=== PATIENT | female | born 1980 | race Caucasian/White ===

== ENCOUNTER 2024-05-14 16:19 | Emergency (ER) | payer OTHER, SELFPAY ==
--- NOTE | ~2024-05-14 | XR_ITS ---
EXAMINATION: XR HAND, RIGHT CLINICAL INFORMATION: Hit hand on wall. COMPARISON: None available. TECHNIQUE: PA, lateral, and oblique views of the right hand. FINDINGS: No fracture. Alignment is anatomic. Joint spaces are maintained. No erosions or soft tissue calcifications. XR/XR hand RT min 3V IMPRESSION: No fracture or dislocation.
[2024-05-14 16:22] VITALS: BP 150/84; PULSE 86; RESP 18; TEMP 36.6; O2SAT 95; BMI 45.3
--- NOTE | 2024-05-14 16:27 | ED.EXTPRO ---
HPI - Extremity Problem General Chief complaint: Extremity Injury, Upper Stated complaint: Hand swelling Time Seen by Provider: 05/14/24 17:04 Source: patient Mode of arrival: ambulatory Limitations: no limitations History of Present Illness ED Provider: Sadia JENSEN Narrative: patient is a 42 old presents emergency department for evaluation traumatic right hand. She reports that she was moving and she accidentally bumped her hand into the wall while she was carrying a heavy box. She developed swelling and bruising over the dorsum of her right hand. She is right-hand dominant. She went to work today at [employer] and was advised to come to the emergency department for evaluation into sure there was nothing broken. She has full range of motion to the wrist and fingers. Denies numbness or tingling. Related Data Allergies Allergy/AdvReac Type Severity Reaction Status Date / Time risperidone [From RISPERDAL] Allergy Unknown VIOLENT Verified 05/14/24 16:24 topiramate [Topiramate] AdvReac Unknown VIOLENT Verified 05/14/24 16:24 Review of Systems Review of Systems: Yes all other systems are reviewed and are negative PENDING SALE TO [facility] Past Medical History Attestation statement: The following information was validated with the patient. Source: old records reviewed Physical Exam Vital Signs: Vital Signs: Last Vital Signs Temp 98 F 05/14/24 16:22 Pulse 86 05/14/24 16:22 Resp 18 05/14/24 16:22 BP 150/84 H 05/14/24 16:22 Pulse Ox 95 05/14/24 16:22 O2 Del Method Room Air 05/14/24 16:22 BMI result Body Mass Index 45.3 Appearance: Alert.?Oriented to person, place and time. No acute distress.?Normal affect. CVS: Heart sounds normal. Normal heart rate and rhythm.? Pulses normal.?? Respiratory: No respiratory distress.? Lung sounds clear to auscultation bilaterally?? Abdomen: Soft and non-tender. Normoactive bowel sounds. Skin: Skin warm and dry.? Normal skin color.? Extremities: Dorsum of right hand with ecchymosis swelling. Full range of motion to the wrist and digits. Neuro: Moves all extremities spontaneously. Sensation intact bilaterally. Ambulates with normal steady gait. Course Course Course Narrative: RME performed by Kay Lane PA-C. Patient is a 43 year old assigned female at presenting to the emergency department with right hand pain after bumping it into a wall. Detailed physical exam and review of systems are deferred to the solar applications development engineer. Imaging ordered. Patient placed back in the waiting room pending room availability and results. Medical Decision Making Medical Decision Making [facility] Narrative: Patient is a 43-year-old female who presents to the emergency department for evaluation of traumatic right hand pain as per HPI. She is right-hand dominant. Has full range of motion present. She does have localized swelling ecchymosis over the dorsum of the hand. No open lesions or active bleeding. XR was obtained and is without evidence of acute fracture dislocation. Symptoms at this time consistent with contusion of the hand. Discussed conservative treatment in addition to acetaminophen / ibuprofen and instructed for outpatient follow-up with primary care provider. Tom bandage was provided and instructed on appropriate usage. Stable for discharge Differential Diagnosis Differential Diagnoses: The differential diagnosis associated with the presentation includes ( see narrative above) Independent Interpretation I performed an independent interpretation of an: Plain X-Ray ( see narrative above) Radiology Impression Discussion of test interpretation with radiology: I have reviewed the radiologist's reading. Radiologist Impression: XR/XR hand RT min 3V IMPRESSION: No fracture or dislocation. External Record Review External record reviewed: Outpatient record Prescription Management I considered prescription management with: Pain Medication Discharge Plan Discharge Clinical Impression: Contusion of hand, right Qualifiers: Encounter type: initial encounter Qualified Code(s): S60.221A - Contusion of right hand, initial encounter Patient Disposition: Home, Self-Care Instructions: How to Use an Elastic Bandage (ED), Contusion in Adults (ED), R.I.C.E. Treatment (ED) Additional Instructions: You can take ibuprofen 200 mg, 3 tablets (600mg) every 6-8 hours as needed for pain, in addition to Tylenol 500 mg, 2 tablets (1,000mg) every 4-6 hours as needed for pain, but not to exceed 3 doses daily (3,000mg).? Referrals: Virgilio Mack MD [Primary Care Provider] - Print Language: Bahamian
[2024-05-14 17:18] VITALS: BP 151/90; PULSE 85; RESP 18; TEMP 36.9; O2SAT 95
--- OUTSIDE RECORDS SUMMARY | 2024-05-14 17:31 | XMS_ITS | Continuity of Care Document ---
Author Organization [facility] Address [address] [place] [address]- Care Team Providers Care Search Director Name Role Phone Frederick CONTRERAS, Virgilio Alexander Primary Care Physician Encounter [facility] Date(s): 12/02/22 - 01/01/23 [facility] [address] [place] [address]- Attending Physician: Nancy Sotelo Admitting Physician: AdmtrNancy Referring Physician: Admtr, Ar8 Allergies, Adverse Reactions, Alerts Substance Reaction Severity Status topiramate Aggressive behavior Active shellfish Anaphylactic reaction to food Active Risperdal 1, 2 Difficulty controlli ng aggression Weight gain Seizures, eye sight Active Other Food Allergy 3 Active Topamax Anger Aggressive behavior psyche Active Geodon Active 1Slept alot 2gained 20 pounds in a month per partner 3patient allergic to clams Immunizations Given and Recorded Vaccine Date Status Refusal Reason pneumococcal 20-valent conjugate vaccine 1 12/24/22 Given influenza virus vaccine, inactivated 2 09/12/22 Gi corrina influenza virus vaccine, inactivated 08/30/21 Give n influenza virus vaccine, inactivated 10/09/20 Give n influenza virus vaccine, inactivated 3 09/15/19 Gi corrina influenza virus vaccine, inactivated 12/02/18 Give n influenza virus vaccine, inactivated 4 08/04/17 Gi corrina SARS-CoV-2 (COVID-19) mRNA BNT-162b2 vac 12/08/21 Recorded SARS-CoV-2 (COVID-19) mRNA BNT-162b2 vac 03/11/21 Recorded SARS-CoV-2 (COVID-19) mRNA BNT-162b2 vac 02/17/21 Recorded tetanus/diphtheria/pertussis, acel(Tdap) 03/13/17 Recorded tetanus-diphtheria toxoids (Td) 08/07/13 Recorded Tetanus Toxoid Vaccine (oldterm) 11/17/01 Given Pneumococcal Vaccine (oldterm) 11/17/01 Given 1Result Comment: [id number] 2Result Comment: [id number] 3Result Comment: [facility]-[id number] 4Result Comment: [08/04/2017] QUAD [id number] [facility] [id number] Medications acarbose 25 mg oral tablet 1 tablet = 25 mg, By Mouth, 3 times a day, # 90 tablet, 11 Refills, Maintenance, 07/31/22 14:13:00 EDT, [facility] #[id number], Partial fill upon patient request if the prescription is for a schedule II opioid drug., 165, cm, 07/31/22 13:42:00 ED... Start Date: 07/31/22 Status: Ordered Ambien 10 mg oral tablet 1 tablet = 10 mg, By Mouth, Daily at bedtime, PRN as needed for insomnia, 0 Refills, Maintenance, 12/02/18 14:26:49 EST, Tablet Start Date: 12/02/18 Status: Ordered Flonase 50 mcg/inh nasal spray 2 sprays, Nares, Both, Daily, # 16 Gm, 2 Refills, Maintenance, 12/02/22 9:32:00 EST, Price, [facility] #[id number], Partial fill upon patient request if the prescription is for a schedule II opioid drug., 2 sprays Nares, Both Daily, 165, cm, 11/17... Start Date: 12/02/22 Status: Ordered fluticasone-salmeterol 500 mcg-50 mcg inhalation powder 1, puffs, Inhalation, Every 12 hours, rinse mouth and throat after use, # 180 each, Refills 11, Tot. Refills 11, Maintenance, 11/20/21 10:58:00 EST, Powder, Route to Pharmacy Electronically, [id number], [facility] #[id number], 165, cm, ... Start Date: 11/20/21 Status: Ordered Imodium A-D 2 mg oral tablet 2 mg, 1, tablet, By Mouth, Daily, # 30 tablet, Refills 5, Tot. Refills 5, Soft Stop, 09/13/22 7:01:00 EDT, Route to Pharmacy Electronically, [facility] #[id number], Partial fill upon patient request if the prescription is for a schedule II opioid... Start Date: 09/13/22 Stop Date: 03/12/23 Status: Ordered Latuda 120 mg oral tablet 1 tablet = 120 mg, By Mouth, Daily at bedtime, # 30 tablet, 0 Refills, Maintenance, 02/27/21 6:58:00 EDT, Tablet, Partial fill upon patient request if the prescription is for a schedule II opioid drug. Start Date: 02/27/21 Status: Ordered lisinopril 10 mg oral tablet 1, tablet, By Mouth, Daily, for 90 days, # 90 tablet, Refills 3, Tot. Refills 3, Physician Stop 09/08/23 7:03:00 EDT, 09/13/22 7:03:00 EDT, Route to Pharmacy Electronically, [facility] #[id number], 165, cm, 09/12/22 11:26:00 EDT, Height, 142.7, k... Start Date: 09/13/22 Stop Date: 09/08/23 Status: Ordered loperamide 2 mg oral tablet 1 tablet = 2 mg, By Mouth, Daily, # 30 tablet, 11 Refills, Maintenance, 09/13/22 7:01:00 EDT, Tablet, [facility] #[id number], Partial fill upon patient request if the prescription is for a schedule II opioid drug., 165, cm, 09/12/22 11:26:00 EDT,... Start Date: 09/13/22 Stop Date: 09/08/23 Status: Ordered omeprazole 20 mg oral enteric coated capsule 1 capsule, By Mouth, 2 times a day, # 60 capsule, 5 Refills, 02/18/22 10:27:00 EDT, [facility] #[id number], 165, cm, 02/11/22 9:38:00 EDT, Height, 142.7, kg, 09/06/21 16:04:00 EDT, Dry Weight Start Date: 02/18/22 Status: Ordered SUMAtriptan 100 mg oral tablet 1 tablet = 100 mg, By Mouth, Daily, PRN for migraine headache, may repeat dose after 2 hours up to a maximum of 2, # 9 tablet, 5 Refills, Acute 06/24/23 5:18:00 EDT, 12/25/22 5:18:00 EST, Tablet, [facility] #[id number], Partial fill upon patient... Start Date: 12/25/22 Stop Date: 06/24/23 Status: Ordered Ventolin HFA 108 mcg/inh inhalation aerosol with adapter 2 puffs, Inhalation, Every 6 hours, # 18 Gm, 5 Refills, Maintenance, 12/12/22 13:09:00 EST, [facility] #[id number], 165, cm, 12/02/22 9:06:00 EST, Height, 142.7, kg, 09/06/21 16:04:00 EDT, Dry Weight Start Date: 12/12/22 Status: Ordered Problem List Condition Confirmation Course Effective Dates Status H ealth Status Informant Allergic rhinitis Confirmed Active Asthma Confirmed Active ADHD (attention deficit hyperactivity disorder) Confirmed Active Costochondritis Confirmed Active Depression;BILPOLAR 1, 2 Confirmed Active Epilepsy 3 Confirmed Active Abdominal cramping Confirmed Active GERD (gastroesophageal reflux disease) Confirmed Active Hypertension Confirmed Active Hypoglycemia Confirmed Active Fecal incontinence Confirmed Active Migraine Confirmed Active Morbidly obese Confirmed Active Nephrolithiasis 4 Confirmed Active DAISY (obstructive sleep apnea) Confirmed Active Plantar fasciitis, bilateral Confirmed Active Rectal bleeding Confirmed Active Severe obesity Confirmed Active Hepatic steatosis Confirmed Active Substance abuse 5, 6 Confirmed Active Tobacco use disorder Confirmed Active Umbilical hernia Confirmed Active 1new psychiatrist 2DR FOOTIT PYSCHE 3neurology pending 4followed by urology 5under psychiatric care 6crack,heroin, cocaine, not intravenous Social History Social History Type Response Smoking Status 5-9 cigarettes (betw een 1/4 to 1/2 pack)/day in last 30 days entered on: 09/06/21 Sex Female Patient Care team information Care Team Personnel Name: Linda Awan RN Position: [facility] RN Member Role: Primary Care Nurse Name: Brionna Pathak RN Position: S RN Member Role: Primary Care Nurse Name: Virgilio Mack MD Position: [facility] Primary Care Physician Member Role: PCP Address: Address: [address] [facility] [place] [address]- [place] Care Team Related Persons Name: KELLY YANG Address: home [address] [place] [address] Name: ANNE-MARIE YANG Address: [place] [address] Name: GRAHAM YANG Address: home [address] [place] [address] Name: DULCE YANG Address: home [address] [facility] [address] [place] [address] Name: DULCE SHEPHERD Address: home [address] [place] [address]
--- OUTSIDE RECORDS SUMMARY | 2024-05-14 17:31 | XMS_ITS | Continuity of Care Document ---
Author Organization [facility] Address [address] [place] [address]- Care Team Providers Care Reheater Helper Name Role Phone Virgilio Mack MD Primary Care Physician [phone] Encounter [facility] Date(s): 06/06/20 - 06/13/20 [facility] [address] [place] [address]- [facility] Attending Physician: Virgilio Mack MD Allergies, Adverse Reactions, Alerts Substance Reaction Severity Status shellfish Active Risperdal 1, 2 Weight gain Seizures, eye sight Active Topamax Anger Aggressive behavior psyche Active Geodon Active Other Food Allergy 3 Active 1Slept alot 2gained 20 pounds in a month per partner 3patient allergic to clams Immunizations Given and Recorded Vaccine Date Status Refusal Reason influenza virus vaccine, inactivated 1 09/15/19 Gi corrina influenza virus vaccine, inactivated 12/02/18 Give n influenza virus vaccine, inactivated 2 08/04/17 Gi corrina tetanus/diphtheria/pertussis, acel(Tdap) 03/13/17 Recorded Tetanus Toxoid Vaccine (oldterm) 11/17/01 Given Pneumococcal Vaccine (oldterm) 11/17/01 Given 1Result Comment: [facility]-[id number] 2Result Comment: [08/04/2017] QUAD [id number] [facility] [id number] Medications acetaminophen 325 mg oral tablet 650 mg, 2, tablet, By Mouth, Every 6 hours, PRN, # 50 tablet, Refills 0, Tot. Refills 0, Maintenance, as needed for pain, 09/12/19 18:57:55 EDT, Print Requisition Start Date: 09/12/19 Status: Ordered albuterol CFC free 90 mcg/inh inhalation aerosol 2, puffs, Inhalation, Every 6 hours, # 8.5 Gm, Refills 2, Tot. Refills 2, Maintenance, 05/05/20 13:06:00 EDT, Route to Pharmacy Electronically, [facility] [id number], [facility] #[id number], 165, cm,01/19/20 14:17:00 EST, Height Start Date: 05/05/20 Status: Ordered Alcohol Pads See Instructions, # 200 each, Refills 3, Tot. Refills 5, Maintenance, Use as directed to test bloodsugar 2-3 times daily, 07/27/18 9:11:05 EDT, Compound Start Date: 07/27/18 Status: Ordered Ambien 10 mg oral tablet 1 tablet = 10 mg, By Mouth, Daily at bedtime, PRN as needed for insomnia, 0 Refills, Maintenance, 12/02/18 14:26:49 EST, Tablet Start Date: 12/02/18 Status: Ordered Ativan 1 mg oral tablet 1 tablet = 1 mg, By Mouth, 0 Refills, Maintenance, 12/02/18 14:28:09 EST Start Date: 12/02/18 Status: Ordered Claritin 10 mg oral tablet 10 mg, 1, tablet, By Mouth, Daily, # 30 tablet, Refills 0, Tot. Refills 0, Maintenance, 01/19/20 14:42:00 EST, Route to Pharmacy Electronically, [facility] #[id number], 165, cm, 01/19/20 14:17:00 EST, Height Start Date: 01/19/20 Status: Ordered Flovent HFA 110 mcg/inh inhalation aerosol 2 puffs, Inhalation, 2 times a day, rinse mouth and throat after use, # 12 Gm, 0 Refills, Maintenance, 11/30/19 8:41:00 EST, Aerosol, [facility], 165, cm, 11/30/19 8:25:00 EST, Height Start Date: 11/30/19 Status: Ordered Freestyle Lite Lancets See Instructions, # 300 each, Refills 0, Tot. Refills 0, Maintenance, Use as directed to test bloodglucose levels when symptomatic for hypoglycemia or hyperglycemia, 2-3x/day as needed, dx E16.2, 07/20/19 15:53:00 EDT, Compound Start Date: 07/20/19 Status: Ordered Freestyle Lite Test Strips See Instructions, # 300 each, Refills 0, Tot. Refills 0, Maintenance, Use as directed to test bloodglucose levels when symptomatic for hypoglycemia or hyperglycemia, 2-3x/day as needed, dx E16.2, 07/20/19 15:52:58 EDT, Compound Start Date: 07/20/19 Status: Ordered Freestyle Lite Test Strips See Instructions, # 100 each, Refills 11, Tot. Refills 11, Maintenance, Test BS twice daily for T2DM, 03/16/20 9:07:00 EDT, Compound, 165, cm, 01/19/20 14:17:00 EST, Height Start Date: 03/16/20 Status: Ordered Glucagon Emergency Kit for Low Blood Sugar 1 mg injection See Instructions, Administer as directed for severe hypoglycemia, # 1 kit, 0 Refills, Maintenance, 07/20/19 15:53:03 EDT Start Date: 07/20/19 Status: Ordered Latuda 80 mg oral tablet 1 tablet = 80 mg, By Mouth, Daily, with food, # 30 tablet, 0 Refills, Maintenance, 10/21/17 17:18:17, Tablet Start Date: 10/21/17 Status: Ordered naratriptan 2.5 mg oral tablet 1 tablet = 2.5 mg, By Mouth, Daily, PRN for migraine headache, may repeat once in 4 hours if needed, # 9 tablet, 4 Refills, Soft Stop, 06/29/19 15:51:05 EDT, Tablet, side effects with sumatriptan, and if this is declined ask insurance which they will... Start Date: 06/29/19 Stop Date: 11/26/19 Status: Ordered omeprazole 20 mg oral delayed release tablet 1 tablet = 20 mg, By Mouth, 2 times a day, # 30 tablet, 1 Refills, Maintenance, 09/15/19 10:49:06 EDT, EC Tablet Start Date: 09/15/19 Status: Ordered pregabalin 25 mg oral capsule 1 capsule = 25 mg, By Mouth, 2 times a day, # 60 capsule, 2 Refills, Maintenance, 06/06/20 9:20:00 EDT, Capsule, [facility] #[id number], 165, cm, 06/06/20 8:52:00 EDT, Height Start Date: 06/06/20 Status: Ordered Splint See Instructions, # 1 units, Maintenance, Splint to right foot overnight (AFO to keep foot in dorsiflexion), 04/27/18 15:03:13 EDT, Compound Start Date: 04/27/18 Status: Ordered Problem List Condition Effective Dates Status Health Status Inform ant ADHD (attention deficit hype ractivity disorder)(Confirmed) Active Costochondritis(Confirmed) Active Depression;BILPOLAR(Confirmed) 1, 2 Active Epigastric pain(Confirmed) Active Epilepsy(Confirmed) 3 Active GERD (gastroesophageal reflu x disease)(Confirmed) Active Hypoglycemia(Confirmed) Active Migraine(Confirmed) Active Nephrolithiasis(Confirmed) 4 Active DAISY (obstructive sleep apnea)(Confirmed) Active Plantar fasciitis, bilateral(Confirmed) Active Right shoulder pain(Confirmed) Active Substance abuse(Confirmed) 5, 6 Active Umbilical hernia(Confirmed) Active 1new psychiatrist 2DR FOOTIT PYSCHE 3neurology pending 4followed by urology 5under psychiatric care 6crack,heroin, cocaine, not intravenous Vital Signs Most recent to oldest [Reference Range]: 1 Height 165 cm (06/06/20 8:52 AM) Social History Social History Type Response Smoking Status Former smoker; Type: Cigarettes; Tobacco use times per day: 1 ppd; Number of years: 22; Total pack years: 22; entered on: 10/21/17 Sex
--- OUTSIDE RECORDS SUMMARY | 2024-05-14 17:31 | XMS_ITS | Continuity of Care Document ---
Author Organization [facility] ter Address [address] [place] [id number]- Care Team Providers Care History Instructor Name Role Phone Frederick CONTRERAS, Virgilio Alexander Primary Care Physician [place] [facility] [place] - 05/22/[address] [address] Discharge Disposition: A-D/C Home Attending Physician: Roberta Perry MD Admitting Physician: Roberta Perry MD Referring Physician: Roberta Perry MD Allergies, Adverse Reactions, Alerts Substance Reaction Severity Status topiramate Aggressive behavior Active shellfish Anaphylactic reaction to food Active Risperdal 1, 2 Difficulty controlli ng aggression Weight gain Seizures, eye sight Active Topamax Anger Aggressive behavior psyche Active Geodon Active Other Food Allergy 3 Active 1Slept alot 2gained 20 pounds in a month per partner 3patient allergic to clams Immunizations Given and Recorded Vaccine Date Status Refusal Reason influenza virus vaccine, inactivated 10/09/20 Give n influenza virus vaccine, inactivated 1 09/15/19 Gi corrina influenza virus vaccine, inactivated 12/02/18 Give n influenza virus vaccine, inactivated 2 08/04/17 Gi corrina tetanus/diphtheria/pertussis, acel(Tdap) 03/13/17 Recorded Tetanus Toxoid Vaccine (oldterm) 11/17/01 Given Pneumococcal Vaccine (oldterm) 11/17/01 Given 1Result Comment: [facility]-[id number] 2Result Comment: [08/04/2017] QUAD [id number] [facility] [id number] Medications acetaminophen-oxyCODONE 325 mg-5 mg oral tablet 1, tablet, By Mouth, Every 6 hours, PRN, not to exceed 4000 mg acetaminophen per day for 7 days, # 28 tablet, Refills 0, Tot. Refills 0, Acute, for pain, 05/29/21 7:16:00 EDT, 05/22/21 7:16:00 EDT, Route to Pharmacy Electronically, [facility]... Start Date: 05/22/21 Stop Date: 05/29/21 Status: Ordered albuterol CFC free 90 mcg/inh inhalation aerosol 2, puffs, Inhalation, Every 6 hours, # 3 each, Refills 3, Tot. Refills 3, Maintenance, 02/27/21 7:09:00 EDT, [facility] to [facility]ically, [id number] #[id number], 165, cm, 02/27/21 6:55:00 EDT, Height Start Date: 02/27/21 Status: Ordered Alcohol Pads See Instructions, # 200 each, Refills 3, Tot. Refills 3, Maintenance, Use as directed to test bloodsugar 2-3 times daily, 02/27/21 7:11:00 EDT, Compound, 165, cm, 02/27/21 6:55:00 EDT, Height Start Date: 02/27/21 Status: Ordered Alcohol Pads See Instructions, # 1 box, Refills 3, Tot. Refills 3, Maintenance, use as directed to test blood sugar 3 times a day, 02/25/19 11:41:22 EDT, Compound Start Date: 02/25/19 Status: Ordered Ambien 10 mg oral tablet 1 tablet = 10 mg, By Mouth, Daily at bedtime, PRN as needed for insomnia, 0 Refills, Maintenance, 12/02/18 14:26:49 EST, Tablet Start Date: 12/02/18 Status: Ordered cyclobenzaprine 10 mg oral tablet 10 mg, 1, tablet, By Mouth, 3 times a day, PRN, # 30 tablet, Refills 0, Tot. Refills 0, Acute 05/26/21 14:34:00 EDT, for spasm, 05/16/21 14:34:00 EDT, Route to Pharmacy Electronically, [facility] #[id number], Partial fill upon patient request if... Start Date: 05/16/21 Stop Date: 05/26/21 Status: Ordered Flovent HFA 110 mcg/inh inhalation aerosol 2 puffs, Inhalation, 2 times a day, # 12 Gm, 0 Refills, Maintenance, 05/16/21 8:30:00 EDT, Aerosol,Partial fill upon patient request if the prescription is for a schedule II opioid drug. Start Date: 05/16/21 Status: Ordered Freestyle Lite Lancets See Instructions, # 300 each, Refills 2, Tot. Refills 2, Maintenance, Use as directed to test bloodglucose levels when symptomatic for hypoglycemia or hyperglycemia, 2-3x/day as needed, dx E16.2, 02/27/21 7:10:00 EDT, Compound, 165, cm, 02/27/21 6:55... Start Date: 02/27/21 Status: Ordered Freestyle Lite Lancets See Instructions, # 1 box, Refills 3, Tot. Refills 3, Maintenance, use as directed to test blood sugar 3 times a day, 02/25/19 11:40:24 EDT, Compound Start Date: 02/25/19 Status: Ordered Freestyle Lite Test Strips See Instructions, # 300 each, Refills 0, Tot. Refills 0, Maintenance, Use as directed to test bloodglucose levels when symptomatic for hypoglycemia or hyperglycemia, 2-3x/day as needed, dx E16.2, 07/20/19 15:52:58 EDT, Compound Start Date: 07/20/19 Status: Ordered Freestyle Lite Test Strips See Instructions, # 2 box, Refills 3, Tot. Refills 3, Maintenance, use as directed to test blood sugar 3 times a day, 02/25/19 11:41:00 EDT, Compound Start Date: 02/25/19 Status: Ordered Freestyle Lite Test Strips See Instructions, # 100 each, Refills 11, Tot. Refills 11, Maintenance, Test BS twice daily for T2DM, 03/27/21 16:34:00 EDT, Compound, 163, cm, 03/27/21 16:11:00 EDT, Height, 140.9, kg, 03/04/21 7:50:00 EDT, Dry Weight Start Date: 03/27/21 Status: Ordered Glucagon Emergency Kit for Low Blood Sugar 1 mg injection See Instructions, Administer as directed for severe hypoglycemia, # 1 kit, 0 Refills, Maintenance, 07/20/19 15:53:03 EDT Start Date: 07/20/19 Status: Ordered Latuda 120 mg oral tablet 1 tablet = 120 mg, By Mouth, Daily at bedtime, # 30 tablet, 0 Refills, Maintenance, 02/27/21 6:58:00 EDT, Tablet, Partial fill upon patient request if the prescription is for a schedule II opioid drug. Start Date: 02/27/21 Status: Ordered naproxen sodium 550 mg oral tablet See Instructions, TAKE 1 TABLET BY MOUTH TWICE DAILY FOR 14 DAYS NEEDED FOR PAIN, # 28 tablet, 0Refills, Acute, [id number], 165.1, cm, 05/09/21 10:12:00 EDT, Height, 140.9, kg, 03/27/21 17:38:00 EDT, Dry Weight Start Date: 05/10/21 Status: Ordered naratriptan 2.5 mg oral tablet 1 tablet = 2.5 mg, By Mouth, Daily, PRN for migraine headache, may repeat once in 4 hours if needed, # 9 tablet, 4 Refills, Soft Stop, 04/06/21 8:40:00 EDT, Tablet, [facility] #[id number], side effects with sumatriptan, and if this is declined as... Start Date: 04/06/21 Stop Date: 09/03/21 Status: Ordered nicotine 21 mg-14 mg-7 mg transdermal film, extended release 1 each, Topically, Daily, for 28 days, # 1 kit, 0 Refills, Acute 06/13/21 8:22:00 EDT, 05/16/21 8:22:00 EDT, [facility] #[id number], Partial fill upon patient request if the prescription is for a schedule II opioid drug., 1 each Topically Daily,x... Start Date: 05/16/21 Stop Date: 06/13/21 Status: Ordered Splint See Instructions, # 1 units, Maintenance, Splint to right foot overnight (AFO to keep foot in dorsiflexion), 04/27/18 15:03:13 EDT, Compound Start Date: 04/27/18 Status: Ordered Problem List Condition Effective Dates Status Health Status Inform ant ADHD (attention deficit hype ractivity disorder)(Confirmed) Active Costochondritis(Confirmed) Active Depression;BILPOLAR(Confirmed) 1, 2 Active Epilepsy(Confirmed) 3 Active GERD (gastroesophageal reflu x disease)(Confirmed) Active Hypoglycemia(Confirmed) Active Migraine(Confirmed) Active Morbidly obese(Confirmed) Active Nephrolithiasis(Confirmed) 4 Active DAISY (obstructive sleep apnea)(Confirmed) Active Plantar fasciitis, bilateral(Confirmed) Active Hepatic steatosis(Confirmed) Active Substance abuse(Confirmed) 5, 6 Active Umbilical hernia(Confirmed) Active 1new psychiatrist 2DR FOOTIT PYSCHE 3neurology pending 4followed by urology 5under psychiatric care 6crack,heroin, cocaine, not intravenous Vital Signs Most recent to oldest [Reference Range]: 1 2 3 Height 165.1 cm (05/22/21 6:27 AM) 165.1 cm (05/09/21 10:12 AM) Weight 143.5 kg (05/22/21 6:27 AM) 143.5 kg (05/09/21 10:12 AM) Oxygen Saturation [94-100 %] 98 % (05/22/21 10:15 AM) 95 % (05/22/21 10:00 AM) 100 % (05/22/21 9:45 AM) Pulse Rate [55-90 bpm] 78 bpm (05/22/21 6:27 AM) Body Mass Index [18.5-24.99] 52.65 *>HHI* (05/22/21 6:27 AM) 52.65 *>HHI* (05/09/21 10:12 AM) Blood Pressure [90-138/55-84 mm Hg] 96/49mm Hg (05/22/21 10:00 AM) 116/84mm Hg (05/22/21 9:45 AM) 117/76mm Hg (05/22/21 9:30 AM) Respiratory Rate [16-30 br/min] 18 br/min (05/22/21 10:00 AM) 19 br/min (05/22/21 9:45 AM) 19 br/min (05/22/21 9:30 AM) Temperature [96.8-100.4 DegF] 97.8 DegF (05/22/21 10:00 AM) 97.0 DegF (05/22/21 9:00 AM) 97.1 DegF (05/22/21 6:27 AM) Mode of Delivery (Oxygen) Room air (05/22/21 10:15 AM) Room air (05/22/21 9:15 AM) Simple face mask (05/22/21 9:00 AM) Blood pressure sites Arm, right (05/22/21 10:00 AM) Arm, right (05/22/21 9:45 AM) Arm, right (05/22/21 9:30 AM) Temperature Route Temporal (05/22/21 10:00 AM) Temporal (05/22/21 9:00 AM) Temporal (05/22/21 6:27 AM) Weight Obtained Via Patient/family state d (05/09/21 10:12 AM) Social History Social History Type Response Smoking Status Former smoker; Type: Cigarettes; Tobacco use times per day: 1 ppd; Number of years: 22; Total pack years: 22; entered on: 10/21/17 Sex
--- OUTSIDE RECORDS SUMMARY | 2024-05-14 17:31 | XMS_ITS | Continuity of Care Document ---
Author Organization [facility] [place] [facility] Address [address] [place] [address]- Care Team Providers Care School Bus Aide Name Role Phone Frederick CONTRERAS, Virgilio Alexander Primary Care Physician Encounter [facility] Date(s): 07/04/23 - 08/03/23 [facility] [address] [place] [address]- Allergies, Adverse Reactions, Alerts Substance Reaction Severity [...] Pneumococcal Vaccine (oldterm) 11/17/01 Given 1Result Comment: [id number] 2Result Comment: [id number] 3Result Comment: [id number] 4Result Comment: [08/04/2017] QUAD [id number] [facility] [id number] Medications acarbose 25 mg oral tablet 1 tablet = 25 mg, By Mouth, 3 times a day, # 90 tablet, 11 Refills, Maintenance, 07/31/22 14:13:00 EDT, [facility] #[id number], Partial fill upon patient request if the prescription is for a schedule II opioid drug., 165, cm, 07/31/22 13:42:00 ED... Start Date: 07/31/22 Status: Ordered Ambien 10 mg oral tablet 1 tablet = 10 mg, By Mouth, Daily at bedtime, PRN as needed for insomnia, 0 Refills, Maintenance, 12/02/18 14:26:49 EST, Tablet Start Date: 12/02/18 Status: Ordered azelastine 137 mcg/inh (0.1%) nasal spray 2 sprays, Nares, Both, Daily, PRN Other Allergies, # 30 mL, 0 Refills, Maintenance, 02/20/23 15:08:00 EDT, [place], [facility] #[id number], Partial fill upon patient request if the prescription is for a schedule II opioid drug., 2 sprays Nares, B... Start Date: 02/20/23 Status: Ordered fluticasone-salmeterol 500 mcg-50 mcg inhalation powder 1, puffs, Inhalation, Every 12 hours, rinse mouth and throat after use, # 180 each, Refills 11, Tot. Refills 11, Maintenance, 11/20/21 10:58:00 EST, Powder, Route to Pharmacy Electronically, [id number], [facility] #[id number], 165, cm, 0... Start Date: 11/20/21 Status: Ordered Imodium A-D 2 mg oral tablet 2 mg, 1, tablet, By Mouth, Daily, # 30 tablet, Refills 5, Tot. Refills 5, Soft Stop, 09/13/22 7:01:00 EDT, Route to Pharmacy Electronically, [facility] #[id number], Partial fill upon patient request if the [...] 09/13/22 7:03:00 EDT, Route to Pharmacy Electronically, [facility] #[id number], 165, cm, 09/12/22 11:26:00 EDT, Height, 142.7, k... Start Date: 09/13/22 Stop Date: 09/08/23 Status: Ordered loperamide 2 mg oral tablet 1 tablet = 2 mg, By Mouth, Daily, 90 day supply, # 90 tablet, 3 Refills, Maintenance, 06/09/23 8:11:00 EDT, Tablet, [facility] #[id number], Partial fill upon patient request if the prescription is for a schedule II opioid drug., 165, cm, 05/07/23... Start Date: 06/09/23 Status: Ordered methylphenidate 18 mg oral tablet, extended release 0 Refills, Maintenance, 07/01/23 14:02:00 EDT, Partial fill upon patient request if the prescription is for a schedule II opioid drug. Start Date: 07/01/23 Status: Ordered omeprazole 20 mg oral enteric coated capsule 1 capsule, By Mouth, 2 times a day, # 60 capsule, 5 Refills, 02/18/22 10:27:00 EDT, [facility] #[id number], 165, cm, 02/11/22 9:38:00 EDT, Height, 142.7, kg, 09/06/21 16:04:00 EDT, Dry Weight Start Date: 02/18/22 Status: Ordered Problem List Condition Confirmation Course Effective Dates Status H ealth Status Informant Allergic rhinitis Confirmed Active Asthma Confirmed Active ADHD (attention deficit hyperactivity disorder) Confirmed Active BMI 50.0-59.9, adult Confirmed Active Costochondritis Confirmed Active Depression;BILPOLAR 1, 2 Confirmed Active Epilepsy 3 Confirmed Active Abdominal cramping Confirmed Active GERD (gastroesophageal reflux disease) Confirmed Active Hypertension Confirmed Active Hypoglycemia Confirmed Active Fecal incontinence Confirmed Active Migraine Confirmed Active Depression, major, single episode, moderate Confirmed Active Morbidly obese Confirmed Active Nephrolithiasis 4 Confirmed Active DAISY (obstructive sleep apnea) Confirmed Active Overactive bladder Confirmed Active Plantar fasciitis, bilateral Confirmed Active Rectal bleeding Confirmed Active Severe obesity Confirmed Active Sore throat Confirmed Active Hepatic steatosis Confirmed Active Substance abuse 5, 6 Confirmed Active Tobacco use disorder Confirmed Active Umbilical hernia Confirmed Active Mixed Urinary incontinence Confirmed Active 1new psychiatrist 2DR FOOTIT PYSCHE 3neurology pending 4followed by urology 5under psychiatric care 6crack,heroin, cocaine, not intravenous Social History Social History Type Response Smoking Status 5-9 cigarettes (betw een 1/4 to 1/2 pack)/day in last 30 days entered on: 09/06/21 Sex Female Patient Care team information Care Team Personnel Name: Linda Awan RN Position: [facility] RN Member Role: Primary Care Nurse Name: Brionna Pathak RN Position: S RN Member Role: Primary Care Nurse Name: Virgilio Mack MD Position: [facility] Physician - Primary Care Member Role: PCP Address: Address: [address] [place] [address]- Care Team Related Persons Name: KELLY YANG Address: home [address] [place] [address] Name: ANNE-MARIE YNAG Address: [place] [address] Name: GRAHAM YANG Address: home [address] [place] [address] Name: DULCE YANG Address: home [address] [place] [address] Name: DULCE SHEPHERD Address: home [address] [place] [address]
--- OUTSIDE RECORDS SUMMARY | 2024-05-14 17:31 | XMS_ITS | Continuity of Care Document ---
Author Organization [facility] Address [address] [place] [address] [place] [address]- Care Team Providers Care Geology Professor Name Role Phone Frederick CONTRERAS, Virgilio Alexander Primary Care Physician [place] [facility] [place] 02/25/24 [facility] [address] [address] Attending Physician: Admkisha, Yovani8 Admitting Physician: Admtr, Ar8 Referring Physician: Admtr, Ar8 Allergies, Adverse Reactions, Alerts Substance Reaction Severity Status topiramate Aggressive behavior Active shellfish Anaphylactic reaction to food Active Risperdal 1, 2 Difficulty controlli ng aggression Weight gain Seizures, eye sight Active Topamax Anger Aggressive behavior psyche Active Geodon violent/aggressive Active Other Food Allergy 3 CLAMS Active 1Slept alot 2gained 20 pounds in a month per partner 3patient allergic to clams Immunizations Given and Recorded Vaccine Date Status Refusal Reason influenza virus vaccine, inactivated 1 08/13/23 Gi corrina influenza virus vaccine, inactivated 2 09/12/22 Gi corrina influenza virus vaccine, inactivated 08/30/21 Give n influenza virus vaccine, inactivated 10/09/20 Give n influenza virus vaccine, inactivated 3 09/15/19 Gi corrina influenza virus vaccine, inactivated 12/02/18 Give n influenza virus vaccine, inactivated 4 08/04/17 Gi corrina pneumococcal 20-valent conjugate vaccine 5 12/24/22 Given [id number] 12y+ bivalent booster vax 11/01/22 Recorded SARS-CoV-2 (COVID-19) mRNA BNT-162b2 vac 12/08/21 Recorded SARS-CoV-2 (COVID-19) mRNA BNT-162b2 vac 03/11/21 Recorded SARS-CoV-2 (COVID-19) mRNA BNT-162b2 vac 02/17/21 Recorded tetanus/diphtheria/pertussis, acel(Tdap) 03/13/17 Recorded tetanus-diphtheria toxoids (Td) 08/07/13 Recorded Tetanus Toxoid Vaccine (oldterm) 11/17/01 Given Pneumococcal Vaccine (oldterm) 11/17/01 Given 1Result Comment: [id number] 2Result Comment: [id number] 3Result Comment: [id number] 4Result Comment: [08/04/2017] QUAD [id number] [facility] 96248-332-90 5Result Comment: [id number] Medications Ambien 10 mg oral tablet 1 tablet = 10 mg, By Mouth, Daily at bedtime, PRN as needed for insomnia, 0 Refills, Maintenance, 12/02/18 14:26:49 EST, Tablet Start Date: 12/02/18 Status: Ordered azelastine 137 mcg/inh (0.1%) nasal spray 2 sprays, Nares, Both, Daily, PRN Other Allergies, # 30 mL, 0 Refills, Maintenance, 02/20/23 15:08:00 EDT, [place], [facility] #[id number], Partial fill upon patient request if the prescription is for a schedule II opioid drug., 2 sprays Nares, B... Start Date: 02/20/23 Status: Ordered fluticasone-salmeterol 500 mcg-50 mcg inhalation powder 1, puffs, Inhalation, Every 12 hours, rinse mouth and throat after use, # 180 each, Refills 11, Tot. Refills 11, Maintenance, 11/20/21 10:58:00 EST, Powder, Route to Pharmacy Electronically, NCPDP_[id number], [facility] #[id number], 165, cm, ... Start Date: 11/20/21 Status: Ordered Imodium A-D 2 mg oral tablet 2 mg, 1, tablet, By Mouth, Daily, # 30 tablet, Refills 5, Tot. Refills 5, Soft Stop, 09/13/22 7:01:00 EDT, Route to Pharmacy Electronically, [facility] #[id number], Partial fill upon patient request if the [...] oral tablet 1, tablet, By Mouth, Daily, # 90 tablet, Refills 3, Maintenance, 11/06/23 12:57:00 EST, Route to Pharmacy Electronically, [facility] #[id number], 165, cm, 10/30/23 14:14:00 EST, Height, 139.3, kg, 09/10/23 11:57:00 EDT, Dry Weight Start Date: 11/06/23 Status: Ordered loperamide 2 mg oral tablet 1 tablet = 2 mg, By Mouth, Daily, 90 day supply, # 90 tablet, 3 Refills, Maintenance, 06/09/23 8:11:00 EDT, Tablet, [facility] #[id number], Partial fill upon patient request if the prescription is for a schedule II opioid drug., 165, cm, 05/07/23... Start Date: 06/09/23 Status: Ordered meloxicam 15 mg oral tablet 1 tablet = 15 mg, By Mouth, Daily, # 30 tablet, 0 Refills, Maintenance, 10/30/23 14:26:00 EST, [facility] #[id number], Partial fill upon patient request if the prescription is for a schedule II opioid drug., 165, cm, 10/30/23 14:14:00 EST, Height... Start Date: 10/30/23 Status: Ordered methylphenidate 18 mg oral tablet, extended release By Mouth, Daily in AM, 0 Refills, Maintenance, 07/01/23 14:02:00 EDT, Partial fill upon patient request if the prescription is for a schedule II opioid drug. Start Date: 07/01/23 Status: Ordered Myrbetriq 25 mg oral tablet, extended release 1 tablet = 25 mg, By Mouth, Daily, 0 Refills, Maintenance, 08/26/23 12:56:00 EDT, Partial fill uponpatient request if the prescription is for a schedule II opioid drug. Start Date: 08/26/23 Status: Ordered omeprazole 20 mg oral enteric coated capsule 1 capsule, By Mouth, 2 times a day, # 60 capsule, 5 Refills, 02/18/22 10:27:00 EDT, [facility] #[id number], 165, cm, 02/11/22 9:38:00 EDT, Height, 142.7, kg, 09/06/21 16:04:00 EDT, Dry Weight Start Date: 02/18/22 Status: Ordered OXcarbazepine 150 mg oral tablet 150 mg, 1, tablet, By Mouth, Daily at bedtime, Refills 0, Maintenance, 08/26/23 12:59:00 EDT, Partial fill upon patient request if the prescription is for a schedule II opioid drug. Start Date: 08/26/23 Status: Ordered tiZANidine 2 mg oral tablet 2 mg, 1, tablet, By Mouth, 2 times a day, # 30 tablet, Refills 0, Tot. Refills 0, Maintenance, 10/30/23 14:28:00 EST, Route to Pharmacy Electronically, [facility] #[id number], Partial fill upon patient request if the prescription is for a schedul... Start Date: 10/30/23 Status: Ordered Problem List Condition Confirmation Course Effective Dates Status H ealth Status Informant Allergic rhinitis Confirmed Active Asthma Confirmed Active ADHD (attention deficit hyperactivity disorder) Confirmed Active BMI 50.0-59.9, adult Confirmed Active Costochondritis Confirmed Active Depression;BILPOLAR 1, 2 Confirmed Active Epilepsy 3 Confirmed Active GERD (gastroesophageal reflux disease) Confirmed Active Hypertension Confirmed Active Hypoglycemia Confirmed Active Fecal incontinence Confirmed Active Migraine Confirmed Active Depression, major, single episode, moderate Confirmed Active Nephrolithiasis 4 Confirmed Active DAISY [...] 1/4 to 1/2 pack)/day in last 30 days; Tobacco use times per day: 0.5 PPD; entered on: 08/13/23 Sex Female Patient Care team information Care Team Personnel Name: Linda Awan RN Position: [facility] SN RN Member Role: Primary Care Nurse Name: Brionna Pathak RN Position: [facility] RN Member Role: Primary Care Nurse Name: Virgilio Mack MD Position: [facility] Physician - Primary Care Member Role: PCP Address: Address: [address] [place] [address]- [place] Care Team Related Persons Name: KELLY YANG Address: home [address] [place] [address] Name: ANNE-MARIE YANG Address: [place] [address] Name: GRAHAM YANG Address: [address] [place] [address] Name: DULCE YANG Address: home [address] [facility] [address] [place] [address] Name: DULCE SHEPHERD Address: home [address] [place] [address]
--- OUTSIDE RECORDS SUMMARY | 2024-05-14 17:31 | XMS_ITS | Continuity of Care Document ---
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 Name Role Phone Frederick CONTRERAS, Virgilio Alexander Primary Care Physician [place] [facility] Date(s): 03/28/21 - 04/27/21 [facility] Adult [address] [place] [address]- Allergies, Adverse Reactions, Alerts Substance Reaction Severity [...] Pneumococcal Vaccine (oldterm) 11/17/01 Given 1Result Comment: [facility]-[id number] 2Result Comment: [08/04/2017] QUAD [id number] [facility] [id number] Medications acetaminophen 325 mg oral tablet 650 [...] 02/27/21 7:09:00 EDT, Route to Pharmacy Electronically, [facility]ID- [id number][id number], 165, cm, 02/27/21 6:55:00 EDT, Height Start [...] EST, Tablet Start Date: 12/02/18 Status: Ordered control control, Refills 0, Maintenance, 02/27/21 6:59:00 EDT, Supply Start Date: 02/27/21 Status: Ordered Concerta 18 mg oral tablet, extended release 1 tablet = 18 mg, By Mouth, Daily in AM, # 30 tablet, 0 Refills, Maintenance, 02/27/21 6:58:00 EDT,ER Tablet, Partial fill upon patient request if the prescription is for a schedule II opioid drug. Start Date: 02/27/21 Status: Ordered Freestyle Lite [...] 1 tablet = 120 mg, By Mouth, Daily, # 30 tablet, 0 Refills, Maintenance, 02/27/21 6:58:00 EDT, Tablet, Partial fill upon patient request if the prescription is for a schedule II opioid drug. Start Date: 02/27/21 Status: Ordered lidocaine 5% topical film 1 patch, Topically, Daily, PRN Pain , Mild, remove after 12 hours, # 30 patch, 0 Refills, Maintenance, 04/13/21 12:10:00 EDT, [place], [facility] #[id number], Partial fill upon patient request if the prescription is for a schedule II opioid drug., 1... Start Date: 04/13/21 Status: Ordered naratriptan 2.5 mg oral tablet 1 tablet = 2.5 mg, By Mouth, Daily, PRN for migraine headache, may repeat once in 4 hours if needed, # 9 tablet, 4 Refills, Soft Stop, 04/06/21 8:40:00 EDT, [facility] #[id number], side effects with sumatriptan, and if this is declined as... Start Date: 04/06/21 Stop Date: 09/03/21 Status: Ordered Nicorette 4 mg oral transmucosal gum 1 each = 4 mg, Chew, Every 2 hours, PRN as needed for smoking cessation, for 8 week(s), # 40 each, 0 Refills, Acute 05/11/21 10:57:00 EDT, 03/16/21 10:57:00 EDT, [facility] #[id number], Partial fill upon patient request if the prescription i... Start Date: 03/16/21 Stop Date: 05/11/21 Status: Ordered Splint See Instructions, # 1 [...]
--- OUTSIDE RECORDS SUMMARY | 2024-05-14 17:31 | XMS_ITS | Continuity of Care Document ---
Author Organization [facility] Address [address] [place] [address]- Care Team Providers Care Marketing Proposal Coordinator Name Role Phone Frederick CONTRERAS, Virgilio Alexander Primary Care Physician [place] [facility] [place] [facility] [place]): [place] - 07/06/21 [facility] [address] [place] [address] Attending Physician: Tova Awan MD Referring Physician: Virgilio Mack MD Allergies, Adverse Reactions, Alerts Substance Reaction Severity Status topiramate Aggressive behavior Active shellfish Anaphylactic reaction to food Active Risperdal 1, 2 Difficulty controlli ng aggression Weight gain Seizures, eye sight Active Topamax Anger Aggressive behavior psyche Active Other Food Allergy 3 Active Geodon Active 1Slept alot 2gained 20 pounds in a month per partner 3patient allergic to clams Immunizations Given and Recorded Vaccine Date Status Refusal Reason SARS-CoV-2 (COVID-19) mRNA BNT-162b2 vac 03/11/21 Recorded SARS-CoV-2 (COVID-19) mRNA BNT-162b2 vac 02/17/21 Recorded influenza virus vaccine, inactivated 10/09/20 Give n influenza virus vaccine, inactivated 1 09/15/19 Gi corrina influenza virus vaccine, inactivated 12/02/18 Give n influenza virus vaccine, inactivated 2 08/04/17 Gi corrina tetanus/diphtheria/pertussis, acel(Tdap) 03/13/17 Recorded tetanus-diphtheria toxoids (Td) 08/07/13 Recorded Tetanus Toxoid Vaccine (oldterm) 11/17/01 Given Pneumococcal Vaccine (oldterm) 11/17/01 Given 1Result Comment: [facility]-[id number] 2Result Comment: [08/04/2017] QUAD [id number] [facility] [id number] Medications albuterol CFC free 90 mcg/inh inhalation aerosol 2, puffs, Inhalation, Every 6 hours, # 3 each, Refills 3, Tot. Refills 3, Maintenance, 02/27/21 7:09:00 EDT, Route to Pharmacy Electronically, NCP_ID- [id number], [facility] #[id number], 165, cm, 02/27/21 6:55:00 EDT, Height Start [...] EST, Tablet Start Date: 12/02/18 Status: Ordered Flovent HFA 110 mcg/inh inhalation [...] drug. Start Date: 02/27/21 Status: Ordered lisinopril 5 mg oral tablet 5 mg, 1, tablet, By Mouth, Daily, # 30 tablet, Refills 2, Tot. Refills 2, Maintenance, 06/26/21 9:29:00 EDT, Route to Pharmacy Electronically, [facility] #[id number], Partial fill upon patient request if the prescription is for a schedule II opio... Start Date: 06/26/21 Status: Ordered naproxen sodium 550 mg oral tablet 1 tablet, By Mouth, 2 times a day, PRN NEEDED FOR PAIN, for 14 days, # 28 tablet, 0 Refills, Acute 07/09/21 16:31:00 EDT, 06/25/21 16:31:00 EDT, [facility] #[id number], 165.1, cm, 06/22/21 15:16:00 EDT, Height, 140.9, kg, 03/27/21 17:38:00 EDT... Start Date: 06/25/21 Stop Date: 07/09/21 Status: Ordered naratriptan 2.5 mg oral tablet 1 tablet = 2.5 mg, By Mouth, Daily, PRN for migraine headache, may repeat once in 4 hours if needed, # 9 tablet, 4 Refills, Soft Stop, 04/06/21 8:40:00 EDT, Tablet, [facility] #[id number], side effects with sumatriptan, and if this is declined as... Start Date: 04/06/21 Stop Date: 09/03/21 Status: Ordered omeprazole 20 mg oral enteric coated capsule 1 capsule = 20 mg, By Mouth, 2 times a day, # 60 capsule, 1 Refills, Maintenance, 06/25/21 11:09:00EDT, [facility] #[id number], Partial fill upon patient request if the prescription is for a schedule II opioid drug., 165.1, cm, 06/22/21 15:16:00... Start Date: 06/25/21 Status: Ordered Splint See Instructions, # 1 [...] pack years: 22; entered on: 10/21/17 Sex Female
--- OUTSIDE RECORDS SUMMARY | 2024-05-14 17:31 | XMS_ITS | Continuity of Care Document ---
Author Organization [facility] Address [address] [place] [address]- Care Team Providers Care Print Graphic Designer Name Role Phone Frederick CONTRERAS, Virgilio Alexander Primary Care Physician En[place] [facility] [place] Date(s): 05/10/20 - 06/09/20 [facility] [address] [address]- [facility] Attending Physician: Nancy Sotelo Admitting Physician: AdmNancy beard Referring Physician: AdmtrNancy Allergies, Adverse Reactions, Alerts Substance Reaction Severity [...] Pneumococcal Vaccine (oldterm) 11/17/01 Given 1Result Comment: [facility]-[id number] 2Result Comment: [08/04/2017] QUAD [id number] [facility] [id number] Medications acetaminophen 325 mg oral tablet 650 [...] 05/05/20 13:06:00 EDT, [id number], 165, cm,01/19/20 14:17:00 EST, Height Start Date: [...] 01/19/20 14:42:00 EST, Route to Pharmacy Electronically, [facility] #[id number], 165, cm, 01/19/20 14:17:00 EST, Height Start Date: 01/19/20 Status: Ordered Flovent HFA 110 mcg/inh inhalation aerosol 2 puffs, Inhalation, 2 times a day, rinse mouth and throat after use, # 12 Gm, 0 Refills, Maintenance, 11/30/19 8:41:00 EST, Aerosol, [facility], 165, cm, 11/30/19 8:25:00 EST, Height [...] 2 Refills, Maintenance, 06/06/20 9:20:00 EDT, Capsule, [facility] #[id number], 165, cm, 06/06/20 8:52:00 EDT, Height Start [...]
--- OUTSIDE RECORDS SUMMARY | 2024-05-14 17:31 | XMS_ITS | Continuity of Care Document ---
Author Organization [facility] Address [address] [place] [address]- Care Team Providers Care Middle School Tutor Name Role Phone Frederick CONTRERAS, Virgilio Alexander Primary Care Physician [place] [facility] [place] 03/27/21 - 04/03/21 [facility] [address] [place], [place] [address] Attending Physician: Oli Javier MD Referring Physician: Virgilio Mack MD Allergies, [...] Pneumococcal Vaccine (oldterm) 11/17/01 Given 1Result Comment: [facility]-[id number] 2Result Comment: [08/04/2017] QUAD [id number] [facility] [id number] Medications acetaminophen 325 mg oral tablet 650 [...] 02/27/21 7:09:00 EDT, [facility] to [facility] Electronically[id number], 165, cm, 02/27/21 6:55:00 EDT, Height Start [...] opioid drug. Start Date: 02/27/21 Status: Ordered Flovent HFA 110 mcg/inh inhalation aerosol 2 puffs, Inhalation, 2 times a day, rinse mouth and throat after use, # 12 Gm, 2 Refills, Maintenance, 03/27/21 17:04:00 EDT, [id number], Partial fill upon patient request if the prescription is for a schedule II opioid drug.... Start Date: 03/27/21 Status: Ordered Freestyle Lite Lancets See Instructions, [...] 15:53:03 EDT Start Date: 07/20/19 Status: Ordered Keflex monohydrate 500 mg oral capsule 1 capsule = 500 mg, By Mouth, Every 8 hours, for 10 days, # 30 capsule, 0 Refills, Acute 04/06/21 18:04:00 EDT, 03/27/21 18:04:00 EDT, Capsule, [facility] #[id number], Partial fill upon patient request if the prescription is for a schedule II opi... Start Date: 03/27/21 Stop Date: 04/06/21 Status: Ordered Latuda 120 mg oral tablet 1 tablet = 120 mg, By Mouth, Daily, # 30 tablet, 0 Refills, Maintenance, 02/27/21 6:58:00 EDT, Tablet, Partial fill upon patient request if the prescription is for a schedule II opioid drug. Start Date: 02/27/21 Status: Ordered naratriptan 2.5 mg oral tablet 1 tablet = 2.5 mg, By Mouth, Daily, PRN for migraine headache, may repeat once in 4 hours if needed, # 9 tablet, 4 Refills, Soft Stop, 06/29/19 15:51:05 EDT, Tablet, side effects with sumatriptan, and if this is declined ask insurance which they will... Start Date: 06/29/19 Stop Date: 11/26/19 Status: Ordered Nicorette 4 mg oral transmucosal gum 1 each = 4 mg, Chew, Every 2 hours, PRN as needed for smoking cessation, for 8 week(s), # 40 each, 0 Refills, Acute 05/11/21 10:57:00 EDT, 03/16/21 10:57:00 EDT, Gum, [facility] #[id number], Partial fill upon patient request if the [...] recent to oldest [Reference Range]: 1 2 Height 163 cm (03/27/21 5:38 PM) 163 cm (03/27/21 5:33 PM) Oxygen Saturation [94-100 %] 100 % (03/27/21 5:33 PM) Pulse Rate [55-90 bpm] 84 bpm (03/27/21 5:33 PM) Blood Pressure [90-138/55-84 mm Hg] 136/ 96mm Hg (03/27/21 5:33 PM) Respiratory Rate [16-30 br/min] 18 br/mi n (03/27/21 5:33 PM) Temperature [96.8-100.4 DegF] 97.5 DegF (03/27/21 5:33 PM) Mode of Delivery (Oxygen) Room air (03/27/21 5:33 PM) Blood pressure sites Arm, right (03/27/21 5:33 PM) Temperature Route Temporal (03/27/21 5:33 PM) Dry Weight 140.9 kg (03/27/21 5:38 PM) Social History Social History Type Response Smoking Status Former smoker; Type: Cigarettes; Tobacco use times per day: 1 ppd; Number of years: 22; Total pack years: 22; entered on: 10/21/17 Sex
--- OUTSIDE RECORDS SUMMARY | 2024-05-14 17:32 | XMS_ITS | Continuity of Care Document ---
Author Organization [facility] Address [address] [place] [address]- Care Team Providers Care Keypunch Operators Supervisor Name Role Phone Frederick CONTRERAS, Virgilio Alexander Primary Care Physician [place] [facility] [place] [facility] [address] [place] [address]- Encounter Diagnosis Costochondritis(Discharge Diagnosis) - 06/19/21 Allergies, Adverse Reactions, Alerts Substance Reaction Severity [...] Vaccine (oldterm) 11/17/01 Given Pneumococcal Vaccine (oldterm) 1/1/02 Given 1Result Comment: [id number] 2Result Comment: [08/04/2017] QUAD [id number] [facility] [id number] Medications albuterol CFC free 90 mcg/inh inhalation aerosol 2, puffs, Inhalation, Every 6 hours, # 3 each, Refills 3, Tot. Refills 3, Maintenance, 02/27/21 7:09:00 EDT, [facility]ically[email or web address][id number], 165, cm, 02/27/21 6:55:00 EDT, Height Start [...] EST, Tablet Start Date: 12/02/18 Status: Ordered Breo Ellipta 100 mcg-25 mcg/inh inhalation powder 1 puffs, Inhalation, Daily, # 30 each, 3 Refills, Maintenance, 07/18/21 11:55:00 EDT, Powder, [email or web address] #[id number], Partial fill upon patient request if the prescription is for a schedule II opioid drug., 1 puffs Inhalation Daily, 165.1, cm, 08... Start Date: 07/18/21 Status: Ordered Freestyle Lite Lancets See Instructions, [...] 06/26/21 9:29:00 EDT, Route to Pharmacy Electronically, [email or web address] #[id number], Partial fill upon patient request if the prescription is for a schedule II opio... Start Date: 06/26/21 Status: Ordered naratriptan 2.5 mg oral tablet 1 tablet = 2.5 mg, By Mouth, Daily, PRN for migraine headache, may repeat once in 4 hours if needed, # 9 tablet, 4 Refills, Soft Stop, 04/06/21 8:40:00 EDT, Tablet, [facility] #[id number], side effects with sumatriptan, and if this is declined as... Start Date: 04/06/21 Stop Date: 09/03/21 Status: Ordered omeprazole 20 mg oral enteric coated capsule 1 capsule = 20 mg, By Mouth, 2 times a day, # 60 capsule, 1 Refills, Maintenance, 06/25/21 11:09:00EDT, [email or web address] #[id number], Partial fill upon patient request if the [...] 5under psychiatric care 6crack,heroin, cocaine, not intravenous Diagnosis Diagnosis Type Effective Dates Health Status Cl inical Service Informant Costochondritis Discharge Diagnosis 06/19/21 Social History Social History Type Response Smoking Status Former smoker; Type: Cigarettes; Tobacco use times per day: 1 ppd; Number of years: 22; Total pack years: 22; entered on: 10/21/17 Sex Female
--- OUTSIDE RECORDS SUMMARY | 2024-05-14 17:32 | XMS_ITS | Continuity of Care Document ---
Author Organization [facility] Address [address] [place] [address]- Care Team Providers Care Brick Burner Name Role Phone Virgilio Mack MD Primary Care Physician [phone] [place] [facility] [place] - 12/03/23 [facility] [address] [place] [address]- Attending Physician: Virgilio Mack MD Allergies, Adverse Reactions, Alerts Substance Reaction Severity Status topiramate Aggressive behavior Active shellfish Anaphylactic reaction to food Active Risperdal 1, 2 Difficulty controlli ng aggression Weight gain Seizures, eye sight Active Other Food Allergy 3 CLAMS Active Topamax Anger Aggressive behavior psyche Active Geodon violent/aggressive Active 1Slept alot 2gained 20 pounds in [...] pneumococcal 20-valent conjugate vaccine 5 12/24/22 Given [id number] 12y+ bivalent booster vax 11/01/22 Recorded SARS-CoV-2 (COVID-19) mRNA BNT-162b2 vac 12/08/21 Recorded SARS-CoV-2 (COVID-19) mRNA BNT-162b2 vac 03/11/21 Recorded SARS-CoV-2 (COVID-19) mRNA BNT-162b2 vac 02/17/21 Recorded tetanus/diphtheria/pertussis, acel(Tdap) 03/13/17 Recorded tetanus-diphtheria toxoids (Td) 08/07/13 Recorded Tetanus Toxoid Vaccine (oldterm) 11/17/01 Given Pneumococcal Vaccine (oldterm) 11/17/01 Given 1Result Comment: [id number] 2Result Comment: [id number] 3Result Comment: [facility]-[id number] 4Result Comment: [08/04/2017] QUAD [id number] [facility] [id number] 5Result Comment: [id number] Medications Ambien 10 mg oral tablet 1 tablet = 10 mg, By Mouth, Daily at bedtime, PRN as needed for insomnia, 0 Refills, Maintenance, 12/02/18 14:26:49 EST, Tablet Start Date: 12/02/18 Status: Ordered azelastine 137 mcg/inh (0.1%) nasal spray 2 sprays, Nares, Both, Daily, PRN Other Allergies, # 30 mL, 0 Refills, Maintenance, 02/20/23 15:08:00 EDT, [place], [facility] #[id number], Partial fill upon patient request if the prescription is for a schedule II opioid drug., 2 sprays Nares, B... Start Date: 02/20/23 Status: Ordered fluticasone-salmeterol 500 mcg-50 mcg inhalation powder 1, puffs, Inhalation, Every 12 hours, rinse mouth and throat after use, # 180 each, Refills 11, Tot. Refills 11, Maintenance, 11/20/21 10:58:00 EST, Powder, Route to Pharmacy Electronically, [facility]CPDP_ID-[id number], [facility] #[id number], 165, cm, 0... Start Date: 11/20/21 Status: Ordered Imodium A-D 2 mg oral tablet 2 mg, 1, tablet, By Mouth, Daily, # 30 tablet, Refills 5, Tot. Refills 5, Soft Stop, 09/13/22 7:01:00 EDT, Route to Pharmacy Electronically, [facility] #[id number], Partial fill upon patient request if the [...] 11/06/23 12:57:00 EST, Route to Pharmacy Electronically, [facility] #[id number], 165, cm, 10/30/23 14:14:00 EST, Height, 139.3, kg, 09/10/23 11:57:00 EDT, Dry Weight Start Date: 11/06/23 Status: Ordered loperamide 2 mg oral tablet 1 tablet = 2 mg, By Mouth, Daily, 90 day supply, # 90 tablet, 3 Refills, Maintenance, 06/09/23 8:11:00 EDT, Tablet, [facility] #[id number], Partial fill upon patient request if the prescription is for a schedule II opioid drug., 165, cm, 05/07/23... Start Date: 06/09/23 Status: Ordered meloxicam 15 mg oral tablet 1 tablet = 15 mg, By Mouth, Daily, # 30 tablet, 0 Refills, Maintenance, 10/30/23 14:26:00 EST, [facility] #[id number], Partial fill upon patient request if the [...] 60 capsule, 5 Refills, 02/18/22 10:27:00 EDT, [facility] #[id number], 165, cm, 02/11/22 9:38:00 EDT, Height, 142.7, [...] 10/30/23 14:28:00 EST, Route to Pharmacy Electronically, [facility] #[id number], Partial fill upon patient request if the [...] Response Smoking Status 5-9 cigarettes (betw een 4 to 1/2 pack)/day in last 30 days; Tobacco use times per day: 0.5 PPD; entered on: 08/13/23 Sex Female Patient Care team information Care Team Personnel Name: Lv RNLinda Position: [facility] SN RN Member Role: Primary Care Nurse Name: Brionna Pathak RN Position: [facility] ED RN W/OE and Tasks Member Role: Primary Care Nurse Name: Virgilio Mack MD Position: [facility] Physician - Primary Care Member Role: PCP Address: Address: [address] [place] [address]- [place] Care Team Related Persons Name: KELLY YANG Address: home [address] [place] [id number] Name: ANNE-MARIE YANG Address: [place] [address] Name: GRAHAM YANG Address: home [address] [place] [address] Name: DULCE YANG Address: home [address] [place] [address] Name: DULCE SHEPHERD Address: home [address] [place] [address]
--- OUTSIDE RECORDS SUMMARY | 2024-05-14 17:32 | XMS_ITS | Continuity of Care Document ---
Author Organization [facility] Address [address] [place] [address]- Care Team Providers Care Drilling Machine Operator Name Role Phone Frederick CONTRERAS, Virgilio Alexander Primary Care Physician [phone] Encounter [facility] [place] Date(s): 02/11/22 - 03/13/22 [facility] [address] [address] Attending Physician: Admkisha, Yovani8 Admitting Physician: [...] Refusal Reason SARS-CoV-2 (COVID-19) mRNA BNT-162b2 vac 12/08/21 Recorded SARS-CoV-2 (COVID-19) mRNA BNT-162b2 vac 03/11/21 Recorded SARS-CoV-2 (COVID-19) mRNA BNT-162b2 vac 02/17/21 Recorded influenza virus vaccine, inactivated 08/30/21 Give n influenza virus vaccine, inactivated 10/09/20 Give n influenza virus vaccine, inactivated 1 09/15/19 Gi corrina influenza virus vaccine, inactivated 12/02/18 Give n influenza virus vaccine, inactivated 2 08/04/17 Gi corrina tetanus/diphtheria/pertussis, acel(Tdap) 4/27/17 Recorded tetanus-diphtheria toxoids (Td) 08/07/13 Recorded Tetanus Toxoid Vaccine (oldterm) 11/17/01 Given Pneumococcal Vaccine (oldterm) 11/17/01 Given 1Result Comment: [facility] [place]-[id number] 2Result Comment: [08/04/2017] QUAD [id number] [facility] [place] [id number] Medications acarbose 25 mg oral tablet 1 tablet = 25 mg, By Mouth, 3 times a day, # 90 tablet, 11 Refills, Maintenance, 01/17/22 15:35:00 EST, [facility] #[id number], Partial fill upon patient request if the prescription is for a schedule II opioid drug., 165, cm, 01/17/22 8:37:00 EST... Start Date: 01/17/22 Status: Ordered Alcohol Pads See Instructions, # [...] EST, Tablet Start Date: 12/02/18 Status: Ordered BD Single Use Swab 70% topical pad See Instructions, USE DIRECTED 2 TO 3 TIMES DAILY, # 200 Unknown, 11 Refills, [facility] #[id number], 50, USE DIRECTED 2 TO 3 TIMES DAILY, 165, cm, 02/11/22 9:38:00 EDT, Height, 142.7, kg,09/06/21 16:04:00 EDT, Dry Weight Start Date: 03/05/22 Status: Ordered benztropine 0.5 mg oral tablet TAKE 1 TABLET BY MOUTH EVERY DAY Start Date: 07/26/21 Status: Ordered Calmoseptine 0.44%-20.6% topical ointment See Instructions, apply as need to area, # 1 each, 0 Refills, Maintenance, 02/05/22 9:20:00 EDT, [facility] #[id number], Partial fill upon patient request if the prescription is for a schedule II opioid drug., apply as need to area, 165, cm, 2... Start Date: 02/05/22 Status: Ordered fluticasone-salmeterol 500 mcg-50 mcg inhalation powder 1, puffs, Inhalation, Every 12 hours, rinse mouth and throat after use, # 180 each, Refills 11, Tot. Refills 11, Maintenance, 11/20/21 10:58:00 EST, Powder, Route to Pharmacy Electronically, VAPDP_ID-[id number], [facility] #[id number], 165, cm, 0... Start Date: 11/20/21 Status: Ordered FREESTYLE LANCETS 100 FREESTYLE LANCETS 100, See Instructions, # 300 each, 3 Refills, USE DIRECTED TO TEST BLOOD GLUCOSE 2 TO 3 TIMES DAILY NEEDED, 165, cm, 09/19/21 10:12:00 EDT, Height, 142.7, kg, 09/06/21 16:04:00 EDT, Dry Weight Start Date: 11/01/21 Status: Ordered Freestyle Lite Lancets See Instructions, [...] 15:53:03 EDT Start Date: 07/20/19 Status: Ordered HydrOXYzine = 10 mg, By Mouth, PRN as needed for anxiety, 0 Refills, Maintenance, 03/13/22 12:53:00 EDT, Partial fill upon patient request if the prescription is for a schedule II opioid drug. Start Date: 03/13/22 Status: Ordered Imodium A-D 2 mg oral tablet 2 mg, 1, tablet, By Mouth, Daily, # 30 tablet, Refills 1, Tot. Refills 1, Soft Stop, 02/05/22 9:21:00 EDT, Route to Pharmacy Electronically, [facility] #[id number], Partial fill upon patient request if the prescription is for a schedule II opioid... Start Date: 02/05/22 Stop Date: 04/06/22 Status: Ordered Latuda 120 mg oral tablet 1 tablet = 120 mg, By Mouth, Daily at bedtime, # 30 tablet, 0 Refills, Maintenance, 02/27/21 6:58:00 EDT, Tablet, Partial fill upon patient request if the prescription is for a schedule II opioid drug. Start Date: 02/27/21 Status: Ordered lisinopril 10 mg oral tablet 1, tablet, By Mouth, Daily, DOSE., # 30 tablet, Refills 2, Route to Pharmacy Electronically, [facility] #[id number], 165, cm, 02/11/22 9:38:00 EDT, Height, 142.7, kg, 09/06/21 16:04:00 EDT, Dry Weight Start Date: 03/10/22 Status: Ordered nabumetone 750 mg oral tablet 1 tablet = 750 mg, By Mouth, 2 times a day, with food, # 14 tablet, 0 Refills, Maintenance, 08/22/21 12:41:00 EDT, Tablet, [facility] #[id number], 165.1, cm, 08/22/21 12:16:00 EDT, Height, 140.9, kg, 03/27/21 17:38:00 EDT, Dry Weight Start Date: 08/22/21 Stop Date: 08/29/21 Status: Ordered naratriptan 2.5 mg oral tablet 1 tablet = 2.5 mg, By Mouth, Daily, PRN for migraine headache, may repeat once in 4 hours if needed, # 9 tablet, 4 Refills, Soft Stop, 04/06/21 8:40:00 EDT, Tablet, [facility] #[id number], side effects with sumatriptan, and if this is declined as... Start Date: 04/06/21 Stop Date: 09/03/21 Status: Ordered omeprazole 20 mg oral enteric coated capsule 1 capsule, By Mouth, 2 times a day, # 60 capsule, 5 Refills, 02/18/22 10:27:00 EDT, [facility] #[id number], 165, cm, 02/11/22 9:38:00 EDT, Height, 142.7, kg, 09/06/21 16:04:00 EDT, Dry Weight Start Date: 02/18/22 Status: Ordered Splint See Instructions, # 1 units, Maintenance, Splint to right foot overnight (AFO to keep foot in dorsiflexion), 04/27/18 15:03:13 EDT, Compound Start Date: 04/27/18 Status: Ordered Ventolin HFA 108 mcg/inh inhalation aerosol with adapter 2 puffs, Inhalation, Every 6 hours, # 18 Gm, 5 Refills, [id number], 165.1, cm, 08/22/21 12:16:00 EDT, Height, 140.9, kg, 03/27/21 17:38:00 EDT, Dry Weight Start Date: 08/28/21 Status: Ordered Problem List Condition Effective Dates Status Health Status Inform ant Allergic rhinitis(Confirmed) Active Asthma(Confirmed) Active ADHD (attention deficit hype ractivity disorder)(Confirmed) Active Costochondritis(Confirmed) Active Depression;BILPOLAR(Confirmed) 1, 2 Active Epilepsy(Confirmed) 3 Active Abdominal cramping(Confirmed) Active GERD (gastroesophageal reflu x disease)(Confirmed) Active Hypertension(Confirmed) Active Hypoglycemia(Confirmed) Active Fecal incontinence(Confirmed) Active Migraine(Confirmed) Active Morbidly obese(Confirmed) Active Nephrolithiasis(Confirmed) 4 Active DAISY (obstructive sleep apnea)(Confirmed) Active Plantar fasciitis, bilateral(Confirmed) Active Rectal bleeding(Confirmed) Active Severe obesity(Confirmed) Active Hepatic steatosis(Confirmed) Active Substance abuse(Confirmed) 5, 6 Active Tobacco use disorder(Confirmed) Active Umbilical hernia(Confirmed) Active 1new psychiatrist 2DR FOOTIT PYSCHE 3neurology pending 4followed by urology 5under psychiatric care 6crack,heroin, cocaine, not intravenous Social History Social History Type Response Smoking Status 5-9 cigarettes (betw een 1/4 to 1/2 pack)/day in last 30 days entered on: 09/06/21 Sex Female
--- OUTSIDE RECORDS SUMMARY | 2024-05-14 17:32 | XMS_ITS | Continuity of Care Document ---
Author Organization [facility] Medicine Address [address] [place] [address]- Care Team Providers Care Glost Kiln Placer Name Role Phone Frederick CONTRERAS, Virgilio Alexander Primary Care Physician Encounter [facility] Date(s): 03/16/21 - 03/23/[address] [address] Encounter Diagnosis Ankle edema, bilateral(Discharge Diagnosis) - 03/16/21 Nicotine dependence(Discharge Diagnosis) - 03/16/21 Attending Physician: Majo Thorpe NP Admitting Physician: Majo Thorpe NP Allergies, Adverse Reactions, Alerts Substance Reaction Severity [...] Vaccine (oldterm) 11/17/01 Given 1Result Comment: [facility]-[id number] 2Result Comment: [08/04/2017] QUAD [id number] [facility] 76110-560-43 Medications acetaminophen 325 mg oral tablet 650 [...] 7:09:00 EDT, Route to Pharmacy Electronically, NCPDP_ID- [id number], [facility] #[id number], 165, cm, 02/27/21 6:55:00 EDT, Height Start Date: 02/27/21 Status: Ordered Alcohol Pads See Instructions, # 200 each, Refills 3, Tot. Refills 3, Maintenance, Use as directed to test bloodsugar 2-3 times daily, 02/27/21 7:11:00 EDT, Compound, 165, cm, 02/27/21 6:55:00 EDT, Height Start Date: 02/27/21 Status: Ordered Ambien 10 mg oral tablet [...] Start Date: 02/27/21 Status: Ordered Freestyle Lite Test Strips See Instructions, # 100 each, Refills 11, Tot. Refills 11, Maintenance, Test BS twice daily for T2DM, 02/27/21 7:39:00 EDT, Compound, 165, cm, 02/27/21 6:55:00 EDT, Height Start Date: 02/27/21 Status: Ordered Freestyle Lite Test Strips See Instructions, # 300 each, Refills 0, Tot. Refills 0, Maintenance, Use as directed to test bloodglucose levels when symptomatic for hypoglycemia or hyperglycemia, 2-3x/day as needed, dx E16.2, 07/20/19 15:52:58 EDT, Compound Start Date: 07/20/19 Status: Ordered Glucagon Emergency Kit for Low [...] 05/11/21 10:57:00 EDT, 03/16/21 10:57:00 EDT, Gum, [facility] #[id number], Partial fill upon patient request if the prescription i... Start Date: 03/16/21 Stop Date: 05/11/21 Status: Ordered pregabalin 25 mg oral capsule 1 capsule, By Mouth, 2 times a day, # 60 capsule, 2 Refills, Maintenance, 11/14/20 12:25:00 [facility] #[id number], 165, cm, 07/12/20 8:22:00 EDT, Height Start Date: 11/14/20 Status: Ordered Splint See Instructions, # 1 [...] Diagnosis Diagnosis Type Effective Dates Health Status Clinical Service Informant Ankle edema, bilateral Discharge Diagnosis 03/16/21 Nicotine dependence Discharge Diagnosis 03/16/21 Social History Social History Type Response Smoking Status Former smoker; Type: Cigarettes; Tobacco use times per day: 1 ppd; Number of years: 22; Total pack years: 22; entered on: 10/21/17 Sex
--- OUTSIDE RECORDS SUMMARY | 2024-05-14 17:32 | XMS_ITS | Continuity of Care Document ---
Author Organization [facility] Address [address] [place] [address]- Care Team Providers Care Tool Filer Name Role Phone Virgilio Mack MD Primary Care Physician [phone] Encounter [facility] Date(s): 05/05/20 - 09/02/20 [facility] Adult [address] [place] [address]- [facility] Attending Physician: Virgilio Mack MD Allergies, Adverse [...] (oldterm) 11/17/01 Given 1Result Comment: [facility]-[id number] 2Result Comment: [08/04/2017] QUAD [id number] [facility] 13664-252-48 Medications acetaminophen 325 mg oral tablet 650 [...] 05/05/20 13:06:00 EDT, Route to Pharmacy Electronically, ORPDP_ID- [id number], [facility] #[id number], 165, cm,01/19/20 14:17:00 EST, Height Start Date: [...] 01/19/20 14:42:00 EST, Route to Pharmacy Electronically, [facility] #[id number], 165, cm, 01/19/20 14:17:00 EST, Height Start Date: 01/19/20 Status: Ordered Flovent HFA 110 mcg/inh inhalation aerosol 2 puffs, Inhalation, 2 times a day, rinse mouth and throat after use, # 12 Gm, 0 Refills, Maintenance, 11/30/19 8:41:00 EST, Aerosol, [facility], 165, cm, 11/30/19 8:25:00 EST, Height [...] 06/06/20 9:20:00 EDT, Capsule, [facility] #[id number], 165, cm, 06/06/20 8:52:00 EDT, Height Start [...]
--- OUTSIDE RECORDS SUMMARY | 2024-05-14 17:32 | XMS_ITS | Continuity of Care Document ---
Author Organization [facility] Address [address] [place] [address]- Care Team Providers Care Medical Physics Teacher Name Role Phone Virgilio Mack MD Primary Care Physician [phone] [facility] Date(s): 06/18/22 - 10/16/22 [facility] [address] [place] [address]- Attending Physician: Kishor Barragan MD Admitting Physician: Kishor Barargan MD Referring Physician: Virgilio Mack MD Allergies, [...] Refusal Reason influenza virus vaccine, inactivated 1 09/12/22 Gi corrina influenza virus vaccine, inactivated 08/30/21 Give n influenza virus vaccine, inactivated 10/09/20 Give n influenza virus vaccine, inactivated 2 09/15/19 Gi corrina influenza virus vaccine, inactivated 12/02/18 Give n influenza virus vaccine, inactivated 3 08/04/17 Gi corrina SARS-CoV-2 (COVID-19) mRNA BNT-162b2 vac 12/08/21 Recorded SARS-CoV-2 (COVID-19) mRNA BNT-162b2 vac 03/11/21 Recorded SARS-CoV-2 (COVID-19) mRNA BNT-162b2 vac 02/17/21 Recorded tetanus/diphtheria/pertussis, acel(Tdap) 03/13/17 Recorded tetanus-diphtheria toxoids (Td) 08/07/13 Recorded Tetanus Toxoid Vaccine (oldterm) 11/17/01 Given Pneumococcal Vaccine (oldterm) 11/17/01 Given 1Result Comment: [id number] 2Result Comment: [facility]-[id number] 3Result Comment: [08/04/2017] QUAD [id number] [facility] 22511-642-64 Medications acarbose 25 mg oral tablet 1 tablet = 25 mg, By Mouth, 3 times a day, # 90 tablet, 11 Refills, Maintenance, 07/31/22 14:13:00 EDT, [id number], Partial fill upon patient request if the prescription is for a schedule II opioid drug., 165, cm, 07/31/22 13:42:00 ED... Start Date: 07/31/22 Status: Ordered Ambien 10 mg oral tablet 1 tablet = 10 mg, By Mouth, Daily at bedtime, PRN as needed for insomnia, 0 Refills, Maintenance, 12/02/18 14:26:49 EST, Tablet Start Date: 12/02/18 Status: Ordered fluticasone-salmeterol 500 mcg-50 mcg inhalation powder 1, puffs, Inhalation, Every 12 hours, rinse mouth and throat after use, # 180 each, Refills 11, Tot. Refills 11, Maintenance, 11/20/21 10:58:00 EST, Powder, Route to Pharmacy Electronically, NCPDP_[id number], [facility] #[id number], 165, cm, 0... Start Date: 11/20/21 Status: Ordered Freestyle Lite Test Strips See Instructions, # 100 each, Refills 11, Tot. Refills 11, Maintenance, Test BS twice daily for T2DM, 09/13/22 7:03:00 EDT, Compound, 165, cm, 09/12/22 11:26:00 EDT, Height, 142.7, kg, 09/06/21 16:04:00 EDT, Dry Weight Start Date: 09/13/22 Status: Ordered Imodium A-D 2 mg oral tablet 2 mg, 1, tablet, By Mouth, Daily, # 30 tablet, Refills 5, Tot. Refills 5, Soft Stop, 09/13/22 7:01:00 EDT, Route to Pharmacy Electronically, [facility] #[id number], Partial fill upon patient request if the [...] 09/13/22 7:03:00 EDT, Route to Pharmacy Electronically, [facility] #[id number], 165, cm, 09/12/22 11:26:00 EDT, Height, 142.7, k... Start Date: 09/13/22 Stop Date: 09/08/23 Status: Ordered loperamide 2 mg oral tablet 1 tablet = 2 mg, By Mouth, Daily, # 30 tablet, 11 Refills, Maintenance, 09/13/22 7:01:00 EDT, Tablet, [facility] #[id number], Partial fill upon patient request if the prescription is for a schedule II opioid drug., 165, cm, 09/12/22 11:26:00 EDT,... Start Date: 09/13/22 Stop Date: 09/08/23 Status: Ordered naratriptan 2.5 mg oral tablet 1 tablet = 2.5 mg, By Mouth, Daily, PRN for migraine headache, may repeat once in 4 hours if needed, # 9 tablet, 4 Refills, Soft Stop, 04/06/21 8:40:00 EDT, Tablet, [facility] #[id number], side effects with sumatriptan, and if this is declined as... Start Date: 04/06/21 Stop Date: 09/03/21 Status: Ordered omeprazole 20 mg oral enteric coated capsule 1 capsule, By Mouth, 2 times a day, # 60 capsule, 5 Refills, 02/18/22 10:27:00 EDT, [facility] #[id number], 165, cm, 02/11/22 9:38:00 EDT, Height, 142.7, kg, 09/06/21 16:04:00 EDT, Dry Weight Start Date: 02/18/22 Status: Ordered Ventolin HFA 108 mcg/inh inhalation aerosol with adapter 2 puffs, Inhalation, Every 6 hours, # 18 Gm, 5 Refills, [facility] #[id number], 165.1, cm, 08/22/21 12:16:00 EDT, Height, 140.9, kg, 03/27/21 17:38:00 EDT, Dry Weight Start Date: 08/28/21 Status: Ordered Problem List Condition Confirmation Course [...] Team Personnel Name: Linda Awan RN Position: [facility] SN RN Member Role: Primary Care Nurse Name: Brionna Pathak RN Position: [facility] ED RN W/OE and Tasks Member Role: Primary Care Nurse Name: Virgilio Mack MD Position: [facility] Primary Care Physician Member Role: PCP Address: Address: [address] [place] [address]- Care Team Related Persons Name: KELLY YANG Address: home [address] [place] [id number] Name: ANNE-MARIE YANG Address: [place] [address] Name: GRAHAM YANG Address: home [address] [place] [address] Name: DULCE YANG Address: [address] [place] [address] Name: DULCE SHEPHERD Address: home [address] [place] [address]
--- OUTSIDE RECORDS SUMMARY | 2024-05-14 17:32 | XMS_ITS | Continuity of Care Document ---
Author Organization [facility] Address [address] [place] [address]- Care Team Providers Care School Photograph Editor Name Role Phone Frederick CONTRERAS, Virgilio Alexander Primary Care Physician [phone] Encounter [facility] Date(s): 03/30/24 - 04/29/24 [facility] Adult [address] [place] [address]- Allergies, Adverse Reactions, Alerts Substance Reaction Severity [...] pneumococcal 20-valent conjugate vaccine 5 12/24/22 Given [id number] 12y+ bivalent booster vax 11/01/22 Recorded SARS-CoV-2 (COVID-19) mRNA BNT-162b2 vac 12/08/21 Recorded SARS-CoV-2 (COVID-19) mRNA BNT-162b2 vac 03/11/21 Recorded SARS-CoV-2 (COVID-19) mRNA BNT-162b2 vac 02/17/21 Recorded tetanus/diphtheria/pertussis, acel(Tdap) 03/13/17 Recorded tetanus-diphtheria toxoids (Td) 08/07/13 Recorded Tetanus Toxoid Vaccine (oldterm) 11/17/01 Given Pneumococcal Vaccine (oldterm) 11/17/01 Given 1Result Comment: [id number] 2Result Comment: [id number] 3Result Comment: [facility]-[id number] 4Result Comment: [08/04/2017] QUAD [id number] [facility] [id number] 5Result Comment: [id number] Medications Ambien 10 mg oral tablet 1 tablet = 10 mg, By Mouth, Daily at bedtime, PRN as needed for insomnia, 0 Refills, Maintenance, 12/02/18 14:26:49 EST, Tablet Start Date: 12/02/18 Status: Ordered FREESTYLE LITE BLOOD GLUCSTR 50S FREESTYLE LITE BLOOD GLUCSTR 50S, See Instructions, # 100 Unknown, 5 Refills, Maintenance, USE DIRECTED TWICE DAILY, 03/16/24 12:46:00 EDT, 165, cm, 03/15/24 15:42:00 EDT, Height, 139.3, kg, 09/10/23 11:57:00 EDT, Dry Weight Start Date: 03/16/24 Status: Ordered Freestyle Lite Lancets See Instructions, # 100 each, Refills 5, Tot. Refills 5, Maintenance, check 3 daily for low blood sugars. , 03/25/24 10:28:00 EDT, Supply, 165, cm, 03/25/24 10:03:00 EDT, Height, 139.3, kg, 09/10/23 11:57:00 EDT, Dry Weight Start Date: 03/25/24 Status: Ordered Freestyle Lite Test Strips See Instructions, # 100 each, Refills 5, Tot. Refills 5, Maintenance, check 3 daily for low blood sugars. , 03/25/24 10:29:00 EDT, Supply, 165, cm, 03/25/24 10:03:00 EDT, Height, 139.3, kg, 09/10/23 11:57:00 EDT, Dry Weight Start Date: 03/25/24 Status: Ordered Imodium A-D 2 mg oral tablet 2 mg, 1, tablet, By Mouth, Daily, # 30 tablet, Refills 5, Tot. Refills 5, Soft Stop, 09/13/22 7:01:00 EDT, Route to Pharmacy Electronically, [facility] #[id number], Partial fill upon patient request if the [...] 11/06/23 12:57:00 EST, Route to Pharmacy Electronically, [facility] #[id number], 165, cm, 10/30/23 14:14:00 EST, Height, 139.3, kg, 09/10/23 11:57:00 EDT, Dry Weight Start Date: 11/06/23 Status: Ordered methylphenidate 18 mg oral tablet, extended release By Mouth, Daily in AM, 0 Refills, Maintenance, 07/01/23 14:02:00 EDT, Partial fill upon patient request if the prescription is for a schedule II opioid drug. Start Date: 07/01/23 Status: Ordered Mounjaro 2.5 mg/0.5 mL subcutaneous solution = 2.5 mg, Subcutaneous Injection, Every week, rotate injection sites, # 2 mL, 2 Refills, Maintenance, 03/01/24 13:51:00 EDT, Solution, [facility] #[id number], Partial fill upon patient request if the prescription is for a schedule II opioid drug.... Start Date: 03/01/24 Status: Ordered Myrbetriq 25 mg oral tablet, extended release 1 tablet = 25 mg, By Mouth, Daily, # 30 tablet, 6 Refills, Maintenance, 03/09/24 9:49:00 EDT, ER Tablet, [facility] #[id number], Partial fill upon patient request if the prescription is for a schedule II opioid drug., nano Lamb, 03/01/24 13:21:00 E... Start Date: 03/09/24 Status: Ordered OXcarbazepine 150 mg oral tablet [...] 10/30/23 14:28:00 EST, Route to Pharmacy Electronically, [facility] #[id number], Partial fill upon patient request if the prescription is for a schedul... Start Date: 10/30/23 Status: Ordered Viberzi 100 mg oral tablet 1 tablet = 100 mg, By Mouth, Daily, # 30 tablet, 1 Refills, Maintenance, 04/06/24 14:55:00 EDT, [facility] #[id number], Partial fill upon patient request if the prescription is for a schedule IIopioid drug., nano Lamb, 03/25/24 10:03:00 EDT, Heigh... Start Date: 04/06/24 Status: Ordered Wegovy (0.25 mg dose) subcutaneous solution = 0.25 mg, Subcutaneous Injection, Every week, for 4 week(s), in the abdomen, thigh, or upper arm; after 4 weeks, increase to 0.5 mg weekly, # 2 mL, 2 Refills, Acute 06/24/24 12:11:00 EDT, 04/01/24 12:11:00 EDT, Solution, [facility] #[id number],... Start Date: 04/01/24 Stop Date: 06/24/24 Status: Ordered Zepbound 2.5 mg/0.5 mL subcutaneous solution = 2.5 mg, Subcutaneous Injection, Every week, rotate injection sites; for obesity, Dx: 68.30, # 4 each, 5 Refills, Maintenance, 04/01/24 5:06:00 EDT, [facility][id number], Partial fill upon patient request if the prescription is for a... Start Date: 04/01/24 Status: Ordered Problem List Condition Confirmation Course [...] Team Personnel Name: Linda Awan RN Position: [facility] RN Member Role: Primary Care Nurse Name: Brionna Pathak RN Position: [facility] RN Member Role: Primary Care Nurse Name: Virgilio Mack MD Position: [facility] Physician - Primary Care Member Role: PCP Address: Address: [address] [place] [address]- Care Team Related Persons Name: KELLY YANG Address: home [address] [place] [id number] Name: ANNE-MARIE YANG Address: [place], [place] Name: GRAHAM YANG Address: home [address] [place] [address] Name: DULCE YANG Address: home [address] [facility] [address] [place] [address] Name: DULCE SHEPHERD Address: home [address] [place] [address]
--- OUTSIDE RECORDS SUMMARY | 2024-05-14 17:32 | XMS_ITS | Continuity of Care Document ---
Author Organization [facility] Address [address] [place] [address]- Care Team Providers Care Glass Smoother Name Role Phone Frederick CONTRERAS, Virgilio Alexander Primary [id number] - 01/24/[facility] [address] [place] [address] Attending Physician: Tova Awan MD [...] Pneumococcal Vaccine (oldterm) 11/17/01 Given 1Result Comment: [facility]-[id number] 2Result Comment: [08/04/2017] QUAD [id number] [facility] 34601-144-00 Medications acarbose 25 mg oral tablet 1 tablet = 25 mg, By Mouth, 3 times a day, # 90 tablet, 11 Refills, Maintenance, 01/17/22 15:35:00 EST, [facility] #[id number], Partial fill upon patient request if the [...] TO 3 TIMES DAILY, # 200 Unknown, 1 Refills, [facility] #[id number], 50, USE DIRECTED 2 TO 3 TIMES DAILY, 165, cm, 11/20/21 10:44:00 EST, Height, 142.7, kg,09/06/21 16:04:00 EDT, Dry Weight Start Date: 11/21/21 Status: Ordered benztropine 0.5 mg oral tablet TAKE 1 TABLET BY MOUTH EVERY DAY Start Date: 07/26/21 Status: Ordered fluticasone-salmeterol 500 mcg-50 mcg inhalation powder 1, puffs, Inhalation, Every 12 hours, rinse mouth and throat after use, # 180 each, Refills 11, Tot. Refills 11, Maintenance, 11/20/21 10:58:00 EST, Powder, Route to Pharmacy Electronically, NCPDP_[id number], [email or web address] #[id number], 165, cm, 01/0... Start Date: 11/20/21 Status: Ordered FREESTYLE LANCETS [...] Status: Ordered lisinopril 10 mg oral tablet 10 mg, 1, tablet, By Mouth, Daily, Replaces 5 mg dose, # 30 tablet, Refills 5, Tot. Refills 5, Maintenance, 07/26/21 11:56:00 EDT, Route to Pharmacy Electronically, [email or web address] #[id number], Partial fill upon patient request if the prescription is... Start Date: 07/26/21 Status: Ordered nabumetone 750 mg oral tablet 1 tablet = 750 mg, By Mouth, 2 times a day, with food, # 14 tablet, 0 Refills, Maintenance, 08/22/21 12:41:00 EDT, Tablet, [email or web address] #[id number], 165.1, cm, 08/22/21 12:16:00 EDT, Height, 140.9, kg, 03/27/21 17:38:00 EDT, Dry Weight Start Date: 08/22/21 Stop Date: 08/29/21 Status: Ordered naratriptan 2.5 mg oral tablet 1 tablet = 2.5 mg, By Mouth, Daily, PRN for migraine headache, may repeat once in 4 hours if needed, # 9 tablet, 4 Refills, Soft Stop, 04/06/21 8:40:00 EDT, Tablet, [email or web address] #[id number], side effects with sumatriptan, and if this is declined as... Start Date: 04/06/21 Stop Date: 09/03/21 Status: Ordered omeprazole 20 mg oral enteric coated capsule 1 capsule, By Mouth, 2 times a day, # 60 capsule, 2 Refills, [facility] #[id number], 165, cm, 09/19/21 10:12:00 EDT, Height, 142.7, kg, 09/06/21 16:04:00 EDT, Dry Weight Start Date: 11/05/21 Status: Ordered Splint See Instructions, # 1 units, Maintenance, Splint to right foot overnight (AFO to keep foot in dorsiflexion), 04/27/18 15:03:13 EDT, Compound Start Date: 04/27/18 Status: Ordered Ventolin HFA 108 mcg/inh inhalation aerosol with adapter 2 puffs, Inhalation, Every 6 hours, # 18 Gm, 5 Refills, [facility] #[id number], 165.1, cm, 08/22/21 12:16:00 EDT, Height, 140.9, [...] oldest [Reference Range]: 1 Height 165 cm (01/17/22 8:37 AM) Weight 143.4 kg (01/17/22 8:37 AM) Pulse Rate [55-90 bpm] 88 bpm (01/17/22 8:37 AM) Body Mass Index [18.5-24.99] 52.67 *>HHI* (01/17/22 8:37 AM) Blood Pressure [90-138/55-84 mm Hg] 133/ 80mm Hg (01/17/22 8:37 AM) Blood pressure sites Arm, left (01/17/22 8:37 AM) Weight Obtained Via Bed scale (01/17/22 8:37 AM) Social History Social History Type Response Smoking Status 5-9 cigarettes (betw een 1/4 to 1/2 pack)/day in last 30 days entered on: 09/06/21 Sex Female
--- OUTSIDE RECORDS SUMMARY | 2024-05-14 17:32 | XMS_ITS | Continuity of Care Document ---
Author Organization [facility] Sm[facility] Catracho lt Address [address] [place] [address]- Care Team Providers Care Car Retarder Operator Name Role Phone Frederick CONTRERAS, Virgilio Alexander Primary Care Physician Encounter [facility] [place] Date(s): 04/07/24 - 05/07/24 [facility] Adult [address] [place] [address]- Allergies, Adverse Reactions, Alerts Substance Reaction Severity Status topiramate Aggressive behavior Active shellfish Anaphylactic reaction to food Active Risperdal 1, 2 Difficulty controlli ng aggression Weight gain Seizures, eye sight Active Geodon violent/aggressive Active Other Food Allergy 3 CLAMS Active Topamax Anger Aggressive behavior psyche Active 1Slept alot 2gained 20 pounds in [...] pneumococcal 20-valent conjugate vaccine 5 12/24/22 Given [id number] 12y+ bivalent booster vax 11/01/22 Recorded SARS-CoV-2 (COVID-19) mRNA BNT-162b2 vac 12/08/21 Recorded SARS-CoV-2 (COVID-19) mRNA BNT-162b2 vac 03/11/21 Recorded SARS-CoV-2 (COVID-19) mRNA BNT-162b2 vac 02/17/21 Recorded tetanus/diphtheria/pertussis, acel(Tdap) 03/13/17 Recorded tetanus-diphtheria toxoids (Td) 08/07/13 Recorded Tetanus Toxoid Vaccine (oldterm) 11/17/01 Given Pneumococcal Vaccine (oldterm) 11/17/01 Given 1Result Comment: [id number] 2Result Comment: [id number] 3Result Comment: [facility]-[id number] 4Result Comment: [08/04/2017] QUAD [id number] [facility] [id number] 5Result Comment: [id number] Medications Ambien 10 mg oral tablet 1 [...] check 3 daily for low blood sugars. 30 day, 03/25/24 10:29:00 EDT, Supply, 165, cm, 03/25/24 10:03:00 EDT, Height, 139.3, kg, 09/10/23 11:57:00 EDT, Dry Weight Start Date: 03/25/24 Status: Ordered Imodium A-D 2 mg oral tablet 2 mg, 1, tablet, By Mouth, Daily, # 30 tablet, Refills 5, Tot. Refills 5, Soft Stop, 09/13/22 7:01:00 EDT, Route to Pharmacy Electronically, [facility] #[id number], Partial fill upon patient request if the [...] 11/06/23 12:57:00 EST, Route to Pharmacy Electronically, [facility] #[id number], 165, cm, 10/30/23 14:14:00 EST, Height, 139.3, [...] 2 Refills, Maintenance, 03/01/24 13:51:00 EDT, Solution, [facility] #[id number], Partial fill upon patient request if the prescription is for a schedule II opioid drug.... Start Date: 03/01/24 Status: Ordered Myrbetriq 25 mg oral tablet, extended release 1 tablet = 25 mg, By Mouth, Daily, # 30 tablet, 6 Refills, Maintenance, 03/09/24 9:49:00 EDT, ER Tablet, [facility] #[id number], Partial fill upon patient request if the [...] opioid drug. Start Date: 08/26/23 Status: Ordered semaglutide 0.5 mg/0.5 mL (0.5 mg dose) subcutaneous solution = 0.5 mg, Subcutaneous Injection, Every week, for 4 week(s), in the abdomen, thigh, or upper arm; increase in dose, # 2 mL, 5 Refills, Acute 10/19/24 14:17:00 EST, 05/04/24 14:17:00 EDT, Solution, [facility] #[id number], Partial fill upon patient... Start Date: 05/04/24 Stop Date: 10/19/24 Status: Ordered tiZANidine 2 mg oral tablet 2 mg, 1, tablet, By Mouth, 2 times a day, # 30 tablet, Refills 0, Tot. Refills 0, Maintenance, 10/30/23 14:28:00 EST, Route to Pharmacy Electronically, [facility] #[id number], Partial fill upon patient request if the prescription is for a schedul... Start Date: 10/30/23 Status: Ordered Viberzi 100 mg oral tablet 1 tablet = 100 mg, By Mouth, Daily, # 30 tablet, 1 Refills, Maintenance, 04/06/24 14:55:00 EDT, [facility] #[id number], Partial fill upon patient request if the prescription is for a schedule IIopioid drug., nano Lamb, 03/25/24 10:03:00 EDT, Joey... Start Date: 04/06/24 Status: Ordered Wegovy (0.25 mg dose) subcutaneous solution = 0.25 mg, Subcutaneous Injection, Every week, for 4 week(s), in the abdomen, thigh, or upper arm; after 4 weeks, increase to 0.5 mg weekly, # 2 mL, 2 Refills, Acute 06/24/24 12:11:00 EDT, 04/01/24 12:11:00 EDT, [facility] #[id number],... Start Date: 04/01/24 Stop Date: 06/24/24 Status: Ordered Zepbound 2.5 mg/0.5 mL subcutaneous solution = 2.5 mg, Subcutaneous Injection, Every week, rotate injection sites; for obesity, Dx: 68.30, # 4 each, 5 Refills, Maintenance, 04/01/24 5:06:00 EDT, [facility] #[id number], Partial fill upon patient request if the [...] Team Personnel Name: Linda Awan RN Position: [facility] RN Member Role: Primary Care Nurse Name: Brionna Pathak RN Position: Mat RN Member Role: Primary Care Nurse Name: Virgilio Mack MD Position: [facility] Physician - Primary Care Member Role: PCP Address: Address: [address] [place] [address]- [place] Care Team Related Persons Name: KELLY YANG Address: home [address] [place] [address] Name: ANNE-MARIE YANG Address: [place] [address] Name: GRAHAM YANG Address: home [address] [place] [address] Name: DULCE YANG Address: home [address] [facility] [address] [place] [address] Name: DULCE SHEPHERD Address: home [address] [place] [address]
--- OUTSIDE RECORDS SUMMARY | 2024-05-14 17:32 | XMS_ITS | Continuity of Care Document ---
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 Refills 3, Maintenance, 02/27/21 7:09:00 EDT, Route to Pharmacy Electronically, [facility]- [id number], [facility] #[id number], 165, cm, 02/27/21 6:55:00 EDT, Height Start [...] 06/26/21 9:29:00 EDT, Route to Pharmacy Electronically, [facility] #[id number], Partial fill upon patient request if the prescription is for a schedule II opio... Start Date: 06/26/21 Status: Ordered naratriptan 2.5 mg oral tablet 1 tablet = 2.5 mg, By Mouth, Daily, PRN for migraine headache, may repeat once in 4 hours if needed, # 9 tablet, 4 Refills, Soft Stop, 04/06/21 8:40:00 EDT, Tablet, [facility] #[id number], side effects with sumatriptan, and if this is declined as... Start Date: 04/06/21 Stop Date: 09/03/21 Status: Ordered omeprazole 20 mg oral enteric coated capsule 1 capsule = 20 mg, By Mouth, 2 times a day, # 60 capsule, 1 Refills, Maintenance, 06/25/21 11:09:00EDT, [facility] #[id number], Partial fill upon patient request if the [...]
--- OUTSIDE RECORDS SUMMARY | 2024-05-14 17:32 | XMS_ITS | Continuity of Care Document ---
Author Organization [facility] Address [address] [place] [address] ve [address] [place] [address]- Care Team Providers Care Special Education Preschool Teacher Name Role Phone Frederick CONTRERAS, Virgilio Alexander Primary Care Physician Encounter [facility] [place] Date(s): 05/03/20 - 06/02/[address] [place] [address]- [facility] Attending Physician: Admtr, Ar8 Admitting Physician: Admtr, Ar8 Referring Physician: Admtr, [...] Pneumococcal Vaccine (oldterm) 11/17/01 Given 1Result Comment: [facility]-[id number] 2Result Comment: [08/04/2017] QUAD [id number] [facility] 09270-094-13 Medications acetaminophen 325 mg oral tablet 650 [...] 05/05/20 13:06:00 EDT, [id number] #[id number], 165, cm,01/19/20 14:17:00 EST, Height Start Date: [...] 01/19/20 14:42:00 EST, Route to Pharmacy Electronically, [facility] #[id number], 165, cm, 01/19/20 14:17:00 EST, Height Start Date: 01/19/20 Status: Ordered Flovent HFA 110 mcg/inh inhalation aerosol 2 puffs, Inhalation, 2 times a day, rinse mouth and throat after use, # 12 Gm, 0 Refills, Maintenance, 11/30/19 8:41:00 EST, Aerosol, [facility], 165, cm, 11/30/19 8:25:00 EST, Height Start [...] EC Tablet Start Date: 09/15/19 Status: Ordered Splint See Instructions, # 1 [...]
--- OUTSIDE RECORDS SUMMARY | 2024-05-14 17:32 | XMS_ITS | Continuity of Care Document ---
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 Role Phone Virgilio Mack MD Primary [id number]28[facility] - 05/05/23 [facility] Adult [address] [place] [address]- Attending Physician: Virgilio Mack MD Allergies, Adverse [...] Pneumococcal Vaccine (oldterm) 11/17/01 Given 1Result Comment: [id number] 2Result Comment: [id number] 3Result Comment: [facility]-[id number] 4Result Comment: [08/04/2017] [facility] [id number] [facility] 35969-054-72 Medications acarbose 25 mg oral tablet 1 tablet = 25 mg, By Mouth, 3 times a day, # 90 tablet, 11 Refills, Maintenance, 07/31/22 14:13:00 EDT, [facility] #[id number], Partial fill upon patient request if the [...] mL, 0 Refills, Maintenance, 02/20/23 15:08:00 EDT, [place], [facility] #[id number], Partial fill upon patient request if the prescription is for a schedule II opioid drug., 2 sprays Nares, B... Start Date: 02/20/23 Status: Ordered Flonase 50 mcg/inh nasal spray 2 sprays, Nares, Both, Daily, # 16 Gm, 2 Refills, Maintenance, 12/02/22 9:32:00 EST, [place], [facility] #[id number], Partial fill upon patient request if the prescription is for a schedule II opioid drug., 2 sprays Nares, Both Daily, 165, cm, 11/17... Start Date: 12/02/22 Status: Ordered fluticasone-salmeterol 500 mcg-50 mcg inhalation powder 1, puffs, Inhalation, Every 12 hours, rinse mouth and throat after use, # 180 each, Refills 11, Tot. Refills 11, Maintenance, 11/20/21 10:58:00 EST, Powder, [id number][id number], 165, cm, 010... Start Date: 11/20/21 Status: Ordered Freestyle Lite Test Strips See Instructions, # 100 each, Refills 11, Tot. Refills 11, Maintenance, Test BS twice daily for T2DM, 01/29/23 17:28:00 EDT, Compound, 165, cm, 01/27/23 13:25:00 EDT, Height, 142.7, kg, 09/06/21 16:04:00 EDT, Dry Weight Start Date: 01/29/23 Status: Ordered Imodium A-D 2 mg oral tablet 2 mg, 1, tablet, By Mouth, Daily, # 30 tablet, Refills 5, Tot. Refills 5, Soft Stop, 09/13/22 7:01:00 EDT, Route to Pharmacy Electronically, [facility] #[id number], Partial fill upon patient request if the prescription is for a schedule II opioid... Start Date: 09/13/22 Stop Date: 03/12/23 Status: Ordered Incontence pads Incontence pads, See Instructions, # 60 each, Refills 11, Tot. Refills 11, Maintenance, Use for Dx:Mixed urinary incontinence, 05/01/23 4:56:00 EDT, Supply, 165, cm, 04/28/23 15:39:00 EDT, Height, 152, kg, 02/17/23 11:20:00 EDT, Dry Weight Start Date: 05/01/23 Status: Ordered Latuda 120 mg oral tablet [...] 09/13/22 7:03:00 EDT, Route to Pharmacy Electronically, [facility] #[id number], 165, cm, 09/12/22 11:26:00 EDT, Height, 142.7, k... Start Date: 09/13/22 Stop Date: 09/08/23 Status: Ordered loperamide 2 mg oral tablet 1 tablet = 2 mg, By Mouth, Daily, # 30 tablet, 11 Refills, Maintenance, 09/13/22 7:01:00 EDT, Tablet, [facility] #[id number], Partial fill upon patient request if the prescription is for a schedule II opioid drug., 165, cm, 09/12/22 11:26:00 EDT,... Start Date: 09/13/22 Stop Date: 09/08/23 Status: Ordered methocarbamol 750 mg oral tablet 2 tablet = 1,500 mg, By Mouth, 3 times a day, PRN Pain , Moderate, # 30 tablet, 2 Refills, Acute 07/29/23 16:25:00 EDT, 04/28/23 16:24:00 EDT, Tablet, [facility] #[id number], Partial fill upon patient request if the prescription is for a schedule... Start Date: 04/28/23 Stop Date: 07/29/23 Status: Ordered mirabegron 25 mg oral tablet, extended release 1 tablet = 25 mg, By Mouth, Daily, do not crush or chew, # 30 tablet, 6 Refills, Maintenance, 03/18/23 12:48:00 EDT, ER Tablet, [facility] #[id number], Partial fill upon patient request if the prescription is for a schedule II opioid drug., 165,... Start Date: 03/18/23 Status: Ordered omeprazole 20 mg oral enteric coated capsule 1 capsule, By Mouth, 2 times a day, # 60 capsule, 5 Refills, 02/18/22 10:27:00 EDT, [facility] #[id number], 165, cm, 02/11/22 9:38:00 EDT, Height, 142.7, kg, 09/06/21 16:04:00 EDT, Dry Weight Start Date: 02/18/22 Status: Ordered SUMAtriptan 100 mg oral tablet 1 tablet = 100 mg, By Mouth, Daily, PRN for migraine headache, may repeat dose after 2 hours up to a maximum of 2, # 9 tablet, 5 Refills, Acute 06/24/23 5:18:00 EDT, 12/25/22 5:18:00 EST, Tablet, [facility] #[id number], Partial fill upon patient... Start Date: 12/25/22 Stop Date: 06/24/23 Status: Ordered trospium 60 mg oral capsule, extended release 1 capsule = 60 mg, By Mouth, Daily in AM, # 30 capsule, 5 Refills, Maintenance, 01/24/23 11:12:00 EST, CR Capsule, [facility] #[id number], Partial fill upon patient request if the prescription is for a schedule II opioid drug., 165, cm, 12/24/22... Start Date: 01/24/23 Status: Ordered Ventolin HFA 108 mcg/inh inhalation aerosol with adapter 2 puffs, Inhalation, Every 6 hours, # 18 Gm, 5 Refills, Maintenance, 12/12/22 13:09:00 EST, [facility] #[id number], 165, cm, 12/02/22 9:06:00 EST, Height, 142.7, [...] oldest [Reference Range]: 1 Height 165 cm (04/28/23 3:39 PM) Weight 152.7 kg (04/28/23 3:39 PM) Oxygen Saturation [94-100 %] 96 % (04/28/23 3:39 PM) Pulse Rate [55-90 bpm] 91 bpm *H* (04/28/23 3:39 PM) Body Mass Index [18.5-24.99 kg/m2] 56.09 kg/m2 *>HHI* (04/28/23 3:39 PM) Blood Pressure [90-138/55-84 mm Hg] 136/ 84mm Hg (04/28/23 3:39 PM) Mode of Delivery (Oxygen) Room air (04/28/23 3:39 PM) Blood pressure sites Arm, left (04/28/23 3:39 PM) Weight Obtained Via Standing scale (04/28/23 3:39 PM) Social History Social History Type Response Smoking Status 5-9 cigarettes (betw een 1/4 to 1/2 pack)/day in last 30 days entered on: 09/06/21 Sex Female Patient Care team information Care Team Personnel Name: Linda Awan RN Position: [facility] SN RN Member Role: Primary Care Nurse Name: Brionna Pathak RN Position: [facility] RN Member Role: Primary Care Nurse Name: Virgilio Mack MD Position: [facility] Physician - Primary Care Member Role: PCP Address: Address: [address] [place] [address]- [place] Care Team Related Persons Name: KELLY YANG Address: home [address] [place] [address] Name: ANNE-MARIE YANG Address: [place] [address] Name: GRAHAM YANG Address: home [address] [place] [address] Name: DULCE YANG Address: [address] [place] [address] Name: DULCE SHEPHERD Address: home [address] [place] [address]
--- OUTSIDE RECORDS SUMMARY | 2024-05-14 17:32 | XMS_ITS | Continuity of Care Document ---
Author Organization [facility] Address [address] [place] [address]- Care Team Providers Care Clinical Services Manager Name Role Phone Frederick CONTRERAS, Virgilio Alexander Primary Care Physician [phone] Encounter [facility] [place] Date(s): 07/17/22 - 08/16/22 [facility] [address] [place] [address] Attending Physician: Nancy Sotelo Admitting Physician: AdmNancy beard Referring Physician: Nancy Sotelo Allergies, Adverse Reactions, Alerts Substance Reaction Severity [...] Vaccine (oldterm) 11/17/01 Given 1Result Comment: [facility]-[id number] 2Result Comment: [08/04/2017] QUAD [id number] [facility] 67006-317-15 Medications acarbose 25 mg oral tablet 1 tablet = 25 mg, By Mouth, 3 times a day, # 90 tablet, 11 Refills, Maintenance, 07/31/22 14:13:00 EDT, [facility] #[id number], Partial fill upon patient request if the prescription is for a schedule II opioid drug., 165, cm, 07/31/22 13:42:00 ED... Start Date: 07/31/22 Status: Ordered Alcohol Pads See Instructions, # [...] TIMES DAILY, # 200 Unknown, 11 Refills, [facility] #[id number], 50, USE DIRECTED 2 TO 3 TIMES DAILY, 165, cm, 02/11/22 9:38:00 EDT, Height, 142.7, kg,09/06/21 16:04:00 EDT, Dry Weight Start Date: 03/05/22 Status: Ordered Calmoseptine 0.44%-20.6% topical ointment See Instructions, apply as need to area, # 1 each, 0 Refills, Maintenance, 02/05/22 9:20:00 EDT, [facility] #[id number], Partial fill upon patient request if the prescription is for a schedule II opioid drug., apply as need to area, 165, cm, 2... Start Date: 02/05/22 Status: Ordered fluticasone-salmeterol 500 mcg-50 mcg inhalation powder 1, puffs, Inhalation, Every 12 hours, rinse mouth and throat after use, # 180 each, Refills 11, Tot. Refills 11, Maintenance, 11/20/21 10:58:00 EST, Powder, [id number] #[id number], 165, cm, 0... Start Date: 11/20/21 Status: [...] Maintenance, Test BS twice daily for T2DM, 07/16/22 9:53:00 EDT, Compound, 165, cm, 03/13/22 12:57:00 EDT, Height, 142.7, kg, 09/06/21 16:04:00 EDT, Dry Weight Start Date: 07/16/22 Status: Ordered Freestyle Lite Test Strips See [...] EDT, Compound Start Date: 02/25/19 Status: Ordered Glucagon Emergency Kit for Low [...] 02/05/22 9:21:00 EDT, Route to Pharmacy Electronically, [facility] #[id number], Partial fill upon patient request if the [...] 1, tablet, By Mouth, Daily, DOSE., # 90 tablet, Refills 0, Route to Pharmacy Electronically, [facility] #[id number], 165, cm, 03/13/22 12:57:00 EDT, Height, 142.7, kg, 09/06/21 16:04:00 EDT, DryWeight Start Date: 06/26/22 Status: Ordered loperamide 2 mg oral tablet 1 tablet = 2 mg, By Mouth, Daily, # 30 tablet, 11 Refills, Maintenance, 04/08/22 9:42:00 EDT, Tablet, [facility] #[id number], Partial fill upon patient request if the prescription is for a schedule II opioid drug., 165, cm, 03/13/22 12:57:00 EDT,... Start Date: 04/08/22 Stop Date: 04/03/23 Status: Ordered naratriptan 2.5 mg oral tablet 1 tablet = 2.5 mg, By Mouth, Daily, PRN for migraine headache, may repeat once in 4 hours if needed, # 9 tablet, 4 Refills, Soft Stop, 04/06/21 8:40:00 EDT, Tablet, [facility] #[id number], side effects with sumatriptan, and if this is declined as... Start Date: 04/06/21 Stop Date: 09/03/21 Status: Ordered omeprazole 20 mg oral enteric coated capsule 1 capsule, By Mouth, 2 times a day, # 60 capsule, 5 Refills, 02/18/22 10:27:00 EDT, [facility] #[id number], 165, cm, 02/11/22 9:38:00 EDT, Height, 142.7, [...] 6 hours, # 18 Gm, 5 Refills, [facility] #[id number], 165.1, cm, 08/22/21 12:16:00 EDT, Height, 140.9, kg, 05/11/21 17:38:00 EDT, Dry Weight Start Date: 08/28/21 [...] 09/06/21 Sex Female Patient Care team information Personnel Name: Frederick CONTRERAS, Virgilio Alexander Address: Address: [address] [place] [address]
--- OUTSIDE RECORDS SUMMARY | 2024-05-14 17:32 | XMS_ITS | Continuity of Care Document ---
Author Organization [facility] Address [address] [place] [address]- Care Team Providers Care Scientific Informatics Analyst Name Role Phone Frederick CONTRERAS, Virgilio Alexander Primary Care Physician [place] [facility] [place](s): 03/08/22 - 04/07/22 [facility] [address] [place] [address]- Attending Physician: Nancy Sotelo Admitting Physician: Nancy Sotelo Referring Physician: AdmNancy beard Allergies, Adverse Reactions, Alerts Substance Reaction Severity [...] Pneumococcal Vaccine (oldterm) 11/17/01 Given 1Result Comment: [facility]-[id number] 2Result Comment: [08/04/2017] QUAD [id number] [facility] 30104-195-08 Medications acarbose 25 mg oral tablet 1 tablet = 25 mg, By Mouth, 3 times a day, # 90 tablet, 11 Refills, Maintenance, 01/17/22 15:35:00 EST, [facility] #[id number], Partial fill upon patient request if the [...] TIMES DAILY, # 200 Unknown, 11 Refills, [facility] #[id number], 50, USE DIRECTED 2 TO 3 TIMES DAILY, 165, cm, 02/11/22 9:38:00 EDT, Height, 142.7, kg,09/06/21 16:04:00 EDT, Dry Weight Start Date: 03/05/22 Status: Ordered benztropine 0.5 mg oral tablet TAKE 1 TABLET BY MOUTH EVERY DAY Start Date: 07/26/21 Status: Ordered Calmoseptine 0.44%-20.6% topical ointment See Instructions, apply as need to area, # 1 each, 0 Refills, Maintenance, 02/05/22 9:20:00 EDT, [facility] #[id number], Partial fill upon patient request if the prescription is for a schedule II opioid drug., apply as need to area, 165, cm, 2... Start Date: 02/05/22 Status: Ordered fluticasone-salmeterol 500 mcg-50 mcg inhalation powder 1, puffs, Inhalation, Every 12 hours, rinse mouth and throat after use, # 180 each, Refills 11, Tot. Refills 11, Maintenance, 11/20/21 10:58:00 EST, Powder, [id number] #[id number], 165, cm, 0... Start Date: 11/20/21 Status: [...] 02/05/22 9:21:00 EDT, Route to Pharmacy Electronically, [facility] #[id number], Partial fill upon patient request if the [...] tablet, Refills 2, Route to Pharmacy Electronically, [facility] #[id number], 165, cm, 02/11/22 9:38:00 EDT, Height, 142.7, kg, 09/06/21 16:04:00 EDT, Dry Weight Start Date: 03/10/22 Status: Ordered nabumetone 750 mg oral tablet 1 tablet = 750 mg, By Mouth, 2 times a day, with food, # 14 tablet, 0 Refills, Maintenance, 08/22/21 12:41:00 EDT, Tablet, [facility] #[id number], 165.1, cm, 08/22/21 12:16:00 EDT, Height, 140.9, kg, 03/27/21 17:38:00 EDT, Dry Weight Start Date: 08/22/21 Stop Date: 08/29/21 Status: Ordered naratriptan 2.5 mg oral tablet 1 tablet = 2.5 mg, By Mouth, Daily, PRN for migraine headache, may repeat once in 4 hours if needed, # 9 tablet, 4 Refills, Soft Stop, 04/06/21 8:40:00 EDT, Tablet, [facility] #[id number], side effects with sumatriptan, and if this is declined as... Start Date: 04/06/21 Stop Date: 09/03/21 Status: Ordered omeprazole 20 mg oral enteric coated capsule 1 capsule, By Mouth, 2 times a day, # 60 capsule, 5 Refills, 02/18/22 10:27:00 EDT, [facility] #[id number], 165, cm, 02/11/22 9:38:00 EDT, Height, 142.7, [...] 6 hours, # 18 Gm, 5 Refills, [facility] #[id number], 165.1, cm, 08/22/21 12:16:00 EDT, Height, 140.9, [...]
--- OUTSIDE RECORDS SUMMARY | 2024-05-14 17:32 | XMS_ITS | Continuity of Care Document ---
Author Organization [facility] Address [address] [place] [address]- Care Team Providers Care Skirt Maker Name Role Phone Frederick CONTRERAS, Virgilio Alexander Primary Care Physician Encounter [facility] [id number] Date(s): 05/07/23 - 05/07/[address] [address]- Discharge Disposition: A-D/C Home Attending Physician: Benjamin Brooks MD Admitting Physician: Benjamin Brooks MD Referring Physician: Not on Staff, Referring MD Allergies, Adverse Reactions, Alerts Substance Reaction [...] Pneumococcal Vaccine (oldterm) 11/17/01 Given 1Result Comment: [id number] 2Result Comment: [id number] 3Result Comment: [facility]-[id number] 4Result Comment: [08/04/2017] QUAD [id number] [facility] [id number] Medications acarbose 25 mg oral tablet 1 tablet = 25 mg, By Mouth, 3 times a day, # 90 tablet, 11 Refills, Maintenance, 07/31/22 14:13:00 EDT, [facility] #[id number], Partial fill upon patient request if the prescription is for a schedule II opioid drug., 165, cm, 07/31/22 13:42:00 ED... Start Date: 07/31/22 Status: Ordered acetaminophen-oxyCODONE 325 mg-5 mg oral tablet 1, tablet, By Mouth, Every 4 hours, PRN, # 14 tablet, Refills 0, Tot. Refills 0, Acute, for pain, 05/16/23 21:29:00 EDT, 05/07/23 21:28:00 EDT, Route to Pharmacy Electronically, [facility] Tablet, Partial fill upon patient request if the p... Start Date: 05/07/23 Stop Date: 05/16/23 Status: Ordered Ambien 10 mg oral tablet 1 tablet = 10 mg, By Mouth, Daily at bedtime, PRN as needed for insomnia, 0 Refills, Maintenance, 12/02/18 14:26:49 EST, Tablet Start Date: 12/02/18 Status: Ordered azelastine 137 mcg/inh (0.1%) nasal spray 2 sprays, Nares, Both, Daily, PRN Other Allergies, # 30 mL, 0 Refills, Maintenance, 02/20/23 15:08:00 EDT, [place], [facility] #[id number], Partial fill upon patient request if the prescription is for a schedule II opioid drug., 2 sprays Nares, B... Start Date: 02/20/23 Status: Ordered fluticasone-salmeterol 500 mcg-50 mcg inhalation powder 1, puffs, Inhalation, Every 12 hours, rinse mouth and throat after use, # 180 each, Refills 11, Tot. Refills 11, Maintenance, 11/20/21 10:58:00 EST, Powder, [id number][id number], 165, cm, 01/0... Start Date: 11/20/21 Status: Ordered ibuprofen 800 mg oral tablet 800 mg, 1, tablet, By Mouth, Every 8 hours, # 16 tablet, Refills 0, Tot. Refills 0, Acute 05/15/23 21:29:00 EDT, 05/07/23 21:28:00 EDT, Route to Pharmacy Electronically, [id number], Partial fill upon patient request if the prescription is... Start Date: 05/07/23 Stop Date: 05/15/23 Status: Ordered Imodium A-D 2 mg oral tablet 2 mg, 1, tablet, By Mouth, Daily, # 30 tablet, Refills 5, Tot. Refills 5, Soft Stop, 09/13/22 7:01:00 EDT, Route to Pharmacy Electronically, [facility] #[id number], Partial fill upon patient request if the [...] 09/13/22 7:03:00 EDT, Route to Pharmacy Electronically, [facility] #[id number], 165, cm, 09/12/22 11:26:00 EDT, Height, 142.7, k... Start Date: 09/13/22 Stop Date: 09/08/23 Status: Ordered methocarbamol 750 mg oral tablet 2 tablet = 1,500 mg, By Mouth, 3 times a day, PRN Pain , Moderate, # 30 tablet, 2 Refills, Acute 07/29/23 16:25:00 EDT, 04/28/23 16:24:00 EDT, Tablet, [facility] #[id number], Partial fill upon patient request if the prescription is for a schedule... Start Date: 04/28/23 Stop Date: 07/29/23 Status: Ordered omeprazole 20 mg oral enteric coated capsule 1 capsule, By Mouth, 2 times a day, # 60 capsule, 5 Refills, 02/18/22 10:27:00 EDT, [facility] #[id number], 165, cm, 02/11/22 9:38:00 EDT, Height, 142.7, kg, 09/06/21 16:04:00 EDT, Dry Weight Start Date: 02/18/22 Status: Ordered oxyCODONE 5 mg oral tablet 5 mg, Tablet, By Mouth, Once, Routine, 05/07/23 21:00:00 EDT, Stop date 05/07/23 21:00:00 EDT Start Date: 05/07/23 Stop Date: 05/07/23 Status: Completed Percocet-5/325 325 mg-5 mg oral tablet 3 tablet, Tablet, By Mouth, On Discharge for 7 days, one tab every 4 hours as needed for pain, STAT, 05/07/23 21:27:00 EDT, Stop date 05/14/23 21:26:00 EDT Start Date: 05/07/23 Stop Date: 05/07/23 Status: Completed SUMAtriptan 100 mg oral tablet 1 tablet = 100 mg, By Mouth, Daily, PRN for migraine headache, may repeat dose after 2 hours up to a maximum of 2, # 9 tablet, 5 Refills, Acute 06/24/23 5:18:00 EDT, 12/25/22 5:18:00 EST, Tablet, [facility] #[id number], Partial fill upon patient... Start Date: 12/25/22 Stop Date: 06/24/23 Status: Ordered Problem List Condition Confirmation Course [...] oldest [Reference Range]: 1 2 3 Height 165 cm (05/07/23 9:40 PM) 165 cm (05/07/23 6:43 PM) Weight 151.7 kg (05/07/23 9:40 PM) 151.7 kg (05/07/23 6:43 PM) Oxygen Saturation [94-100 %] 97 % (05/07/23 9:40 PM) 97 % (05/07/23 6:43 PM) Pulse Rate [55-90 bpm] 86 bpm (05/07/23 9:40 PM) 84 bpm (05/07/23 6:43 PM) Body Mass Index [18.5-24.99 kg/m2] 55.72 kg/m2 *>HHI* (05/07/23 9:40 PM) Blood Pressure [90-138/55-84 mm Hg] 128/71mm Hg (05/07/23 9:40 PM) 155/100mm Hg *H* (05/07/23 6:43 PM) Respiratory Rate [16-30 br/min] 17 br/min (05/07/23 9:50 PM) 18 br/min (05/07/23 9:40 PM) 16 br/min (05/07/23 9:10 PM) Temperature [96.8-100.4 DegF] 98.3 DegF (05/07/23 9:40 PM) 98.3 DegF (05/07/23 6:43 PM) Mode of Delivery (Oxygen) Room air (05/07/23 9:40 PM) Room air (05/07/23 6:43 PM) Blood pressure sites Arm, left (05/07/23 9:40 PM) Arm, left (05/07/23 6:43 PM) Temperature Route Temporal (05/07/23 9:40 PM) Temporal (05/07/23 6:43 PM) Dry Weight 151.7 kg (05/07/23 9:40 PM) 151.7 kg (05/07/23 6:43 PM) Dry Weight Obtained Via Standing scale (05/07/23 6:43 PM) Social History Social History Type Response Smoking Status 5-9 cigarettes (betw een 1/4 to 1/2 pack)/day in last 30 days entered on: 09/06/21 Sex Female Note * Benjamin Brooks MD: VERIFY, PERFORM, SIGN Event Display: Patient Education Handout Authored Date: * Benjamin Brooks MD: PERFORM Event Display: Patient Education Leaflets Authored Date: Back Pain (Acute or Chronic) ?? [id number] Back Pain (Acute or Chronic) Back pain is one of the most common problems. The good news is that most people feel better in 1 to2 weeks, and most of the rest in 1 to 2 months. Most people can remain active. People who have pain??describe it differently???not??everyone is the same. ??? The pain can be sharp, stabbing, shooting, aching, cramping or burning. ??? Movement, standing,bending, lifting, sitting, or walking may worsen pain. ??? It can be limited to one spot or area, or it can be more generalized. ??? It can spread upwards, to the front, or go down your arms or legs (sciatica). ??? It can cause muscle spasm. Most of the time, mechanical problems with the muscles??or spine cause the pain. Mechanical problems??are usually caused by an injury to the muscles or ligaments. Illness can cause back pain, but it's usually not caused by a serious illness. Mechanical problems include:? Physical activity such as sports, exercise, work, or normal activity ??? Overexertion, lifting,pushing, pulling incorrectly or too aggressively ??? Sudden twisting, bending, or stretching from an accident, or accidental movement ??? Poor posture ??? Stretching or moving wrong, without noticingpain at the time ??? Poor coordination, lack of regular exercise (check with your doctor about this) ??? Spinal disc disease or arthritis ??? Stress Pain can also be related to , or illness such as appendicitis, bladder or kidney infections, kidney stones, and pelvic infections. Acute back pain usually gets better in??1 to 2 weeks. Back pain related to disk disease, arthritis in the spinal joints, or narrowing of the spinal canal (spinal stenosis) can become chronic and lastfor months or years. Unless you had a physical injury such as a car accident or fall, X-rays are usually not needed for the first assessment of back pain. If pain continues and does not respond to medical treatment, you may need X-rays and other tests. Home care Try this home care advice: ??? When in bed, try??to find a position of comfort. A firm mattress is best. Try lying flat on your back with pillows under your knees. You can also try lying on your side with your knees bent up toward your chest and a pillow between your knees. ??? At first, don't try to stretch out the sore spots. If there is a strain, it's not like the good soreness you get after exercising without an injury. In this case, stretching may make it worse. ??? Don't sit for long periods, as in a long car ride or during other??travel. This puts more stress on the lower back than standing or walking. ??? During the first 24 to 72 hours after an acute injury or flare up of chronic back pain, apply an ice pack to the painful area for 20 minutes and then remove it for 20 minutes. Do this over a period of 60 to 90 minutes or several times a day. This will reduce swelling and pain. Wrap the ice pack in a thintowel or plastic to protect your skin. ??? You can start with ice, then switch to heat. Heat (hot shower, hot bath, or heating pad) reduces pain and works well for muscle spasms. Heat can be applied to the painful area for 20 minutes then remove it for 20 minutes. Do this over a period of 60 to 90 minutes or several times a day. Don't sleep on a heating pad. It can lead to skin tai or tissue damage. ??? You can alternate ice and heat therapy. Talk with your doctor about??the best treatment for your back pain. ??? Therapeutic massage can help relax the back muscles without stretching them. ??? Be aware of safe lifting methods. Don't lift anything without stretching first. Medicines Talk to your doctor before using medicine, especially if you have other medical problems or are taking other medicines. ??? You may use isun-nhh-xpadovx medicine as directed on the bottle to control pain, unless another pain medicine was prescribed. Talk with your healthcare provider before using these medicines if you have chronic conditions such as diabetes, liver or kidney disease, stomach ulcers, or digestive bleeding. Also talk with your provider if you take blood thinners. ??? Be careful if you are given a prescription medicines, narcotics, or medicine for muscle spasms. They can cause drowsiness, affect your coordination, reflexes, and judgment. Don't drive or operate heavy machinery. ?? Follow-up care Follow up with your healthcare provider, or as advised.?? If X-rays were taken, you will be told of any new findings that may affect your care. ?? Call 911 Call 911 if any of the following occur: ??? Trouble breathing ??? Confusion ??? Very drowsy or trouble awakening ??? Fainting or loss of consciousness ??? Rapid or very slow heart rate ??? Loss of bowel or bladder control ?? When to seek medical advice Call your healthcare provider right away if any of these occur:? Pain gets worse or spreads toyour legs ??? Your bowel or bladder control changes ??? Fever ??? Blood in your urine ??? Weakness or numbness in one or both legs ??? Numbness in the groin or genital area ?? Last Reviewed Date: 2021 ?? 5928-5554 [employer]. All rights reserved. This information is not intended as a substitute for professional medical care. Always follow your healthcare professional's instructions. ?? Patient Care team information Care Team Personnel Name: Linda Awan RN Position: [facility] SN RN Member Role: Primary Care Nurse Name: Brionna Pathak RN Position: [facility] RN Member Role: Primary Care Nurse Name: Virgilio Mack MD Position: [facility] Physician - Primary Care Member Role: PCP Address: Address: [address] [place] [address]- [place] Name: Kishor An Position: [facility] ED TA [facility] Member Role: Patient Care Provider Name: Jayne Flowers RN Position: [facility] ED RN W/OE and Tasks Member Role: Patient Care Provider Name: Benjamin Brooks MD Position: [facility] ED Medicine MD Member Role: Admitting Physician Address: Address: [address] [place] [address]- Care Team Related Persons Name: KELLY YANG Address: home [address] [place] [address] Name: ANNE-MARIE YANG Address: [place] [address] Name: GRAHAM YANG Address: home [address] [place] [address] Name: DULCE YANG Address: [address] [place] [address] Name: DULCE SHEPHERD Address: home [address] [place] [address]
--- OUTSIDE RECORDS SUMMARY | 2024-05-14 17:32 | XMS_ITS | Continuity of Care Document ---
Author Organization [facility] Address [address] [place] [address]- Care Team Providers Care Investor Relations Coordinator Name Role Phone Frederick CONTRERAS, Virgilio Alexander Primary Care Physician Encounter [facility] Date(s): 06/01/21 - 07/01/21 [facility] [address] [place] [address]- Allergies, Adverse Reactions, Alerts Substance Reaction Severity [...] 11/17/01 Given 1Result Comment: [facility]-[id number] 2Result Comment: [08/04/2017] QUAD [id number] [facility] 84663-632-80 Medications albuterol CFC free 90 mcg/inh inhalation aerosol 2, puffs, Inhalation, Every 6 hours, # 3 each, Refills 3, Tot. Refills 3, Maintenance, 02/27/21 7:09:00 EDT, Route to Pharmacy Electronically, [facility]- [id number], [facility] #[id number], 165, cm, 02/27/21 6:55:00 EDT, Height Start [...] 06/26/21 9:29:00 EDT, Route to Pharmacy Electronically, [facility] #[id number], Partial fill upon patient request if the prescription is for a schedule II opio... Start Date: 06/26/21 Status: Ordered naproxen sodium 550 mg oral tablet 1 tablet, By Mouth, 2 times a day, PRN NEEDED FOR PAIN, for 14 days, # 28 tablet, 0 Refills, Acute 07/09/21 16:31:00 EDT, 06/25/21 16:31:00 EDT, [facility] #[id number], 165.1, cm, 06/22/21 15:16:00 EDT, Height, 140.9, kg, 03/27/21 17:38:00 EDT... Start Date: 06/25/21 Stop Date: 07/09/21 Status: Ordered naratriptan 2.5 mg oral tablet 1 tablet = 2.5 mg, By Mouth, Daily, PRN for migraine headache, may repeat once in 4 hours if needed, # 9 tablet, 4 Refills, Soft Stop, 04/06/21 8:40:00 EDT, Tablet, [facility] #[id number], side effects with sumatriptan, and if this is declined as... Start Date: 04/06/21 Stop Date: 09/03/21 Status: Ordered nicotine 21 mg/24 hr transdermal film, extended release 1 patch, Topically, Daily, # 30 patch, 1 Refills, Acute 07/03/21 17:00:00 EDT, 06/05/21 16:45:00 EDT, Patch, [facility] #[id number], Partial fill upon patient request if the prescription is for a schedule II opioid drug., 1 patch Topically Daily,... Start Date: 06/05/21 Stop Date: 07/03/21 Status: Ordered omeprazole 20 mg oral enteric coated capsule 1 capsule = 20 mg, By Mouth, 2 times a day, # 60 capsule, 1 Refills, Maintenance, 06/25/21 11:09:00EDT, [facility] #[id number], Partial fill upon patient request if the [...]
--- OUTSIDE RECORDS SUMMARY | 2024-05-14 17:33 | XMS_ITS | Continuity of Care Document ---
Author Organization [facility] Address [address] [place] [address]- Care Team Providers Care Flue Dust Laborer Name Role Phone Frederick CONTRERAS, Virgilio Alexander Primary Care Physician Encounter [facility] Date(s): 08/13/23 - 09/12/23 [facility] [address] [place] [address]- Attending Physician: Admtr, Ar8 Allergies, Adverse Reactions, Alerts [...] pneumococcal 20-valent conjugate vaccine 5 12/24/22 Given SARS-CoV-2 (COVID-19) mRNA BNT-162b2 vac 12/08/21 Recorded SARS-CoV-2 (COVID-19) mRNA BNT-162b2 vac 03/11/21 Recorded SARS-CoV-2 (COVID-19) mRNA BNT-162b2 vac 02/17/21 Recorded tetanus/diphtheria/pertussis, acel(Tdap) 03/13/17 Recorded tetanus-diphtheria toxoids (Td) 08/07/13 Recorded Tetanus Toxoid Vaccine (oldterm) 11/17/01 Given Pneumococcal Vaccine (oldterm) 11/17/01 Given 1Result Comment: [id number] 2Result Comment: [id number] 3Result Comment: [facility]-[id number] 4Result Comment: [08/04/2017] QUAD [id number] [facility] [id number] 5Result Comment: [id number] Medications acarbose 25 mg oral tablet 1 tablet = 25 mg, By Mouth, 3 times a day, # 90 tablet, 11 Refills, Maintenance, 09/09/23 18:02:00 EDT, [facility] #[id number], Partial fill upon patient request if the prescription is for a schedule II opioid drug., 165, cm, 08/13/23 13:25:00 ED... Start Date: 09/09/23 Status: Ordered Ambien 10 mg oral tablet 1 tablet = 10 mg, By Mouth, Daily at bedtime, PRN as needed for insomnia, 0 Refills, Maintenance, 12/02/18 14:26:49 EST, Tablet Start Date: 12/02/18 Status: Ordered azelastine 137 mcg/inh (0.1%) nasal spray 2 sprays, Nares, Both, Daily, PRN Other Allergies, # 30 mL, 0 Refills, Maintenance, 02/20/23 15:08:00 EDT, [place], [facility] #[id number], Partial fill upon patient request if the prescription is for a schedule II opioid drug., 2 sprays Nares, B... Start Date: 02/20/23 Status: Ordered fluticasone-salmeterol 500 mcg-50 mcg inhalation powder 1, puffs, Inhalation, Every 12 hours, rinse mouth and throat after use, # 180 each, Refills 11, Tot. Refills 11, Maintenance, 11/20/21 10:58:00 EST, Powder, Route to Pharmacy Electronically, [facility]_[id number], [facility] #[id number], 165, cm, 0... Start Date: 11/20/21 Status: Ordered Imodium A-D 2 mg oral tablet 2 mg, 1, tablet, By Mouth, Daily, # 30 tablet, Refills 5, Tot. Refills 5, Soft Stop, 09/13/22 7:01:00 EDT, Route to Pharmacy Electronically, [facility] #[id number], Partial fill upon patient request if the [...] opioid drug. Start Date: 02/27/21 Status: Ordered loperamide 2 mg oral tablet 1 tablet = 2 mg, By Mouth, Daily, 90 day supply, # 90 tablet, 3 Refills, Maintenance, 06/09/23 8:11:00 EDT, Tablet, [facility] #[id number], Partial fill upon patient request if the [...] 60 capsule, 5 Refills, 02/18/22 10:27:00 EDT, [facility] #[id number], 165, cm, 02/11/22 9:38:00 EDT, Height, 142.7, kg, 09/06/21 16:04:00 EDT, Dry Weight Start Date: 02/18/22 Status: Ordered OXcarbazepine 150 mg oral tablet 150 mg, 1, tablet, By Mouth, Daily at bedtime, Refills 0, Maintenance, 08/26/23 12:59:00 EDT, Partial fill upon patient request if the prescription is for a schedule II opioid drug. Start Date: 08/26/23 Status: Ordered PEG-3350 with Electrolytes (Eqv-GoLYTELY) oral powder for reconstitution See Instructions, 1 glass every 15-30 minutes until finished, # 4,000 mL, 0 Refills, Maintenance, 08/20/23 14:52:00 EDT, [facility] #[id number], Partial fill upon patient request if the prescription is for a schedule II opioid drug., 1 glass ever... Start Date: 08/20/23 Status: Ordered Problem List Condition Confirmation Course [...] 0.5 PPD; entered on: 08/13/23 Sex Female Cardiology * Event Display: Non BH Cardiovascular Results Authored Date: Laboratory * Event Display: Non BH Lab Results Authored Date: * Event Display: Non BH Lab Results Authored Date: * Event Display: Non BH Lab Results Authored Date: Radiology * Event Display: Ultrasound Abdomen, Non-BH Authored Date: * Event Display: X-Ray Ankle/Foot, Non- BH Authored Date: * Event Display: CT Scan Abdomen, Non- BH Authored Date: * Event Display: X-Ray Chest, Non- BH Authored Date: * Event Display: X-Ray Chest, Non- BH Authored Date: Patient Care team information Care Team Personnel Name: Lv MOSER, Linda [place] Position: [facility] RN Member Role: Primary Care Nurse Name: Brionna Pathak RN Position: S RN Member Role: Primary Care Nurse Name: Virgilio Mack MD Position: [facility] Physician - Primary Care Member Role: PCP Address: Address: [address] [place] [address]- Care Team Related Persons Name: KELLY YANG Address: home [address] [place] [address] Name: ANNE-MARIE YANG Address: [place] [address] Name: GRAHAM YANG Address: home [address] [place] [address] Name: DULCE YANG Address: [address] [place] [address] Name: DULCE SHEPHERD Address: home [address] [place] [address]
--- OUTSIDE RECORDS SUMMARY | 2024-05-14 17:33 | XMS_ITS | Continuity of Care Document ---
Author Organization [facility] Address [address] [place] [address]- Care Team Providers Care Log Inspector Name Role Phone Frederick CONTRERAS, Virgilio Alexander Primary Care Physician Encounter [facility] Date(s): 08/14/23 - 09/13/23 [facility] [address] [place] [phone]- [place] Allergies, Adverse Reactions, Alerts Substance Reaction Severity [...] Pneumococcal Vaccine (oldterm) 11/17/01 Given 1Result Comment: [id number] 2Result Comment: [id number] 3Result Comment: [facility]-[id number] 4Result Comment: [08/04/2017] [facility] [id number] [facility] [id number] 5Result Comment: [id number] Medications acarbose 25 mg oral tablet 1 tablet = 25 mg, By Mouth, 3 times a day, # 90 tablet, 11 Refills, Maintenance, 09/09/23 18:02:00 EDT, [facility] #[id number], Partial fill upon patient request if the [...] mL, 0 Refills, Maintenance, 02/20/23 15:08:00 EDT, [place], [facility] #[id number], Partial fill upon patient request if the prescription is for a schedule II opioid drug., 2 sprays Nares, B... Start Date: 02/20/23 Status: Ordered fluticasone-salmeterol 500 mcg-50 mcg inhalation powder 1, puffs, Inhalation, Every 12 hours, rinse mouth and throat after use, # 180 each, Refills 11, Tot. Refills 11, Maintenance, 11/20/21 10:58:00 EST, Powder, Route to Pharmacy Electronically, NCPDP_[id number], [facility] #[id number], 165, cm, 0... Start Date: 11/20/21 Status: Ordered Imodium A-D 2 mg oral tablet 2 mg, 1, tablet, By Mouth, Daily, # 30 tablet, Refills 5, Tot. Refills 5, Soft Stop, 09/13/22 7:01:00 EDT, Route to Pharmacy Electronically, [facility] #[id number], Partial fill upon patient request if the [...] 3 Refills, Maintenance, 06/09/23 8:11:00 EDT, Tablet, [facility] #[id number], Partial fill upon patient request if the [...] 60 capsule, 5 Refills, 02/18/22 10:27:00 EDT, [facility] #[id number], 165, cm, 02/11/22 9:38:00 EDT, Height, 142.7, [...] mL, 0 Refills, Maintenance, 08/20/23 14:52:00 EDT, [facility] #[id number], Partial fill upon patient request if the [...] Team Personnel Name: Linda Awan RN Position: [facility] RN Member Role: Primary Care Nurse Name: Brionna Pathak RN Position: [facility] RN Member Role: Primary Care Nurse Name: Virgilio Mack MD Position: [facility] Physician - Primary Care Member Role: PCP Address: Address: [address] [place] [address]- Care Team Related Persons Name: KELLY YANG Address: home [address] [place] [address] Name: ANNE-MARIE YANG Address: [place] [address] Name: GRAHAM YANG Address: home [address] [place] [address] Name: DULCE YANG Address: home [address] [place] [address] Name: DULCE SHEPHERD Address: home [address] [place] [address]
--- OUTSIDE RECORDS SUMMARY | 2024-05-14 17:33 | XMS_ITS | Continuity of Care Document ---
Author Organization [facility] Janes Catracho lt Address [address] [place] [address]- Care Team Providers Care Central Service Technician Name Role Phone Frederick CONTRERAS, Virgilio Alexander Primary Care Physician Encounter [facility] Date(s): 08/11/23 - 09/10/23 [facility] Adult [address] [place] [address]- Allergies, Adverse Reactions, Alerts Substance Reaction Severity [...] Pneumococcal Vaccine (oldterm) 11/17/01 Given 1Result Comment: [id number] 2Result Comment: [id number] 3Result Comment: [facility]-[id number] 4Result Comment: [08/04/2017] QUAD 4806-0701 [facility] [id number] 5Result Comment: [id number] Medications acarbose 25 mg oral tablet 1 tablet = 25 mg, By Mouth, 3 times a day, # 90 tablet, 11 Refills, Maintenance, 09/09/23 18:02:00 EDT, [email or web address] #[id number], Partial fill upon patient request if the [...] mL, 0 Refills, Maintenance, 02/20/23 15:08:00 EDT, [place], [facility] #[id number], Partial fill upon patient request if the prescription is for a schedule II opioid drug., 2 sprays Nares, B... Start Date: 02/20/23 Status: Ordered fluticasone-salmeterol 500 mcg-50 mcg inhalation powder 1, puffs, Inhalation, Every 12 hours, rinse mouth and throat after use, # 180 each, Refills 11, Tot. Refills 11, Maintenance, 11/20/21 10:58:00 EST, Powder, Route to Pharmacy Electronically, NCPDP_[id number], [facility] #[id number], 165, cm, ... Start Date: 11/20/21 Status: Ordered Imodium A-D 2 mg oral tablet 2 mg, 1, tablet, By Mouth, Daily, # 30 tablet, Refills 5, Tot. Refills 5, Soft Stop, 09/13/22 7:01:00 EDT, Route to Pharmacy Electronically, [facility] #[id number], Partial fill upon patient request if the [...] 3 Refills, Maintenance, 06/09/23 8:11:00 EDT, Tablet, [email or web address] #[id number], Partial fill upon patient request if the [...] 60 capsule, 5 Refills, 02/18/22 10:27:00 EDT, [facility] #[id number], 165, cm, 02/11/22 9:38:00 EDT, Height, 142.7, [...] mL, 0 Refills, Maintenance, 08/20/23 14:52:00 EDT, [facility] #[id number], Partial fill upon patient request if the [...] 0.5 PPD; entered on: 08/13/23 Sex Female Note * Virgilio Mack MD: REVIEW Virgilio Mack MD: REVIEW, SIGN, VERIFY Event Display: Case Management Discharge Plan Authored Date: [id number] Patient: WIL YANG Age: 42 years Sex: Female : 1980 Associated Diagnoses: None Author: Elvin MOSER, Francia Care Management Discharge Call Note Admit date 08/11/2023 Discharge date 08/11/2023 Date of contact 08/12/2023 Diagnosis Rectal bleeding If patient went for emergency services was this patient referred? Referred by Self D/C Notes in [facility]. Discharge instructions were reviewed with the patient? Yes Medication reconciliation performed Yes Looks like you were recently discharged from the hospital (ED), how are you feeling? Patient denies any new or worsneing s/sx. Please tell me the problem or condition that brought you to the hospital (ED)? Rectal bleeding. Do you know what to do in case of an emergency? Yes Were you given any prescriptions to fill? Yes. Do you understand how to take your medication? Yes Other diagnostic tests/procedures ordered/recommended? GI Referral? Colonoscopy. Pt will discuss at ERF visit. Do you have an appointment already scheduled with your PCP? 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 Are you able to get to that appointment: Yes. Appointment scheduled? Date 08/13/2023 Home Care Services requested? No Have there been any changes in your condition since discharge? No Do you have someone at home that is able to help you? No Is there anything else that you need addressed before your follow up appointment? No Patient Care team information Care Team Personnel Name: Linda Awan RN Position: [facility] SN RN Member Role: Primary Care Nurse Name: Brionna Pathak RN Position: [facility] ED RN W/OE and Tasks Member Role: Primary Care Nurse Name: Virgilio Mack MD Position: [facility] Physician - Primary Care Member Role: PCP Address: Address: [address] [place] [id number]- Care Team Related Persons Name: KELLY YANG Address: home [address] [place] [address] Name: ANNE-MARIE YANG Address: [place], [place] Name: GRAHAM YANG Address: home [address] [place], [place] Name: DULCE YANG Address: home [address] [place] [address] [address] [place], [place] Name: DULCE SHEPHERD Address: home [address] [place] [id number]
--- OUTSIDE RECORDS SUMMARY | 2024-05-14 17:33 | XMS_ITS | Continuity of Care Document ---
Author Organization [facility] Catracho Address [address] [place] [address]- Care Team Providers Care Club Lounge Attendant Name Role Phone Frederick CONTRERAS, Virgilio Alexander Primary Care Physician [place] [facility] [place] 08/03/20 - 09/02/20 [facility] Adult [address] [place] [address]- [facility] Attending Physician: Admtr, Ar8 Allergies, Adverse Reactions, [...] Vaccine (oldterm) 11/17/01 Given 1Result Comment: [facility]-[id number] 2Result Comment: [08/04/2017] QUAD [id number] [facility] [id number] Medications acetaminophen 325 mg oral tablet 650 [...] 05/05/20 13:06:00 EDT, Route to Pharmacy Electronically, IAPDP_ID- [id number], [facility] #[id number], 165, cm,01/19/20 14:17:00 EST, Height Start Date: [...] 01/19/20 14:42:00 EST, Route to Pharmacy Electronically, [facility] #[id number], 165, cm, 01/19/20 14:17:00 EST, Height Start Date: 01/19/20 Status: Ordered Flovent HFA 110 mcg/inh inhalation aerosol 2 puffs, Inhalation, 2 times a day, rinse mouth and throat after use, # 12 Gm, 0 Refills, Maintenance, 11/30/19 8:41:00 EST, Aerosol, [facility], 165, cm, 11/30/19 8:25:00 EST, Height [...] 06/06/20 9:20:00 EDT, Capsule, [facility] #[id number], 165, cm, 06/06/20 8:52:00 EDT, Height Start [...]
--- OUTSIDE RECORDS SUMMARY | 2024-05-14 17:33 | XMS_ITS | Continuity of Care Document ---
Author Organization [facility] Janes Catracho lt Address [address] [place] [address]- Care Team Providers Care Restaurant Host/Hostess Name Role Phone Frederick CONTRERAS, Virgilio Alexander Primary Care Physician [place] [facility] [place] [place] 10/29/23 - 11/28/23 [facility] [place] Adult [address] [place] [address]- Allergies, Adverse Reactions, Alerts Substance Reaction Severity [...] pneumococcal 20-valent conjugate vaccine 5 12/24/22 Given [id number] 12y+ bivalent booster vax 11/01/22 Recorded SARS-CoV-2 (COVID-19) mRNA BNT-162b2 vac 12/08/21 Recorded SARS-CoV-2 (COVID-19) mRNA BNT-162b2 vac 03/11/21 Recorded SARS-CoV-2 (COVID-19) mRNA BNT-162b2 vac 02/17/21 Recorded tetanus/diphtheria/pertussis, acel(Tdap) 03/13/17 Recorded tetanus-diphtheria toxoids (Td) 08/07/13 Recorded Tetanus Toxoid Vaccine (oldterm) 11/17/01 Given Pneumococcal Vaccine (oldterm) 11/17/01 Given 1Result Comment: [id number] 2Result Comment: [id number] 3Result Comment: [facility]-[id number] 4Result Comment: [08/04/2017] QUAD [id number] [facility] [id number] 5Result Comment: [id number] Medications Ambien 10 mg oral tablet 1 tablet = 10 mg, By Mouth, Daily at bedtime, PRN as needed for insomnia, 0 Refills, Maintenance, 12/02/18 14:26:49 EST, Tablet Start Date: 12/02/18 Status: Ordered azelastine 137 mcg/inh (0.1%) nasal spray 2 sprays, Nares, Both, Daily, PRN Other Allergies, # 30 mL, 0 Refills, Maintenance, 02/20/23 15:08:00 EDT, [place], [facility] #[id number], Partial fill upon patient request if the prescription is for a schedule II opioid drug., 2 sprays Nares, B... Start Date: 02/20/23 Status: Ordered fluticasone-salmeterol 500 mcg-50 mcg inhalation powder 1, puffs, Inhalation, Every 12 hours, rinse mouth and throat after use, # 180 each, Refills 11, Tot. Refills 11, Maintenance, 11/20/21 10:58:00 EST, Powder, Route to Pharmacy Electronically, NCPDP_[id number], [facility] #[id number], 165, cm, 0... Start Date: 11/20/21 Status: Ordered Imodium A-D 2 mg oral tablet 2 mg, 1, tablet, By Mouth, Daily, # 30 tablet, Refills 5, Tot. Refills 5, Soft Stop, 09/13/22 7:01:00 EDT, Route to Pharmacy Electronically, [facility] #[id number], Partial fill upon patient request if the [...] 11/06/23 12:57:00 EST, Route to Pharmacy Electronically, [facility] #[id number], 165, cm, 10/30/23 14:14:00 EST, Height, 139.3, kg, 09/10/23 11:57:00 EDT, Dry Weight Start Date: 11/06/23 Status: Ordered loperamide 2 mg oral tablet 1 tablet = 2 mg, By Mouth, Daily, 90 day supply, # 90 tablet, 3 Refills, Maintenance, 06/09/23 8:11:00 EDT, Tablet, [facility] #[id number], Partial fill upon patient request if the prescription is for a schedule II opioid drug., 165, cm, 05/07/23... Start Date: 06/09/23 Status: Ordered meloxicam 15 mg oral tablet 1 tablet = 15 mg, By Mouth, Daily, # 30 tablet, 0 Refills, Maintenance, 10/30/23 14:26:00 EST, [facility] #47794, Partial fill upon patient request if the [...] 60 capsule, 5 Refills, 02/18/22 10:27:00 EDT, [facility] #[id number], 165, cm, 02/11/22 9:38:00 EDT, Height, 142.7, [...] 10/30/23 14:28:00 EST, Route to Pharmacy Electronically, [facility] #[id number], Partial fill upon patient request if the [...] Team Personnel Name: Linda Awan RN Position: [facility] SN RN Member Role: Primary Care Nurse Name: Brionna Pathak RN Position: [facility] RN Member Role: Primary Care Nurse Name: Virgilio Mack MD Position: [facility] Physician - Primary Care Member Role: PCP Address: Address: [address] [place] [address]- [place] Care Team Related Persons Name: KELLY YANG Address: home [address] [place] [address] Name: ANNE-MARIE YANG Address: [place] [address] Name: GRAHAM YANG Address: home [address] [place] [address] Name: DULCE YANG Address: home [address] [facility] [address] [place] [address] Name: DULCE SHEPHERD Address: home [address] [place] [address]
--- OUTSIDE RECORDS SUMMARY | 2024-05-14 17:33 | XMS_ITS | Continuity of Care Document ---
Author Organization [facility] Catracho Address [address] [place] [address]- Care Team Providers Care Door Serviceman Name Role Phone Virgilio Mack MD Primary Care Physician [phone] [place] [facility] [place] 01/19/20 - 01/26/20 [facility] Adult [address] [place] [address]- [facility] Attending Physician: Virgilio Mack MD Allergies, Adverse Reactions, Alerts Substance Reaction Severity Status shellfish Active Risperdal 1, 2 Weight gain Seizures, eye sight Active Topamax Anger Aggressive behavior psyche Active Geodon Active 1Slept alot 2gained 20 pounds in a month per partner Immunizations Given and Recorded Vaccine Date Status Refusal Reason influenza virus vaccine, inactivated 1 09/15/19 Gi corrina influenza virus vaccine, inactivated 12/02/18 Give n influenza virus vaccine, inactivated 2 08/04/17 Gi corrina tetanus/diphtheria/pertussis, acel(Tdap) 03/13/17 Recorded Tetanus Toxoid Vaccine (oldterm) 11/17/01 Given Pneumococcal Vaccine (oldterm) 11/17/01 Given 1Result Comment: [facility]-[id number] 2Result Comment: [08/04/2017] QUAD [id number] [facility] 25803-764-20 Medications acetaminophen 325 mg oral tablet 650 mg, 2, tablet, By Mouth, Every 6 hours, PRN, # 50 tablet, Refills 0, Tot. Refills 0, Maintenance, as needed for pain, 09/12/19 18:57:55 EDT, Print Requisition Start Date: 09/12/19 Status: Ordered albuterol 90 mcg/inh inhalation aerosol See Instructions, 2 puffs every 6 hours brand name only, # 8.5 Gm, 1 Refills, Maintenance Start Date: 01/19/20 Status: Ordered Alcohol Pads See Instructions, # [...] 01/19/20 14:42:00 EST, Route to Pharmacy Electronically, [facility] #[id number], 165, cm, 01/19/20 14:17:00 EST, Height Start Date: 01/19/20 Status: Ordered Flovent HFA 110 mcg/inh inhalation aerosol 2 puffs, Inhalation, 2 times a day, rinse mouth and throat after use, # 12 Gm, 0 Refills, Maintenance, 11/30/19 8:41:00 EST, Aerosol, [facility], 165, cm, 11/30/19 8:25:00 EST, [...] each, Refills 5, Tot. Refills 5, Maintenance, Test BS twice daily for T2DM,07/20/19 15:55:33 EDT, Compound Start Date: 07/20/19 Status: Ordered [...] oldest [Reference Range]: 1 Height 165 cm (01/19/20 2:17 PM) Weight 121.4 kg (01/19/20 2:17 PM) Oxygen Saturation [94-100 %] 97 % (01/19/20 2:17 PM) Pulse Rate [55-90 bpm] 81 bpm (01/19/20 2:17 PM) Body Mass Index [18.5-24.99] 44.59 *>HHI* (01/19/20 2:17 PM) Blood Pressure [90-138/55-84 mm Hg] 130/ 72mm Hg (01/19/20 2:17 PM) Respiratory Rate [16-30 br/min] 14 br/mi n *L* (01/19/20 2:17 PM) Temperature [96.8-100.4 DegF] 97.8 DegF (01/19/20 2:17 PM) Mode of Delivery (Oxygen) Room air (01/19/20 2:17 PM) Blood pressure sites Arm, left (01/19/20 2:17 PM) Temperature Route Oral (01/19/20 2:17 PM) Weight Obtained Via Standing scale (01/19/20 2:17 PM) Social History Social History Type Response Smoking Status Former smoker; Type: Cigarettes; Tobacco use times per day: 1 ppd; Number of years: 22; Total pack years: 22; entered on: 10/21/17 Sex
--- OUTSIDE RECORDS SUMMARY | 2024-05-14 17:33 | XMS_ITS | Continuity of Care Document ---
Author Organization [facility] Address [address] [place] [address] [address] [place] [address]- Care Team Providers Care Digital Marketing Analyst Name Role Phone Virgilio Mack MD Primary Care Physician Encounter [facility] [id number] Date(s): 06/21/21 - 06/28/[address] [place] [address]- Attending Physician: Luz Talley MD Referring Physician: Virgilio Mack MD Allergies, [...] (oldterm) 11/17/01 Given 1Result Comment: [facility]-[id number] 2Result Comment: [08/04/2017] QUAD [id number] [facility] [id number] Medications albuterol CFC free 90 mcg/inh inhalation aerosol 2, puffs, Inhalation, Every 6 hours, # 3 each, Refills 3, Tot. Refills 3, Maintenance, 02/27/21 7:09:00 EDT, Route to Pharmacy Electronically, NCPDP_ID- [id number], [id number], 165, cm, 02/27/21 6:55:00 EDT, Height Start [...] 06/26/21 9:29:00 EDT, Route to Pharmacy Electronically, [facility] #[id number], Partial fill upon patient request if the prescription is for a schedule II opio... Start Date: 06/26/21 Status: Ordered naproxen sodium 550 mg oral tablet 1 tablet, By Mouth, 2 times a day, PRN NEEDED FOR PAIN, for 14 days, # 28 tablet, 0 Refills, Acute 07/09/21 16:31:00 EDT, 06/25/21 16:31:00 EDT, [facility] #[id number], 165.1, cm, 06/22/21 15:16:00 EDT, Height, 140.9, kg, 03/27/21 17:38:00 EDT... Start Date: 06/25/21 Stop Date: 07/09/21 Status: Ordered naratriptan 2.5 mg oral tablet 1 tablet = 2.5 mg, By Mouth, Daily, PRN for migraine headache, may repeat once in 4 hours if needed, # 9 tablet, 4 Refills, Soft Stop, 04/06/21 8:40:00 EDT, Tablet, [facility] #[id number], side effects with sumatriptan, and if this is declined as... Start Date: 04/06/21 Stop Date: 09/03/21 Status: Ordered nicotine 21 mg/24 hr transdermal film, extended release 1 patch, Topically, Daily, # 30 patch, 1 Refills, Acute 07/03/21 17:00:00 EDT, 06/05/21 16:45:00 EDT, Patch, [facility] #[id number], Partial fill upon patient request if the prescription is for a schedule II opioid drug., 1 patch Topically Daily,... Start Date: 06/05/21 Stop Date: 07/03/21 Status: Ordered omeprazole 20 mg oral enteric coated capsule 1 capsule = 20 mg, By Mouth, 2 times a day, # 60 capsule, 1 Refills, Maintenance, 06/25/21 11:09:00EDT, [facility] #[id number], Partial fill upon patient request if the [...]
--- OUTSIDE RECORDS SUMMARY | 2024-05-14 17:33 | XMS_ITS | Continuity of Care Document ---
Author Organization [facility] Catracho lt Address [address] [place] [address]- Care Team Providers Care Apparel Embroidery Digitizer Name Role Phone Frederick CONTRERAS, Virgilio Alexander Primary Care Physician [phone] Encounter [facility] [place] Date(s): 08/13/23 - 08/20/23 [facility] Adult [address] [place] [address]- Encounter Diagnosis Rectal bleeding(Discharge Diagnosis) - 08/13/23 Attending Physician: Not on Staff, Attending MD Allergies, Adverse Reactions, Alerts Substance Reaction [...] Pneumococcal Vaccine (oldterm) 11/17/01 Given 1Result Comment: [id number] 2Result Comment: [id number] 3Result Comment: [facility]-[id number] 4Result Comment: [08/04/2017] QUAD 1700-2307 [facility] [id number] 5Result Comment: [id number] Medications acarbose 25 mg oral tablet 1 tablet = 25 mg, By Mouth, 3 times a day, # 90 tablet, 11 Refills, Maintenance, 07/31/22 14:13:00 EDT, [facility] #[id number], Partial fill upon patient request if the [...] mL, 0 Refills, Maintenance, 02/20/23 15:08:00 EDT, [place], [facility] #[id number], Partial fill upon patient request if the prescription is for a schedule II opioid drug., 2 sprays Nares, B... Start Date: 02/20/23 Status: Ordered fluticasone-salmeterol 500 mcg-50 mcg inhalation powder 1, puffs, Inhalation, Every 12 hours, rinse mouth and throat after use, # 180 each, Refills 11, Tot. Refills 11, Maintenance, 11/20/21 10:58:00 EST, Powder, Route to Pharmacy Electronically, NCPDP_[id number], [facility] #[id number], 165, cm, 01/0... Start Date: 11/20/21 Status: Ordered Imodium A-D 2 mg oral tablet 2 mg, 1, tablet, By Mouth, Daily, # 30 tablet, Refills 5, Tot. Refills 5, Soft Stop, 09/13/22 7:01:00 EDT, Route to Pharmacy Electronically, [facility] #[id number], Partial fill upon patient request if the [...] 09/13/22 7:03:00 EDT, Route to Pharmacy Electronically, [facility] #[id number], 165, cm, 09/12/22 11:26:00 EDT, Height, 142.7, k... Start Date: 09/13/22 Stop Date: 09/08/23 Status: Ordered loperamide 2 mg oral tablet 1 tablet = 2 mg, By Mouth, Daily, 90 day supply, # 90 tablet, 3 Refills, Maintenance, 06/09/23 8:11:00 EDT, Tablet, [facility] #[id number], Partial fill upon patient request if the [...] 60 capsule, 5 Refills, 02/18/22 10:27:00 EDT, [facility] #[id number], 165, cm, 02/11/22 9:38:00 EDT, Height, 142.7, kg, 09/06/21 16:04:00 EDT, Dry Weight Start Date: 02/18/22 Status: Ordered PEG-3350 with Electrolytes (Eqv-GoLYTELY) oral powder for reconstitution See Instructions, 1 glass every 15-30 minutes until finished, # 4,000 mL, 0 Refills, Maintenance, 08/20/23 14:52:00 EDT, [facility] #[id number], Partial fill upon patient request if the [...] Dates Health Status Cl inical Service Informant Rectal bleeding Discharge Diagnosis 08/13/23 Vital Signs Most recent to oldest [Reference Range]: 1 Height 165 cm (08/13/23 1:25 PM) Weight 142.7 kg (08/13/23 1:25 PM) Oxygen Saturation [94-100 %] 95 % (08/13/23 1:25 PM) Pulse Rate [55-90 bpm] 80 bpm (08/13/23 1:25 PM) Body Mass Index [18.5-24.99 kg/m2] 52.42 kg/m2 *>HHI* (08/13/23 1:25 PM) Blood Pressure [90-138/55-84 mm Hg] 115/ 75mm Hg (08/13/23 1:25 PM) Temperature [96.8-100.4 DegF] 98.2 DegF (08/13/23 1:25 PM) Mode of Delivery (Oxygen) Room air (08/13/23 1:25 PM) Blood pressure sites Arm, left (08/13/23 1:25 PM) Temperature Route Oral (08/13/23 1:25 PM) Weight Obtained Via Standing scale (08/13/23 1:25 PM) Social History Social History Type Response Smoking Status 5-9 cigarettes (betw een 1/4 to 1/2 pack)/day in last 30 days; Tobacco use times per day: 0.5 PPD; entered on: 08/13/23 Sex Female Patient Care team information Care Team Personnel Name: Linda Awan RN Position: [facility] RN Member Role: Primary Care Nurse Name: Brionna Pathak RN Position: S RN Member Role: Primary Care Nurse Name: Virgilio Mack MD Position: [facility] Physician - Primary Care Member Role: PCP Address: Address: [address] [place] [address]- [place] Care Team Related Persons Name: KELLY YANG Address: [address] [address] Name: ANNE-MARIE YANG Address: [place] [address] Name: GRAHAM YANG Address: home [address] [place] [address] Name: DULCE YANG Address: [address] [place] [address] Name: DULCE SHEPHERD Address: home [address] [place] [address]
--- OUTSIDE RECORDS SUMMARY | 2024-05-14 17:33 | XMS_ITS | Continuity of Care Document ---
Author Organization [facility] Janes Catracho Address [address] [place] [address]- Care Team Providers Care Svp Digital Sales Name Role Phone Frederick CONTRERAS, Virgilio Alexander Primary Care Physician [place] [facility] [place] 04/11/24 [facility] Adult [address] [place] [address]- Allergies, Adverse Reactions, Alerts Substance Reaction Severity [...] pneumococcal 20-valent conjugate vaccine 5 12/24/22 Given [id number] 12y+ bivalent booster vax 11/01/22 Recorded SARS-CoV-2 (COVID-19) mRNA BNT-162b2 vac 12/08/21 Recorded SARS-CoV-2 (COVID-19) mRNA BNT-162b2 vac 03/11/21 Recorded SARS-CoV-2 (COVID-19) mRNA BNT-162b2 vac 02/17/21 Recorded tetanus/diphtheria/pertussis, acel(Tdap) 03/13/17 Recorded tetanus-diphtheria toxoids (Td) 08/07/13 Recorded Tetanus Toxoid Vaccine (oldterm) 11/17/01 Given Pneumococcal Vaccine (oldterm) 11/17/01 Given 1Result Comment: [id number] 2Result Comment: [id number] 3Result Comment: [facility]-[id number] 4Result Comment: [08/04/2017] QUAD [id number] [facility] [id number] 5Result Comment: [id number] Medications Ambien 10 mg oral tablet 1 [...] 09/13/22 7:01:00 EDT, Route to Pharmacy Electronically, [email or web address] #[id number], Partial fill upon patient request if the [...] 11/06/23 12:57:00 EST, Route to Pharmacy Electronically, [email or web address] #[id number], 165, cm, 10/30/23 14:14:00 EST, Height, 139.3, [...] 2 Refills, Maintenance, 03/01/24 13:51:00 EDT, Solution, [email or web address] #[id number], Partial fill upon patient request if the prescription is for a schedule II opioid drug.... Start Date: 03/01/24 Status: Ordered Myrbetriq 25 mg oral tablet, extended release 1 tablet = 25 mg, By Mouth, Daily, # 30 tablet, 6 Refills, Maintenance, 03/09/24 9:49:00 EDT, ER Tablet, [email or web address] #[id number], Partial fill upon patient request if the [...] 10/30/23 14:28:00 EST, Route to Pharmacy Electronically, [email or web address] #[id number], Partial fill upon patient request if the prescription is for a schedul... Start Date: 10/30/23 Status: Ordered Viberzi 100 mg oral tablet 1 tablet = 100 mg, By Mouth, Daily, # 30 tablet, 1 Refills, Maintenance, 04/06/24 14:55:00 EDT, [email or web address] #[id number], Partial fill upon patient request if the [...] 06/24/24 12:11:00 EDT, 04/01/24 12:11:00 EDT, Solution, [email or web address] #[id number],... Start Date: 04/01/24 Stop Date: 06/24/24 Status: Ordered Zepbound 2.5 mg/0.5 mL subcutaneous solution = 2.5 mg, Subcutaneous Injection, Every week, rotate injection sites; for obesity, Dx: 68.30, # 4 each, 5 Refills, Maintenance, 04/01/24 5:06:00 EDT, [facility][id number], Partial fill upon patient request if the [...] Team Personnel Name: Linda Awan RN Position: [facility] RN Member Role: Primary Care Nurse Name: Brionna Pathak RN Position: [facility] RN Member Role: Primary Care Nurse Name: Virgilio Mack MD Position: [facility] Physician - Primary Care Member Role: PCP Address: Address: [address] [place] [address]- Care Team Related Persons Name: KELLY YANG Address: home [address] [place] [id number] Name: ANNE-MARIE YANG Address: [place], [place] Name: GRAHAM YANG Address: home [address] [place] [address] Name: DULCE YANG Address: home [address] [facility] [address] [place] [address] Name: DULCE SHEPHERD Address: home [address] [place] [id number]
--- OUTSIDE RECORDS SUMMARY | 2024-05-14 17:33 | XMS_ITS | Continuity of Care Document ---
Author Organization [facility] Smooth Marrero Catracho lt Address [address] [place] [address]- Care Team Providers Care Aperture Mask Etcher Name Role Phone Virgilio Mack MD Primary Care Physician Encounter [facility] [place] Date(s): 05/04/24 - 05/11/24 [facility] Adult [address] [place] [address]- Encounter Diagnosis Severe obesity(Discharge Diagnosis) - 05/04/24 Attending Physician: Virgilio Mack MD Allergies, Adverse [...] pneumococcal 20-valent conjugate vaccine 5 12/24/22 Given [id number] 12y+ bivalent booster vax 11/01/22 Recorded SARS-CoV-2 (COVID-19) mRNA BNT-162b2 vac 12/08/21 Recorded SARS-CoV-2 (COVID-19) mRNA BNT-162b2 vac 03/11/21 Recorded SARS-CoV-2 (COVID-19) mRNA BNT-162b2 vac 02/17/21 Recorded tetanus/diphtheria/pertussis, acel(Tdap) 03/13/17 Recorded tetanus-diphtheria toxoids (Td) 08/07/13 Recorded Tetanus Toxoid Vaccine (oldterm) 11/17/01 Given Pneumococcal Vaccine (oldterm) 11/17/01 Given 1Result Comment: [id number] 2Result Comment: [id number] 3Result Comment: [facility]-[id number] 4Result Comment: [08/04/2017] QUAD [id number] [facility] [id number] 5Result Comment: [id number] Medications Ambien 10 mg oral tablet 1 [...] 3 daily for low blood sugars. 30 , 03/25/24 10:29:00 EDT, Supply, 165, cm, 03/25/24 10:03:00 EDT, Height, 139.3, kg, 09/10/23 11:57:00 EDT, Dry Weight Start Date: 03/25/24 Status: Ordered Imodium A-D 2 mg oral tablet 2 mg, 1, tablet, By Mouth, Daily, # 30 tablet, Refills 5, Tot. Refills 5, Soft Stop, 09/13/22 7:01:00 EDT, Route to Pharmacy Electronically, [facility] #[id number], Partial fill upon patient request if the [...] 11/06/23 12:57:00 EST, Route to Pharmacy Electronically, [facility] #[id number], 165, cm, 10/30/23 14:14:00 EST, Height, 139.3, [...] 2 Refills, Maintenance, 03/01/24 13:51:00 EDT, Solution, [facility] #[id number], Partial fill upon patient request if the prescription is for a schedule II opioid drug.... Start Date: 03/01/24 Status: Ordered Myrbetriq 25 mg oral tablet, extended release 1 tablet = 25 mg, By Mouth, Daily, # 30 tablet, 6 Refills, Maintenance, 03/09/24 9:49:00 EDT, ER Tablet, [facility] #[id number], Partial fill upon patient request if the prescription is for a schedule II opioid drug.Adonis cm, 03/01/24 13:21:00 E... Start Date: 03/09/24 Status: [...] 10/19/24 14:17:00 EST, 05/04/24 14:17:00 EDT, Solution, [facility] #[id number], Partial fill upon patient... Start Date: 05/04/24 Stop Date: 10/19/24 Status: Ordered tiZANidine 2 mg oral tablet 2 mg, 1, tablet, By Mouth, 2 times a day, # 30 tablet, Refills 0, Tot. Refills 0, Maintenance, 10/30/23 14:28:00 EST, Route to Pharmacy Electronically, [facility] #[id number], Partial fill upon patient request if the prescription is for a schedul... Start Date: 10/30/23 Status: Ordered Viberzi 100 mg oral tablet 1 tablet = 100 mg, By Mouth, Daily, # 30 tablet, 1 Refills, Maintenance, 04/06/24 14:55:00 EDT, [facility] #[id number], Partial fill upon patient request if the prescription is for a schedule IIopioid drug.Adonis cm, 03/25/24 10:03:00 EDT, Heigh... Start Date: 04/06/24 Status: Ordered Wegovy (0.25 mg dose) subcutaneous solution = 0.25 mg, Subcutaneous Injection, Every week, for 4 week(s), in the abdomen, thigh, or upper arm; after 4 weeks, increase to 0.5 mg weekly, # 2 mL, 2 Refills, Acute 06/24/24 12:11:00 EDT, 04/01/24 12:11:00 EDT, Solution, [facility] #[id number],... Start Date: 04/01/24 Stop Date: 06/24/24 Status: Ordered Zepbound 2.5 mg/0.5 mL subcutaneous solution = 2.5 mg, Subcutaneous Injection, Every week, rotate injection sites; for obesity, Dx: 68.30, # 4 each, 5 Refills, Maintenance, 04/01/24 5:06:00 EDT, [email or web address] #[id number], Partial fill upon patient request if the [...] Dates Health Status Cl inical Service Informant Severe obesity Discharge Diagnosis 05/04/24 Vital Signs Most recent to oldest [Reference Range]: 1 Height 165 cm (05/04/24 2:04 PM) Weight 126.8 kg (05/04/24 2:04 PM) Oxygen Saturation [94-100 %] 98 % (05/04/24 2:04 PM) Pulse Rate [55-90 bpm] 92 bpm *H* (05/04/24 2:04 PM) Body Mass Index [18.5-24.99 kg/m2] 46.57 kg/m2 *>HHI* (05/04/24 2:04 PM) Blood Pressure [90-138/55-84 mm Hg] 122/ 80mm Hg (05/04/24 2:04 PM) Mode of Delivery (Oxygen) Room air (05/04/24 2:04 PM) Blood pressure sites Arm, right (05/04/24 2:04 PM) Weight Obtained Via Standing scale (05/04/24 2:04 PM) Social History Social History Type Response Smoking Status 5-9 cigarettes (betw een 1/4 to 1/2 pack)/day in last 30 days; Tobacco use times per day: 0.5 PPD; entered on: 08/13/23 Sex Female Note * Amira Malone: PERFORM Event Display: Patient Education/Instruction Authored Date: [id number] Ambulatory Adult Visit Summary [facility] Adult [facility] Lauren [address] [address] Name: WIL YANG : 1980?? Visit: 05/04/2024 13:59?? Ambulatory Visit Instructions ?? Your Care Team Primary Care Provider Virgilio Mack MD? This Visit Provider Virgilio Mack MD Your Diagnosis Severe obesity Vitals Signs Pulse Rate:??92 bpm??High Height: 165 cm Systolic Blood Pressure: 122 mm Hg Weight: 126.8 kg Diastolic Blood Pressure: 80 mm Hg Body Mass Index:??46.57 kg/m2??Critical Oxygen Saturation: 98 % Body surface area: 2.41 What to do next Scheduled Follow-Up Appointments Friday 1:15 PM EDT ?? Where: [facility] Radiology [id number] [place] [address]- Status: Pending Friday 4:10 PM EDT ?? With: Virgilio Mack MD Where: [facility] Lauren Marrero Adlt [address] [place] [address]- Status: Pending Friday 9:30 AM EDT ?? Where: [facility] Radiology [facility] [address], [address] [place] [address]- Status: Pending Follow-Up Appointments Follow Up with??Frederick CONTRERAS, Virgilio Alexander Why: squeeze in 6 weeks Where: [address] [place] [address]- Future Orders Prolactin Level - Routine, Once, 03/25/24 10:32:00 EDT, Single or Recurring Future Order, [facility], Blood?? Medications The list below reflects the information in our records and provided by you today along with any changes made during this visit. Please continue your medications until treatment is completed or stopped by your provider. If this is different from the information you have or there are other questions,please contact the prescribing provider. What How Much When Why Instructions Changed semaglutide (semaglutide 0.5 mg/ 0.5 mL (0.5 mg dose) subcutaneous solution) 0.5 Milligram Subcutaneous Injection Every week Duration: 4 week(s) in the abdomen, thigh, or upper arm; increase in dose ?? Pickup at [facility] #[id number] Changed semaglutide (Wegovy (0.25 mg dose) subcutaneous solution) 0.25 Milligram Subcutaneous Injection Every week Duration: 4 week(s) in the abdomen, thigh, or upper arm; after 4 weeks, increase to 0.5 mg weekly ?? Unchanged Durable Medical Equipment (Freestyle Lite Lancets) See instructions check 3 daily for low blood sugars. 30 day ?? Unchanged Durable Medical Equipment (Freestyle Lite Test Strips) See instructions check 3 daily for low blood sugars. 30 day ?? Unchanged eluxadoline (Viberzi 100 mg oral tablet) 1 tab(s) Oral Daily Unchanged Lisinopril (lisinopril 10 mg oral tablet) 1 tab(s) Oral Daily Unchanged Loperamide (Imodium A-D 2 mg oral tablet) 1 tab(s) Oral Daily Fecal incontinence Duration: 30 Days Unchanged lurasidone (Latuda 120 mg oral tablet) 1 tab(s) Oral Daily at Bedtime Unchanged Methylphenidate (methylphenidate 18 mg oral tablet, extended release) Oral Daily in the morning Unchanged mirabegron (Myrbetriq 25 mg oral tablet, extended release) 1 tab(s) Oral Daily Unchanged Miscellaneous Rx (FREESTYLE LITE BLOOD GLUCSTR 50S) See instructions USE DIRECTED TWICE DAILY ?? Unchanged Oxcarbazepine (OXcarbazepine 150 mg oral tablet) 1 tab(s) Oral Daily at Bedtime Unchanged tirzepatide (Mounjaro 2.5 mg/ 0.5 mL subcutaneous solution) 2.5 Milligram Subcutaneous Injection Every week rotate injection sites ?? Unchanged tirzepatide (Zepbound 2.5 mg/ 0.5 mL subcutaneous solution) 2.5 Milligram Subcutaneous Injection Every week rotate injection sites; for obesity, Dx: 68.30 ?? Unchanged Tizanidine (tiZANidine 2 mg oral tablet) 1 tab(s) Oral Twice a day Unchanged Zolpidem (Ambien 10 mg oral tablet) 1 tab(s) Oral Daily at Bedtime as needed for as needed for insomnia Pharmacy Information [facility] #[id number]: [address], [place] [id number] [phone] Medications and Immunizations Administered Medications Given During Visit No medications given during this visit.?? Allergies (NKA means No Known Allergies) Geodon??(violent/aggressive) Other Food Allergy??(CLAMS) Risperdal??(Difficulty controlling aggression, Weight gain, Seizures, eye sight) Topamax??(Anger, Aggressive behavior, psyche) shellfish??(Anaphylactic reaction to food) topiramate??(Aggressive behavior) Common Emergency Awareness Tips IS IT A STROKE? Act FAST and Check for these signs: FACE Does the face look uneven? ARM Does one arm drift down? SPEECH Does their speech sound strange? TIME Call at any sign of stroke ?? Heart Attack Signs Chest discomfort: Most heart attacks involve discomfort in the center of the chest and lasts more than a few minutes, or goes away and comes back. It can feel like uncomfortable pressure, squeezing, fullness or pain. Discomfort in upper body: Symptoms can include pain or discomfort in one or both arms, back, neck, jaw or stomach. Shortness of breath: With or without discomfort. Other signs: Breaking out in a cold sweat, nausea, or lightheaded. Remember, MINUTES DO MATTER. If you experience any of these heart attack warning signs, call to get immediate medical attention! ?? Smoking can increase your chances of developing chronic health problems and can cause harmful effects to other family members in your house. If you smoke, you are strongly encouraged to quit. Please call [facility] [employer] Link at [phone] or [phone] ([phone]) or log in to [email or web address] for referrals to smoking cessation programs. ?? The National Suicide Prevention Hotline is available 09/06 if you or someone you know needs to find a reason to keep living. By calling 9-471-503-FortaTrust (4799) you'll be connected to a skilled, trained counselor at a crisis center in your area. [facility] [employer] Portal You can view and manage your care through the patient portal or by using a health care silverio of your choosing. [employer] is a website that allows you to securely view your medical information including your hospital discharge summary, office visit summaries, medications and follow-up visits. You can also request appointments, renew medications, and request access to your medical information using a health care silverio of your choosing, or just ask a question. You can enroll at [email or web address] or register during your next office visit. [facility], in keeping with [facility] guidance, no longer requires face masks for staff, patientsor visitors in most situations. Similiar to time spent indoors at other locations, there is the chance that you were exposed to repiratory viruses during your time with us (such as flu or COVID-19). If you develop symptoms concerning for a viral respiratory infection, please seek testing (and treatment if indicated) from your medical provider or home test kit. ?? Disclaimer: The information provided is of a general nature and is intended to be used in conjunction with the recommendations and advice of your health care practitioner. Every effort has been made to ensure that the information provided is accurate and complete at the time it is provided to you however, as your needs change, or, as new information becomes available, different or additional instructions may be required. ?? If you have questions, please consult with your primary care provider or pharmacist, as appropriate. This information is not intended to serve as substitution for assessment and evaluation by a qualified health care provider. If you do not have a primary care provider, you may find a [facility] provider by calling [facility] Health Link at [phone]. Patient Care team information Care Team Personnel Name: Linda Awan RN Position: [facility] RN Member Role: Primary Care Nurse Name: Brionna Pathak RN Position: S RN Member Role: Primary Care Nurse Name: Virgilio Mack MD Position: [facility] Physician - Primary Care Member Role: PCP Address: Address: [address] [place] [address]- [place] Care Team Related Persons Name: KELLY YANG Address: home [address] [place] [address] Name: ANNE-MARIE YANG Address: [place] [address] Name: GRAHAM YANG Address: home [address] [place] [address] Name: DULCE YANG Address: home [address] [place] [address] Name: DULCE SHEPHERD Address: home [address] [place] [address]
--- OUTSIDE RECORDS SUMMARY | 2024-05-14 17:33 | XMS_ITS | Continuity of Care Document ---
Author Organization [facility] Address Unknown Care Team Providers Care Wind Plant Manager Name Role Phone Frederick CONTRERAS, Virgilio Alexander Primary Care Physician [phone] Encounter [facility] Date(s): 08/13/21 - 09/12/21 [facility] Attending Physician: Nancy Sotelo Admitting Physician: AdmNancy beard Referring Physician: Admtr ArDeandre Allergies, Adverse Reactions, Alerts Substance Reaction Severity [...] Status Refusal Reason influenza virus vaccine, inactivated 08/30/21 Give n influenza virus vaccine, inactivated 10/09/20 Give n influenza virus vaccine, inactivated 1 09/15/19 Gi corrina influenza virus vaccine, inactivated 12/02/18 Give n influenza virus vaccine, inactivated 2 08/04/17 Gi [facility]rina SARS-CoV-2 (COVID-19) mRNA BNT-162b2 vac 03/11/21 Recorded SARS-CoV-2 (COVID-19) mRNA BNT-162b2 vac 02/17/21 Recorded tetanus/diphtheria/pertussis, acel(Tdap) 03/13/17 Recorded tetanus-diphtheria toxoids (Td) 08/07/13 Recorded Tetanus Toxoid Vaccine (oldterm) 11/17/01 Given Pneumococcal Vaccine (oldterm) 11/17/01 Given 1Result Comment: [facility]-[id number] 2Result Comment: [08/04/2017] QUAD [id number] [facility] 75274-593-46 Medications Alcohol Pads See Instructions, # 200 each, [...] EST, Tablet Start Date: 12/02/18 Status: Ordered benztropine 0.5 mg oral tablet TAKE 1 TABLET BY MOUTH EVERY DAY Start Date: 07/26/21 Status: Ordered Breo Ellipta 100 mcg-25 mcg/inh inhalation powder 1 puffs, Inhalation, Daily, # 30 each, 3 Refills, Maintenance, 07/18/21 11:55:00 EDT, Powder, [facility] #[id number], Partial fill upon patient request if the [...] 07/26/21 11:56:00 EDT, Route to Pharmacy Electronically, [facility] #[id number], Partial fill upon patient request if the prescription is... Start Date: 07/26/21 Status: Ordered nabumetone 750 mg oral tablet 1 tablet = 750 mg, By Mouth, 2 times a day, with food, # 14 tablet, 0 Refills, Maintenance, 08/22/21 12:41:00 EDT, Tablet, [facility] #[id number], 165.1, cm, 08/22/21 12:16:00 EDT, Height, 140.9, kg, 03/27/21 17:38:00 EDT, Dry Weight Start Date: 08/22/21 Stop Date: 08/29/21 Status: Ordered naratriptan 2.5 mg oral tablet 1 tablet = 2.5 mg, By Mouth, Daily, PRN for migraine headache, may repeat once in 4 hours if needed, # 9 tablet, 4 Refills, Soft Stop, 04/06/21 8:40:00 EDT, Tablet, [facility] #[id number], side effects with sumatriptan, and if this is declined as... Start Date: 04/06/21 Stop Date: 09/03/21 Status: Ordered omeprazole 20 mg oral enteric coated capsule 1 capsule, By Mouth, 2 times a day, # 60 capsule, 2 Refills, Maintenance, 08/13/21 11:36:00 EDT, [facility] #[id number], 163, cm, 07/26/21 11:32:00 EDT, Height, 140.9, kg, 03/27/21 17:38:00 EDT,Dry Weight Start Date: 08/13/21 Status: Ordered Splint See Instructions, # 1 units, Maintenance, Splint to right foot overnight (AFO to keep foot in dorsiflexion), 04/27/18 15:03:13 EDT, Compound Start Date: 04/27/18 Status: Ordered Ventolin HFA 108 mcg/inh inhalation aerosol with adapter 2 puffs, Inhalation, Every 6 hours, # 18 Gm, 5 Refills, [facility] #[id number], 165.1, cm, 08/22/21 12:16:00 EDT, Height, 140.9, kg, 03/27/21 17:38:00 EDT, Dry Weight Start Date: 08/28/21 Status: Ordered Problem List Condition Effective Dates Status Health Status Inform ant Allergic rhinitis(Confirmed) Active Asthma(Confirmed) Active ADHD (attention deficit hype ractivity disorder)(Confirmed) Active Costochondritis(Confirmed) Active Depression;BILPOLAR(Confirmed) 1, 2 Active Epilepsy(Confirmed) 3 Active GERD (gastroesophageal reflu x disease)(Confirmed) Active Hypertension(Confirmed) Active Hypoglycemia(Confirmed) Active Migraine(Confirmed) Active Morbidly obese(Confirmed) [...]
--- OUTSIDE RECORDS SUMMARY | 2024-05-14 17:33 | XMS_ITS | Continuity of Care Document ---
Author Organization [facility] Address Unknown Care Team Providers Care Senior Power Scheduler Name Role Phone Virgilio Mack MD Primary Care Physician [place] [facility] [id number] Date(s): 07/05/21 - 09/05/21 [facility] Attending Physician: Roberta Perry MD Referring Physician: Virgilio Mack MD Allergies, [...] 11/17/01 Given 1Result Comment: [facility]-[id number] 2Result Comment: [08/04/2017] QUAD [id number] [facility] 11550-659-19 Medications Alcohol Pads See Instructions, # 200 [...] 3 Refills, Maintenance, 07/18/21 11:55:00 EDT, Powder, [facility] #[id number], Partial fill upon patient request if the [...] 07/26/21 11:56:00 EDT, Route to Pharmacy Electronically, [facility] #[id number], Partial fill upon patient request if the prescription is... Start Date: 07/26/21 Status: Ordered nabumetone 750 mg oral tablet 1 tablet = 750 mg, By Mouth, 2 times a day, with food, # 14 tablet, 0 Refills, Maintenance, 08/22/21 12:41:00 EDT, Tablet, [facility] #[id number], 165.1, cm, 08/22/21 12:16:00 EDT, Height, 140.9, kg, 03/27/21 17:38:00 EDT, Dry Weight Start Date: 08/22/21 Stop Date: 08/29/21 Status: Ordered naratriptan 2.5 mg oral tablet 1 tablet = 2.5 mg, By Mouth, Daily, PRN for migraine headache, may repeat once in 4 hours if needed, # 9 tablet, 4 Refills, Soft Stop, 04/06/21 8:40:00 EDT, Tablet, [facility] #[id number], side effects with sumatriptan, and if this is declined as... Start Date: 04/06/21 Stop Date: 09/03/21 Status: Ordered omeprazole 20 mg oral enteric coated capsule 1 capsule, By Mouth, 2 times a day, # 60 capsule, 2 Refills, Maintenance, 08/13/21 11:36:00 EDT, [facility] #[id number], 163, cm, 07/26/21 11:32:00 EDT, Height, 140.9, kg, 03/27/21 17:38:00 EDT,Dry Weight Start Date: 08/13/21 Status: Ordered Splint See Instructions, # 1 units, Maintenance, Splint to right foot overnight (AFO to keep foot in dorsiflexion), 04/27/18 15:03:13 EDT, Compound Start Date: 04/27/18 Status: Ordered Ventolin HFA 108 mcg/inh inhalation aerosol with adapter 2 puffs, Inhalation, Every 6 hours, # 18 Gm, 5 Refills, [facility] #[id number], 165.1, cm, 08/22/21 12:16:00 EDT, Height, 140.9, [...]
--- OUTSIDE RECORDS SUMMARY | 2024-05-14 17:33 | XMS_ITS | Continuity of Care Document ---
Author Organization [facility] ter Address [address] [place] [address]- Care Team Providers Care Client Solutions Manager Name Role Phone Frederick CONTRERAS, Virgilio Alexander Primary Care Physician [phone] [place] [facility] [id number] Date(s): 10/13/21 - 11/22/[address] [address] Attending Physician: Michelle Velasco MD Admitting Physician: Michelle Velasco MD Referring Physician: Michelle Velasco MD Allergies, Adverse Reactions, Alerts Substance Reaction [...] Vaccine (oldterm) 11/17/01 Given 1Result Comment: [facility]-[id number] 2Result Comment: [08/04/2017] QUAD [id number] [facility] 36253-185-39 Medications Alcohol Pads See Instructions, # 200 [...] TIMES DAILY, # 200 Unknown, 1 Refills, [facility] #[id number], 50, USE DIRECTED 2 TO 3 TIMES [...] 10:58:00 EST, Powder, Route to Pharmacy Electronically, NCPDP_[id number], [facility] #[id number], 165, cm, 0... Start Date: 11/20/21 Status: [...] 07/26/21 11:56:00 EDT, Route to Pharmacy Electronically, [facility] #[id number], Partial fill upon patient request if the prescription is... Start Date: 07/26/21 Status: Ordered nabumetone 750 mg oral tablet 1 tablet = 750 mg, By Mouth, 2 times a day, with food, # 14 tablet, 0 Refills, Maintenance, 08/22/21 12:41:00 EDT, Tablet, [facility] #[id number], 165.1, cm, 08/22/21 12:16:00 EDT, Height, 140.9, kg, 03/27/21 17:38:00 EDT, Dry Weight Start Date: 08/22/21 Stop Date: 08/29/21 Status: Ordered naratriptan 2.5 mg oral tablet 1 tablet = 2.5 mg, By Mouth, Daily, PRN for migraine headache, may repeat once in 4 hours if needed, # 9 tablet, 4 Refills, Soft Stop, 04/06/21 8:40:00 EDT, Tablet, [facility] #[id number], side effects with sumatriptan, and if this is declined as... Start Date: 04/06/21 Stop Date: 09/03/21 Status: Ordered omeprazole 20 mg oral enteric coated capsule 1 capsule, By Mouth, 2 times a day, # 60 capsule, 2 Refills, [facility] #[id number], 165, cm, 09/19/21 10:12:00 EDT, Height, 142.7, [...] 6 hours, # 18 Gm, 5 Refills, [facility] #[id number], 165.1, cm, 08/22/21 12:16:00 EDT, Height, 140.9, [...] sleep apnea)(Confirmed) Active Plantar fasciitis, bilateral(Confirmed) Active Severe obesity(Confirmed) Active Hepatic steatosis(Confirmed) Active [...]
--- OUTSIDE RECORDS SUMMARY | 2024-05-14 17:33 | XMS_ITS | Continuity of Care Document ---
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 Role Phone Frederick CONTRERAS, Virgilio Alexander Primary Care Physician [place] [facility] [place]/27[place]23 - 02/26/23 [facility] Adult [address] [place] [address]- Allergies, Adverse Reactions, Alerts Substance Reaction Severity [...] Pneumococcal Vaccine (oldterm) 11/17/01 Given 1Result Comment: [id number] 2Result Comment: [id number] 3Result Comment: [facility]-[id number] 4Result Comment: [08/04/2017] QUAD [id number] [facility] [id number] Medications acarbose 25 mg oral tablet 1 tablet = 25 mg, By Mouth, 3 times a day, # 90 tablet, 11 Refills, Maintenance, 07/31/22 14:13:00 EDT, [facility] #[id number], Partial fill upon patient request if the [...] mL, 0 Refills, Maintenance, 02/20/23 15:08:00 EDT, [place], [facility] #[id number], Partial fill upon patient request if the prescription is for a schedule II opioid drug., 2 sprays Nares, B... Start Date: 02/20/23 Status: Ordered Flonase 50 mcg/inh nasal spray 2 sprays, Nares, Both, Daily, # 16 Gm, 2 Refills, Maintenance, 12/02/22 9:32:00 EST, [place], [facility] #[id number], Partial fill upon patient request if the prescription is for a schedule II opioid drug., 2 sprays Nares, Both Daily, 165, cm, 11/17... Start Date: 12/02/22 Status: Ordered fluticasone-salmeterol 500 mcg-50 mcg inhalation powder 1, puffs, Inhalation, Every 12 hours, rinse mouth and throat after use, # 180 each, Refills 11, Tot. Refills 11, Maintenance, 11/20/21 10:58:00 EST, Powder, Route to Pharmacy Electronically, KYPDP_[id number], [facility] #[id number], 165, cm, 0... Start Date: 11/20/21 Status: [...] 09/13/22 7:01:00 EDT, Route to Pharmacy Electronically, [facility] #[id number], Partial fill upon patient request if the [...] 09/13/22 7:03:00 EDT, Route to Pharmacy Electronically, [facility] #[id number], 165, cm, 09/12/22 11:26:00 EDT, Height, 142.7, k... Start Date: 09/13/22 Stop Date: 09/08/23 Status: Ordered loperamide 2 mg oral tablet 1 tablet = 2 mg, By Mouth, Daily, # 30 tablet, 11 Refills, Maintenance, 09/13/22 7:01:00 EDT, Tablet, [facility] #[id number], Partial fill upon patient request if the prescription is for a schedule II opioid drug., 165, cm, 09/12/22 11:26:00 EDT,... Start Date: 09/13/22 Stop Date: 09/08/23 Status: Ordered omeprazole 20 mg oral enteric coated capsule 1 capsule, By Mouth, 2 times a day, # 60 capsule, 5 Refills, 02/18/22 10:27:00 EDT, [facility] #[id number], 165, cm, 02/11/22 9:38:00 EDT, Height, 142.7, kg, 09/06/21 16:04:00 EDT, Dry Weight Start Date: 02/18/22 Status: Ordered SUMAtriptan 100 mg oral tablet 1 tablet = 100 mg, By Mouth, Daily, PRN for migraine headache, may repeat dose after 2 hours up to a maximum of 2, # 9 tablet, 5 Refills, Acute 06/24/23 5:18:00 EDT, 12/25/22 5:18:00 EST, Tablet, [facility] #[id number], Partial fill upon patient... Start Date: 12/25/22 Stop Date: 06/24/23 Status: Ordered trospium 60 mg oral capsule, extended release 1 capsule = 60 mg, By Mouth, Daily in AM, # 30 capsule, 5 Refills, Maintenance, 01/24/23 11:12:00 EST, CR Capsule, [facility] #[id number], Partial fill upon patient request if the prescription is for a schedule II opioid drug., 165, cm, 12/24/22... Start Date: 01/24/23 Status: Ordered Ventolin HFA 108 mcg/inh inhalation aerosol with adapter 2 puffs, Inhalation, Every 6 hours, # 18 Gm, 5 Refills, Maintenance, 12/12/22 13:09:00 EST, [facility] #[id number], 165, cm, 12/02/22 9:06:00 EST, Height, 142.7, [...] Team Personnel Name: Linda Awan RN Position: [facility] SN RN Member Role: Primary Care Nurse Name: Brionna Pathak RN Position: [facility] RN Member Role: Primary Care Nurse Name: Virgilio Mack MD Position: [facility] Primary Care Physician Member Role: PCP Address: Address: [address] [place] [address]- Care Team Related Persons Name: KELLY YANG Address: home [address] [place] [address] Name: ANNE-MARIE YANG Address: [place] [address] Name: GRAHAM YANG Address: home [address] [place] [address] Name: DULCE YANG Address: home [address] [place] [address] Name: DULCE SHEPHERD Address: home [address] [place] [address]
--- OUTSIDE RECORDS SUMMARY | 2024-05-14 17:34 | XMS_ITS | Continuity of Care Document ---
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 Role Phone Frederick CONTRERAS, Virgilio Alexander Primary Care Physician [phone] Encounter [facility] [place] Date(s): 03/16/21 - 04/15/[address] [address] Attending Physician: Nancy Sotelo Admitting Physician: Nancy Sotelo Referring Physician: AdmtrNancy Allergies, Adverse Reactions, Alerts [...] 1Result Comment: [facility]-[id number] 2Result Comment: [08/04/2017] QUAD [id number] [facility] [id number] Medications acetaminophen 325 mg oral tablet 650 [...] 02/27/21 7:09:00 EDT, [facility] Electronically[id number][id number], 165, cm, 02/27/21 6:55:00 EDT, Height Start [...] 0 Refills, Maintenance, 04/13/21 12:10:00 EDT, [place] #[id number], Partial fill upon patient request if the prescription is for a schedule II opioid drug., 1... Start Date: 04/13/21 Status: Ordered naproxen sodium 550 mg oral tablet 1 tablet, By Mouth, 2 times a day, PRN NEEDED FOR PAIN, for 14 days, # 28 tablet, 0 Refills, Acute, 04/06/21 7:57:00 EDT, [facility] #[id number], 163, cm, 04/02/21 11:11:00 EDT, Height, 140.9, kg, 03/27/21 17:38:00 EDT, Dry Weight Start Date: 04/06/21 Stop Date: 04/20/21 Status: Ordered naratriptan 2.5 mg oral tablet 1 tablet = 2.5 mg, By Mouth, Daily, PRN for migraine headache, may repeat once in 4 hours if needed, # 9 tablet, 4 Refills, Soft Stop, 04/06/21 8:40:00 EDT, Tablet, [facility] #[id number], side effects with sumatriptan, and if this is declined as... Start Date: 04/06/21 Stop Date: 09/03/21 Status: Ordered Nicorette 4 mg oral transmucosal gum 1 each = 4 mg, Chew, Every 2 hours, PRN as needed for smoking cessation, for 8 week(s), # 40 each, 0 Refills, Acute 05/11/21 10:57:00 EDT, 03/16/21 10:57:00 EDT, [facility] #[id number], Partial fill upon patient request if the [...]
--- OUTSIDE RECORDS SUMMARY | 2024-05-14 17:34 | XMS_ITS | Continuity of Care Document ---
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 Name Role Phone Frederick CONTRERAS, Virgilio Alexander Primary Care Physician [place] [facility] [place] 09/17/23 - 10/17/23 [facility] [address] [facility], [address] [place] [address]- Allergies, Adverse Reactions, Alerts Substance Reaction Severity [...] Pneumococcal Vaccine (oldterm) 11/17/01 Given 1Result Comment: [id number] 2Result Comment: [id number] 3Result Comment: [facility]-[id number] 4Result Comment: [08/04/2017] QUAD [id number] [facility] [id number] 5Result Comment: [id number] Medications acarbose 25 mg oral tablet 1 tablet = 25 mg, By Mouth, 3 times a day, # 90 tablet, 11 Refills, Maintenance, 09/09/23 18:02:00 EDT, [facility] #[id number], Partial fill upon patient request if the [...] mL, 0 Refills, Maintenance, 02/20/23 15:08:00 EDT, [place], [facility] #[id number], Partial fill upon patient request if the prescription is for a schedule II opioid drug., 2 sprays Nares, B... Start Date: 02/20/23 Status: Ordered fluticasone-salmeterol 500 mcg-50 mcg inhalation powder 1, puffs, Inhalation, Every 12 hours, rinse mouth and throat after use, # 180 each, Refills 11, Tot. Refills 11, Maintenance, 11/20/21 10:58:00 EST, Powder, Route to Pharmacy Electronically, NCPDP_ID-[id number], [facility] #[id number], 165, cm, ... Start Date: 11/20/21 Status: Ordered Imodium A-D 2 mg oral tablet 2 mg, 1, tablet, By Mouth, Daily, # 30 tablet, Refills 5, Tot. Refills 5, Soft Stop, 09/13/22 7:01:00 EDT, Route to Pharmacy Electronically, [facility] #[id number], Partial fill upon patient request if the [...] Status: Ordered lisinopril 10 mg oral tablet Refills 0, Maintenance, 09/29/23 9:26:00 EST, Partial fill upon patient request if the prescriptionis for a schedule II opioid drug. Start Date: 09/29/23 Status: Ordered loperamide 2 mg oral tablet 1 tablet = 2 mg, By Mouth, Daily, 90 day supply, # 90 tablet, 3 Refills, Maintenance, 06/09/23 8:11:00 EDT, Tablet, [facility] #[id number], Partial fill upon patient request if the [...] 60 capsule, 5 Refills, 02/18/22 10:27:00 EDT, [facility] #[id number], 165, cm, 02/11/22 9:38:00 EDT, Height, 142.7, kg, 09/06/21 16:04:00 EDT, Dry Weight Start Date: 02/18/22 Status: Ordered OXcarbazepine 150 mg oral tablet 150 mg, 1, tablet, By Mouth, Daily at bedtime, Refills 0, Maintenance, 08/26/23 12:59:00 EDT, Partial fill upon patient request if the prescription is for a schedule II opioid drug. Start Date: 08/26/23 Status: Ordered Problem List Condition Confirmation Course [...] Team Personnel Name: Linda Awan RN Position: [facility] RN Member Role: Primary Care Nurse Name: Brionna Pathak RN Position: S RN Member Role: Primary Care Nurse Name: Virgilio Mack MD Position: [facility] Physician - Primary Care Member Role: PCP Address: Address: [address] [place] [address]- Care Team Related Persons Name: KELLY YANG Address: home [address] [place] [address] Name: ANNE-MARIE YANG Address: [place] [address] Name: GRAHAM YANG Address: [address] [address] Name: DULCE YANG Address: [address] [place] [address] Name: DULCE SHEPHERD Address: home [address] [place] [address]
--- OUTSIDE RECORDS SUMMARY | 2024-05-14 17:34 | XMS_ITS | Continuity of Care Document ---
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 Adult [address] [place] [address]- [place] Encounter Diagnosis Bug bite(Discharge Diagnosis) - 06/19/20 Attending Physician: Not on Staff, Attending MD [...] Vaccine (oldterm) 11/17/01 Given 1Result Comment: [facility]-[id number] 2Result Comment: [08/04/2017] [facility] [id number] [facility] 53571-648-83 Medications acetaminophen 325 mg oral tablet 650 [...] 05/05/20 13:06:00 EDT, [id number] #[id number], 165, cm,01/19/20 14:17:00 EST, Height Start Date: [...] 01/19/20 14:42:00 EST, Route to Pharmacy Electronically, [facility] #[id number], 165, cm, 01/19/20 14:17:00 EST, Height Start Date: 01/19/20 Status: Ordered Flovent HFA 110 mcg/inh inhalation aerosol 2 puffs, Inhalation, 2 times a day, rinse mouth and throat after use, # 12 Gm, 0 Refills, Maintenance, 11/30/19 8:41:00 EST, Aerosol, [facility], 165, cm, 11/30/19 8:25:00 EST, Height Start [...] 06/06/20 9:20:00 EDT, Capsule, [facility] #[id number], 165, cm, 06/06/20 8:52:00 EDT, Height Start [...] Diagnosis Diagnosis Type Effective Dates Health Status Clini gareth Service Informant Bug bite Discharge Diagnosis 06/19/20 Vital Signs Most recent to oldest [Reference Range]: 1 Height 165 cm (06/19/20 1:31 PM) Weight 126.3 kg (06/19/20 1:31 PM) Oxygen Saturation [94-100 %] 97 % (06/19/20 1:31 PM) Pulse Rate [55-90 bpm] 85 bpm (06/19/20 1:31 PM) Body Mass Index [18.5-24.99] 46.39 *>HHI* (06/19/20 1:31 PM) Blood Pressure [90-138/55-84 mm Hg] 133/ 88mm Hg (06/19/20 1:31 PM) Temperature [96.8-100.4 DegF] 97.9 DegF (06/19/20 1:31 PM) Blood pressure sites Arm, left (06/19/20 1:31 PM) Temperature Route Oral (06/19/20 1:31 PM) Weight Obtained Via Standing scale (06/19/20 1:31 PM) Social History Social History Type Response Smoking Status Former smoker; Type: Cigarettes; Tobacco use times per day: 1 ppd; Number of years: 22; Total pack years: 22; entered on: 10/21/17 Sex
--- OUTSIDE RECORDS SUMMARY | 2024-05-14 17:34 | XMS_ITS | Continuity of Care Document ---
Author Organization [facility] Janes Catracho lt Address [address] [place] [address]- Care Team Providers Care Track Repair Person Name Role Phone Virgilio Mack MD Primary Care Physician [place] [facility] [place](s): 07/26/21 - 08/02/21 [facility] Adult [address] [place] [address]- Attending Physician: Virgilio Mack MD Allergies, Adverse [...] Vaccine (oldterm) 11/17/01 Given 1Result Comment: [facility]-[id number] 2Result Comment: [08/04/2017] QUAD [id number] [facility] [id number] Medications Alcohol Pads See Instructions, # 200 [...] 3 Refills, Maintenance, 07/18/21 11:55:00 EDT, Powder, [facility] #[id number], Partial fill upon patient request if the [...] 07/26/21 11:56:00 EDT, [facility] to [facility]ically, [id number], Partial fill upon patient request if the prescription is... Start Date: 07/26/21 Status: Ordered naratriptan 2.5 mg oral tablet 1 tablet = 2.5 mg, By Mouth, Daily, PRN for migraine headache, may repeat once in 4 hours if needed, # 9 tablet, 4 Refills, Soft Stop, 04/06/21 8:40:00 EDT, Tablet, [facility] #[id number], side effects with sumatriptan, and if this is declined as... Start Date: 04/06/21 Stop Date: 09/03/21 Status: Ordered omeprazole 20 mg oral enteric coated capsule 1 capsule = 20 mg, By Mouth, 2 times a day, # 60 capsule, 1 Refills, Maintenance, 06/25/21 11:09:00EDT, [facility] #[id number], Partial fill upon patient request if the [...] Inhalation, Every 6 hours, # 18 Gm, 0 Refills, [facility] #[id number], 163, cm, 07/26/21 11:32:00 EDT, Height, 140.9, kg, 03/27/21 17:38:00 EDT, Dry Weight Start Date: 08/02/21 Status: Ordered Problem List Condition Effective Dates [...] recent to oldest [Reference Range]: 1 Height 163 cm (07/26/21 11:32 AM) Weight 142.2 kg (07/26/21 11:32 AM) Oxygen Saturation [94-100 %] 98 % (07/26/21 11:32 AM) Pulse Rate [55-90 bpm] 88 bpm (07/26/21 11:32 AM) Body Mass Index [18.5-24.99] 53.52 *>HHI* (07/26/21 11:32 AM) Blood Pressure [90-138/55-84 mm Hg] 138/ 88mm Hg (07/26/21 11:32 AM) Temperature [96.8-100.4 DegF] 98.4 DegF (07/26/21 11:32 AM) Mode of Delivery (Oxygen) Room air (07/26/21 11:32 AM) Blood pressure sites Arm, right (07/26/21 11:32 AM) Temperature Route Oral (07/26/21 11:32 AM) Weight Obtained Via Standing scale (07/26/21 11:32 AM) Social History Social History Type Response Smoking Status Former smoker; Type: Cigarettes; Tobacco use times per day: 1 ppd; Number of years: 22; Total pack years: 22; entered on: 10/21/17 Sex Female
--- OUTSIDE RECORDS SUMMARY | 2024-05-14 17:34 | XMS_ITS | Continuity of Care Document ---
Author Organization [facility] Address Unknown Care Team Providers Care Assistant To The Director Name Role Phone Virgilio Mack MD Primary Care Physician En[place] [facility] [place] R [id number] Date(s): 07/05/21 - 07/12/21 [facility] Attending Physician: Luz Talley MD Referring Physician: [...] 11/17/01 Given 1Result Comment: [facility]-[id number] 2Result Comment: [08/04/2017] QUAD [id number] [facility] [id number] Medications albuterol CFC free 90 mcg/inh inhalation aerosol 2, puffs, Inhalation, Every 6 hours, # 3 each, Refills 3, Tot. Refills 3, Maintenance, 02/27/21 7:09:00 EDT, Route to Pharmacy Electronically, NCPDP_ID- [id number], [facility] #[id number], 165, cm, 02/27/21 6:55:00 EDT, Height Start [...] 06/26/21 9:29:00 EDT, Route to Pharmacy Electronically, [facility] #[id number], Partial fill upon patient request if the prescription is for a schedule II opio... Start Date: 06/26/21 Status: Ordered naratriptan 2.5 mg oral tablet 1 tablet = 2.5 mg, By Mouth, Daily, PRN for migraine headache, may repeat once in 4 hours if needed, # 9 tablet, 4 Refills, Soft Stop, 04/06/21 8:40:00 EDT, Tablet, [facility] #[id number], side effects with sumatriptan, and if this is declined as... Start Date: 04/06/21 Stop Date: 09/03/21 Status: Ordered omeprazole 20 mg oral enteric coated capsule 1 capsule = 20 mg, By Mouth, 2 times a day, # 60 capsule, 1 Refills, Maintenance, 06/25/21 11:09:00EDT, [facility] #[id number], Partial fill upon patient request if the [...] Active Morbidly obese(Confirmed) Active Nephrolithiasis(Confirmed) 4 Active DIASY (obstructive sleep apnea)(Confirmed) Active Plantar fasciitis, bilateral(Confirmed) [...]
--- OUTSIDE RECORDS SUMMARY | 2024-05-14 17:34 | XMS_ITS | Continuity of Care Document ---
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 Name Role Phone Frederick CONTRERAS, Virgilio Alexander Primary Care Physician [phone] Encounter [facility] Date(s): 09/29/23 - 09/29/[address] [address] Discharge Disposition: A-D/C Home Attending Physician: Kaye Luke MD Admitting Physician: Kaye Luke MD Referring Physician: Kaye Luke MD Allergies, Adverse Reactions, Alerts Substance Reaction [...] Pneumococcal Vaccine (oldterm) 11/17/01 Given 1Result Comment: [id number] 2Result Comment: [id number] 3Result Comment: [facility]-[id number] 4Result Comment: [08/04/2017] QUAD [id number] [facility] [id number] 5Result Comment: [id number] Medications acarbose 25 mg oral tablet 1 tablet = 25 mg, By Mouth, 3 times a day, # 90 tablet, 11 Refills, Maintenance, 09/09/23 18:02:00 EDT, [facility] #[id number], Partial fill upon patient request if the [...] mL, 0 Refills, Maintenance, 02/20/23 15:08:00 EDT, [place], [facility] #[id number], Partial fill upon patient request if the prescription is for a schedule II opioid drug., 2 sprays Nares, B... Start Date: 02/20/23 Status: Ordered fluticasone-salmeterol 500 mcg-50 mcg inhalation powder 1, puffs, Inhalation, Every 12 hours, rinse mouth and throat after use, # 180 each, Refills 11, Tot. Refills 11, Maintenance, 11/20/21 10:58:00 EST, Powder, Route to Pharmacy Electronically, [id number]_[id number], [facility] #[id number], 165, cm, ... Start Date: 11/20/21 Status: Ordered Imodium A-D 2 mg oral tablet 2 mg, 1, tablet, By Mouth, Daily, # 30 tablet, Refills 5, Tot. Refills 5, Soft Stop, 09/13/22 7:01:00 EDT, Route to Pharmacy Electronically, [facility] #[id number], Partial fill upon patient request if the [...] 3 Refills, Maintenance, 06/09/23 8:11:00 EDT, Tablet, [facility] #[id number], Partial fill upon patient request if the [...] 60 capsule, 5 Refills, 02/18/22 10:27:00 EDT, [facility] #[id number], 165, cm, 02/11/22 9:38:00 EDT, Height, 142.7, [...] 5under psychiatric care 6crack,heroin, cocaine, not intravenous Procedures Procedure Date Related Diagnosis Body Site Status Colonoscopy 09/29/23 Completed Vital Signs Most recent to oldest [Reference Range]: 1 2 3 Height 165 cm (09/29/23 9:32 AM) Weight 140 kg (09/29/23 9:32 AM) Oxygen Saturation [94-100 %] 100 % (09/29/23 10:44 AM) 100 % (09/29/23 10:38 AM) 98 % (09/29/23 9:32 AM) Pulse Rate [55-90 bpm] 78 bpm (09/29/23 9:32 AM) Body Mass Index [18.5-24.99 kg/m2] 51.42 kg/m2 *>HHI* (09/29/23 9:32 AM) Blood Pressure [90-138/55-84 mm Hg] 135/108mm Hg (09/29/23 10:44 AM) 170/76mm Hg *H* (09/29/23 10:38 AM) 144/80mm Hg *H* (09/29/23 9:32 AM) Respiratory Rate [16-30 br/min] 25 br/min (09/29/23 10:44 AM) 22 br/min (09/29/23 10:38 AM) 20 br/min (09/29/23 9:32 AM) Temperature [96.8-100.4 DegF] 98 DegF (09/29/23 9:32 AM) Mode of Delivery (Oxygen) Room air (09/29/23 10:44 AM) Room air (09/29/23 10:43 AM) Room air (09/29/23 10:38 AM) Temperature Route Temporal (09/29/23 9:32 AM) Social History Social History Type Response Smoking Status 5-9 cigarettes (betw een 1/4 to 1/2 pack)/day in last 30 days; Tobacco use times per day: 0.5 PPD; entered on: 08/13/23 Sex Female Note * Karen Wynn RN: PERFORM Event Display: Discharge/Transfer Note Hospital Authored Date: Nursing Discharge Note Entered On: 09/29/2023 10:52 EST Performed On: 09/29/2023 10:52 EST by Karen Wynn RN Nursing Discharge Note 2 Discharge Time : 09/29/2023 11:04 EST Karen Wynn RN - 09/29/2023 11:05 EST Discharge Level of Care at Discharge : Home/Custodial/Foster Care Patient Left Unit Via : Wheelchair Patient Accompanied Off Unit with : Responsible adult DC Instructions Provided & Signed by Pt : Yes Patient Understands D/C Instructions : Yes Patient Instructions Discharge Signed : Yes Did Pt have Specialty Bed or Wound Vac : No Karen Wynn RN - 09/29/2023 10:52 EST * Karen Wynn RN: PERFORM Event Display: Patient Education/Instruction Authored Date: [id number] Surgery Adult Discharge Instructions [address] [address] Name: WIL YANG : 1980?? Visit: 09/29/2023 08:58?? Current Date: 09/29/2023 10:52 ?? Account: [id number]?? Surgery Discharge Instructions We would like to thank you for allowing us to assist you with your healthcare needs. The following includes patient education materials and information regarding your injury/illness. Our entire staffstrives to provide an excellent experience for our patients and their families. PLEASE ENSURE YOU FOLLOW-UP PER THE INSTRUCTIONS BELOW! ?? YOUR OPINION IS IMPORTANT TO US! Please complete the survey you may receive by mail or email. Your feedback will be used to make improvements to the healthcare experiences of our patients and their families. Surveys are administered by [employer]. ?? If further treatment with your primary care physician or another doctor is recommended, it is important for you to keep the appointment. Call your primary care physician or return to the Emergency Department immediately if your condition worsens, fails to improve, or new symptoms develop. If you need to find a doctor, you can call [facility] for a referral at [phone] or toll free at [phone] ([phone]) or log in to [email or web address].. ?? [facility], in keeping with [facility] guidance, no longer requires face masks for [...] medical provider or home test kit. ?? You can view and manage your care through the patient portal or by using a health care silverio of your choosing. [employer] is a website that allows you to securely view your medical information including your hospital discharge summary, office visit summaries, medications and follow-up visits. You can also request appointments, renew medications, and request access to your medical information using a health care silverio of your choosing, or just ask a question. You are entitled to know the individuals who participated in your treatment. This information is available within your medical record and will be provided upon your request. You can enroll at [email or web address] or register d uring your next office visit. You have been discharged from [facility], Patient Care Unit: ENDO??. If you have any questions regarding these instructions after you leave, please call us and we will be happy to assist you. [facility] Your Care Team Attending Physician Kaye Luke MD?? Discharging Providers Kaye Luke MD Reason for Admission RECTAL BLEEDING Primary Care Provider Virgilio Mack MD? Advance Directive Health Care Proxy on File Yes - Health Care Proxy What to do next Instructions From Your Doctor ?? Orders?? Daystay Protocol, ??09/29/23 9:01:00 EST?? Scheduled Follow-Up Appointments Friday 9:20 AM EST ?? With: Virgilio Mack MD Where: [address] [address]- Status: Pending Friday 9:00 AM EST ?? Where: [facility] Radiology [facility] [address], [address] [place] [address]- Status: Pending You Need to Schedule the Following Appointments Follow Up with??Virgilio Mack MD Where: ?? Discharge Medications WIL YANG :1980 Visit Date:09/29/2023 Medications: Please continue your medications until treatment is completed or stopped by your provider. You may resume your daily prescription medications. Discuss any questions related to medications with your provider. What How Much When Why Instructions Next Dose Unchanged Acarbose (acarbose 25 mg oral tablet) 1 tab(s) Oral 3 times a day Unchanged Azelastine Nasal (azelastine 137 mcg/ inh (0.1%) nasal spray) 2 spray(s) Nares, Both Daily as needed for Other Allergies Unchanged Fluticasone-Salmeterol (fluticasone-salmeterol 500 mcg-50 mcg inhalation powder) 1 puff(s) Inhalation Every 12 hours Asthma rinse mouth and throat after use ?? Unchanged Lisinopril (lisinopril 10 mg oral tablet) Unchanged Loperamide (Imodium A-D 2 mg oral tablet) 1 tab(s) Oral Daily Fecal incontinence Duration: 30 Days Unchanged Loperamide (loperamide 2 mg oral tablet) 1 tab(s) Oral Daily 90 day supply ?? Unchanged lurasidone (Latuda 120 mg oral tablet) 1 tab(s) Oral Daily at Bedtime Unchanged Methylphenidate (methylphenidate 18 mg oral tablet, extended release) Oral Daily in the morning Unchanged mirabegron (Myrbetriq 25 mg oral tablet, extended release) 1 tab(s) Oral Daily Unchanged Omeprazole (omeprazole 20 mg oral enteric coated capsule) 1 capsule Oral Twice a day Unchanged Oxcarbazepine (OXcarbazepine 150 mg oral tablet) 1 tab(s) Oral Daily at Bedtime Unchanged Zolpidem (Ambien 10 mg oral tablet) 1 tab(s) Oral Daily at Bedtime as needed for as needed for insomnia Allergies (NKA means No Known Allergies) Geodon??(violent/aggressive) Other Food Allergy??(CLAMS) Risperdal??(Difficulty controlling aggression, Weight gain, Seizures, eye sight) Topamax??(Anger, Aggressive behavior, psyche) shellfish??(Anaphylactic reaction to food) topiramate??(Aggressive behavior) Education Materials Below is the list of Educational Leaflet Providered with your Discharge Instructions. Surgery Medical Daystay Surgical Overnight Discharge Instructions?? Valuables and Belongings I fully understand and agree that [facility] accepts no responsibility for all my personal property including clothing, toilet articles, radios, jewelry, dentures, hearing aids, rings, money, or any other property that is in my possession or is brought to me after admission. I understand certain valuables may be placed in a hospital safe for a short period of time. I understand that the hospital is not liable for loss or damage due to accident, fire, or other natural occurrence while said property is in the safe. I accept full responsibility for any personal property that I keep with me, and will not hold the hospital responsible in case of loss or disappearance. I acknowledge that i have been encouraged to send valuables and belongings home. ? Other Discharge Information ? Case Management Discharge Plan?? Discharge Plan?? Discharge Level of Care at Discharge: Home/Custodial/Foster Care ?? Pulmonary Rehab Status?? Pulmonary Rehab Discharge Status?? Respiratory Rate: 25 br/min ? Common Emergency Awareness Tips IS IT A [...] are strongly encouraged to quit. Please call [facility] at [phone] or [phone]) or log in to [email or web address] for referrals to smoking cessation programs. ?? The National Suicide Prevention Hotline is available 09/06 if you or someone you know needs to find a reason to keep living. By calling 5-329-330-Healthsense (4782) you'll be connected to a skilled, trained counselor at a crisis center in your area. SURGERY DISCHARGE INSTRUCTIONS SIGNATURE PAGE WIL YANG Location:[facility] Registration Date and Time:09/29/2023 08:58 EST Primary Care Physician: Virgilio Mack MD, Attending Physician: Kaye Luke MD, I WIL YANG, have received the above patient education materials/instructions and have verbalized understanding. If ambulance or transport services are being used I further acknowledge being given a choice of service. ?? If you need to contact me, please call me at this number: . Patient/Cna Gna Name: Patient/Cna Gna Signature: Relationship to Patient: Witness Name/Signature: Date: * Karen Wynn RN: PERFORM Event Display: Patient Education Leaflets Authored Date: [id number] Surgery Medical Daystay Surgical Overnight Discharge Instructions ?? 295 Medical Daystay/Surgical Overnight Discharge Instructions ? Since your coordination and judgment may be altered by medication and/or anesthesia, a responsible adult must drive you home from the hospital. ? If you have received medication for pain or sedation while under our care, you should not drive, operate machinery, drink alcohol, or sign any legal documents for 24 hours.?? You should have someone with you at home tonight. ? Remain at home the day of discharge.?? You may be up and about unless otherwise instructed by your physician. ? You may resume your daily prescription medication schedule.?? Any depressant medication should be avoided for 24 hours unless otherwise instructed by your surgeon or anesthesiologist. ? Call your physician for a follow-up appointment.? If you experience unusual or severe pain not relied by your pain medication, excessive bleedingor drainage, persistent nausea and vomiting, excessive swelling or redness, foul odor from incisionsite or fever over 100.6F, you need to call your physician. ? A follow-up phone call by a nurse will be made the day after your procedure.?? If you have stayed with us over night, you will not be receiving a follow-up phone call. ? Nausea and vomiting are a common side effect of prescription pain medication.?? We recommend that pills are not taken on an empty stomach.?? While taking any prescription pain medication you should not drive or drink alcohol. ? Patient Care team information Care Team Personnel Name: Linda Awan RN Position: [facility] RN Member Role: Primary Care Nurse Name: Brionna Pathak RN Position: S RN Member Role: Primary Care Nurse Name: Virgilio Mack MD Position: [facility] Physician - Primary Care Member Role: PCP Address: Address: [address] [place] [address] [place] [address]- [place] Care Team Related Persons Name: KELLY YANG Address: home [address] [place] [address] Name: ANNE-MARIE YANG Address: [place] [address] Name: GRAHAM YANG Address: home [address] [place] [address] Name: DULCE YANG Address: home [address] [place] [address] Name: DULCE SHEPHERD Address: home [address] [place] [address]
--- OUTSIDE RECORDS SUMMARY | 2024-05-14 17:34 | XMS_ITS | Continuity of Care Document ---
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 Name Role Phone Frederick CONTRERAS, Virgilio Alexander Primary Care Physician Encounter [facility] Date(s): 09/09/23 - 10/09/23 [facility] [address] [place] [id number] Allergies, Adverse Reactions, Alerts Substance Reaction Severity [...] Pneumococcal Vaccine (oldterm) 11/17/01 Given 1Result Comment: [id number] 2Result Comment: [id number] 3Result Comment: [facility]-[id number] 4Result Comment: [08/04/2017] QUAD [id number] [facility] [id number] 5Result Comment: [id number] Medications acarbose 25 mg oral tablet 1 tablet = 25 mg, By Mouth, 3 times a day, # 90 tablet, 11 Refills, Maintenance, 09/09/23 18:02:00 EDT, [facility] #[id number], Partial fill upon patient request if the [...] mL, 0 Refills, Maintenance, 02/20/23 15:08:00 EDT, [place], [facility] #[id number], Partial fill upon patient request if the prescription is for a schedule II opioid drug., 2 sprays Nares, B... Start Date: 02/20/23 Status: Ordered fluticasone-salmeterol 500 mcg-50 mcg inhalation powder 1, puffs, Inhalation, Every 12 hours, rinse mouth and throat after use, # 180 each, Refills 11, Tot. Refills 11, Maintenance, 11/20/21 10:58:00 EST, Pow[place], Route to Pharmacy Electronically, NCPDP_[id number], [facility] #[id number], 165, cm, 0... Start Date: 11/20/21 Status: Ordered Imodium A-D 2 mg oral tablet 2 mg, 1, tablet, By Mouth, Daily, # 30 tablet, Refills 5, Tot. Refills 5, Soft Stop, 09/13/22 7:01:00 EDT, Route to Pharmacy Electronically, [facility] #[id number], Partial fill upon patient request if the [...] 3 Refills, Maintenance, 06/09/23 8:11:00 EDT, Tablet, [facility] #[id number], Partial fill upon patient request if the [...] 60 capsule, 5 Refills, 02/18/22 10:27:00 EDT, [facility] #[id number], 165, cm, 02/11/22 9:38:00 EDT, Height, 142.7, [...] Team Personnel Name: Linda Awan RN Position: [facility] RN Member Role: Primary Care Nurse Name: Brionna Pathak RN Position: S RN Member Role: Primary Care Nurse Name: Virgilio Mack MD Position: [facility] Physician - Primary Care Member Role: PCP Address: Address: [address] [place] [address]- [place] Care Team Related Persons Name: KELLY YANG Address: [address] [address] Name: ANNE-MARIE YANG Address: [place] [address] Name: GRAHAM YANG Address: home [address] [place] [address] Name: DULCE YANG Address: home [address] [place] [address] Name: DULCE SHEPHERD Address: home [facility] [place] [address]
--- OUTSIDE RECORDS SUMMARY | 2024-05-14 17:34 | XMS_ITS | Continuity of Care Document ---
Author Organization [facility] Address [address] [place] [address]- Care Team Providers Care Telephone Clerk Name Role Phone Frederick CONTRERAS, Virgilio Alexander Primary Care Physician [place] [facility] Date(s): 12/26/21 - 01/25/22 [facility] [address] [place] [id number] Allergies, Adverse Reactions, Alerts Substance Reaction Severity [...] Pneumococcal Vaccine (oldterm) 11/17/01 Given 1Result Comment: [facility]-[id number] 2Result Comment: [08/04/2017] QUAD [id number] [facility] [id number] Medications acarbose 25 mg oral tablet 1 tablet = 25 mg, By Mouth, 3 times a day, # 90 tablet, 11 Refills, Maintenance, 01/17/22 15:35:00 EST, [facility] #[id number], Partial fill upon patient request if the [...] TIMES DAILY, # 200 Unknown, 1 Refills, [facility] #[id number], 50, USE DIRECTED 2 TO 3 TIMES [...] 10:58:00 EST, Powder, Route to Pharmacy Electronically, NCP_[id number], [facility] #[id number], 165, cm, 01/0... Start Date: 11/20/21 Status: [...] 07/26/21 11:56:00 EDT, Route to Pharmacy Electronically, [facility] #[id number], Partial fill upon patient request if the prescription is... Start Date: 07/26/21 Status: Ordered nabumetone 750 mg oral tablet 1 tablet = 750 mg, By Mouth, 2 times a day, with food, # 14 tablet, 0 Refills, Maintenance, 08/22/21 12:41:00 EDT, Tablet, [facility] #[id number], 165.1, cm, 08/22/21 12:16:00 EDT, Height, 140.9, kg, 03/27/21 17:38:00 EDT, Dry Weight Start Date: 08/22/21 Stop Date: 08/29/21 Status: Ordered naratriptan 2.5 mg oral tablet 1 tablet = 2.5 mg, By Mouth, Daily, PRN for migraine headache, may repeat once in 4 hours if needed, # 9 tablet, 4 Refills, Soft Stop, 04/06/21 8:40:00 EDT, Tablet, [facility] #[id number], side effects with sumatriptan, and if this is declined as... Start Date: 04/06/21 Stop Date: 09/03/21 Status: Ordered omeprazole 20 mg oral enteric coated capsule 1 capsule, By Mouth, 2 times a day, # 60 capsule, 2 Refills, [facility] #[id number], 165, cm, 09/19/21 10:12:00 EDT, Height, 142.7, [...] 6 hours, # 18 Gm, 5 Refills, [facility] #[id number], 165.1, cm, 08/22/21 12:16:00 EDT, Height, 140.9, [...] Response Smoking Status 5-9 cigarettes (betw een 1/ to 1/2 pack)/day in last 30 days entered on: 09/06/21 Sex Female
--- OUTSIDE RECORDS SUMMARY | 2024-05-14 17:34 | XMS_ITS | Continuity of Care Document ---
Author Organization 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 [address] [place] [id number] Attending Physician: Admtr, [id number] Admitting Physician: Admtr, [...] Pneumococcal Vaccine (oldterm) 11/17/01 Given 1Result Comment: [facility]-[id number] 2Result Comment: [08/04/2017] QUAD [id number] [facility] [id number] Medications acarbose 25 mg oral tablet 1 tablet = 25 mg, By Mouth, 3 times a day, # 90 tablet, 11 Refills, Maintenance, 01/17/22 15:35:00 EST, [facility] #[id number], Partial fill upon patient request if the [...] TIMES DAILY, # 200 Unknown, 11 Refills, [facility] #[id number], 50, USE DIRECTED 2 TO 3 TIMES DAILY, 165, cm, 02/11/22 9:38:00 EDT, Height, 142.7, kg,09/06/21 16:04:00 EDT, Dry Weight Start Date: 03/05/22 Status: Ordered benztropine 0.5 mg oral tablet TAKE 1 TABLET BY MOUTH EVERY DAY Start Date: 07/26/21 Status: Ordered Calmoseptine 0.44%-20.6% topical ointment See Instructions, apply as need to area, # 1 each, 0 Refills, Maintenance, 02/05/22 9:20:00 EDT, [facility] #[id number], Partial fill upon patient request if the prescription is for a schedule II opioid drug., apply as need to area, 165, cm, 2... Start Date: 02/05/22 Status: Ordered fluticasone-salmeterol 500 mcg-50 mcg inhalation powder 1, puffs, Inhalation, Every 12 hours, rinse mouth and throat after use, # 180 each, Refills 11, Tot. Refills 11, Maintenance, 11/20/21 10:58:00 EST, Powder, Route to Pharmacy Electronically, ILPDP_[id number], [facility] #[id number], 165, cm, 0... Start Date: 11/20/21 Status: [...] 02/05/22 9:21:00 EDT, Route to Pharmacy Electronically, [facility] #[id number], Partial fill upon patient request if the [...] tablet, Refills 2, Route to Pharmacy Electronically, [facility] #[id number], 165, cm, 02/11/22 9:38:00 EDT, Height, 142.7, kg, 09/06/21 16:04:00 EDT, Dry Weight Start Date: 03/10/22 Status: Ordered nabumetone 750 mg oral tablet 1 tablet = 750 mg, By Mouth, 2 times a day, with food, # 14 tablet, 0 Refills, Maintenance, 08/22/21 12:41:00 EDT, Tablet, [facility] #[id number], 165.1, cm, 08/22/21 12:16:00 EDT, Height, 140.9, kg, 03/27/21 17:38:00 EDT, Dry Weight Start Date: 08/22/21 Stop Date: 08/29/21 Status: Ordered naratriptan 2.5 mg oral tablet 1 tablet = 2.5 mg, By Mouth, Daily, PRN for migraine headache, may repeat once in 4 hours if needed, # 9 tablet, 4 Refills, Soft Stop, 04/06/21 8:40:00 EDT, Tablet, [facility] #[id number], side effects with sumatriptan, and if this is declined as... Start Date: 04/06/21 Stop Date: 09/03/21 Status: Ordered omeprazole 20 mg oral enteric coated capsule 1 capsule, By Mouth, 2 times a day, # 60 capsule, 5 Refills, 02/18/22 10:27:00 EDT, [facility] #[id number], 165, cm, 02/11/22 9:38:00 EDT, Height, 142.7, [...] 6 hours, # 18 Gm, 5 Refills, [facility] #[id number], 165.1, cm, 08/22/21 12:16:00 EDT, Height, 140.9, [...]
--- OUTSIDE RECORDS SUMMARY | 2024-05-14 17:34 | XMS_ITS | Continuity of Care Document ---
Author Organization [facility] Janes Catracho Address [address] [place] [address]- Care Team Providers Care University Manager Name Role Phone Frederick CONTRERAS, Virgilio Alexander Primary Care Physician Encounter [facility] Date(s): 09/12/21 - 10/12/21 [facility] Jan[facility] Adult [address] [place] [address]- Attending Physician: Admtr, Ar8 Allergies, Adverse Reactions, [...] Pneumococcal Vaccine (oldterm) 1/1/02 Given 1Result Comment: [id number] 2Result Comment: [08/04/2017] QUAD [id number] [facility] 23429-902-55 Medications Alcohol Pads See Instructions, # 200 [...] TO 3 TIMES DAILY, # 200 Unknown, 0 Refills, [facility] #[id number], 50, USE DIRECTED 2 TO 3 TIMES DAILY, 165, cm, 09/19/21 10:12:00 EDT, Height, 142.7, kg,09/06/21 16:04:00 EDT, Dry Weight Start Date: 10/01/21 Status: Ordered benztropine 0.5 mg oral tablet TAKE 1 TABLET BY MOUTH EVERY DAY Start Date: 07/26/21 Status: Ordered Breo Ellipta 100 mcg-25 mcg/inh inhalation powder 1 puffs, Inhalation, Daily, # 30 each, 3 Refills, Maintenance, 07/18/21 11:55:00 EDT, Powder, [facility] #[id number], Partial fill upon patient request if the [...] 07/26/21 11:56:00 EDT, Route to Pharmacy Electronically, [facility] #[id number], Partial fill upon patient request if the prescription is... Start Date: 07/26/21 Status: Ordered nabumetone 750 mg oral tablet 1 tablet = 750 mg, By Mouth, 2 times a day, with food, # 14 tablet, 0 Refills, Maintenance, 08/22/21 12:41:00 EDT, Tablet, [facility] #[id number], 165.1, cm, 08/22/21 12:16:00 EDT, Height, 140.9, kg, 03/27/21 17:38:00 EDT, Dry Weight Start Date: 08/22/21 Stop Date: 08/29/21 Status: Ordered naratriptan 2.5 mg oral tablet 1 tablet = 2.5 mg, By Mouth, Daily, PRN for migraine headache, may repeat once in 4 hours if needed, # 9 tablet, 4 Refills, Soft Stop, 04/06/21 8:40:00 EDT, Tablet, [facility] #[id number], side effects with sumatriptan, and if this is declined as... Start Date: 04/06/21 Stop Date: 09/03/21 Status: Ordered omeprazole 20 mg oral enteric coated capsule 1 capsule, By Mouth, 2 times a day, # 60 capsule, 2 Refills, Maintenance, 08/13/21 11:36:00 EDT, [facility] #[id number], 163, cm, 07/26/21 11:32:00 EDT, Height, 140.9, kg, 03/27/21 17:38:00 EDT,Dry Weight Start Date: 08/13/21 Status: Ordered Splint See Instructions, # 1 units, Maintenance, Splint to right foot overnight (AFO to keep foot in dorsiflexion), 04/27/18 15:03:13 EDT, Compound Start Date: 04/27/18 Status: Ordered Ventolin HFA 108 mcg/inh inhalation aerosol with adapter 2 puffs, Inhalation, Every 6 hours, # 18 Gm, 5 Refills, [facility] #[id number], 165.1, cm, 08/22/21 12:16:00 EDT, Height, 140.9, [...]
--- OUTSIDE RECORDS SUMMARY | 2024-05-14 17:34 | XMS_ITS | Continuity of Care Document ---
Author Organization [facility] Address [address] [place] [address] [address] [place] [address]- Care Team Providers Care Coal Shooter Name Role Phone Frederick CONTRERAS, Virgilio Alexander Primary Care Physician Encounter [facility] Date(s): 06/14/21 - 06/21/[address] [place] [address]- Encounter Diagnosis Pilonidal disease(Discharge Diagnosis) - 06/12/21 Attending Physician: Roberta Perry MD Referring Physician: [...] 11/17/01 Given 1Result Comment: [facility]-[id number] 2Result Comment: [08/04/2017] QUAD [id number] [facility] 44917-802-59 Medications albuterol CFC free 90 mcg/inh inhalation aerosol 2, puffs, Inhalation, Every 6 hours, # 3 each, Refills 3, Tot. Refills 3, Maintenance, 02/27/21 7:09:00 EDT, Route to Pharmacy Electronically, NCPDP_ID- [id number], [id number], 165, cm, 02/27/21 6:55:00 EDT, Height Start [...] Refills, Soft Stop, 04/06/21 8:40:00 EDT, Tablet, [facility] #[id number], side effects with sumatriptan, and if this is declined as... Start Date: 04/06/21 Stop Date: 09/03/21 Status: Ordered nicotine 21 mg/24 hr transdermal film, extended release 1 patch, Topically, Daily, # 30 patch, 1 Refills, Acute 07/03/21 17:00:00 EDT, 06/05/21 16:45:00 EDT, Patch, [facility] #[id number], Partial fill upon patient request if the prescription is for a schedule II opioid drug., 1 patch Topically Daily,... Start Date: 06/05/21 Stop Date: 07/03/21 Status: Ordered omeprazole 20 mg oral delayed release tablet 1 tablet = 20 mg, By Mouth, 2 times a day, # 30 tablet, 2 Refills, Maintenance, 06/12/21 13:59:00 EDT, EC Tablet, [facility] #[id number], 165.1, cm, 06/07/21 10:18:00 EDT, Height, 140.9, kg, 03/27/21 17:38:00 EDT, Dry Weight Start Date: 06/12/21 Status: Ordered Splint See Instructions, # 1 [...] Diagnosis Diagnosis Type Effective Dates Health Status inical Service Informant Pilonidal disease Discharge Diagnosis 06/12/21 Vital Signs Most recent to oldest [Reference Range]: 1 Height 165.1 cm (06/14/21 12:19 PM) Weight 144.8 kg (06/14/21 12:19 PM) Pulse Rate [55-90 bpm] 93 bpm *H* (06/14/21 12:19 PM) Body Mass Index [18.5-24.99] 53.12 *>HHI* (06/14/21 12:19 PM) Blood Pressure [90-138/55-84 mm Hg] 139/ 85mm Hg *H* (06/14/21 12:19 PM) Temperature [96.8-100.4 DegF] 98.3 DegF (06/14/21 12:19 PM) Blood pressure sites Arm, right (06/14/21 12:19 PM) Temperature Route Temporal (06/14/21 12:19 PM) Weight Obtained Via Standing scale (06/14/21 12:19 PM) Social History Social History Type Response Smoking Status Former smoker; Type: Cigarettes; Tobacco use times per day: 1 ppd; Number of years: 22; Total pack years: 22; entered on: 10/21/17 Sex Female
--- OUTSIDE RECORDS SUMMARY | 2024-05-14 17:34 | XMS_ITS | Continuity of Care Document ---
Author Organization [facility] Address [address] [place] [address]- Care Team Providers Care Certified Professional Controller Name Role Phone Frederick CONTRERAS, Virgilio Alexander Primary Care Physician Encounter [facility] Date(s): 03/16/21 - 04/15/[address] [address] Allergies, Adverse Reactions, Alerts Substance Reaction [...] (oldterm) 11/17/01 Given 1Result Comment: [facility]-[id number] 2Result Comment: [08/04/2017] QUAD [id number] [facility] 43244-070-10 Medications acetaminophen 325 mg oral tablet 650 [...] 7:09:00 EDT, Route to Pharmacy Electronically, NCPDP_ID- [id number], [facility] #[id number], 165, cm, 02/27/21 6:55:00 EDT, Height Start [...] 0 Refills, Maintenance, 04/13/21 12:10:00 EDT, Film, [facility] #[id number], Partial fill upon patient request if the prescription is for a schedule II opioid drug., 1... Start Date: 04/13/21 Status: Ordered naproxen sodium 550 mg oral tablet 1 tablet, By Mouth, 2 times a day, PRN NEEDED FOR PAIN, for 14 days, # 28 tablet, 0 Refills, Acute, 04/06/21 7:57:00 EDT, [facility] #[id number], 163, cm, 04/02/21 11:11:00 EDT, Height, 140.9, kg, 03/27/21 17:38:00 EDT, Dry Weight Start Date: 04/06/21 Stop Date: 04/20/21 Status: Ordered naratriptan 2.5 mg oral tablet 1 tablet = 2.5 mg, By Mouth, Daily, PRN for migraine headache, may repeat once in 4 hours if needed, # 9 tablet, 4 Refills, Soft Stop, 04/06/21 8:40:00 EDT, Tablet, [facility] #[id number], side effects with sumatriptan, and if this is declined as... Start Date: 04/06/21 Stop Date: 09/03/21 Status: Ordered Nicorette 4 mg oral transmucosal gum 1 each = 4 mg, Chew, Every 2 hours, PRN as needed for smoking cessation, for 8 week(s), # 40 each, 0 Refills, Acute 05/11/21 10:57:00 EDT, 03/16/21 10:57:00 EDT, [facility] #[id number], Partial fill upon patient request if the [...]
--- OUTSIDE RECORDS SUMMARY | 2024-05-14 17:34 | XMS_ITS | Continuity of Care Document ---
Author Organization [facility] Janes Catracho Address [address] [place] [address]- Care Team Providers Care Sheet Metal Technician Name Role Phone Frederick CONTRERAS, Virgilio Alexander Primary Care Physician Encounter [facility] Date(s): 01/29/23 - 02/28/23 [facility] Adult [address] [place] [address]- Allergies, Adverse Reactions, Alerts Substance Reaction Severity [...] Pneumococcal Vaccine (oldterm) 11/17/01 Given 1Result Comment: [id number] 2Result Comment: [id number] 3Result Comment: [facility]-[id number] 4Result Comment: [08/04/2017] [facility] [id number] [facility] 43021-576-05 Medications acarbose 25 mg oral tablet 1 tablet = 25 mg, By Mouth, 3 times a day, # 90 tablet, 11 Refills, Maintenance, 07/31/22 14:13:00 EDT, [facility] #[id number], Partial fill upon patient request if the [...] mL, 0 Refills, Maintenance, 02/20/23 15:08:00 EDT, [place], [facility] #[id number], Partial fill upon patient request if the prescription is for a schedule II opioid drug., 2 sprays Nares, B... Start Date: 02/20/23 Status: Ordered Flonase 50 mcg/inh nasal spray 2 sprays, Nares, Both, Daily, # 16 Gm, 2 Refills, Maintenance, 12/02/22 9:32:00 EST, [place], [facility] #[id number], Partial fill upon patient request if the prescription is for a schedule II opioid drug., 2 sprays Nares, Both Daily, 165, cm, 11/17... Start Date: 12/02/22 Status: Ordered fluticasone-salmeterol 500 mcg-50 mcg inhalation powder 1, puffs, Inhalation, Every 12 hours, rinse mouth and throat after use, # 180 each, Refills 11, Tot. Refills 11, Maintenance, 11/20/21 10:58:00 EST, Powder, Route to Pharmacy Electronically, NJPDP_ID-[id number], [facility] #[id number], 165, cm, 010... Start Date: 11/20/21 Status: [...] 09/13/22 7:01:00 EDT, Route to Pharmacy Electronically, [facility] #[id number], Partial fill upon patient request if the [...] 09/13/22 7:03:00 EDT, Route to Pharmacy Electronically, [facility] #[id number], 165, cm, 09/12/22 11:26:00 EDT, Height, 142.7, k... Start Date: 09/13/22 Stop Date: 09/08/23 Status: Ordered loperamide 2 mg oral tablet 1 tablet = 2 mg, By Mouth, Daily, # 30 tablet, 11 Refills, Maintenance, 09/13/22 7:01:00 EDT, Tablet, [facility] #[id number], Partial fill upon patient request if the prescription is for a schedule II opioid drug., 165, cm, 09/12/22 11:26:00 EDT,... Start Date: 09/13/22 Stop Date: 09/08/23 Status: Ordered omeprazole 20 mg oral enteric coated capsule 1 capsule, By Mouth, 2 times a day, # 60 capsule, 5 Refills, 02/18/22 10:27:00 EDT, [facility] #[id number], 165, cm, 02/11/22 9:38:00 EDT, Height, 142.7, kg, 09/06/21 16:04:00 EDT, Dry Weight Start Date: 02/18/22 Status: Ordered SUMAtriptan 100 mg oral tablet 1 tablet = 100 mg, By Mouth, Daily, PRN for migraine headache, may repeat dose after 2 hours up to a maximum of 2, # 9 tablet, 5 Refills, Acute 06/24/23 5:18:00 EDT, 12/25/22 5:18:00 EST, Tablet, [facility] #[id number], Partial fill upon patient... Start Date: 12/25/22 Stop Date: 06/24/23 Status: Ordered trospium 60 mg oral capsule, extended release 1 capsule = 60 mg, By Mouth, Daily in AM, # 30 capsule, 5 Refills, Maintenance, 01/24/23 11:12:00 EST, CR Capsule, [facility] #[id number], Partial fill upon patient request if the prescription is for a schedule II opioid drug., 165, cm, 12/24/22... Start Date: 01/24/23 Status: Ordered Ventolin HFA 108 mcg/inh inhalation aerosol with adapter 2 puffs, Inhalation, Every 6 hours, # 18 Gm, 5 Refills, Maintenance, 12/12/22 13:09:00 EST, [facility] #[id number], 165, cm, 12/02/22 9:06:00 EST, Height, 142.7, [...] Linda Awan RN Position: [facility] SN RN Member Role: Primary Care Nurse Name: Brionna Pathak RN Position: [facility] RN Member Role: Primary Care Nurse Name: Virgilio Mack MD Position: [facility] Primary Care Physician Member Role: PCP Address: Address: [address] [place] [id number]- [place] Care Team Related Persons Name: KELLY YANG Address: home [address] [place] [address] Name: ANNE-MARIE YANG Address: [place] [address] Name: GRAHAM YANG Address: home [address] [place] [address] Name: DULCE YANG Address: home [address] [place] [address] Name: DULCE SHEPHERD Address: home [address] [place] [address]
--- OUTSIDE RECORDS SUMMARY | 2024-05-14 17:34 | XMS_ITS | Continuity of Care Document ---
Author Organization [facility] Janes Catracho lt Address [address] [place] [address]- Care Team Providers Care Contact Center Specialist Name Role Phone Virgilio Mack MD Primary Care Physician Encounter [facility] Date(s): 05/16/21 - 05/23/21 [facility] Adult [address] [place] [address]- Attending Physician: Virgilio Mack MD Allergies, Adverse [...] 11/17/01 Given 1Result Comment: [facility]-[id number] 2Result Comment: [08/04/2017] QUAD [id number] [facility] 23664-173-75 Medications acetaminophen-oxyCODONE 325 mg-5 mg oral tablet 1, tablet, By Mouth, Every 6 hours, PRN, not to exceed 4000 mg acetaminophen per day for 7 days, # 28 tablet, Refills 0, Tot. Refills 0, Acute, for pain, 05/29/21 7:16:00 EDT, 05/22/21 7:16:00 EDT, Route to Pharmacy Electronically, [facility]... Start Date: 05/22/21 Stop Date: 05/29/21 Status: Ordered albuterol CFC free 90 mcg/inh inhalation aerosol 2, puffs, Inhalation, Every 6 hours, # 3 each, Refills 3, Tot. Refills 3, Maintenance, 02/27/21 7:09:00 EDT, [id number][id number], 165, cm, 02/27/21 6:55:00 EDT, Height Start [...] 05/16/21 14:34:00 EDT, Route to Pharmacy Electronically, [facility] #[id number], Partial fill upon patient request if... Start [...] FOR PAIN, # 28 tablet, 0Refills, Acute, [facility] #[id number], 165.1, cm, 05/09/21 10:12:00 EDT, Height, 140.9, kg, 03/27/21 17:38:00 EDT, Dry Weight Start Date: 05/10/21 Status: Ordered naratriptan 2.5 mg oral tablet 1 tablet = 2.5 mg, By Mouth, Daily, PRN for migraine headache, may repeat once in 4 hours if needed, # 9 tablet, 4 Refills, Soft Stop, 04/06/21 8:40:00 EDT, Tablet, [facility] #[id number], side effects with sumatriptan, and if this is declined as... Start Date: 04/06/21 Stop Date: 09/03/21 Status: Ordered nicotine 21 mg-14 mg-7 mg transdermal film, extended release 1 each, Topically, Daily, for 28 days, # 1 kit, 0 Refills, Acute 06/13/21 8:22:00 EDT, 05/16/21 8:22:00 EDT, [facility] #[id number], Partial fill upon patient request if the [...] oldest [Reference Range]: 1 Height 165.1 cm (05/16/21 2:01 PM) Weight 145.1 kg (05/16/21 2:01 PM) Oxygen Saturation [94-100 %] 98 % (05/16/21 2:01 PM) Pulse Rate [55-90 bpm] 89 bpm (05/16/21 2:01 PM) Body Mass Index [18.5-24.99] 53.23 *>HHI* (05/16/21 2:01 PM) Blood Pressure [90-138/55-84 mm Hg] 130/ 88mm Hg (05/16/21 2:01 PM) Temperature [96.8-100.4 DegF] 98.4 DegF (05/16/21 2:01 PM) Blood pressure sites Arm, right (05/16/21 2:01 PM) Temperature Route Oral (05/16/21 2:01 PM) Weight Obtained Via Standing scale (05/16/21 2:01 PM) Social History Social History Type Response Smoking Status Former smoker; Type: Cigarettes; Tobacco use times per day: 1 ppd; Number of years: 22; Total pack years: 22; entered on: 10/21/17 Sex
--- OUTSIDE RECORDS SUMMARY | 2024-05-14 17:34 | XMS_ITS | Continuity of Care Document ---
Author Organization [facility] Address [address] [place] [address]- Care Team Providers Care Automotive Service Professional Name Role Phone Frederick CONTRERAS, Virgilio Alexander Primary Care Physician Encounter [facility] [place] Date(s): 12/02/22 - 12/09/22 [facility] [address] [place] [address]- Encounter Diagnosis Middle ear effusion(Discharge Diagnosis) - 12/02/22 TMJ syndrome(Discharge Diagnosis) - 12/02/22 Attending Physician: Fam Brunner DO Referring Physician: Virgilio Mack MD Allergies, Adverse [...] Pneumococcal Vaccine (oldterm) 11/17/01 Given 1Result Comment: [id number] 2Result Comment: [facility]-[id number] 3Result Comment: [08/04/2017] QUAD [id number] [facility] [id number] Medications acarbose 25 mg oral tablet 1 tablet = 25 mg, By Mouth, 3 times a day, # 90 tablet, 11 Refills, Maintenance, 07/31/22 14:13:00 EDT, [email or web address] #[id number], Partial fill upon patient request if the prescription is for a schedule II opioid drug., 165, cm, 07/31/22 13:42:00 ED... Start Date: 07/31/22 Status: Ordered Ambien 10 mg oral tablet 1 tablet = 10 mg, By Mouth, Daily at bedtime, PRN as needed for insomnia, 0 Refills, Maintenance, 12/02/18 14:26:49 EST, Tablet Start Date: 12/02/18 Status: Ordered amoxicillin 875 mg oral tablet 1 tablet = 875 mg, By Mouth, 2 times a day, for 10 days, # 20 tablet, 0 Refills, Acute 12/12/22 9:32:00 EST, 12/02/22 9:32:00 EST, Tablet, [facility] #[id number], Partial fill upon patient request if the prescription is for a schedule II opioid d... Start Date: 12/02/22 Stop Date: 12/12/22 Status: Ordered Flonase 50 mcg/inh nasal spray 2 sprays, Nares, Both, Daily, # 16 Gm, 2 Refills, Maintenance, 12/02/22 9:32:00 EST, [place], [email or web address] #[id number], Partial fill upon patient request if the [...] Powder, [id number] #[id number], 165, cm, 010... Start Date: 11/20/21 Status: Ordered FREESTYLE LANCETS 100 FREESTYLE LANCETS 100, See Instructions, # 300 each, 0 Refills, Maintenance, USE DIRECTED TO TEST BLOOD GLUCOSE 2 TO 3 TIMES DAILY NEEDED, 11/06/22 12:33:00 EST, 165, cm, 09/12/22 11:26:00 EDT,Height, 142.7, kg, 09/06/21 16:04:00 EDT, Dry Weight Start Date: 11/06/22 Status: Ordered Freestyle Lite Test Strips See [...] 09/13/22 7:01:00 EDT, Route to Pharmacy Electronically, [facility] #[id number], Partial fill upon patient request if the [...] 09/13/22 7:03:00 EDT, Route to Pharmacy Electronically, [facility] #[id number], 165, cm, 09/12/22 11:26:00 EDT, Height, 142.7, k... Start Date: 09/13/22 Stop Date: 09/08/23 Status: Ordered loperamide 2 mg oral tablet 1 tablet = 2 mg, By Mouth, Daily, # 30 tablet, 11 Refills, Maintenance, 09/13/22 7:01:00 EDT, Tablet, [facility] #10566, Partial fill upon patient request if the [...] Refills, Soft Stop, 04/06/21 8:40:00 EDT, Tablet, [email or web address] #89147, side effects with sumatriptan, and if this is declined as... Start Date: 04/06/21 Stop Date: 09/03/21 Status: Ordered omeprazole 20 mg oral enteric coated capsule 1 capsule, By Mouth, 2 times a day, # 60 capsule, 5 Refills, 02/18/22 10:27:00 EDT, [facility] #69851, 165, cm, 02/11/22 9:38:00 EDT, Height, 142.7, kg, 09/06/21 16:04:00 EDT, Dry Weight Start Date: 02/18/22 Status: Ordered Ventolin HFA 108 mcg/inh inhalation aerosol with adapter 2 puffs, Inhalation, Every 6 hours, # 18 Gm, 5 Refills, [facility] #44254, 165.1, cm, 08/22/21 12:16:00 EDT, Height, 140.9, [...] Dates Health Status Cl inical Service Informant Middle ear effusion Discharge Diagnosis 12/02/22 TMJ syndrome Discharge Diagnosis 12/02/22 Vital Signs Most recent to oldest [Reference Range]: 1 Height 165 cm (12/02/22 9:06 AM) Oxygen Saturation [94-100 %] 98 % (12/02/22 9:06 AM) Pulse Rate [55-90 bpm] 85 bpm (12/02/22 9:06 AM) Blood Pressure [90-138/55-84 mm Hg] 144/ 87mm Hg *H* (12/02/22 9:06 AM) Temperature [96.8-100.4 DegF] 98.1 DegF (12/02/22 9:06 AM) Mode of Delivery (Oxygen) Room air (12/02/22 9:06 AM) Blood pressure sites Arm, right (12/02/22 9:06 AM) Temperature Route Temporal (12/02/22 9:06 AM) Social History Social History Type Response Smoking Status 5-9 cigarettes (betw een 1/4 to 1/2 pack)/day in last 30 days entered on: 09/06/21 Sex Female Note * Stanley Seaman: PERFORM, SIGN, VERIFY Event Display: Patient Education/Instruction Authored Date: [id number] [facility] Clinical Summary Name WIL YANG Age 42 Years 1980 PCP Virgilio Mack MD PCP Visit Date 12/02/2022 09:05:00 Additional Instructions: Scheduled Appointments?? Future Appointments ?[facility] ?[address]??[place],??[place],??[address] ?Phone:??[phone]?Fax:??-- ?Appt. Date:??12/04/2022?12:30 PM ?Scheduled Provider:??[facility] 3D Mammo Rm 2 ?[facility] ?[address]??[place],??[place],??[address] ?Phone:??[phone]?Fax:??-- ?Appt. Date:??12/04/2022?1:30 PM ?Scheduled Provider:??[facility] US Breast Rm 1 ?*[facility] ?Phone:??--?Fax:??-- ?Appt. Date:??12/09/2022?3:30 PM ?Scheduled Provider:??UROGYN,Nurse ?*[facility] ?[address],??[place],??[address] ?Phone:??--?Fax:??-- ?Appt. Date:??12/24/2022?3:00 PM ?Scheduled Provider:??Frederick CONTRERAS, Virgilio Alexander ?*[facility] ?[address] ?[place],??[place],??[address] ?Phone:??--?Fax:??-- ?Appt. Date:??01/01/2023?9:40 AM ?Scheduled Provider:??Comfort Danielle MD Follow-Up Instructions ?? Diagnosis Unspecified nonsuppurative otitis media, unspecified ear; Arthralgia of temporomandibular joint, unspecified side Medications: Please continue your medications until treatment is completed or stopped by your provider. Discuss any questions related to medications with your provider. New Medications [email or web address] #[id number], [address] [place] [id number], [phone] Amoxicillin (amoxicillin 875 mg oral tablet) 1 tab(s) Oral twice a day for 10 Days. Refills: 0. Next Dose: Fluticasone Nasal (Flonase 50 mcg/inh nasal spray) 2 spray(s) Nares, Both Daily. Refills: 2. Next Dose: Medications to Continue with No Changes These medications were not printed or sent to your pharmacy Acarbose (acarbose 25 mg oral tablet) 1 tab(s) Oral 3 times a day. Refills: 11. Next Dose: Albuterol (Ventolin HFA 108 mcg/inh inhalation aerosol with adapter) 2 puff(s) Inhalation every 6 hours. Refills: 5. Next Dose: Durable Medical Equipment (Freestyle Lite Test Strips) Test BS twice daily for T2DM. Refills: 11. Next Dose: Fluticasone-Salmeterol (fluticasone-salmeterol 500 mcg-50 mcg inhalation powder) 1 puff(s) Inhalation every 12 hours. rinse mouth and throat after use. Refills: 11. Next Dose: Lisinopril (lisinopril 10 mg oral tablet) 1 tab(s) Oral Daily for 90 Days. Refills: 3. Next Dose: Loperamide (Imodium A-D 2 mg oral tablet) 1 tab(s) Oral Daily for 30 Days. Refills: 5. Next Dose: Loperamide (loperamide 2 mg oral tablet) 1 tab(s) Oral Daily for 30 Days. Refills: 11. Next Dose: lurasidone (Latuda 120 mg oral tablet) 1 tab(s) Oral Daily at Bedtime. Next Dose: Miscellaneous Rx (FREESTYLE LANCETS 100) USE DIRECTED TO TEST BLOOD GLUCOSE 2 TO 3 TIMES DAILY NEEDED. Refills: 0. Next Dose: Naratriptan (naratriptan 2.5 mg oral tablet) 1 tab(s) Oral Daily as needed for migraine headache for 30 Days. may repeat once in 4 hours if needed. Refills: 4. Next Dose: Omeprazole (omeprazole 20 mg oral enteric coated capsule) 1 capsule Oral twice a day. Refills: 5. Next Dose: Zolpidem (Ambien 10 mg oral tablet) 1 tab(s) Oral Daily at Bedtime as needed as needed for insomnia. Next Dose: Allergy Info:?? Other Food Allergy; Geodon; Topamax; Risperdal; shellfish; topiramate Medications Given This Visit Future Orders ?No future orders Vital Signs Height 165 cm Weight BMI Blood Pressure 144 mm Hg/87 mm Hg Temperature 98.1 DegF Pulse Rate 85 bpm Respiratory Rate 02 Sat Mode of Delivery 98 %/Room air You can now view a summary of your hospital visit from the comfort of your home through a free online portal called [employer]. [employer] is a website that allows you to securely view your medical information including discharge summary, medications and follow-up visits. ??You can alsosend a secure electronic message to your doctor???s office to request appointments, renew medications or just ask a question. You can enroll at [email or web address] or register during your next office visit. Disclaimer:?? The information provided is of a general nature and is intended to be used in conjunction with the recommendations and advice of your health care practitioner. ??Every effort has been made to ensure that the information provided is accurate and complete at the time it is provided to you however, as your needs change, or, as new ??information becomes available, different or additional instructions may be required. If you have questions, please consult with your primary care provider or pharmacist, as appropriate. ??This information is not intended to serve as substitution for assessment and evaluation by a qualified health care provider. If you do not have a primary care provider, you may find a [facility] provider by calling [facility] Link at [phone]. For information about the plan of care including goals and instructions for your diagnosis, please see the patient education orders section of this document. Patient Education Materials?? The content of this educational material or handout may have been modified, supplemented, or adapted from its original content and format to support your individualized medical care. Patient Care team information Care Team Personnel Name: Linda Awan RN Position: [facility] RN Member Role: Primary Care Nurse Name: Brionna Pathak RN Position: [facility] RN Member Role: Primary Care Nurse Name: Virgilio Mack MD Position: [facility] Primary Care Physician Member Role: PCP Address: Address: [address] [place] [address]- Care Team Related Persons Name: KELLY YANG Address: home [address] [place] [address] Name: ANNE-MARIE YANG Address: [place] [address] Name: GRAHAM YANG Address: home [address] [place] [address] Name: DULCE YANG Address: home [address] [place] [address] Name: DULCE SHEPHERD Address: home [address] [place] [address]
--- OUTSIDE RECORDS SUMMARY | 2024-05-14 17:34 | XMS_ITS | Continuity of Care Document ---
Author Organization [facility] Janes Catracho lt Address [address] [place] [address]- Care Team Providers Care Valve Repairer Name Role Phone Virgilio Mack MD Primary Care Physician [phone] [id number] Date(s): 09/12/22 - 09/19/22 [facility] Adult [address] [place] [address]- Attending Physician: Virgilio Mack MD Allergies, Adverse [...] Pneumococcal Vaccine (oldterm) 11/17/01 Given 1Result Comment: [id number] 2Result Comment: [facility]-[id number] 3Result Comment: [08/04/2017] QUAD [id number] [facility] [id number] Medications acarbose 25 mg oral tablet 1 tablet = 25 mg, By Mouth, 3 times a day, # 90 tablet, 11 Refills, Maintenance, 07/31/22 14:13:00 EDT, Transfer To [facility]ORE #[id number], Partial fill upon patient request if the [...] 10:58:00 EST, Powder, Route to Pharmacy Electronically, [facility]-[id number], [facility] #[id number], 165, cm, 0... Start Date: 11/20/21 Status: [...] Refills 5, Tot. Refills 5, Soft Stop, 10/28/22 7:01:00 EDT, Route to Pharmacy Electronically, [facility] #[id number], Partial fill upon patient request if the [...] 09/13/22 7:03:00 EDT, Route to Pharmacy Electronically, [facility] #[id number], 165, cm, 09/12/22 11:26:00 EDT, Height, 142.7, k... Start Date: 09/13/22 Stop Date: 09/08/23 Status: Ordered loperamide 2 mg oral tablet 1 tablet = 2 mg, By Mouth, Daily, # 30 tablet, 11 Refills, Maintenance, 09/13/22 7:01:00 EDT, Tablet, Transfer To [facility]ORE #01859, Partial fill upon patient request if the [...] Refills, Soft Stop, 04/06/21 8:40:00 EDT, Tablet, Transfer To [facility]ORE #99673, side effects with sumatriptan, and if this is declined as... Start Date: 04/06/21 Stop Date: 09/03/21 Status: Ordered omeprazole 20 mg oral enteric coated capsule 1 capsule, By Mouth, 2 times a day, # 60 capsule, 5 Refills, 02/18/22 10:27:00 EDT, [facility] #[id number], 165, cm, 02/11/22 9:38:00 EDT, Height, 142.7, kg, 09/06/21 16:04:00 EDT, Dry Weight Start Date: 02/18/22 Status: Ordered Ventolin HFA 108 mcg/inh inhalation aerosol with adapter 2 puffs, Inhalation, Every 6 hours, # 18 Gm, 5 Refills, Transfer To [facility]ORE #[id number], 165.1, cm, 08/22/21 12:16:00 EDT, Height, 140.9, [...] oldest [Reference Range]: 1 Height 165 cm (09/12/22 11:26 AM) Weight 150.7 kg (09/12/22 11:26 AM) Pulse Rate [55-90 bpm] 64 bpm (09/12/22 11:26 AM) Body Mass Index [18.5-24.99 kg/m2] 55.35 kg/m2 *>HHI* (09/12/22 11:26 AM) Blood Pressure [90-138/55-84 mm Hg] 121/ 82mm Hg (09/12/22 11:26 AM) Blood pressure sites Arm, left (09/12/22 11:26 AM) Weight Obtained Via Standing scale (09/12/22 11:26 AM) Social History Social History Type Response Smoking Status 5-9 cigarettes (betw een 1/4 to 1/2 pack)/day in last 30 days entered on: 09/06/21 Sex Female Patient Care team information Personnel Name: Frederick CONTRERAS, Virgilio Alexander Address: Address: [address] [place] [address]
--- OUTSIDE RECORDS SUMMARY | 2024-05-14 17:34 | XMS_ITS | Continuity of Care Document ---
Author Organization [facility] ter Address [address] [place] [address]- Care Team Providers Care Branch Administrator Name Role Phone Frederick CONTRERAS, Virgilio Alexander Primary Care Physician [phone] [id number] Date(s[facility] 10/12/21 - 11/21/[address] [address] Attending Physician: Michelle Velasco MD Admitting [...] Pneumococcal Vaccine (oldterm) 11/17/01 Given 1Result Comment: [facility]-[id number] 2Result Comment: [08/04/2017] QUAD [id number] [facility] [id number] Medications Alcohol Pads See Instructions, # 200 [...] TIMES DAILY, # 200 Unknown, 1 Refills, [facility] #74026, 50, USE DIRECTED 2 TO 3 TIMES [...] 10:58:00 EST, Powder, Route to Pharmacy Electronically, [facility]ID-[id number], [facility] #[id number], 165, cm, 0... Start Date: 11/20/21 Status: [...] 07/26/21 11:56:00 EDT, Route to Pharmacy Electronically, [facility] #[id number], Partial fill upon patient request if the prescription is... Start Date: 07/26/21 Status: Ordered nabumetone 750 mg oral tablet 1 tablet = 750 mg, By Mouth, 2 times a day, with food, # 14 tablet, 0 Refills, Maintenance, 08/22/21 12:41:00 EDT, Tablet, [facility] #[id number], 165.1, cm, 08/22/21 12:16:00 EDT, Height, 140.9, kg, 03/27/21 17:38:00 EDT, Dry Weight Start Date: 08/22/21 Stop Date: 08/29/21 Status: Ordered naratriptan 2.5 mg oral tablet 1 tablet = 2.5 mg, By Mouth, Daily, PRN for migraine headache, may repeat once in 4 hours if needed, # 9 tablet, 4 Refills, Soft Stop, 04/06/21 8:40:00 EDT, Tablet, [facility] #87340, side effects with sumatriptan, and if this is declined as... Start Date: 04/06/21 Stop Date: 09/03/21 Status: Ordered omeprazole 20 mg oral enteric coated capsule 1 capsule, By Mouth, 2 times a day, # 60 capsule, 2 Refills, [facility] #[id number], 165, cm, 09/19/21 10:12:00 EDT, Height, 142.7, [...] 6 hours, # 18 Gm, 5 Refills, [facility] #[id number], 165.1, cm, 08/22/21 12:16:00 EDT, Height, 140.9, [...]
--- OUTSIDE RECORDS SUMMARY | 2024-05-14 17:34 | XMS_ITS | Continuity of Care Document ---
Author Organization [facility] ter Address [address] [place] [address]- Care Team Providers Care Housing Development Specialist Name Role Phone Frederick CONTRERAS, Virgilio Alexander Primary Care Physician En[facility] [place] [place] ACCT R [id number] Date(s): 09/08/21 - 10/18/[address] [address] Attending Physician: Michelle Velasco MD [...] Pneumococcal Vaccine (oldterm) 11/17/01 Given 1Result Comment: [facility]-[id number] 2Result Comment: [08/04/2017] QUAD [id number] [facility] [id number] Medications Alcohol Pads See Instructions, # 200 [...] TIMES DAILY, # 200 Unknown, 0 Refills, [facility] #[id number], 50, USE DIRECTED 2 TO 3 TIMES DAILY, 165, cm, 09/19/21 10:12:00 EDT, Height, 142.7, kg,09/06/21 16:04:00 EDT, Dry Weight Start Date: 10/01/21 Status: Ordered benztropine 0.5 mg oral tablet TAKE 1 TABLET BY MOUTH EVERY DAY Start Date: 07/26/21 Status: Ordered Breo Ellipta 100 mcg-25 mcg/inh inhalation powder 1 puffs, Inhalation, Daily, # 30 each, 3 Refills, Maintenance, 07/18/21 11:55:00 EDT, Powder, [facility] #[id number], Partial fill upon patient request if the [...] 07/26/21 11:56:00 EDT, Route to Pharmacy Electronically, [facility] #[id number], Partial fill upon patient request if the prescription is... Start Date: 07/26/21 Status: Ordered nabumetone 750 mg oral tablet 1 tablet = 750 mg, By Mouth, 2 times a day, with food, # 14 tablet, 0 Refills, Maintenance, 08/22/21 12:41:00 EDT, Tablet, [facility] #[id number], 165.1, cm, 08/22/21 12:16:00 EDT, Height, 140.9, kg, 03/27/21 17:38:00 EDT, Dry Weight Start Date: 08/22/21 Stop Date: 08/29/21 Status: Ordered naratriptan 2.5 mg oral tablet 1 tablet = 2.5 mg, By Mouth, Daily, PRN for migraine headache, may repeat once in 4 hours if needed, # 9 tablet, 4 Refills, Soft Stop, 04/06/21 8:40:00 EDT, Tablet, [facility] #13331, side effects with sumatriptan, and if this is declined as... Start Date: 04/06/21 Stop Date: 09/03/21 Status: Ordered omeprazole 20 mg oral enteric coated capsule 1 capsule, By Mouth, 2 times a day, # 60 capsule, 2 Refills, Maintenance, 08/13/21 11:36:00 EDT, [facility] #[id number], 163, cm, 07/26/21 11:32:00 EDT, Height, 140.9, kg, 03/27/21 17:38:00 EDT,Dry Weight Start Date: 08/13/21 Status: Ordered Splint See Instructions, # 1 units, Maintenance, Splint to right foot overnight (AFO to keep foot in dorsiflexion), 04/27/18 15:03:13 EDT, Compound Start Date: 04/27/18 Status: Ordered Ventolin HFA 108 mcg/inh inhalation aerosol with adapter 2 puffs, Inhalation, Every 6 hours, # 18 Gm, 5 Refills, [facility] #[id number], 165.1, cm, 08/22/21 12:16:00 EDT, Height, 140.9, [...]
--- OUTSIDE RECORDS SUMMARY | 2024-05-14 17:34 | XMS_ITS | Continuity of Care Document ---
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 Refills 3, Maintenance, 02/27/21 7:09:00 EDT, Route to Pharmacy Electronically, [facility] [id number][id number], 165, cm, 02/27/21 6:55:00 EDT, Height Start [...] Refills, Soft Stop, 04/06/21 8:40:00 EDT, Tablet, [facility] #60949, side effects with sumatriptan, and if this is declined as... Start Date: 04/06/21 Stop Date: 09/03/21 Status: Ordered nicotine 21 mg/24 hr transdermal film, extended release 1 patch, Topically, Daily, # 30 patch, 1 Refills, Acute 07/03/21 17:00:00 EDT, 06/05/21 16:45:00 EDT, Patch, [facility] #[id number], Partial fill upon patient request if the prescription is for a schedule II opioid drug., 1 patch Topically Daily,... Start Date: 06/05/21 Stop Date: 07/03/21 Status: Ordered omeprazole 20 mg oral delayed release tablet 1 tablet = 20 mg, By Mouth, 2 times a day, # 30 tablet, 2 Refills, Maintenance, 06/12/21 13:59:00 EDT, EC Tablet, [facility] #[id number], 165.1, cm, 06/07/21 10:18:00 EDT, Height, 140.9, [...]
--- OUTSIDE RECORDS SUMMARY | 2024-05-14 17:34 | XMS_ITS | Continuity of Care Document ---
Author Organization [facility] Address [address] [place] [address]- Care Team Providers Care Fiber Glass Worker Name Role Phone Frederick CONTRERAS, Virgilio Alexander Primary Care Physician En[facility] [place]CT R [id number] Date(s): 06/22/21 - 07/22/21 [facility] [address] [place] [address]- Attending Physician: Nancy Sotelo Admitting Physician: Nancy Sotelo Referring Physician: Nancy Sotelo Allergies, Adverse Reactions, [...] 11/17/01 Given 1Result Comment: [facility]-[id number] 2Result Comment: [08/04/2017] QUAD [id number] [facility] [id number] Medications albuterol CFC free 90 mcg/inh inhalation aerosol 2, puffs, Inhalation, Every 6 hours, # 3 each, Refills 3, Tot. Refills 3, Maintenance, 02/27/21 7:09:00 EDT, [id number][id number], 165, cm, 02/27/21 6:55:00 EDT, Height Start [...] 3 Refills, Maintenance, 07/18/21 11:55:00 EDT, Powder, [facility] #[id number], Partial fill upon patient request if the [...] 06/26/21 9:29:00 EDT, Route to Pharmacy Electronically, [facility] #[id number], Partial fill upon patient request if the prescription is for a schedule II opio... Start Date: 06/26/21 Status: Ordered naratriptan 2.5 mg oral tablet 1 tablet = 2.5 mg, By Mouth, Daily, PRN for migraine headache, may repeat once in 4 hours if needed, # 9 tablet, 4 Refills, Soft Stop, 04/06/21 8:40:00 EDT, Tablet, [facility] #57598, side effects with sumatriptan, and if this is declined as... Start Date: 04/06/21 Stop Date: 09/03/21 Status: Ordered omeprazole 20 mg oral enteric coated capsule 1 capsule = 20 mg, By Mouth, 2 times a day, # 60 capsule, 1 Refills, Maintenance, 06/25/21 11:09:00EDT, [facility] #[id number], Partial fill upon patient request if the [...]
--- OUTSIDE RECORDS SUMMARY | 2024-05-14 17:35 | XMS_ITS | Continuity of Care Document ---
Author Organization [facility] [employer] Address [address], [address] [place] [address]- Care Team Providers Care Enterostomal Nurse Name Role Phone Frederick CONTRERAS, Virgilio Alexander [id number] Date(s): 11/13[facility]22 - 01/08/23 [facility] [employer] [facility] [facility] [address], 4[address] [place], [place] [address] Attending Physician: Comfort Danielle MD Admitting Physician: Comfort Danielle MD Referring Physician: Comfort Danielle MD Allergies, Adverse Reactions, Alerts Substance Reaction [...] Pneumococcal Vaccine (oldterm) 11/17/01 Given 1Result Comment: [id number] 2Result Comment: [id number] 3Result Comment: [facility]-[id number] 4Result Comment: [08/04/2017] QUAD [id number] [facility] 34024-345-45 Medications acarbose 25 mg oral tablet 1 tablet = 25 mg, By Mouth, 3 times a day, # 90 tablet, 11 Refills, Maintenance, 07/31/22 14:13:00 EDT, [facility] #[id number], Partial fill upon patient request if the [...] Gm, 2 Refills, Maintenance, 12/02/22 9:32:00 EST, [place], [facility] #[id number], Partial fill upon patient request if the prescription is for a schedule II opioid drug., 2 sprays Nares, Both Daily, 165, cm, 11/17... Start Date: 12/02/22 Status: Ordered fluticasone-salmeterol 500 mcg-50 mcg inhalation powder 1, puffs, Inhalation, Every 12 hours, rinse mouth and throat after use, # 180 each, Refills 11, Tot. Refills 11, Maintenance, 11/20/21 10:58:00 EST, Powder, Route to Pharmacy Electronically, NCPDP_[id number], [facility] #[id number], 165, cm, 01/0... Start Date: 11/20/21 Status: Ordered Imodium A-D 2 mg oral tablet 2 mg, 1, tablet, By Mouth, Daily, # 30 tablet, Refills 5, Tot. Refills 5, Soft Stop, 09/13/22 7:01:00 EDT, Route to Pharmacy Electronically, [facility] #[id number], Partial fill upon patient request if the [...] 09/13/22 7:03:00 EDT, Route to Pharmacy Electronically, [facility] #[id number], 165, cm, 09/12/22 11:26:00 EDT, Height, 142.7, k... Start Date: 09/13/22 Stop Date: 09/08/23 Status: Ordered loperamide 2 mg oral tablet 1 tablet = 2 mg, By Mouth, Daily, # 30 tablet, 11 Refills, Maintenance, 09/13/22 7:01:00 EDT, Tablet, [facility] #55110, Partial fill upon patient request if the prescription is for a schedule II opioid drug., 165, cm, 09/12/22 11:26:00 EDT,... Start Date: 09/13/22 Stop Date: 09/08/23 Status: Ordered omeprazole 20 mg oral enteric coated capsule 1 capsule, By Mouth, 2 times a day, # 60 capsule, 5 Refills, 02/18/22 10:27:00 EDT, [facility] #[id number], 165, cm, 02/11/22 9:38:00 EDT, Height, 142.7, kg, 09/06/21 16:04:00 EDT, Dry Weight Start Date: 02/18/22 Status: Ordered SUMAtriptan 100 mg oral tablet 1 tablet = 100 mg, By Mouth, Daily, PRN for migraine headache, may repeat dose after 2 hours up to a maximum of 2, # 9 tablet, 5 Refills, Acute 06/24/23 5:18:00 EDT, 12/25/22 5:18:00 EST, Tablet, [facility] #55858, Partial fill upon patient... Start Date: 12/25/22 Stop Date: 06/24/23 Status: Ordered Ventolin HFA 108 mcg/inh inhalation aerosol with adapter 2 puffs, Inhalation, Every 6 hours, # 18 Gm, 5 Refills, Maintenance, 12/12/22 13:09:00 EST, [facility] #[id number], 165, cm, 12/02/22 9:06:00 EST, Height, 142.7, [...] Team Personnel Name: Linda Awan RN Position: [facility] RN Member Role: Primary Care Nurse Name: Brionna Pathak RN Position: Mat RN Member Role: Primary Care Nurse Name: Virgilio Mack MD Position: [facility] Primary Care Physician Member Role: PCP Address: Address: [address] [place] [address]- [place] Care Team Related Persons Name: KELLY YANG Address: home [address] [place] [address] Name: ANNE-MARIE YANG Address: [place] [address] Name: GRAHAM YANG Address: home [address] [place] [address] Name: DULCE YANG Address: home [address] [facility] [address] [place] [address] Name: DULCE SHEPHERD Address: home [address] [place] [address]
--- OUTSIDE RECORDS SUMMARY | 2024-05-14 17:35 | XMS_ITS | Continuity of Care Document ---
Author Organization [facility] Man[facility] Cat[employer] Address [address] [place] [address]- Care Team Providers Care Nylon Machine Operator Name Role Phone Frederick CONTRERAS, Virgilio Alexander Primary Care Physician [place] [facility] [id number] Date(s): 11/29/22 - 01/02/23 [facility] Adult [address] [place] [address]- Attending Physician: Xochilt Cabezas Allergies, Adverse Reactions, Alerts Substance Reaction Severity [...] Pneumococcal Vaccine (oldterm) 11/17/01 Given 1Result Comment: [id number] 2Result Comment: [id number] 3Result Comment: [facility]-[id number] 4Result Comment: [08/04/2017] [facility] 98444-450-86 Medications acarbose 25 mg oral tablet 1 tablet = 25 mg, By Mouth, 3 times a day, # 90 tablet, 11 Refills, Maintenance, 07/31/22 14:13:00 EDT, [facility] #[id number], Partial fill upon patient request if the [...] Gm, 2 Refills, Maintenance, 12/02/22 9:32:00 EST, [place], [facility] #[id number], Partial fill upon patient request if the prescription is for a schedule II opioid drug., 2 sprays Nares, Both Daily, 165, cm, 11/17... Start Date: 12/02/22 Status: Ordered fluticasone-salmeterol 500 mcg-50 mcg inhalation powder 1, puffs, Inhalation, Every 12 hours, rinse mouth and throat after use, # 180 each, Refills 11, Tot. Refills 11, Maintenance, 11/20/21 10:58:00 EST, Powder, Route to Pharmacy Electronically, NCPDP_ID-[id number], [facility] #[id number], 165, cm, ... Start Date: 11/20/21 Status: Ordered Imodium A-D 2 mg oral tablet 2 mg, 1, tablet, By Mouth, Daily, # 30 tablet, Refills 5, Tot. Refills 5, Soft Stop, 09/13/22 7:01:00 EDT, Route to Pharmacy Electronically, [facility] #[id number], Partial fill upon patient request if the [...] 09/13/22 7:03:00 EDT, Route to Pharmacy Electronically, [facility] #[id number], 165, cm, 09/12/22 11:26:00 EDT, Height, 142.7, k... Start Date: 09/13/22 Stop Date: 09/08/23 Status: Ordered loperamide 2 mg oral tablet 1 tablet = 2 mg, By Mouth, Daily, # 30 tablet, 11 Refills, Maintenance, 09/13/22 7:01:00 EDT, Tablet, [facility] #99594, Partial fill upon patient request if the prescription is for a schedule II opioid drug., 165, cm, 09/12/22 11:26:00 EDT,... Start Date: 09/13/22 Stop Date: 09/08/23 Status: Ordered omeprazole 20 mg oral enteric coated capsule 1 capsule, By Mouth, 2 times a day, # 60 capsule, 5 Refills, 02/18/22 10:27:00 EDT, [facility] #[id number], 165, cm, 02/11/22 9:38:00 EDT, Height, 142.7, kg, 09/06/21 16:04:00 EDT, Dry Weight Start Date: 02/18/22 Status: Ordered SUMAtriptan 100 mg oral tablet 1 tablet = 100 mg, By Mouth, Daily, PRN for migraine headache, may repeat dose after 2 hours up to a maximum of 2, # 9 tablet, 5 Refills, Acute 06/24/23 5:18:00 EDT, 12/25/22 5:18:00 EST, Tablet, [facility] #[id number], Partial fill upon patient... Start Date: 12/25/22 Stop Date: 06/24/23 Status: Ordered Ventolin HFA 108 mcg/inh inhalation aerosol with adapter 2 puffs, Inhalation, Every 6 hours, # 18 Gm, 5 Refills, Maintenance, 12/12/22 13:09:00 EST, [facility] #[id number], 165, cm, 12/02/22 9:06:00 EST, Height, 142.7, [...] Team Personnel Name: Linda Awan RN Position: [facility] RN Member Role: Primary Care Nurse Name: Brionna Pathak RN Position: [facility] RN Member Role: Primary Care Nurse Name: Virgilio Mack MD Position: [facility] Primary Care Physician Member Role: PCP Address: Address: [address] [place] [address] [place] [address]- [place] Care Team Related Persons Name: KELLY YANG Address: home [address] [place] [address] Name: ANNE-MARIE YANG Address: [place] [address] Name: GRAHAM YANG Address: home [address] [place] [address] Name: DULCE YANG Address: home [address] [facility] [address] [place] [address] Name: DULCE SHEPHERD Address: home [address] [place] [address]
--- OUTSIDE RECORDS SUMMARY | 2024-05-14 17:35 | XMS_ITS | Continuity of Care Document ---
Author Organization [facility] [employer] Address [address] [place] [address]- Care Team Providers Care Board Liner Operator Name Role Phone Frederick CONTRERAS, Virgilio Alexander Primary Care Physician Encounter [facility] Date(s): 09/07/21 - 10/07/21 [facility] Adult [address] [place] [address]- Allergies, Adverse Reactions, Alerts Substance Reaction Severity [...] Pneumococcal Vaccine (oldterm) 11/17/01 Given 1Result Comment: [facility]-[id number] 2Result Comment: [08/04/2017] QUAD [id number] [facility] 82595-971-03 Medications Alcohol Pads See Instructions, # 200 [...] TIMES DAILY, # 200 Unknown, 0 Refills, [facility] #[id number], 50, USE DIRECTED 2 TO 3 TIMES DAILY, 165, cm, 09/19/21 10:12:00 EDT, Height, 142.7, kg,09/06/21 16:04:00 EDT, Dry Weight Start Date: 10/01/21 Status: Ordered benztropine 0.5 mg oral tablet TAKE 1 TABLET BY MOUTH EVERY DAY Start Date: 07/26/21 Status: Ordered Breo Ellipta 100 mcg-25 mcg/inh inhalation powder 1 puffs, Inhalation, Daily, # 30 each, 3 Refills, Maintenance, 07/18/21 11:55:00 EDT, Powder, [facility] #[id number], Partial fill upon patient request if the [...] 07/26/21 11:56:00 EDT, Route to Pharmacy Electronically, [facility] #[id number], Partial fill upon patient request if the prescription is... Start Date: 07/26/21 Status: Ordered nabumetone 750 mg oral tablet 1 tablet = 750 mg, By Mouth, 2 times a day, with food, # 14 tablet, 0 Refills, Maintenance, 08/22/21 12:41:00 EDT, Tablet, [facility] #07700, 165.1, cm, 08/22/21 12:16:00 EDT, Height, 140.9, kg, 03/27/21 17:38:00 EDT, Dry Weight Start Date: 08/22/21 Stop Date: 08/29/21 Status: Ordered naratriptan 2.5 mg oral tablet 1 tablet = 2.5 mg, By Mouth, Daily, PRN for migraine headache, may repeat once in 4 hours if needed, # 9 tablet, 4 Refills, Soft Stop, 04/06/21 8:40:00 EDT, Tablet, [facility] #[id number], side effects with sumatriptan, and if this is declined as... Start Date: 04/06/21 Stop Date: 09/03/21 Status: Ordered omeprazole 20 mg oral enteric coated capsule 1 capsule, By Mouth, 2 times a day, # 60 capsule, 2 Refills, Maintenance, 08/13/21 11:36:00 EDT, [facility] #[id number], 163, cm, 07/26/21 11:32:00 EDT, Height, 140.9, kg, 03/27/21 17:38:00 EDT,Dry Weight Start Date: 08/13/21 Status: Ordered Splint See Instructions, # 1 units, Maintenance, Splint to right foot overnight (AFO to keep foot in dorsiflexion), 04/27/18 15:03:13 EDT, Compound Start Date: 04/27/18 Status: Ordered Ventolin HFA 108 mcg/inh inhalation aerosol with adapter 2 puffs, Inhalation, Every 6 hours, # 18 Gm, 5 Refills, [facility] #[id number], 165.1, cm, 08/22/21 12:16:00 EDT, Height, 140.9, [...]
--- OUTSIDE RECORDS SUMMARY | 2024-05-14 17:35 | XMS_ITS | Continuity of Care Document ---
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 Refills 0, Maintenance, as needed for pain, 10/27/19 18:57:55 EDT, Print Requisition Start Date: 09/12/19 Status: Ordered albuterol CFC free 90 mcg/inh inhalation aerosol 2, puffs, Inhalation, Every 6 hours, # 3 each, Refills 3, Tot. Refills 3, Maintenance, 02/27/21 7:09:00 EDT, Route to Pharmacy Electronically, NCP_ID- [id number], [facility] #[id number], 165, cm, 02/27/21 6:55:00 EDT, Height Start [...] 0 Refills, Maintenance, 04/13/21 12:10:00 EDT, [place], [facility] #[id number], Partial fill upon patient request if the prescription is for a schedule II opioid drug., 1... Start Date: 04/13/21 Status: Ordered naproxen sodium 550 mg oral tablet 1 tablet, By Mouth, 2 times a day, PRN NEEDED FOR PAIN, for 14 days, # 28 tablet, 0 Refills, Acute, 04/06/21 7:57:00 EDT, [facility] #[id number], 163, cm, 04/02/21 11:11:00 EDT, Height, 140.9, kg, 03/27/21 17:38:00 EDT, Dry Weight Start Date: 04/06/21 Stop Date: 04/20/21 Status: Ordered naratriptan 2.5 mg oral tablet 1 tablet = 2.5 mg, By Mouth, Daily, PRN for migraine headache, may repeat once in 4 hours if needed, # 9 tablet, 4 Refills, Soft Stop, 04/06/21 8:40:00 EDT, Tablet, [facility] #[id number], side effects with sumatriptan, and if this is declined as... Start Date: 04/06/21 Stop Date: 09/03/21 Status: Ordered Nicorette 4 mg oral transmucosal gum 1 each = 4 mg, Chew, Every 2 hours, PRN as needed for smoking cessation, for 8 week(s), # 40 each, 0 Refills, Acute 05/11/21 10:57:00 EDT, 03/16/21 10:57:00 EDT, [facility] #[id number], Partial fill upon patient request if the [...] oldest [Reference Range]: 1 Height 163 cm (04/06/21 8:20 AM) Weight 142.1 kg (04/06/21 8:20 AM) Oxygen Saturation [94-100 %] 98 % (04/06/21 8:20 AM) Pulse Rate [55-90 bpm] 78 bpm (04/06/21 8:20 AM) Body Mass Index [18.5-24.99] 53.48 *>HHI* (04/06/21 8:20 AM) Blood Pressure [90-138/55-84 mm Hg] 130/ 80mm Hg (04/06/21 8:20 AM) Temperature [96.8-100.4 DegF] 98.1 DegF (04/06/21 8:20 AM) Mode of Delivery (Oxygen) Room air (04/06/21 8:20 AM) Blood pressure sites Arm, right (04/06/21 8:20 AM) Temperature Route Oral (04/06/21 8:20 AM) Weight Obtained Via Standing scale (04/06/21 8:20 AM) Social History Social History Type Response Smoking Status Former smoker; Type: Cigarettes; Tobacco use times per day: 1 ppd; Number of years: 22; Total pack years: 22; entered on: 10/21/17 Sex
--- OUTSIDE RECORDS SUMMARY | 2024-05-14 17:35 | XMS_ITS | Continuity of Care Document ---
Author Organization [facility] Address [address] [place] [address]- Care Team Providers Care Compounder Helper Name Role Phone Virgilio Mack MD Primary Care Physician [phone] [id number] Date(s): 05/10/20 - 05/17/20 [facility] [address] [place] [address]- [facility] Attending Physician: Hiram Rico MD Admitting Physician: Hiram Rico MD Referring Physician: Virgilio Mack MD Allergies, [...] (oldterm) 11/17/01 Given 1Result Comment: [facility]-[id number] 2Result Comment: [08/04/2017] QUAD [id number] [facility] 87549-565-05 Medications acetaminophen 325 mg oral tablet 650 [...] 05/05/20 13:06:00 EDT, [id number] #[id number], 165, cm,01/19/20 14:17:00 EST, Height Start Date: [...] 01/19/20 14:42:00 EST, Route to Pharmacy Electronically, [facility] #[id number], 165, cm, 01/19/20 14:17:00 EST, Height Start Date: 01/19/20 Status: Ordered Flovent HFA 110 mcg/inh inhalation aerosol 2 puffs, Inhalation, 2 times a day, rinse mouth and throat after use, # 12 Gm, 0 Refills, Maintenance, 11/30/19 8:41:00 EST, Aerosol, [facility], 165, cm, 11/30/19 8:25:00 EST, Height Start [...]
--- OUTSIDE RECORDS SUMMARY | 2024-05-14 17:35 | XMS_ITS | Continuity of Care Document ---
Author Organization [facility] Address [address] [place] [address]- Care Team Providers Care Grain Drier Name Role Phone Frederick CONTRERAS, Virgilio Alexander Primary Care Physician [phone] [place] [facility] Date(s): 06/25/21 - 07/25/21 [facility] [address] [place] [address] Allergies, Adverse Reactions, Alerts Substance [...] Pneumococcal Vaccine (oldterm) 11/17/01 Given 1Result Comment: [id number] 2Result Comment: [08/04/2017] QUAD [id number] [facility] [id number] Medications albuterol CFC free 90 mcg/inh inhalation aerosol 2, puffs, Inhalation, Every 6 hours, # 3 each, Refills 3, Tot. Refills 3, Maintenance, 02/27/21 7:09:00 EDT, Route to Pharmacy Electronically, LAPDP_ID- [id number], [facility] #[id number], 165, cm, 02/27/21 6:55:00 EDT, Height Start [...] 3 Refills, Maintenance, 07/18/21 11:55:00 EDT, Powder, [facility] #60507, Partial fill upon patient request if the [...] 06/26/21 9:29:00 EDT, Route to Pharmacy Electronically, [facility] #[id number], Partial fill upon patient request if the prescription is for a schedule II opio... Start Date: 06/26/21 Status: Ordered naratriptan 2.5 mg oral tablet 1 tablet = 2.5 mg, By Mouth, Daily, PRN for migraine headache, may repeat once in 4 hours if needed, # 9 tablet, 4 Refills, Soft Stop, 04/06/21 8:40:00 EDT, Tablet, [facility] #10581, side effects with sumatriptan, and if this is declined as... Start Date: 04/06/21 Stop Date: 09/03/21 Status: Ordered omeprazole 20 mg oral enteric coated capsule 1 capsule = 20 mg, By Mouth, 2 times a day, # 60 capsule, 1 Refills, Maintenance, 06/25/21 11:09:00EDT, [facility] #[id number], Partial fill upon patient request if the [...]
--- OUTSIDE RECORDS SUMMARY | 2024-05-14 17:35 | XMS_ITS | Continuity of Care Document ---
Author Organization [facility] Catr[facility] Address [address] [place] [address]- Care Team Providers Care Irrigation Equipment Installer Name Role Phone Virgilio Mack MD Primary Care Physician Encounter [facility] Date(s): 08/30/21 - 09/06/21 [facility] Adult [address] [place] [address]- Attending Physician: Virgilio Mack MD Allergies, Adverse [...] Pneumococcal Vaccine (oldterm) 11/17/01 Given 1Result Comment: [facility]-[id number] 2Result Comment: [08/04/2017] QUAD [id number] [facility] 69241-871-27 Medications Alcohol Pads See Instructions, # 200 [...] 3 Refills, Maintenance, 07/18/21 11:55:00 EDT, Powder, [facility] #[id number], Partial fill upon patient request if the [...] 07/26/21 11:56:00 EDT, Route to Pharmacy Electronically, [facility] #[id number], Partial fill upon patient request if the prescription is... Start Date: 07/26/21 Status: Ordered nabumetone 750 mg oral tablet 1 tablet = 750 mg, By Mouth, 2 times a day, with food, # 14 tablet, 0 Refills, Maintenance, 08/22/21 12:41:00 EDT, Tablet, [facility] #23898, 165.1, cm, 08/22/21 12:16:00 EDT, Height, 140.9, kg, 03/27/21 17:38:00 EDT, Dry Weight Start Date: 08/22/21 Stop Date: 08/29/21 Status: Ordered naratriptan 2.5 mg oral tablet 1 tablet = 2.5 mg, By Mouth, Daily, PRN for migraine headache, may repeat once in 4 hours if needed, # 9 tablet, 4 Refills, Soft Stop, 04/06/21 8:40:00 EDT, Tablet, [facility] #07844, side effects with sumatriptan, and if this is declined as... Start Date: 04/06/21 Stop Date: 09/03/21 Status: Ordered omeprazole 20 mg oral enteric coated capsule 1 capsule, By Mouth, 2 times a day, # 60 capsule, 2 Refills, Maintenance, 08/13/21 11:36:00 EDT, [facility] #44229, 163, cm, 07/26/21 11:32:00 EDT, Height, 140.9, kg, 03/27/21 17:38:00 EDT,Dry Weight Start Date: 08/13/21 Status: Ordered Splint See Instructions, # 1 units, Maintenance, Splint to right foot overnight (AFO to keep foot in dorsiflexion), 04/27/18 15:03:13 EDT, Compound Start Date: 04/27/18 Status: Ordered Ventolin HFA 108 mcg/inh inhalation aerosol with adapter 2 puffs, Inhalation, Every 6 hours, # 18 Gm, 5 Refills, [email or web address] #68133, 165.1, cm, 08/22/21 12:16:00 EDT, Height, 140.9, [...] oldest [Reference Range]: 1 Height 165.1 cm (08/30/21 10:12 AM) Weight 143.0 kg (08/30/21 10:12 AM) Oxygen Saturation [94-100 %] 98 % (08/30/21 10:12 AM) Pulse Rate [55-90 bpm] 90 bpm (08/30/21 10:12 AM) Body Mass Index [18.5-24.99] 52.46 *>HHI* (08/30/21 10:12 AM) Blood Pressure [90-138/55-84 mm Hg] 128/ 88mm Hg (08/30/21 10:12 AM) Temperature [96.8-100.4 DegF] 98.0 DegF (08/30/21 10:12 AM) Blood pressure sites Arm, left (08/30/21 10:12 AM) Temperature Route Oral (08/30/21 10:12 AM) Weight Obtained Via Standing scale (08/30/21 10:12 AM) Social History Social History Type Response Smoking Status 5-9 cigarettes (betw een 1/4 to 1/2 pack)/day in last 30 days entered on: 09/06/21 Sex Female
--- OUTSIDE RECORDS SUMMARY | 2024-05-14 17:35 | XMS_ITS | Continuity of Care Document ---
Author Organization [facility] Janes Catracho lt Address [address] [place] [address]- Care Team Providers Care Office Administration Instructor Name Role Phone Frederick CONTRERAS, Virgilio Alexander Primary Care Physician [phone] Encounter [facility] Date(s): 06/25/21 - 07/25/21 [facility] Adult [address] [place] [address]- Allergies, Adverse Reactions, Alerts Substance Reaction Severity [...] (oldterm) 11/17/01 Given 1Result Comment: [facility]-[id number] 2Result Comment: [08/04/2017] QUAD [id number] [facility] 58236-178-20 Medications albuterol CFC free 90 mcg/inh inhalation aerosol 2, puffs, Inhalation, Every 6 hours, # 3 each, Refills 3, Tot. Refills 3, Maintenance, 02/27/21 7:09:00 EDT, Route to Pharmacy Electronically, MOPDP_ID- [id number], [facility] #[id number], 165, cm, 02/27/21 6:55:00 EDT, Height Start [...] 3 Refills, Maintenance, 07/18/21 11:55:00 EDT, Powder, [facility] #[id number], Partial fill upon patient request if the [...] 06/26/21 9:29:00 EDT, Route to Pharmacy Electronically, [facility] #[id number], Partial fill upon patient request if the prescription is for a schedule II opio... Start Date: 06/26/21 Status: Ordered naratriptan 2.5 mg oral tablet 1 tablet = 2.5 mg, By Mouth, Daily, PRN for migraine headache, may repeat once in 4 hours if needed, # 9 tablet, 4 Refills, Soft Stop, 04/06/21 8:40:00 EDT, Tablet, [facility] #15557, side effects with sumatriptan, and if this is declined as... Start Date: 04/06/21 Stop Date: 09/03/21 Status: Ordered omeprazole 20 mg oral enteric coated capsule 1 capsule = 20 mg, By Mouth, 2 times a day, # 60 capsule, 1 Refills, Maintenance, 06/25/21 11:09:00EDT, [facility] #97676, Partial fill upon patient request if the [...]
--- OUTSIDE RECORDS SUMMARY | 2024-05-14 17:35 | XMS_ITS | Continuity of Care Document ---
Author Organization [facility] Address [address] [place] [address] [address] [place] [address]- Care Team Providers Care Assistance Representative Name Role Phone Frederick CONTRERAS, Virgilio Alexander Primary Care Physician En[place] [facility] [place] Date(s): 04/02/21 - 05/02/[address] [place] [address]- Attending Physician: AdmNancy beard Admitting Physician: AdmtrNancy Referring Physician: Admtr, Ar8 [...] (oldterm) 11/17/01 Given 1Result Comment: [facility]-[id number] 2Result Comment: [08/04/2017] QUAD [id number] [facility] 41433-376-75 Medications acetaminophen 325 mg oral tablet 650 [...] 02/27/21 7:09:00 EDT, [facility] to [facility]ically[id number], 165, cm, 02/27/21 6:55:00 EDT, Height Start [...] 0 Refills, Maintenance, 04/13/21 12:10:00 EDT, Film, [facility] #[id number], Partial fill upon patient request if the prescription is for a schedule II opioid drug., 1... Start Date: 04/13/21 Status: Ordered naratriptan 2.5 mg oral tablet 1 tablet = 2.5 mg, By Mouth, Daily, PRN for migraine headache, may repeat once in 4 hours if needed, # 9 tablet, 4 Refills, Soft Stop, 04/06/21 8:40:00 EDT, [facility] #[id number], side effects with sumatriptan, and if this is declined as... Start Date: 04/06/21 Stop Date: 09/03/21 Status: Ordered Nicorette 4 mg oral transmucosal gum 1 each = 4 mg, Chew, Every 2 hours, PRN as needed for smoking cessation, for 8 week(s), # 40 each, 0 Refills, Acute 05/11/21 10:57:00 EDT, 03/16/21 10:57:00 EDT, [email or web address] #[id number], Partial fill upon patient request if the [...]
--- OUTSIDE RECORDS SUMMARY | 2024-05-14 17:35 | XMS_ITS | Continuity of Care Document ---
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 Refills 3, Maintenance, 02/27/21 7:09:00 EDT, Route to Pharmacy Electronically, NCPDP_ID- [id number], [id number], 165, cm, 02/27/21 6:55:00 EDT, Height Start [...] days, # 28 tablet, 0 Refills, Acute, 05/24/21 15:57:00 EDT, [facility] #[id number], 165.1, cm, 05/22/21 6:27:00 EDT, Height, 140.9, kg, 03/27/21 17:38:00 EDT, Dry Weight Start Date: 05/24/21 Stop Date: 06/07/21 Status: Ordered naratriptan 2.5 mg oral tablet 1 tablet = 2.5 mg, By Mouth, Daily, PRN for migraine headache, may repeat once in 4 hours if needed, # 9 tablet, 4 Refills, Soft Stop, 04/06/21 8:40:00 EDT, Tablet, [facility] #[id number], side effects with sumatriptan, and if this is declined as... Start Date: 04/06/21 Stop Date: 09/03/21 Status: Ordered nicotine 21 mg-14 mg-7 mg transdermal film, extended release 1 each, Topically, Daily, for 28 days, # 1 kit, 0 Refills, Acute 06/13/21 8:22:00 EDT, 05/16/21 8:22:00 EDT, [facility] #[id number], Partial fill upon patient request if the [...]
--- OUTSIDE RECORDS SUMMARY | 2024-05-14 17:35 | XMS_ITS | Continuity of Care Document ---
Author Organization [facility] Address [address] [place] [address]- Care Team Providers Care Histologist Technologist Name Role Phone Frederick CONTRERAS, Virgilio Alexander Primary Care Physician [place] [facility] [place] 10/09/20 - 11/08/20 [facility] Adult [address] [place] [address]- Attending Physician: Admtr, Ar8 Allergies, Adverse Reactions, Alerts Substance Reaction Severity Status shellfish Active Risperdal 1, 2 Weight gain Seizures, eye sight Active Other [...] 11/17/01 Given 1Result Comment: [facility]-[id number] 2Result Comment: [08/04/2017] QUAD [id number] [facility] 31035-414-20 Medications acetaminophen 325 mg oral tablet 650 [...] 05/05/20 13:06:00 EDT, Route to Pharmacy Electronically, [facility]_ID- [id number], [facility] #[id number], 165, cm,01/19/20 14:17:00 EST, Height Start Date: [...] 01/19/20 14:42:00 EST, Route to Pharmacy Electronically, [facility] #[id number], 165, cm, 01/19/20 14:17:00 EST, Height Start Date: 01/19/20 Status: Ordered Flovent HFA 110 mcg/inh inhalation aerosol 2 puffs, Inhalation, 2 times a day, rinse mouth and throat after use, # 12 Gm, 0 Refills, Maintenance, 11/30/19 8:41:00 EST, Aerosol, [facility], 165, cm, 11/30/19 8:25:00 EST, Height Start [...] 06/06/20 9:20:00 EDT, Capsule, [facility] #[id number], 165, cm, 06/06/20 8:52:00 EDT, Height Start [...]
--- OUTSIDE RECORDS SUMMARY | 2024-05-14 17:35 | XMS_ITS | Continuity of Care Document ---
Author Organization [facility] Address [address] [place] [address]- Care Team Providers Care Center Machine Set Up Operator Name Role Phone Frederick CONTRERAS, Virgilio Alexander Primary Care Physician En[facility] [place] Date(s): 05/22/21 - 06/21/21 [facility] [address] [place] [id number] Allergies, Adverse Reactions, Alerts Substance Reaction [...] Pneumococcal Vaccine (oldterm) 11/17/01 Given 1Result Comment: [facility]-[id number] 2Result Comment: [08/04/2017] QUAD [id number] [facility] 85805-675-80 Medications albuterol CFC free 90 mcg/inh inhalation aerosol 2, puffs, Inhalation, Every 6 hours, # 3 each, Refills 3, Tot. Refills 3, Maintenance, 02/27/21 7:09:00 EDT, Route to Pharmacy Electronically, NCPDP_ID- [id number], [id number], 165, cm, 02/27/21 6:55:00 EDT, Height Start [...] Refills, Soft Stop, 04/06/21 8:40:00 EDT, Tablet, [facility] #[id number], side effects with sumatriptan, and if this is declined as... Start Date: 04/06/21 Stop Date: 09/03/21 Status: Ordered nicotine 21 mg/24 hr transdermal film, extended release 1 patch, Topically, Daily, # 30 patch, 1 Refills, Acute 07/03/21 17:00:00 EDT, 06/05/21 16:45:00 EDT, Patch, [facility] #68893, Partial fill upon patient request if the prescription is for a schedule II opioid drug., 1 patch Topically Daily,... Start Date: 06/05/21 Stop Date: 07/03/21 Status: Ordered omeprazole 20 mg oral delayed release tablet 1 tablet = 20 mg, By Mouth, 2 times a day, # 30 tablet, 2 Refills, Maintenance, 06/12/21 13:59:00 EDT, EC Tablet, [facility] #[id number], 165.1, cm, 06/07/21 10:18:00 EDT, Height, 140.9, [...]
--- OUTSIDE RECORDS SUMMARY | 2024-05-14 17:35 | XMS_ITS | Continuity of Care Document ---
Author Organization [facility] Address [address] [place] [address]- Care Team Providers Care Timekeeping Supervisor Name Role Phone Frederick CONTRERAS, Virgilio Alexander [id number] - 02/02/[address] [facility] [address] [address]- Attending Physician: Trisha CONTRERAS, Hiram Andersen Admitting Physician: Hiram Rico MD Referring Physician: Isabel COOL, Kishor Julian Allergies, Adverse Reactions, Alerts Substance Reaction Severity [...] pneumococcal 20-valent conjugate vaccine 5 12/24/22 Given [id number] 12y+ bivalent booster vax 11/01/22 Recorded SARS-CoV-2 (COVID-19) mRNA BNT-162b2 vac 12/08/21 Recorded SARS-CoV-2 (COVID-19) mRNA BNT-162b2 vac 03/11/21 Recorded SARS-CoV-2 (COVID-19) mRNA BNT-162b2 vac 02/17/21 Recorded tetanus/diphtheria/pertussis, acel(Tdap) 03/13/17 Recorded tetanus-diphtheria toxoids (Td) 08/07/13 Recorded Tetanus Toxoid Vaccine (oldterm) 11/17/01 Given Pneumococcal Vaccine (oldterm) 11/17/01 Given 1Result Comment: [id number] 2Result Comment: [id number] 3Result Comment: [facility]-[id number] 4Result Comment: [08/04/2017] [facility] [id number] [facility] 48600-792-16 5Result Comment: [id number] Medications Ambien 10 mg oral tablet 1 tablet = 10 mg, By Mouth, Daily at bedtime, PRN as needed for insomnia, 0 Refills, Maintenance, 12/02/18 14:26:49 EST, Tablet Start Date: 12/02/18 Status: Ordered azelastine 137 mcg/inh (0.1%) nasal spray 2 sprays, Nares, Both, Daily, PRN Other Allergies, # 30 mL, 0 Refills, Maintenance, 02/20/23 15:08:00 EDT, [place], [facility] #[id number], Partial fill upon patient request if the prescription is for a schedule II opioid drug., 2 sprays Nares, B... Start Date: 02/20/23 Status: Ordered fluticasone-salmeterol 500 mcg-50 mcg inhalation powder 1, puffs, Inhalation, Every 12 hours, rinse mouth and throat after use, # 180 each, Refills 11, Tot. Refills 11, Maintenance, 11/20/21 10:58:00 EST, Powder, Route to Pharmacy Electronically, NCPDP_ID-[id number], [facility] #[id number], 165, cm, 0... Start Date: 11/20/21 Status: Ordered Imodium A-D 2 mg oral tablet 2 mg, 1, tablet, By Mouth, Daily, # 30 tablet, Refills 5, Tot. Refills 5, Soft Stop, 09/13/22 7:01:00 EDT, Route to Pharmacy Electronically, [facility] #[id number], Partial fill upon patient request if the [...] 11/06/23 12:57:00 EST, Route to Pharmacy Electronically, [facility] #[id number], 165, cm, 10/30/23 14:14:00 EST, Height, 139.3, kg, 09/10/23 11:57:00 EDT, Dry Weight Start Date: 11/06/23 Status: Ordered loperamide 2 mg oral tablet 1 tablet = 2 mg, By Mouth, Daily, 90 day supply, # 90 tablet, 3 Refills, Maintenance, 06/09/23 8:11:00 EDT, Tablet, [facility] #[id number], Partial fill upon patient request if the prescription is for a schedule II opioid drug., 165, cm, 05/07/23... Start Date: 06/09/23 Status: Ordered meloxicam 15 mg oral tablet 1 tablet = 15 mg, By Mouth, Daily, # 30 tablet, 0 Refills, Maintenance, 10/30/23 14:26:00 EST, [facility] #[id number], Partial fill upon patient request if the [...] 60 capsule, 5 Refills, 02/18/22 10:27:00 EDT, [facility] #[id number], 165, cm, 02/11/22 9:38:00 EDT, Height, 142.7, [...] 10/30/23 14:28:00 EST, Route to Pharmacy Electronically, [facility] #[id number], Partial fill upon patient request if the [...] oldest [Reference Range]: 1 Height 165 cm (01/26/24 9:52 AM) Weight 134.4 kg (01/26/24 9:52 AM) Oxygen Saturation [94-100 %] 98 % (01/26/24 9:52 AM) Pulse Rate [55-90 bpm] 79 bpm (01/26/24 9:52 AM) Body Mass Index [18.5-24.99 kg/m2] 49.37 kg/m2 *>HHI* (01/26/24 9:52 AM) Blood Pressure [90-138/55-84 mm Hg] 142/ 90mm Hg *H* (01/26/24 9:52 AM) Mode of Delivery (Oxygen) Room air (01/26/24 9:52 AM) Blood pressure sites Arm, left (01/26/24 9:52 AM) Weight Obtained Via Bed scale (01/26/24 9:52 AM) Social History Social History Type Response Smoking Status 5-9 cigarettes (betw een 1/4 to 1/2 pack)/day in last 30 days; Tobacco use times per day: 0.5 PPD; entered on: 08/13/23 Sex Female Patient Care team information Care Team Personnel Name: Linda Awan RN Position: [facility] SN RN Member Role: Primary Care Nurse Name: Brionna Pathak RN Position: [facility] RN Member Role: Primary Care Nurse Name: Virgilio Mack MD Position: [facility] Physician - Primary Care Member Role: PCP Address: Address: [address] [place] [address]- Care Team Related Persons Name: KELLY YANG Address: home [address] [place] [address] Name: ANNE-MARIE YANG Address: [place], [place] Name: GRAHAM YANG Address: home [address] [place], [place] Name: DULCE YANG Address: [address] [place] [address] Name: DULCE SHEPHERD Address: home [address] [place] [address]
--- OUTSIDE RECORDS SUMMARY | 2024-05-14 17:35 | XMS_ITS | Continuity of Care Document ---
Author Organization [facility] Address [address] [place] [address]- Care Team Providers Care Product Applications Engineer Name Role Phone Virgilio Mack MD Primary Care Physician [phone] [id number]24[facility] - 12/31/[facility] Adult [address] [place] [address]- Attending Physician: Virgilio Mack MD Allergies, Adverse [...] Pneumococcal Vaccine (oldterm) 11/17/01 Given 1Result Comment: [id number] 2Result Comment: [id number] 3Result Comment: [facility]-[id number] 4Result Comment: [08/04/2017] [facility] 29923-804-02 Medications acarbose 25 mg oral tablet 1 tablet = 25 mg, By Mouth, 3 times a day, # 90 tablet, 11 Refills, Maintenance, 07/31/22 14:13:00 EDT, [facility] #[id number], Partial fill upon patient request if the [...] Gm, 2 Refills, Maintenance, 12/02/22 9:32:00 EST, [place], [facility] #[id number], Partial fill upon patient request if the prescription is for a schedule II opioid drug., 2 sprays Nares, Both Daily, 165, cm, 11/17... Start Date: 12/02/22 Status: Ordered fluticasone-salmeterol 500 mcg-50 mcg inhalation powder 1, puffs, Inhalation, Every 12 hours, rinse mouth and throat after use, # 180 each, Refills 11, Tot. Refills 11, Maintenance, 11/20/21 10:58:00 EST, Powder, Route to Pharmacy Electronically, NCPDP_ID-[id number], [facility] #[id number], 165, cm, ... Start Date: 11/20/21 Status: Ordered Imodium A-D 2 mg oral tablet 2 mg, 1, tablet, By Mouth, Daily, # 30 tablet, Refills 5, Tot. Refills 5, Soft Stop, 09/13/22 7:01:00 EDT, Route to Pharmacy Electronically, [facility] #[id number], Partial fill upon patient request if the [...] 09/13/22 7:03:00 EDT, Route to Pharmacy Electronically, [facility] #[id number], 165, cm, 09/12/22 11:26:00 EDT, Height, 142.7, k... Start Date: 09/13/22 Stop Date: 09/08/23 Status: Ordered loperamide 2 mg oral tablet 1 tablet = 2 mg, By Mouth, Daily, # 30 tablet, 11 Refills, Maintenance, 09/13/22 7:01:00 EDT, Tablet, [facility] #[id number], Partial fill upon patient request if the prescription is for a schedule II opioid drug., 165, cm, 09/12/22 11:26:00 EDT,... Start Date: 09/13/22 Stop Date: 09/08/23 Status: Ordered omeprazole 20 mg oral enteric coated capsule 1 capsule, By Mouth, 2 times a day, # 60 capsule, 5 Refills, 02/18/22 10:27:00 EDT, [facility] #[id number], 165, cm, 02/11/22 9:38:00 EDT, Height, 142.7, kg, 09/06/21 16:04:00 EDT, Dry Weight Start Date: 02/18/22 Status: Ordered SUMAtriptan 100 mg oral tablet 1 tablet = 100 mg, By Mouth, Daily, PRN for migraine headache, may repeat dose after 2 hours up to a maximum of 2, # 9 tablet, 5 Refills, Acute 06/24/23 5:18:00 EDT, 12/25/22 5:18:00 EST, Tablet, [facility] #[id number], Partial fill upon patient... Start Date: 12/25/22 Stop Date: 06/24/23 Status: Ordered Ventolin HFA 108 mcg/inh inhalation aerosol with adapter 2 puffs, Inhalation, Every 6 hours, # 18 Gm, 5 Refills, Maintenance, 12/12/22 13:09:00 EST, [facility] #[id number], 165, cm, 12/02/22 9:06:00 EST, Height, 142.7, [...] to oldest [Reference Range]: 1 2 Height 165 cm (12/24/22 3:09 PM) 165 cm (12/24/22 3:03 PM) Weight 151.8 kg (12/24/22 3:03 PM) Oxygen Saturation [94-100 %] 96 % (12/24/22 3:03 PM) Pulse Rate [55-90 bpm] 78 bpm (12/24/22 3:03 PM) Body Mass Index [18.5-24.99 kg/m2] 55.76 kg/m2 *>HHI* (12/24/22 3:03 PM) Blood Pressure [90-138/55-84 mm Hg] 137/ 81mm Hg (12/24/22 3:09 PM) 144/83mm Hg *H* (12/24/22 3:03 PM) Mode of Delivery (Oxygen) Room air (12/24/22 3:03 PM) Blood pressure sites Arm, left (12/24/22 3:09 PM) Arm, left (12/24/22 3:03 PM) Weight Obtained Via Standing scale (12/24/22 3:03 PM) Social History Social History Type Response Smoking Status 5-9 cigarettes (betw een 1/4 to 1/2 pack)/day in last 30 days entered on: 09/06/21 Sex Female Note * Janey Lester: PERFORM, SIGN, VERIFY Event Display: Patient Education/Instruction Authored Date: [id number] [facility] *BMP So Janes Tay Clinical Summary Name WIL YANG Age 42 Years 1980 PCP Frederick CONTRERAS, Virgilio Alexander PCP Visit Date 12/24/2022 14:41:00 Additional Instructions: Scheduled Appointments?? Future Appointments ?*[facility] ?[address] ?[place],??[place],??[address] ?Phone:??--?Fax:??-- ?Appt. Date:??01/01/2023?9:40 AM ?Scheduled Provider:??Comfort Danielle MD ?[facility] ?[address]??[place],??[place],??[address] ?Phone:??[phone]?Fax:??-- ?Appt. Date:??06/03/2023?8:30 AM ?Scheduled Provider:??[facility] 3 Follow-Up Instructions ?? Diagnosis Unspecified asthma, uncomplicated; Essential (primary) hypertension; Morbid (severe) obesity due toexcess calories; Migraine, unspecified, not intractable, without status migrainosus; Major depressive disorder, single episode, unspecified; Obstructive sleep apnea (adult) (pediatric); Nicotine dependence, unspecified, uncomplicated Medications: Please continue your medications until treatment is completed or stopped by your provider. Discuss any questions related to medications with your provider. Medications to Continue with No Changes These [...] daily for T2DM. Refills: 11. Next Dose: Fluticasone Nasal (Flonase 50 mcg/inh nasal spray) 2 spray(s) Nares, Both Daily. Refills: 2. Next Dose: Fluticasone-Salmeterol (fluticasone-salmeterol 500 mcg-50 mcg [...] orders Vital Signs Height 165 cm Weight 151.8 kg BMI 55.76 kg/m2 Blood Pressure 137 mm Hg/81 mm Hg Temperature Pulse Rate 78 bpm Respiratory Rate 02 Sat Mode of Delivery 96 %/Room air You can now view a summary of your hospital visit from the comfort of your home through a free online portal called TASS. TASS is a website that allows you to securely view your medical information including discharge summary, medications and follow-up visits. ??You can alsosend a secure electronic message to your doctor???s office to request appointments, renew medications or just ask a question. You can enroll at [email or web address] or register during your next office visit. [...] primary care provider, you may find a [facility] provider by calling [facility] at [phone]. For information about the plan of care [...] Team Personnel Name: Linda Awan RN Position: [facility] RN Member Role: Primary Care Nurse Name: Brionna Pathak RN Position: [facility] RN Member Role: Primary Care Nurse Name: Virgilio Mack MD Position: [facility] Primary Care Physician Member Role: PCP Address: Address: [address] [place] [address] [place] [address]- [place] Care Team Related Persons Name: KELLY YANG Address: home [address] [place] [address] Name: ANNE-MARIE YANG Address: [place] [address] Name: GRAHAM YANG Address: home [address] [place] [address] Name: DULCE YANG Address: home [address] [facility] [address] [place] [address] Name: DULCE SHEPHERD Address: home [address] [place] [address]
--- OUTSIDE RECORDS SUMMARY | 2024-05-14 17:35 | XMS_ITS | Continuity of Care Document ---
Author Organization [facility] Address [address] [place] [address]- Care Team Providers Care Assistant Center Director Name Role Phone Frederick CONTRERAS, Virgilio Alexander Primary Care Physician [phone] [place] [facility] [place](s): 08/12/23 - 09/17/23 [facility] Adult [address] [place] [address]- Attending Physician: Cristóbal COOL, Marcelle Puentes Referring Physician: Virgilio Mack MD Allergies, Adverse [...] Pneumococcal Vaccine (oldterm) 11/17/01 Given 1Result Comment: [id number] 2Result Comment: [id number] 3Result Comment: [facility]-[id number] 4Result Comment: [08/04/2017] QUAD [id number] [facility] [id number] 5Result Comment: [id number] Medications acarbose 25 mg oral tablet 1 tablet = 25 mg, By Mouth, 3 times a day, # 90 tablet, 11 Refills, Maintenance, 09/09/23 18:02:00 EDT, [facility] #[id number], Partial fill upon patient request if the [...] mL, 0 Refills, Maintenance, 02/20/23 15:08:00 EDT, [place], [facility] #[id number], Partial fill upon patient request if the prescription is for a schedule II opioid drug., 2 sprays Nares, B... Start Date: 02/20/23 Status: Ordered fluticasone-salmeterol 500 mcg-50 mcg inhalation powder 1, puffs, Inhalation, Every 12 hours, rinse mouth and throat after use, # 180 each, Refills 11, Tot. Refills 11, Maintenance, 11/20/21 10:58:00 EST, Powder, Route to Pharmacy Electronically, NCPDP_[id number], [facility] #[id number], 165, cm, ... Start Date: 11/20/21 Status: Ordered Imodium A-D 2 mg oral tablet 2 mg, 1, tablet, By Mouth, Daily, # 30 tablet, Refills 5, Tot. Refills 5, Soft Stop, 09/13/22 7:01:00 EDT, Route to Pharmacy Electronically, [facility] #[id number], Partial fill upon patient request if the [...] 3 Refills, Maintenance, 06/09/23 8:11:00 EDT, Tablet, [facility] #58778, Partial fill upon patient request if the [...] 60 capsule, 5 Refills, 02/18/22 10:27:00 EDT, [facility] #[id number], 165, cm, 02/11/22 9:38:00 EDT, Height, 142.7, [...] mL, 0 Refills, Maintenance, 08/20/23 14:52:00 EDT, [facility] #[id number], Partial fill upon patient request if the [...] Team Personnel Name: Linda Awan RN Position: [facility] RN Member Role: Primary Care Nurse Name: Brionna Pathak RN Position: [facility] RN Member Role: Primary Care Nurse Name: Virgilio Mack MD Position: [facility] Physician - Primary Care Member Role: PCP Address: Address: [address] [place] [address]- [place] Care Team Related Persons Name: KELLY YANG Address: home [address] [place] [address] Name: ANNE-MARIE YANG Address: [place] [address] Name: GRAHAM YANG Address: home [address] [place] [address] Name: DULCE YANG Address: home [address] [facility] [address] [place] [address] [place] [address] Name: DULCE SHEPHERD Address: home [address] [place] [address]
--- OUTSIDE RECORDS SUMMARY | 2024-05-14 17:35 | XMS_ITS | Continuity of Care Document ---
Author Organization [facility] Address [address] [place] [address]- Care Team Providers Care Straight Knife Machine Cutter Name Role Phone Not on Staff, PCP Primary Care Physician Unavail able Encounter [facility] [place] Date(s): 02/09/20 - 02/19/20 [facility] [address] [place] [address]- [facility] Attending Physician: Admtr, Ar8 Admitting Physician: Admtr, Ar8 Referring Physician: Admtr, Ar8 Allergies, Adverse Reactions, Alerts Substance Reaction Severity Status topiramate Aggressive behavior Active shellfish Anaphylactic reaction to food Active RisperDAL Difficulty controlling aggression Active Medications Alcohol Pads See Instructions, # 1 box, Refills 3, Tot. Refills 3, Maintenance, use as directed to test blood sugar 3 times a day, 02/25/19 11:41:22 EDT, Compound Start Date: 02/25/19 Status: Ordered Freestyle Lite Lancets See Instructions, [...]
--- OUTSIDE RECORDS SUMMARY | 2024-05-14 17:35 | XMS_ITS | Continuity of Care Document ---
Author Organization [facility] Address [address], [address] [place] [address]- Care Team Providers Care Pre Coder Name Role Phone Frederick CONTRERAS, Virgilio Alexander Primary Care Physician [place] [facility] [place] Date(s): 08/29/23 - 09/28/23 [facility] [address], [address]th [place] [address]- Allergies, Adverse Reactions, Alerts Substance Reaction Severity [...] Pneumococcal Vaccine (oldterm) 11/17/01 Given 1Result Comment: [id number] 2Result Comment: [id number] 3Result Comment: [facility]-[id number] 4Result Comment: [08/04/2017] QUAD [id number] [facility] [id number] 5Result Comment: [id number] Medications acarbose 25 mg oral tablet 1 tablet = 25 mg, By Mouth, 3 times a day, # 90 tablet, 11 Refills, Maintenance, 09/09/23 18:02:00 EDT, [facility] #[id number], Partial fill upon patient request if the [...] mL, 0 Refills, Maintenance, 02/20/23 15:08:00 EDT, [place], [facility] #25545, Partial fill upon patient request if the prescription is for a schedule II opioid drug., 2 sprays Nares, B... Start Date: 02/20/23 Status: Ordered fluticasone-salmeterol 500 mcg-50 mcg inhalation powder 1, puffs, Inhalation, Every 12 hours, rinse mouth and throat after use, # 180 each, Refills 11, Tot. Refills 11, Maintenance, 11/20/21 10:58:00 EST, Powder, Route to Pharmacy Electronically, NCPDP_ID-[id number], [facility] #[id number], 165, cm, ... Start Date: 11/20/21 Status: Ordered Imodium A-D 2 mg oral tablet 2 mg, 1, tablet, By Mouth, Daily, # 30 tablet, Refills 5, Tot. Refills 5, Soft Stop, 09/13/22 7:01:00 EDT, Route to Pharmacy Electronically, [facility] #56112, Partial fill upon patient request if the [...] 3 Refills, Maintenance, 06/09/23 8:11:00 EDT, Tablet, [facility] #55242, Partial fill upon patient request if the [...] 60 capsule, 5 Refills, 02/18/22 10:27:00 EDT, [email or web address] #[id number], 165, cm, 02/11/22 9:38:00 EDT, Height, 142.7, [...] mL, 0 Refills, Maintenance, 08/20/23 14:52:00 EDT, [email or web address] #[id number], Partial fill upon patient request if the [...] Primary Care Member Role: PCP Address: Address: [address] [place] [address] [place] [address]- [place] Care Team Related Persons Name: KELLY YANG Address: home [address] [place] [address] Name: ANNE-MARIE YANG Address: [place] [address] Name: GRAHAM AYNG Address: home [address] [place] [address] Name: DULCE YANG Address: home [address] [facility] [address]ST [place] [address] Name: DULCE SHEPHERD Address: home [address] [place] [address]
--- OUTSIDE RECORDS SUMMARY | 2024-05-14 17:35 | XMS_ITS | Continuity of Care Document ---
Author Organization [facility] Address [address] [place] [address] [address] [place] [address]- Care Team Providers Care Boat Oar Maker Name Role Phone Frederick CONTRERAS, Virgilio Alexander Primary Care Physician Encounter [facility] [place] Date(s): 04/02/21 - 04/09/[address] [place] [address]- Encounter Diagnosis Pilonidal disease(Discharge Diagnosis) - 03/28/21 Attending Physician: Roberta Perry MD Referring Physician: Gavi ROAD DESIGN ENGINEER, Otilia Allergies, Adverse Reactions, Alerts Substance Reaction Severity [...] (oldterm) 11/17/01 Given 1Result Comment: [facility]-[id number] 2Result Comment: [08/04/2017] QUAD [id number] [facility] [id number] Medications acetaminophen 325 mg oral tablet 650 [...] 7:09:00 EDT, Route to Pharmacy Electronically, NCPDP_ID- [id number], [id number], 165, cm, 02/27/21 6:55:00 EDT, Height Start [...] Gm, 2 Refills, Maintenance, 03/27/21 17:04:00 EDT, Aerosol, [facility] #[id number], Partial fill upon patient request if the [...] tablet, 0 Refills, Acute, 04/06/21 7:57:00 EDT, [facility] #40897, 163, cm, 04/02/21 11:11:00 EDT, Height, 140.9, kg, 03/27/21 17:38:00 EDT, Dry Weight Start Date: 04/06/21 Stop Date: 04/20/21 Status: Ordered naratriptan 2.5 mg oral tablet 1 tablet = 2.5 mg, By Mouth, Daily, PRN for migraine headache, may repeat once in 4 hours if needed, # 9 tablet, 4 Refills, Soft Stop, 04/06/21 8:40:00 EDT, Tablet, [facility] #73792, side effects with sumatriptan, and if this is declined as... Start Date: 04/06/21 Stop Date: 09/03/21 Status: Ordered Nicorette 4 mg oral transmucosal gum 1 each = 4 mg, Chew, Every 2 hours, PRN as needed for smoking cessation, for 8 week(s), # 40 each, 0 Refills, Acute 05/11/21 10:57:00 EDT, 03/16/21 10:57:00 EDT, Gum, [facility] #78498, Partial fill upon patient request if the [...] Dates Health Status Cl inical Service Informant Pilonidal disease Discharge Diagnosis 03/28/21 Vital Signs Most recent to oldest [Reference Range]: 1 Height 163 cm (04/02/21 11:11 AM) Weight 141.9 kg (04/02/21 11:11 AM) Pulse Rate [55-90 bpm] 76 bpm (04/02/21 11:11 AM) Body Mass Index [18.5-24.99] 53.41 *>HHI* (04/02/21 11:11 AM) Blood Pressure [90-138/55-84 mm Hg] 146/ 95mm Hg *H* (04/02/21 11:11 AM) Temperature [96.8-100.4 DegF] 98.3 DegF (04/02/21 11:11 AM) Blood pressure sites Arm, right (04/02/21 11:11 AM) Temperature Route Temporal (04/02/21 11:11 AM) Weight Obtained Via Standing scale (04/02/21 11:11 AM) Social History Social History Type Response Smoking Status Former smoker; Type: Cigarettes; Tobacco use times per day: 1 ppd; Number of years: 22; Total pack years: 22; entered on: 10/21/17 Sex
--- OUTSIDE RECORDS SUMMARY | 2024-05-14 17:35 | XMS_ITS | Continuity of Care Document ---
Author Organization [facility] Address [address] [place] [address]- Care Team Providers Care Career Manager Name Role Phone Frederick CONTRERAS, Virgilio Alexander Primary Care Physician [place] [facility] [place] 04/04/21 - 05/04/21 [facility] Adult [address] [place] [address]- Allergies, Adverse Reactions, Alerts Substance Reaction Severity [...] Pneumococcal Vaccine (oldterm) 11/17/01 Given 1Result Comment: [facility]-[id number] 2Result Comment: [08/04/2017] QUAD [id number] [facility] 55096-083-59 Medications acetaminophen 325 mg oral tablet 650 [...] 7:09:00 EDT, Route to Pharmacy Electronically, NCPDP_ID- [id number], [facility] #[id number], 165, cm, 02/27/21 6:55:00 EDT, Height Start [...] 0 Refills, Maintenance, 04/13/21 12:10:00 EDT, Film, [facility] #08499, Partial fill upon patient request if the prescription is for a schedule II opioid drug., 1... Start Date: 04/13/21 Status: Ordered naratriptan 2.5 mg oral tablet 1 tablet = 2.5 mg, By Mouth, Daily, PRN for migraine headache, may repeat once in 4 hours if needed, # 9 tablet, 4 Refills, Soft Stop, 04/06/21 8:40:00 EDT, [email or web address]49030, side effects with sumatriptan, and if this is declined as... Start Date: 04/06/21 Stop Date: 09/03/21 Status: Ordered Nicorette 4 mg oral transmucosal gum 1 each = 4 mg, Chew, Every 2 hours, PRN as needed for smoking cessation, for 8 week(s), # 40 each, 0 Refills, Acute 05/11/21 10:57:00 EDT, 03/16/21 10:57:00 EDT, [facility] #[id number], Partial fill upon patient request if the [...]
--- OUTSIDE RECORDS SUMMARY | 2024-05-14 17:36 | XMS_ITS | Continuity of Care Document ---
Author Organization [facility] Address [address] [place] [address]- Care Team Providers Care Lecturer Of Portuguese Name Role Phone Frederick CONTRERAS, Virgilio Alexander Primary Care Physician [phone] [place] [facility] [place]13[place] 10/13/21 [facility] Adult [address] [place] [address]- Allergies, Adverse Reactions, Alerts Substance Reaction Severity [...] Pneumococcal Vaccine (oldterm) 11/17/01 Given 1Result Comment: [facility]-[id number] 2Result Comment: [08/04/2017] QUAD [id number] [facility] 48096-925-82 Medications Alcohol Pads See Instructions, # 200 [...] TIMES DAILY, # 200 Unknown, 0 Refills, [facility] #35650, 50, USE DIRECTED 2 TO 3 TIMES DAILY, 165, cm, 09/19/21 10:12:00 EDT, Height, 142.7, kg,09/06/21 16:04:00 EDT, Dry Weight Start Date: 10/01/21 Status: Ordered benztropine 0.5 mg oral tablet TAKE 1 TABLET BY MOUTH EVERY DAY Start Date: 07/26/21 Status: Ordered Breo Ellipta 100 mcg-25 mcg/inh inhalation powder 1 puffs, Inhalation, Daily, # 30 each, 3 Refills, Maintenance, 07/18/21 11:55:00 EDT, Powder, [facility] #58029, Partial fill upon patient request if the [...] 07/26/21 11:56:00 EDT, Route to Pharmacy Electronically, [facility] #54972, Partial fill upon patient request if the prescription is... Start Date: 07/26/21 Status: Ordered nabumetone 750 mg oral tablet 1 tablet = 750 mg, By Mouth, 2 times a day, with food, # 14 tablet, 0 Refills, Maintenance, 08/22/21 12:41:00 EDT, Tablet, [facility] #[id number], 165.1, cm, 08/22/21 12:16:00 EDT, Height, 140.9, kg, 03/27/21 17:38:00 EDT, Dry Weight Start Date: 08/22/21 Stop Date: 08/29/21 Status: Ordered naratriptan 2.5 mg oral tablet 1 tablet = 2.5 mg, By Mouth, Daily, PRN for migraine headache, may repeat once in 4 hours if needed, # 9 tablet, 4 Refills, Soft Stop, 04/06/21 8:40:00 EDT, Tablet, [facility] #[id number], side effects with sumatriptan, and if this is declined as... Start Date: 04/06/21 Stop Date: 09/03/21 Status: Ordered omeprazole 20 mg oral enteric coated capsule 1 capsule, By Mouth, 2 times a day, # 60 capsule, 2 Refills, Maintenance, 08/13/21 11:36:00 EDT, [facility] #[id number], 163, cm, 07/26/21 11:32:00 EDT, Height, 140.9, kg, 03/27/21 17:38:00 EDT,Dry Weight Start Date: 08/13/21 Status: Ordered Splint See Instructions, # 1 units, Maintenance, Splint to right foot overnight (AFO to keep foot in dorsiflexion), 04/27/18 15:03:13 EDT, Compound Start Date: 04/27/18 Status: Ordered Ventolin HFA 108 mcg/inh inhalation aerosol with adapter 2 puffs, Inhalation, Every 6 hours, # 18 Gm, 5 Refills, [facility] #58898, 165.1, cm, 08/22/21 12:16:00 EDT, Height, 140.9, [...]
--- OUTSIDE RECORDS SUMMARY | 2024-05-14 17:36 | XMS_ITS | Continuity of Care Document ---
Author Organization [facility] Address [address] [place] [address]- Care Team Providers Care Lab Assistant Name Role Phone Frederick CONTRERAS, Virgilio Alexander Primary Care Physician [phone] Encounter [facility] [place] [facility] R [id number] Date(s): 08/01/21 - 11/29/21 [facility] [address] [place] [address] Attending Physician: Kushal Perez MD Admitting Physician: Kushal Perez MD Referring Physician: Virgilio Mack MD Allergies, [...] Vaccine (oldterm) 11/17/01 Given 1Result Comment: [facility]-[id number] 2Result Comment: [08/04/2017] QUAD [id number] [facility] 85329-478-31 Medications Alcohol Pads See Instructions, # 200 [...] TIMES DAILY, # 200 Unknown, 1 Refills, [facility] #[id number], 50, USE DIRECTED 2 TO 3 TIMES [...] 10:58:00 EST, Powder, Route to Pharmacy Electronically, NCPDP_ID-[id number], [facility] #[id number], 165, cm, 0... Start Date: 11/20/21 Status: [...] 07/26/21 11:56:00 EDT, Route to Pharmacy Electronically, [facility] #05751, Partial fill upon patient request if the prescription is... Start Date: 07/26/21 Status: Ordered nabumetone 750 mg oral tablet 1 tablet = 750 mg, By Mouth, 2 times a day, with food, # 14 tablet, 0 Refills, Maintenance, 08/22/21 12:41:00 EDT, Tablet, [facility] #[id number], 165.1, cm, 08/22/21 12:16:00 EDT, Height, 140.9, kg, 03/27/21 17:38:00 EDT, Dry Weight Start Date: 08/22/21 Stop Date: 08/29/21 Status: Ordered naratriptan 2.5 mg oral tablet 1 tablet = 2.5 mg, By Mouth, Daily, PRN for migraine headache, may repeat once in 4 hours if needed, # 9 tablet, 4 Refills, Soft Stop, 04/06/21 8:40:00 EDT, Tablet, [facility] #58689, side effects with sumatriptan, and if this is declined as... Start Date: 04/06/21 Stop Date: 09/03/21 Status: Ordered omeprazole 20 mg oral enteric coated capsule 1 capsule, By Mouth, 2 times a day, # 60 capsule, 2 Refills, [facility] #[id number], 165, cm, 09/19/21 10:12:00 EDT, Height, 142.7, [...] 6 hours, # 18 Gm, 5 Refills, [facility] #[id number], 165.1, cm, 08/22/21 12:16:00 EDT, Height, 140.9, [...]
--- OUTSIDE RECORDS SUMMARY | 2024-05-14 17:36 | XMS_ITS | Continuity of Care Document ---
Author Organization [facility] Address [address] [place] [address]- Care Team Providers Care Electronics Technology Instructor Name Role Phone Frederick CONTRERAS, Virgilio Alexander Primary Care Physician [phone] [place] [facility] [place](s): 04/13/21 - 05/13/21 [facility] [address] [place] [address] Attending Physician: Nancy Sotelo Admitting Physician: Nancy Sotelo Referring Physician: [id number] Allergies, Adverse Reactions, Alerts Substance Reaction Severity [...] Pneumococcal Vaccine (oldterm) 11/17/01 Given 1Result Comment: [facility]-[id number] 2Result Comment: [08/04/2017] QUAD [id number] [facility] 32818-711-73 Medications acetaminophen 325 mg oral tablet 650 [...] 7:09:00 EDT, Route to Pharmacy Electronically, NCP_ID- [id number], [id number], 165, cm, 02/27/21 6:55:00 EDT, Height Start [...] Start Date: 12/02/18 Status: Ordered control control, 1 taablet, By Mouth, Daily in AM, Refills 0, Maintenance, 02/27/21 6:59:00 EDT, Supply Start Date: 02/27/21 Status: Ordered Freestyle Lite [...] naproxen sodium 550 mg oral tablet 1 tablet = 550 mg, By Mouth, 2 times a day, PRN for pain, # 20 tablet, 0 Refills, Maintenance, 05/09/21 10:15:00 EDT, Tablet, Partial fill upon patient request if the prescription is for a schedule II opioid drug. Start Date: 05/09/21 Status: Ordered naproxen sodium 550 mg oral tablet See Instructions, TAKE 1 TABLET BY MOUTH TWICE DAILY FOR 14 DAYS NEEDED FOR PAIN, # 28 tablet, 0Refills, Acute, [facility] #[id number], 165.1, cm, 05/09/21 10:12:00 EDT, Height, 140.9, kg, 03/27/21 17:38:00 EDT, Dry Weight Start Date: 05/10/21 Status: Ordered naratriptan 2.5 mg oral tablet 1 tablet = 2.5 mg, By Mouth, Daily, PRN for migraine headache, may repeat once in 4 hours if needed, # 9 tablet, 4 Refills, Soft Stop, 04/06/21 8:40:00 EDT, Tablet, [facility] #[id number], side effects with sumatriptan, and if this is declined as... Start Date: 04/06/21 Stop Date: 09/03/21 Status: Ordered Splint See Instructions, # 1 [...]
--- OUTSIDE RECORDS SUMMARY | 2024-05-14 17:36 | XMS_ITS | Continuity of Care Document ---
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 Role Phone Frederick CONTRERAS, Virgilio Alexander [id number] [address] [place] [address]- Encounter Diagnosis Acute low back pain(Discharge Diagnosis) - 08/27/21 Attending Physician: Sarai CONTRERAS, Thomas Frank Referring Physician: Sonja SEAFOOD HARVESTER, Majo Mckeon Allergies, Adverse Reactions, Alerts Substance Reaction Severity Status topiramate Aggressive behavior Active shellfish Anaphylactic reaction to food Active Risperdal 1, 2 Difficulty controlli ng aggression Weight gain Seizures, eye sight Active Other Food Allergy 3 Active Geodon Active Topamax Anger Aggressive behavior psyche Active [...] 11/17/01 Given Pneumococcal Vaccine (oldterm) 11/17/01 Given 1[facility]un[facility] hospital Comment: [facility]-[id number] 2Result Comment: [08/04/2017] QUAD [id number] [facility] 19858-756-28 Medications Alcohol Pads See Instructions, # 200 [...] 3 Refills, Maintenance, 07/18/21 11:55:00 EDT, Powder, [facility] #43225, Partial fill upon patient request if the [...] 07/26/21 11:56:00 EDT, Route to Pharmacy Electronically, [facility] #[id number], Partial fill upon patient request if the prescription is... Start Date: 07/26/21 Status: Ordered nabumetone 750 mg oral tablet 1 tablet = 750 mg, By Mouth, 2 times a day, with food, # 14 tablet, 0 Refills, Maintenance, 08/22/21 12:41:00 EDT, Tablet, [facility] #77353, 165.1, cm, 08/22/21 12:16:00 EDT, Height, 140.9, kg, 03/27/21 17:38:00 EDT, Dry Weight Start Date: 08/22/21 Stop Date: 08/29/21 Status: Ordered naratriptan 2.5 mg oral tablet 1 tablet = 2.5 mg, By Mouth, Daily, PRN for migraine headache, may repeat once in 4 hours if needed, # 9 tablet, 4 Refills, Soft Stop, 04/06/21 8:40:00 EDT, Tablet, [facility] #16445, side effects with sumatriptan, and if this is declined as... Start Date: 04/06/21 Stop Date: 09/03/21 Status: Ordered omeprazole 20 mg oral enteric coated capsule 1 capsule, By Mouth, 2 times a day, # 60 capsule, 2 Refills, Maintenance, 08/13/21 11:36:00 EDT, [facility] #73160, 163, cm, 07/26/21 11:32:00 EDT, Height, 140.9, kg, 03/27/21 17:38:00 EDT,Dry Weight Start Date: 08/13/21 Status: Ordered Splint See Instructions, # 1 units, Maintenance, Splint to right foot overnight (AFO to keep foot in dorsiflexion), 04/27/18 15:03:13 EDT, Compound Start Date: 04/27/18 Status: Ordered Ventolin HFA 108 mcg/inh inhalation aerosol with adapter 2 puffs, Inhalation, Every 6 hours, # 18 Gm, 5 Refills, [facility] #52868, 165.1, cm, 08/22/21 12:16:00 EDT, Height, 140.9, [...] Dates Health Status Cl inical Service Informant Acute low back pain Discharge Diagnosis 08/27/21 Vital Signs Most recent to oldest [Reference Range]: 1 Height 165.1 cm (08/22/21 12:16 PM) Weight 143.8 kg (08/22/21 12:16 PM) Oxygen Saturation [94-100 %] 98 % (08/22/21 12:16 PM) Pulse Rate [55-90 bpm] 89 bpm (08/22/21 12:16 PM) Body Mass Index [18.5-24.99] 52.76 *>HHI* (08/22/21 12:16 PM) Blood Pressure [90-138/55-84 mm Hg] 122/ 86mm Hg (08/22/21 12:16 PM) Respiratory Rate [16-30 br/min] 20 br/mi n (08/22/21 12:16 PM) Blood pressure sites Arm, left (08/22/21 12:16 PM) Weight Obtained Via Standing scale (08/22/21 12:16 PM) Social History Social History Type Response Smoking Status Former smoker; Type: Cigarettes; Tobacco use times per day: 1 ppd; Number of years: 22; Total pack years: 22; entered on: 10/21/17 Sex Female
--- OUTSIDE RECORDS SUMMARY | 2024-05-14 17:36 | XMS_ITS | Continuity of Care Document ---
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 Attending Physician: Admkisha, Nancy Admitting Physician: Admtr, Nancy Referring Physician: Admtr, Ar8 Allergies, Adverse Reactions, [...] 1Result Comment: [facility]-[id number] 2Result Comment: [08/04/2017] QUAD [id number] [facility] 07490-856-98 Medications albuterol CFC free 90 mcg/inh inhalation aerosol 2, puffs, Inhalation, Every 6 hours, # 3 each, Refills 3, Tot. Refills 3, Maintenance, 02/27/21 7:09:00 EDT, [facility] to [facility] Electronically[id number] #[id number], 165, cm, 02/27/21 6:55:00 EDT, Height Start [...] Refills, Soft Stop, 04/06/21 8:40:00 EDT, Tablet, [facility] #60571, side effects with sumatriptan, and if this is declined as... Start Date: 04/06/21 Stop Date: 09/03/21 Status: Ordered nicotine 21 mg/24 hr transdermal film, extended release 1 patch, Topically, Daily, # 30 patch, 1 Refills, Acute 07/03/21 17:00:00 EDT, 06/05/21 16:45:00 EDT, Patch, [facility] #42297, Partial fill upon patient request if the prescription is for a schedule II opioid drug., 1 patch Topically Daily,... Start Date: 06/05/21 Stop Date: 07/03/21 Status: Ordered omeprazole 20 mg oral delayed release tablet 1 tablet = 20 mg, By Mouth, 2 times a day, # 30 tablet, 2 Refills, Maintenance, 06/12/21 13:59:00 EDT, EC Tablet, [facility] #[id number], 165.1, cm, 06/07/21 10:18:00 EDT, Height, 140.9, [...]
--- OUTSIDE RECORDS SUMMARY | 2024-05-14 17:36 | XMS_ITS | Continuity of Care Document ---
Author Organization [facility] Cat[facility] lt Address [address] [place] [address]- Care Team Providers Care Scientologist Name Role Phone Frederick CONTRERAS, Virgilio Alexander Primary Care Physician [id number] Date[facility] 12/25/21 - 01/01/22 [facility] Adult [address] [place] [address]- Encounter Diagnosis Rectal bleeding(Discharge Diagnosis) - 12/25/21 Fecal incontinence(Discharge Diagnosis) - 12/25/21 Abdominal cramping(Discharge Diagnosis) - 12/25/21 Attending Physician: Hernan COOL, Kaelyn Allergies, Adverse Reactions, Alerts Substance Reaction Severity [...] Pneumococcal Vaccine (oldterm) 11/17/01 Given 1Result Comment: [facility]-[id number] 2Result Comment: [08/04/2017] QUAD 6436-[address] [facility] [id number] Medications Alcohol Pads See Instructions, # 200 [...] TIMES DAILY, # 200 Unknown, 1 Refills, [facility] #11735, 50, USE DIRECTED 2 TO 3 TIMES [...] 10:58:00 EST, Powder, Route to Pharmacy Electronically, NCPDP_ID-[id number], [facility] #17441, 165, cm, 0... Start Date: 11/20/21 Status: [...] 07/26/21 11:56:00 EDT, Route to Pharmacy Electronically, [facility] #57294, Partial fill upon patient request if the prescription is... Start Date: 07/26/21 Status: Ordered nabumetone 750 mg oral tablet 1 tablet = 750 mg, By Mouth, 2 times a day, with food, # 14 tablet, 0 Refills, Maintenance, 08/22/21 12:41:00 EDT, Tablet, [facility] #15605, 165.1, cm, 08/22/21 12:16:00 EDT, Height, 140.9, kg, 03/27/21 17:38:00 EDT, Dry Weight Start Date: 08/22/21 Stop Date: 08/29/21 Status: Ordered naratriptan 2.5 mg oral tablet 1 tablet = 2.5 mg, By Mouth, Daily, PRN for migraine headache, may repeat once in 4 hours if needed, # 9 tablet, 4 Refills, Soft Stop, 04/06/21 8:40:00 EDT, Tablet, [facility] #29349, side effects with sumatriptan, and if this is declined as... Start Date: 04/06/21 Stop Date: 09/03/21 Status: Ordered omeprazole 20 mg oral enteric coated capsule 1 capsule, By Mouth, 2 times a day, # 60 capsule, 2 Refills, [facility] #40615, 165, cm, 09/19/21 10:12:00 EDT, Height, 142.7, [...] 6 hours, # 18 Gm, 5 Refills, [facility] #06038, 165.1, cm, 08/22/21 12:16:00 EDT, Height, 140.9, [...] Effective Dates Health Status Clinical Service Informant Abdominal cramping Discharge Diagnosis 12/25/21 Rectal bleeding Discharge Diagnosis 12/25/21 Fecal incontinence Discharge Diagnosis 12/25/21 Vital Signs Most recent to oldest [Reference Range]: 1 Height 165 cm (12/25/21 10:23 AM) Weight 144.8 kg (12/25/21 10:23 AM) Oxygen Saturation [94-100 %] 100 % (12/25/21 10:23 AM) Pulse Rate [55-90 bpm] 78 bpm (12/25/21 10:23 AM) Body Mass Index [18.5-24.99] 53.19 *>HHI* (12/25/21 10:23 AM) Blood Pressure [90-138/55-84 mm Hg] 118/ 69mm Hg (12/25/21 10:23 AM) Blood pressure sites Arm, right (12/25/21 10:23 AM) Social History Social History Type Response Smoking Status 5-9 cigarettes (betw een 1/4 to 1/2 pack)/day in last 30 days entered on: 09/06/21 Sex Female
--- OUTSIDE RECORDS SUMMARY | 2024-05-14 17:36 | XMS_ITS | Continuity of Care Document ---
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 Name Role Phone Frederick CONTRERAS, Virgilio Alexander Primary Care Physician [phone] [place] [facility] [place] 03/25/24 - 04/24/24 [facility] Adult [address] [place] [address]- Allergies, Adverse Reactions, Alerts Substance Reaction Severity [...] pneumococcal 20-valent conjugate vaccine 5 12/24/22 Given [id number] 12y+ bivalent booster vax 11/01/22 Recorded SARS-CoV-2 (COVID-19) mRNA BNT-162b2 vac 12/08/21 Recorded SARS-CoV-2 (COVID-19) mRNA BNT-162b2 vac 03/11/21 Recorded SARS-CoV-2 (COVID-19) mRNA BNT-162b2 vac 02/17/21 Recorded tetanus/diphtheria/pertussis, acel(Tdap) 03/13/17 Recorded tetanus-diphtheria toxoids (Td) 08/07/13 Recorded Tetanus Toxoid Vaccine (oldterm) 11/17/01 Given Pneumococcal Vaccine (oldterm) 11/17/01 Given 1Result Comment: [id number] 2Result Comment: [id number] 3Result Comment: [facility]-[id number] 4Result Comment: [08/04/2017] QUAD [id number] [facility] [id number] 5Result Comment: [id number] Medications Ambien 10 mg oral tablet 1 [...] 09/13/22 7:01:00 EDT, Route to Pharmacy Electronically, [facility] #[id number], Partial fill upon patient request if the [...] 11/06/23 12:57:00 EST, Route to Pharmacy Electronically, [facility] #[id number], 165, cm, 10/30/23 14:14:00 EST, Height, 139.3, [...] 2 Refills, Maintenance, 03/01/24 13:51:00 EDT, Solution, [facility] #[id number], Partial fill upon patient request if the prescription is for a schedule II opioid drug.... Start Date: 03/01/24 Status: Ordered Myrbetriq 25 mg oral tablet, extended release 1 tablet = 25 mg, By Mouth, Daily, # 30 tablet, 6 Refills, Maintenance, 03/09/24 9:49:00 EDT, ER Tablet, [facility] #[id number], Partial fill upon patient request if the [...] 10/30/23 14:28:00 EST, Route to Pharmacy Electronically, [facility] #63848, Partial fill upon patient request if the prescription is for a schedul... Start Date: 10/30/23 Status: Ordered Viberzi 100 mg oral tablet 1 tablet = 100 mg, By Mouth, Daily, # 30 tablet, 1 Refills, Maintenance, 04/06/24 14:55:00 EDT, [facility] #[id number], Partial fill upon patient request if the [...] 06/24/24 12:11:00 EDT, 04/01/24 12:11:00 EDT, Solution, [facility] #[id number],... Start Date: 04/01/24 Stop Date: 06/24/24 Status: Ordered Zepbound 2.5 mg/0.5 mL subcutaneous solution = 2.5 mg, Subcutaneous Injection, Every week, rotate injection sites; for obesity, Dx: 68.30, # 4 each, 5 Refills, Maintenance, 04/01/24 5:06:00 EDT, [facility]07857, Partial fill upon patient request if the [...] Team Personnel Name: Linda Awan RN Position: [facility] SN RN Member Role: Primary Care Nurse Name: Brionna Pathak RN Position: S RN Member Role: Primary Care Nurse Name: Virgilio Mack MD Position: [facility] Physician - Primary Care Member Role: PCP Address: Address: [address] [place] [address]- [place] Care Team Related Persons Name: KELLY YANG Address: home [address] [place] [address] Name: ANNE-MARIE YANG Address: home [place], [place] Name: GRAHAM YANG Address: home [address], [place] Name: DULCE YANG Address: home [address] [facility] [address] [place] [address] Name: DULCE SHEPHERD Address: home [address] [place] [address]
--- OUTSIDE RECORDS SUMMARY | 2024-05-14 17:36 | XMS_ITS | Continuity of Care Document ---
Author Organization 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 Role Phone Frederick CONTRERAS, Virgilio Alexander Primary Care Physician [phone] Encounter [facility] [place] Date(s): 10/31/20 - 11/30/20 [facility] [address] [place] [id number] Attending Physician: Admkisha, Yovani8 Admitting Physician: Admtr, [...] Pneumococcal Vaccine (oldterm) 11/17/01 Given 1Result Comment: [facility]-[id number] 2Result Comment: [08/04/2017] QUAD [id number] [facility] [id number] Medications acetaminophen 325 mg oral tablet 650 [...] 05/05/20 13:06:00 EDT, Route to Pharmacy Electronically, [facility]_ID- [id number], [facility] #[id number], 165, cm,01/19/20 14:17:00 EST, Height Start Date: [...] 14:28:09 EST Start Date: 12/02/18 Status: Ordered Augmentin 875 mg-125 mg oral tablet 1 tablet, By Mouth, Every 12 hours, for 7 days, # 14 tablet, 0 Refills, Acute 12/04/20 11:55:00 EST, 11/27/20 11:55:00 EST, Tablet, [facility] #[id number], Partial fill upon patient request if the prescription is for a schedule II opioid drug., 1... Start Date: 11/27/20 Stop Date: 12/04/20 Status: Ordered Claritin 10 mg oral tablet 10 mg, 1, tablet, By Mouth, Daily, # 30 tablet, Refills 0, Tot. Refills 0, Maintenance, 01/19/20 14:42:00 EST, Route to Pharmacy Electronically, [facility] #[id number], 165, cm, 01/19/20 14:17:00 EST, Height Start Date: 01/19/20 Status: Ordered Cortisporin-TC 0.3%-1%-0.33%-0.05% suspension 5 drops, Ear, Left, 3 times a day, for 7 days, # 5 mL, 0 Refills, Acute 12/04/20 11:56:00 EST, 11/27/20 11:56:00 EST, [facility] #[id number], Partial fill upon patient request if the prescription is for a schedule II opioid drug., 5 drops Ear, Le... Start Date: 11/27/20 Stop Date: 12/04/20 Status: Ordered Flovent HFA 110 mcg/inh inhalation aerosol 2 puffs, Inhalation, 2 times a day, rinse mouth and throat after use, # 12 Gm, 0 Refills, Maintenance, 11/30/19 8:41:00 EST, Aerosol, [facility], 165, cm, 11/30/19 8:25:00 EST, Height Start [...] 60 capsule, 2 Refills, Maintenance, 11/14/20 12:25:00 EST, [facility] #[id number], 165, cm, 07/12/20 8:22:00 EDT, Height Start [...]
--- OUTSIDE RECORDS SUMMARY | 2024-05-14 17:36 | XMS_ITS | Continuity of Care Document ---
Author Organization [facility] Address [address] [place] [address]- Care Team Providers Care Transportation Coordinator Name Role Phone Frederick CONTRERAS, Virgilio Alexander Primary Care Physician Encounter [facility] [place] [facility] [id number] Date(s): 12/08/21 - 04/07/22 [facility] [address] [place] [address]- Attending Physician: Renata Gates Admitting Physician: Renata Gates Referring Physician: Kushal Perez MD Allergies, Adverse Reactions, Alerts Substance Reaction [...] Given 1Result Comment: [facility]-[id number] 2Result Comment: [08/04/2017] QUAD [id number] [facility] [id number] Medications acarbose 25 mg oral tablet 1 tablet = 25 mg, By Mouth, 3 times a day, # 90 tablet, 11 Refills, Maintenance, 01/17/22 15:35:00 EST, [facility] #[id number], Partial fill upon patient request if the [...] TIMES DAILY, # 200 Unknown, 11 Refills, [facility] #80547, 50, USE DIRECTED 2 TO 3 TIMES DAILY, 165, cm, 02/11/22 9:38:00 EDT, Height, 142.7, kg,09/06/21 16:04:00 EDT, Dry Weight Start Date: 03/05/22 Status: Ordered benztropine 0.5 mg oral tablet TAKE 1 TABLET BY MOUTH EVERY DAY Start Date: 07/26/21 Status: Ordered Calmoseptine 0.44%-20.6% topical ointment See Instructions, apply as need to area, # 1 each, 0 Refills, Maintenance, 02/05/22 9:20:00 EDT, [facility] #00783, Partial fill upon patient request if the prescription is for a schedule II opioid drug., apply as need to area, 165, cm, 2... Start Date: 02/05/22 Status: Ordered fluticasone-salmeterol 500 mcg-50 mcg inhalation powder 1, puffs, Inhalation, Every 12 hours, rinse mouth and throat after use, # 180 each, Refills 11, Tot. Refills 11, Maintenance, 11/20/21 10:58:00 EST, Powder, Route to Pharmacy Electronically, [id number], [facility] #32753, 165, cm, 0... Start Date: 11/20/21 Status: [...] 02/05/22 9:21:00 EDT, Route to Pharmacy Electronically, [facility] #[id number], Partial fill upon patient request if the [...] tablet, Refills 2, Route to Pharmacy Electronically, [facility] #57841, 165, cm, 02/11/22 9:38:00 EDT, Height, 142.7, kg, 09/06/21 16:04:00 EDT, Dry Weight Start Date: 03/10/22 Status: Ordered nabumetone 750 mg oral tablet 1 tablet = 750 mg, By Mouth, 2 times a day, with food, # 14 tablet, 0 Refills, Maintenance, 08/22/21 12:41:00 EDT, Tablet, [facility] #11784, 165.1, cm, 08/22/21 12:16:00 EDT, Height, 140.9, kg, 03/27/21 17:38:00 EDT, Dry Weight Start Date: 08/22/21 Stop Date: 08/29/21 Status: Ordered naratriptan 2.5 mg oral tablet 1 tablet = 2.5 mg, By Mouth, Daily, PRN for migraine headache, may repeat once in 4 hours if needed, # 9 tablet, 4 Refills, Soft Stop, 04/06/21 8:40:00 EDT, Tablet, [facility] #66871, side effects with sumatriptan, and if this is declined as... Start Date: 04/06/21 Stop Date: 09/03/21 Status: Ordered omeprazole 20 mg oral enteric coated capsule 1 capsule, By Mouth, 2 times a day, # 60 capsule, 5 Refills, 02/18/22 10:27:00 EDT, [facility] #68254, 165, cm, 02/11/22 9:38:00 EDT, Height, 142.7, [...] 6 hours, # 18 Gm, 5 Refills, [facility] #71303, 165.1, cm, 08/22/21 12:16:00 EDT, Height, 140.9, [...]
--- OUTSIDE RECORDS SUMMARY | 2024-05-14 17:36 | XMS_ITS | Continuity of Care Document ---
Author Organization [facility] Address [address] [place] [address]- Care Team Providers Care Carpenter Repairer Name Role Phone Frederick CONTRERAS, Virgilio Alexander Primary Care Physician [place] [facility] [place] 12[place]07[place]21 [facility] Adult [address] [place] [address]- Attending Physician: Admtr, Ar8 Allergies, Adverse Reactions, [...] Pneumococcal Vaccine (oldterm) 11/17/01 Given 1Result Comment: [facility]-[id number] 2Result Comment: [08/04/2017] QUAD [id number] [facility] [id number] Medications Alcohol Pads See Instructions, # 200 [...] TIMES DAILY, # 200 Unknown, 1 Refills, [facility] #04009, 50, USE DIRECTED 2 TO 3 TIMES [...] 10:58:00 EST, Powder, Route to Pharmacy Electronically, [facility][id number], [facility] #[id number], 165, cm, 0... Start Date: 11/20/21 Status: [...] 07/26/21 11:56:00 EDT, Route to Pharmacy Electronically, [facility] #95800, Partial fill upon patient request if the prescription is... Start Date: 07/26/21 Status: Ordered nabumetone 750 mg oral tablet 1 tablet = 750 mg, By Mouth, 2 times a day, with food, # 14 tablet, 0 Refills, Maintenance, 08/22/21 12:41:00 EDT, Tablet, [facility] #59446, 165.1, cm, 08/22/21 12:16:00 EDT, Height, 140.9, kg, 03/27/21 17:38:00 EDT, Dry Weight Start Date: 08/22/21 Stop Date: 08/29/21 Status: Ordered naratriptan 2.5 mg oral tablet 1 tablet = 2.5 mg, By Mouth, Daily, PRN for migraine headache, may repeat once in 4 hours if needed, # 9 tablet, 4 Refills, Soft Stop, 04/06/21 8:40:00 EDT, Tablet, [facility] #69750, side effects with sumatriptan, and if this is declined as... Start Date: 04/06/21 Stop Date: 09/03/21 Status: Ordered omeprazole 20 mg oral enteric coated capsule 1 capsule, By Mouth, 2 times a day, # 60 capsule, 2 Refills, [facility] #20425, 165, cm, 09/19/21 10:12:00 EDT, Height, 142.7, [...] 6 hours, # 18 Gm, 5 Refills, [facility] #09162, 165.1, cm, 08/22/21 12:16:00 EDT, Height, 140.9, [...]
--- OUTSIDE RECORDS SUMMARY | 2024-05-14 17:36 | XMS_ITS | Continuity of Care Document ---
Author Organization [facility] Address [address] [place] [address]- Care Team Providers Care Valance Cutter Name Role Phone Frederick CONTRERAS, Virgilio Alexander Primary Care Physician [place] [facility] [place](s): 06/12/22 - 07/12/22 [facility] Adult [address] [place] [address]- Attending Physician: Admtr, Ar8 Allergies, Adverse Reactions, [...] Vaccine (oldterm) 11/17/01 Given 1Result Comment: [facility]-[id number] 2Result Comment: [08/04/2017] QUAD [id number] [facility] 95125-650-39 Medications acarbose 25 mg oral tablet 1 tablet = 25 mg, By Mouth, 3 times a day, # 90 tablet, 11 Refills, Maintenance, 01/17/22 15:35:00 EST, [facility] #[id number], Partial fill upon patient request if the [...] TIMES DAILY, # 200 Unknown, 11 Refills, [facility] #32063, 50, USE DIRECTED 2 TO 3 TIMES DAILY, 165, cm, 02/11/22 9:38:00 EDT, Height, 142.7, kg,09/06/21 16:04:00 EDT, Dry Weight Start Date: 03/05/22 Status: Ordered benztropine 0.5 mg oral tablet TAKE 1 TABLET BY MOUTH EVERY DAY Start Date: 07/26/21 Status: Ordered Calmoseptine 0.44%-20.6% topical ointment See Instructions, apply as need to area, # 1 each, 0 Refills, Maintenance, 02/05/22 9:20:00 EDT, [facility] #12111, Partial fill upon patient request if the prescription is for a schedule II opioid drug., apply as need to area, 165, cm, 01/16... Start Date: 02/05/22 Status: Ordered fluticasone-salmeterol 500 mcg-50 mcg inhalation powder 1, puffs, Inhalation, Every 12 hours, rinse mouth and throat after use, # 180 each, Refills 11, Tot. Refills 11, Maintenance, 11/20/21 10:58:00 EST, Powder, [id number][id number], 165, cm, ... Start Date: 11/20/21 Status: Ordered FREESTYLE LANCETS [...] 02/05/22 9:21:00 EDT, Route to Pharmacy Electronically, [facility] #[id number], Partial fill upon patient request if the [...] tablet, Refills 0, Route to Pharmacy Electronically, [facility] #[id number], 165, cm, 03/13/22 12:57:00 EDT, Height, 142.7, kg, 09/06/21 16:04:00 EDT, DryWeight Start Date: 06/26/22 Status: Ordered loperamide 2 mg oral tablet 1 tablet = 2 mg, By Mouth, Daily, # 30 tablet, 11 Refills, Maintenance, 04/08/22 9:42:00 EDT, Tablet, [facility] #26360, Partial fill upon patient request if the prescription is for a schedule II opioid drug., 165, cm, 03/13/22 12:57:00 EDT,... Start Date: 04/08/22 Stop Date: 04/03/23 Status: Ordered nabumetone 750 mg oral tablet 1 tablet = 750 mg, By Mouth, 2 times a day, with food, # 14 tablet, 0 Refills, Maintenance, 08/22/21 12:41:00 EDT, Tablet, [facility] #64934, 165.1, cm, 08/22/21 12:16:00 EDT, Height, 140.9, kg, 03/27/21 17:38:00 EDT, Dry Weight Start Date: 08/22/21 Stop Date: 08/29/21 Status: Ordered naratriptan 2.5 mg oral tablet 1 tablet = 2.5 mg, By Mouth, Daily, PRN for migraine headache, may repeat once in 4 hours if needed, # 9 tablet, 4 Refills, Soft Stop, 04/06/21 8:40:00 EDT, Tablet, [facility] #31029, side effects with sumatriptan, and if this is declined as... Start Date: 04/06/21 Stop Date: 09/03/21 Status: Ordered omeprazole 20 mg oral enteric coated capsule 1 capsule, By Mouth, 2 times a day, # 60 capsule, 5 Refills, 02/18/22 10:27:00 EDT, [facility] #56288, 165, cm, 02/11/22 9:38:00 EDT, Height, 142.7, [...] 6 hours, # 18 Gm, 5 Refills, [facility] #[id number], 165.1, cm, 08/22/21 12:16:00 EDT, Height, 140.9, [...] 30 days entered on: 09/06/21 Sex Female Care Team Personnel Name: Virgilio Mack MD Address: [address] [place] [address] [place] [address]-
--- OUTSIDE RECORDS SUMMARY | 2024-05-14 17:36 | XMS_ITS | Continuity of Care Document ---
Author Organization [facility] Address [address], [address] [place] [address]- Care Team Providers Care Chief Console Operator Name Role Phone Frederick CONTRERAS, Virgilio Alexander Primary Care Physician [phone] [place] [facility] [place] 09/04/23 - 10/04/23 [email or web address] [address], [address]th [place] [address]- Allergies, Adverse Reactions, Alerts Substance Reaction Severity [...] Pneumococcal Vaccine (oldterm) 11/17/01 Given 1Result Comment: [id number] 2Result Comment: [id number] 3Result Comment: [facility]-[id number] 4Result Comment: [08/04/2017] QUAD [id number] [facility] [id number] 5Result Comment: [id number] Medications acarbose 25 mg oral tablet 1 tablet = 25 mg, By Mouth, 3 times a day, # 90 tablet, 11 Refills, Maintenance, 09/09/23 18:02:00 EDT, [facility] #59092, Partial fill upon patient request if the [...] mL, 0 Refills, Maintenance, 02/20/23 15:08:00 EDT, [place], [facility] #81163, Partial fill upon patient request if the prescription is for a schedule II opioid drug., 2 sprays Nares, B... Start Date: 02/20/23 Status: Ordered fluticasone-salmeterol 500 mcg-50 mcg inhalation powder 1, puffs, Inhalation, Every 12 hours, rinse mouth and throat after use, # 180 each, Refills 11, Tot. Refills 11, Maintenance, 11/20/21 10:58:00 EST, Powder, Route to Pharmacy Electronically, [facility][id number], [facility] #[id number], 165, cm, ... Start Date: 11/20/21 Status: Ordered Imodium A-D 2 mg oral tablet 2 mg, 1, tablet, By Mouth, Daily, # 30 tablet, Refills 5, Tot. Refills 5, Soft Stop, 09/13/22 7:01:00 EDT, Route to Pharmacy Electronically, [facility] #[id number], Partial fill upon patient request if the [...] 3 Refills, Maintenance, 06/09/23 8:11:00 EDT, Tablet, [facility] #15639, Partial fill upon patient request if the [...] 60 capsule, 5 Refills, 02/18/22 10:27:00 EDT, [facility] #86615, 165, cm, 02/11/22 9:38:00 EDT, Height, 142.7, [...] Virgilio Mack MD Position: [facility] Physician - Primary Care Member Role: PCP Address: Address: [address] [place] [address]- Care Team Related Persons Name: KELLY YANG Address: home [address] [place] [phone] Name: ANNE-MARIE YANG Address: [place] [address] Name: GRAHAM YANG Address: [address] [address] Name: DULCE YANG Address: [address] [place] [address] Name: DULCE SHEPHERD Address: home [address] [place] [address]
--- OUTSIDE RECORDS SUMMARY | 2024-05-14 17:36 | XMS_ITS | Continuity of Care Document ---
Author Organization [facility] Address [address] [place] [address]- Care Team Providers Care Computer Installer Name Role Phone Frederick CONTRERAS, Virgilio Alexander Primary Care Physician [phone] Encounter [facility] [place] Date(s): 09/19/21 - 09/26/21 [facility] [address] [place] [id number] Attending Physician: Taisha Clark MD Referring Physician: Virgilio Mack MD Allergies, [...] 1Result Comment: [facility]-[id number] 2Result Comment: [08/04/2017] QUAD [id number] [facility] [id number] Medications Alcohol Pads See Instructions, # 200 [...] 3 Refills, Maintenance, 07/18/21 11:55:00 EDT, Powder, [facility] #[id number], Partial fill upon patient request if the [...] 07/26/21 11:56:00 EDT, Route to Pharmacy Electronically, [facility] #[id number], Partial fill upon patient request if the prescription is... Start Date: 07/26/21 Status: Ordered nabumetone 750 mg oral tablet 1 tablet = 750 mg, By Mouth, 2 times a day, with food, # 14 tablet, 0 Refills, Maintenance, 08/22/21 12:41:00 EDT, Tablet, [facility] #28805, 165.1, cm, 08/22/21 12:16:00 EDT, Height, 140.9, kg, 03/27/21 17:38:00 EDT, Dry Weight Start Date: 08/22/21 Stop Date: 08/29/21 Status: Ordered naratriptan 2.5 mg oral tablet 1 tablet = 2.5 mg, By Mouth, Daily, PRN for migraine headache, may repeat once in 4 hours if needed, # 9 tablet, 4 Refills, Soft Stop, 04/06/21 8:40:00 EDT, Tablet, [facility] #18311, side effects with sumatriptan, and if this is declined as... Start Date: 04/06/21 Stop Date: 09/03/21 Status: Ordered omeprazole 20 mg oral enteric coated capsule 1 capsule, By Mouth, 2 times a day, # 60 capsule, 2 Refills, Maintenance, 08/13/21 11:36:00 EDT, [facility] #73114, 163, cm, 07/26/21 11:32:00 EDT, Height, 140.9, kg, 03/27/21 17:38:00 EDT,Dry Weight Start Date: 08/13/21 Status: Ordered Splint See Instructions, # 1 units, Maintenance, Splint to right foot overnight (AFO to keep foot in dorsiflexion), 04/27/18 15:03:13 EDT, Compound Start Date: 04/27/18 Status: Ordered Ventolin HFA 108 mcg/inh inhalation aerosol with adapter 2 puffs, Inhalation, Every 6 hours, # 18 Gm, 5 Refills, [facility] #62811, 165.1, cm, 08/22/21 12:16:00 EDT, Height, 140.9, [...] oldest [Reference Range]: 1 Height 165 cm (09/19/21 10:12 AM) Weight 143.3 kg (09/19/21 10:12 AM) Pulse Rate [55-90 bpm] 79 bpm (09/19/21 10:12 AM) Body Mass Index [18.5-24.99] 52.64 *>HHI* (09/19/21 10:12 AM) Blood Pressure [90-138/55-84 mm Hg] 136/ 72mm Hg (09/19/21 10:12 AM) Temperature [96.8-100.4 DegF] 96.3 DegF *L* (09/19/21 10:12 AM) Blood pressure sites Arm, left (09/19/21 10:12 AM) Temperature Route Temporal (09/19/21 10:12 AM) Social History Social History Type Response Smoking Status 5-9 cigarettes (betw een 1/4 to 1/2 pack)/day in last 30 days entered on: 09/06/21 Sex Female
--- OUTSIDE RECORDS SUMMARY | 2024-05-14 17:36 | XMS_ITS | Continuity of Care Document ---
Author Organization [facility] [place] Cat[facility] lt Address [address] [place] [address]- Care Team Providers Care Bioinformatics Specialist Name Role Phone Frederick CONTRERAS, Virgilio Alexander Primary Care Phys[id number] Date[facility]s): 07[facility]24/23 - 07/31/23 [facility] Adult [address] [place] [address]- Encounter Diagnosis Knee pain, left(Discharge Diagnosis) - 07/24/23 Attending Physician: Cristóbal COOL, Marcelle Puentes Allergies, Adverse Reactions, Alerts Substance Reaction Severity [...] Pneumococcal Vaccine (oldterm) 11/17/01 Given 1Result Comment: [id number] 2Result Comment: [id number] 3Result Comment: [facility]-[id number] 4Result Comment: [08/04/2017] QUAD [id number] [facility] [id number] Medications acarbose 25 mg oral tablet 1 tablet = 25 mg, By Mouth, 3 times a day, # 90 tablet, 11 Refills, Maintenance, 07/31/22 14:13:00 EDT, [facility] #[id number], Partial fill upon patient request if the [...] mL, 0 Refills, Maintenance, 02/20/23 15:08:00 EDT, [place], [facility] #[id number], Partial fill upon patient request if the prescription is for a schedule II opioid drug., 2 sprays Nares, B... Start Date: 02/20/23 Status: Ordered fluticasone-salmeterol 500 mcg-50 mcg inhalation powder 1, puffs, Inhalation, Every 12 hours, rinse mouth and throat after use, # 180 each, Refills 11, Tot. Refills 11, Maintenance, 11/20/21 10:58:00 EST, Powder, Route to Pharmacy Electronically, NCPDP_[id number], [facility] #[id number], 165, cm, 0... Start Date: 11/20/21 Status: Ordered Imodium A-D 2 mg oral tablet 2 mg, 1, tablet, By Mouth, Daily, # 30 tablet, Refills 5, Tot. Refills 5, Soft Stop, 09/13/22 7:01:00 EDT, Route to Pharmacy Electronically, [facility] #[id number], Partial fill upon patient request if the [...] 09/13/22 7:03:00 EDT, Route to Pharmacy Electronically, [facility] #[id number], 165, cm, 09/12/22 11:26:00 EDT, Height, 142.7, k... Start Date: 09/13/22 Stop Date: 09/08/23 Status: Ordered loperamide 2 mg oral tablet 1 tablet = 2 mg, By Mouth, Daily, 90 day supply, # 90 tablet, 3 Refills, Maintenance, 06/09/23 8:11:00 EDT, Tablet, [facility] #[id number], Partial fill upon patient request if the [...] 60 capsule, 5 Refills, 02/18/22 10:27:00 EDT, [facility] #[id number], 165, cm, 02/11/22 9:38:00 EDT, Height, 142.7, [...] Dates Health Status Cl inical Service Informant Knee pain, left Discharge Diagnosis 07/24/23 Vital Signs Most recent to oldest [Reference Range]: 1 Height 165 cm (07/24/23 10:01 AM) Weight 144.3 kg (07/24/23 10:01 AM) Oxygen Saturation [94-100 %] 99 % (07/24/23 10:01 AM) Pulse Rate [55-90 bpm] 80 bpm (07/24/23 10:01 AM) Body Mass Index [18.5-24.99 kg/m2] 53 kg /m2 *>HHI* (07/24/23 10:01 AM) Blood Pressure [90-138/55-84 mm Hg] 132/ 82mm Hg (07/24/23 10:01 AM) Blood pressure sites Arm, right (07/24/23 10:01 AM) Weight Obtained Via Standing scale (07/24/23 10:01 AM) Social History Social History Type Response Smoking Status 5-9 cigarettes (betw een 1/4 to 1/2 pack)/day in last 30 days entered on: 09/06/21 Sex Female Patient Care team information Care Team Personnel Name: Linda Awan RN Position: [facility] SN RN Member Role: Primary Care Nurse Name: Brionna Pathak RN Position: S RN Member Role: Primary Care Nurse Name: Virgilio Mack MD Position: [facility] Physician - Primary Care Member Role: PCP Address: Address: [address] [place] [address]- [place] Care Team Related Persons Name: KELLY YANG Address: home [address] [place] [address] Name: ANNE-MARIE YANG Address: [place] [address] Name: GRAHAM YANG Address: home [address] [place] [address] Name: DULCE YANG Address: home [address] [place] [address] Name: DULCE SHEPHERD Address: home [address] [place] [address]
--- OUTSIDE RECORDS SUMMARY | 2024-05-14 17:36 | XMS_ITS | Continuity of Care Document ---
Author Organization [facility] Address [address] [place] [address] ve [address] [place] [address]- Care Team Providers Care Edger Saw Operator Name Role Phone Virgilio Mack MD Primary Care Physician Encounter [facility] Date(s): 01/26/20 - 06/02/[address] [place] [address]- [facility] Attending Physician: Saud Mo Referring Physician: Virgilio Mack MD Allergies, Adverse [...] Vaccine (oldterm) 11/17/01 Given 1Result Comment: [facility]-[id number] 2Result Comment: [08/04/2017] QUAD [id number] [facility] 05543-007-09 Medications acetaminophen 325 mg oral tablet 650 [...] 05/05/20 13:06:00 EDT, [id number] #[id number], 165, cm,01/19/20 14:17:00 EST, Height Start Date: [...] 01/19/20 14:42:00 EST, Route to Pharmacy Electronically, [facility] #[id number], 165, cm, 01/19/20 14:17:00 EST, Height Start Date: 01/19/20 Status: Ordered Flovent HFA 110 mcg/inh inhalation aerosol 2 puffs, Inhalation, 2 times a day, rinse mouth and throat after use, # 12 Gm, 0 Refills, Maintenance, 11/30/19 8:41:00 EST, Aerosol, [facility], 165, cm, 11/30/19 8:25:00 EST, Height [...]
--- OUTSIDE RECORDS SUMMARY | 2024-05-14 17:36 | XMS_ITS | Continuity of Care Document ---
Author Organization [facility] Address [address] [place] [address]- Care Team Providers Care Woods Superintendent Name Role Phone Not on Staff, PCP Primary Care Physician Unavail able Encounter [facility] Date(s): 02/09/20 - 02/16/20 [facility] [address] [place] [address]- [facility] Attending Physician: Gloria Page MD Referring Physician: Shani CONTRERAS, Lam Rivero Allergies, Adverse Reactions, Alerts Substance Reaction Severity [...] EDT, Compound Start Date: 02/25/19 Status: Ordered Vital Signs Most recent to oldest [Reference Range]: 1 Height 162.56 cm (02/09/20 12:17 PM) Oxygen Saturation [94-100 %] 100 % (02/09/20 12:17 PM) Pulse Rate [55-90 bpm] 88 bpm (02/09/20 12:17 PM) Blood Pressure [90-138/55-84 mm Hg] 126/ 88mm Hg (02/09/20 12:17 PM) Respiratory Rate [16-30 br/min] 21 br/mi n (02/09/20 12:17 PM) Temperature [96.8-100.4 DegF] 98.4 DegF (02/09/20 12:17 PM) Mode of Delivery (Oxygen) Room air (02/09/20 12:17 PM) Blood pressure sites Leg, left (02/09/20 12:17 PM) Temperature Route Oral (02/09/20 12:17 PM)
--- OUTSIDE RECORDS SUMMARY | 2024-05-14 17:36 | XMS_ITS | Continuity of Care Document ---
Author Organization [facility] Address [address] [place] [address]- Care Team Providers Care Anodizing Line Operator Name Role Phone Frederick CONTERRAS, Virgilio Alexander Primary Care Physician En[facility] Date(s): 06/07/22 - 07/07/22 [facility] [address] [place] [address] Allergies, Adverse Reactions, Alerts Substance [...] Pneumococcal Vaccine (oldterm) 11/17/01 Given 1Result Comment: [facility]-[id number] 2Result Comment: [08/04/2017] QUAD [id number] [facility] 74391-367-08 Medications acarbose 25 mg oral tablet 1 tablet = 25 mg, By Mouth, 3 times a day, # 90 tablet, 11 Refills, Maintenance, 01/17/22 15:35:00 EST, [facility] #[id number], Partial fill upon patient request if the [...] TIMES DAILY, # 200 Unknown, 11 Refills, [facility] #[id number], 50, USE DIRECTED 2 TO 3 TIMES DAILY, 165, cm, 02/11/22 9:38:00 EDT, Height, 142.7, kg,09/06/21 16:04:00 EDT, Dry Weight Start Date: 03/05/22 Status: Ordered benztropine 0.5 mg oral tablet TAKE 1 TABLET BY MOUTH EVERY DAY Start Date: 07/26/21 Status: Ordered Calmoseptine 0.44%-20.6% topical ointment See Instructions, apply as need to area, # 1 each, 0 Refills, Maintenance, 02/05/22 9:20:00 EDT, [facility] #[id number], Partial fill upon patient request if the [...] EST, Powder, Route to Pharmacy Electronically, [id number], [facility] #[id number], 165, cm, 0... Start Date: 11/20/21 Status: [...] 02/05/22 9:21:00 EDT, Route to Pharmacy Electronically, [facility] #[id number], Partial fill upon patient request if the [...] tablet, Refills 0, Route to Pharmacy Electronically, [facility] #[id number], 165, cm, 03/13/22 12:57:00 EDT, Height, 142.7, kg, 09/06/21 16:04:00 EDT, DryWeight Start Date: 06/26/22 Status: Ordered loperamide 2 mg oral tablet 1 tablet = 2 mg, By Mouth, Daily, # 30 tablet, 11 Refills, Maintenance, 04/08/22 9:42:00 EDT, Tablet, [facility] #[id number], Partial fill upon patient request if the prescription is for a schedule II opioid drug., 165, cm, 03/13/22 12:57:00 EDT,... Start Date: 04/08/22 Stop Date: 04/03/23 Status: Ordered nabumetone 750 mg oral tablet 1 tablet = 750 mg, By Mouth, 2 times a day, with food, # 14 tablet, 0 Refills, Maintenance, 08/22/21 12:41:00 EDT, Tablet, [facility] #[id number], 165.1, cm, 08/22/21 12:16:00 EDT, Height, 140.9, kg, 03/27/21 17:38:00 EDT, Dry Weight Start Date: 08/22/21 Stop Date: 08/29/21 Status: Ordered naratriptan 2.5 mg oral tablet 1 tablet = 2.5 mg, By Mouth, Daily, PRN for migraine headache, may repeat once in 4 hours if needed, # 9 tablet, 4 Refills, Soft Stop, 04/06/21 8:40:00 EDT, Tablet, [facility] #[id number], side effects with sumatriptan, and if this is declined as... Start Date: 04/06/21 Stop Date: 09/03/21 Status: Ordered omeprazole 20 mg oral enteric coated capsule 1 capsule, By Mouth, 2 times a day, # 60 capsule, 5 Refills, 02/18/22 10:27:00 EDT, [facility] #[id number], 165, cm, 02/11/22 9:38:00 EDT, Height, 142.7, [...] 6 hours, # 18 Gm, 5 Refills, [facility] #[id number], 165.1, cm, 08/22/21 12:16:00 EDT, Height, 140.9, [...]
--- OUTSIDE RECORDS SUMMARY | 2024-05-14 17:36 | XMS_ITS | Continuity of Care Document ---
Author Organization [facility] Cat[facility] lt Address [address] [place] [address]- Care Team Providers Care Sealer Dry Cell Name Role Phone Frederick CONTRERAS, Virgilio Alexander Primary Care Physician [phone] Encounter [facility] Date(s): 07/03/23 - 08/02/23 [facility] Adult [address] [place] [address]- Allergies, Adverse Reactions, Alerts Substance Reaction Severity [...] Pneumococcal Vaccine (oldterm) 11/17/01 Given 1Result Comment: [id number] 2Result Comment: [id number] 3Result Comment: [facility]-[id number] 4Result Comment: [08/04/2017] [facility] 0612-4782 [facility] 15615-153-23 Medications acarbose 25 mg oral tablet 1 tablet = 25 mg, By Mouth, 3 times a day, # 90 tablet, 11 Refills, Maintenance, 07/31/22 14:13:00 EDT, [facility] #[id number], Partial fill upon patient request if the [...] mL, 0 Refills, Maintenance, 02/20/23 15:08:00 EDT, [place], [facility] #[id number], Partial fill upon patient request if the prescription is for a schedule II opioid drug., 2 sprays Nares, B... Start Date: 02/20/23 Status: Ordered fluticasone-salmeterol 500 mcg-50 mcg inhalation powder 1, puffs, Inhalation, Every 12 hours, rinse mouth and throat after use, # 180 each, Refills 11, Tot. Refills 11, Maintenance, 11/20/21 10:58:00 EST, Powder, Route to Pharmacy Electronically, NCPDP_[id number], [facility] #[id number], 165, cm, 0... Start Date: 11/20/21 Status: Ordered Imodium A-D 2 mg oral tablet 2 mg, 1, tablet, By Mouth, Daily, # 30 tablet, Refills 5, Tot. Refills 5, Soft Stop, 09/13/22 7:01:00 EDT, Route to Pharmacy Electronically, [facility] #[id number], Partial fill upon patient request if the [...] 09/13/22 7:03:00 EDT, Route to Pharmacy Electronically, [facility] #[id number], 165, cm, 09/12/22 11:26:00 EDT, Height, 142.7, k... Start Date: 09/13/22 Stop Date: 09/08/23 Status: Ordered loperamide 2 mg oral tablet 1 tablet = 2 mg, By Mouth, Daily, 90 day supply, # 90 tablet, 3 Refills, Maintenance, 06/09/23 8:11:00 EDT, Tablet, [facility] #[id number], Partial fill upon patient request if the [...] 60 capsule, 5 Refills, 02/18/22 10:27:00 EDT, [facility] #[id number], 165, cm, 02/11/22 9:38:00 EDT, Height, 142.7, [...] Team Personnel Name: Linda Awan RN Position: [facility] RN Member Role: Primary Care Nurse Name: Brionna Pathak RN Position: S RN Member Role: Primary Care Nurse Name: Virgilio Mack MD Position: [facility] Physician - Primary Care Member Role: PCP Address: Address: [address] [place] [address]- Care Team Related Persons Name: KELLY YANG Address: home [address] [place] [address] Name: ANNE-MARIE YANG Address: [place] [address] Name: GRAHAM YANG Address: home [address] [place] [address] Name: DULCE YANG Address: [address] [place] [address] Name: DULCE SHEPHERD Address: home [address] [place] [address]
--- OUTSIDE RECORDS SUMMARY | 2024-05-14 17:36 | XMS_ITS | Continuity of Care Document ---
Author Organization [facility] Address Unknown Care Team Providers Care Renal Dialysis Technician Name Role Phone Virgilio Mack MD Primary Care Physician Encounter [facility] Date(s): 02/05/22 - 02/12/22 [facility] Attending Physician: John COOL, Brionna Alberts Referring Physician: Virgilio Mack MD Allergies, Adverse [...] Vaccine (oldterm) 11/17/01 Given 1Result Comment: [facility]-[id number] 2Result Comment: [08/04/2017] QUAD 6542-5298 [facility] 37388-356-35 Medications acarbose 25 mg oral tablet 1 tablet = 25 mg, By Mouth, 3 times a day, # 90 tablet, 11 Refills, Maintenance, 01/17/22 15:35:00 EST, [facility] #[id number], Partial fill upon patient request if the [...] TIMES DAILY, # 200 Unknown, 1 Refills, [facility] #[id number], 50, USE DIRECTED 2 TO 3 TIMES DAILY, 165, cm, 11/20/21 10:44:00 EST, Height, 142.7, kg,09/06/21 16:04:00 EDT, Dry Weight Start Date: 11/21/21 Status: Ordered benztropine 0.5 mg oral tablet TAKE 1 TABLET BY MOUTH EVERY DAY Start Date: 07/26/21 Status: Ordered Calmoseptine 0.44%-20.6% topical ointment See Instructions, apply as need to area, # 1 each, 0 Refills, Maintenance, 02/05/22 9:20:00 EDT, [facility] #[id number], Partial fill upon patient request if the [...] Powder, [id number] #[id number], 165, cm, 0... Start Date: 11/20/21 Status: [...] 15:53:03 EDT Start Date: 07/20/19 Status: Ordered Imodium A-D 2 mg oral tablet 2 mg, 1, tablet, By Mouth, Daily, # 30 tablet, Refills 1, Tot. Refills 1, Soft Stop, 02/05/22 9:21:00 EDT, Route to Pharmacy Electronically, [facility] #[id number], Partial fill upon patient request if the [...] 07/26/21 11:56:00 EDT, Route to Pharmacy Electronically, [facility] #[id number], Partial fill upon patient request if the prescription is... Start Date: 07/26/21 Status: Ordered nabumetone 750 mg oral tablet 1 tablet = 750 mg, By Mouth, 2 times a day, with food, # 14 tablet, 0 Refills, Maintenance, 08/22/21 12:41:00 EDT, Tablet, [facility] #[id number], 165.1, cm, 08/22/21 12:16:00 EDT, Height, 140.9, kg, 03/27/21 17:38:00 EDT, Dry Weight Start Date: 08/22/21 Stop Date: 08/29/21 Status: Ordered naratriptan 2.5 mg oral tablet 1 tablet = 2.5 mg, By Mouth, Daily, PRN for migraine headache, may repeat once in 4 hours if needed, # 9 tablet, 4 Refills, Soft Stop, 04/06/21 8:40:00 EDT, Tablet, [facility] #[id number], side effects with sumatriptan, and if this is declined as... Start Date: 04/06/21 Stop Date: 09/03/21 Status: Ordered omeprazole 20 mg oral enteric coated capsule 1 capsule, By Mouth, 2 times a day, # 60 capsule, 2 Refills, [facility] #[id number], 165, cm, 09/19/21 10:12:00 EDT, Height, 142.7, [...] 6 hours, # 18 Gm, 5 Refills, [facility] #[id number], 165.1, cm, 08/22/21 12:16:00 EDT, Height, 140.9, [...] oldest [Reference Range]: 1 Height 165 cm (02/05/22 9:05 AM) Weight 144.1 kg (02/05/22 9:05 AM) Pulse Rate [55-90 bpm] 78 bpm (02/05/22 9:05 AM) Body Mass Index [18.5-24.99] 52.93 *>HHI* (02/05/22 9:05 AM) Blood Pressure [90-138/55-84 mm Hg] 104/ 70mm Hg (02/05/22 9:05 AM) Respiratory Rate [16-30 br/min] 16 br/mi n (02/05/22 9:05 AM) Temperature [96.8-100.4 DegF] 98.4 DegF (02/05/22 9:05 AM) Social History Social History Type Response Smoking Status 5-9 cigarettes (betw een 1/4 to 1/2 pack)/day in last 30 days entered on: 09/06/21 Sex Female
--- OUTSIDE RECORDS SUMMARY | 2024-05-14 17:36 | XMS_ITS | Continuity of Care Document ---
Author Organization [facility] Address Unknown Care Team Providers Care Audit Clerk Name Role Phone Frederick CONTRERAS, Virgilio Alexander Primary Care Physician En[facility] Date(s): 06/22/21 - 07/22/21 [facility] Allergies, Adverse Reactions, Alerts Substance Reaction Severity [...] 1Result Comment: [facility]-[id number] 2Result Comment: [08/04/2017] QUAD [id number] [facility] 52562-537-68 Medications albuterol CFC free 90 mcg/inh inhalation aerosol 2, puffs, Inhalation, Every 6 hours, # 3 each, Refills 3, Tot. Refills 3, Maintenance, 02/27/21 7:09:00 EDT, [id number][id number], 165, cm, 02/27/21 6:55:00 EDT, Height Start [...] 3 Refills, Maintenance, 07/18/21 11:55:00 EDT, Powder, [facility] #[id number], Partial fill upon patient request if the [...] 06/26/21 9:29:00 EDT, Route to Pharmacy Electronically, [email or web address] #[id number], Partial fill upon patient request if the prescription is for a schedule II opio... Start Date: 06/26/21 Status: Ordered naratriptan 2.5 mg oral tablet 1 tablet = 2.5 mg, By Mouth, Daily, PRN for migraine headache, may repeat once in 4 hours if needed, # 9 tablet, 4 Refills, Soft Stop, 04/06/21 8:40:00 EDT, Tablet, [email or web address] #[id number], side effects with sumatriptan, and if this is declined as... Start Date: 04/06/21 Stop Date: 09/03/21 Status: Ordered omeprazole 20 mg oral enteric coated capsule 1 capsule = 20 mg, By Mouth, 2 times a day, # 60 capsule, 1 Refills, Maintenance, 06/25/21 11:09:00EDT, [facility] #[id number], Partial fill upon patient request if the [...]
--- OUTSIDE RECORDS SUMMARY | 2024-05-14 17:37 | XMS_ITS | Continuity of Care Document ---
Author Organization [facility] Cartacho lt Address [address] [place] [address]- Care Team Providers Care Marketing Programs Manager Name Role Phone Frederick CONTRERAS, Virgilio Alexander Primary Care Physician [phone] Encounter [facility] Date(s): 10/30/23 - 11/06/23 [facility] Adult [address] [place] [address]- Encounter Diagnosis Left shoulder pain(Discharge Diagnosis) - 10/30/23 Back pain(Discharge Diagnosis) - 10/30/23 Attending Physician: Edgar Hanson MD Allergies, Adverse Reactions, Alerts Substance Reaction [...] influenza virus vaccine, inactivated 4 08/04/17 Gi corirna pneumococcal 20-valent conjugate vaccine 5 12/24/22 Given [id number] 12y+ bivalent booster vax 11/01/22 Recorded SARS-CoV-2 (COVID-19) mRNA BNT-162b2 vac 12/08/21 Recorded SARS-CoV-2 (COVID-19) mRNA BNT-162b2 vac 03/11/21 Recorded SARS-CoV-2 (COVID-19) mRNA BNT-162b2 vac 02/17/21 Recorded tetanus/diphtheria/pertussis, acel(Tdap) 03/13/17 Recorded tetanus-diphtheria toxoids (Td) 08/07/13 Recorded Tetanus Toxoid Vaccine (oldterm) 11/17/01 Given Pneumococcal Vaccine (oldterm) 11/17/01 Given 1Result Comment: [id number] 2Result Comment: [id number] 3Result Comment: [facility]-[id number] 4Result Comment: [08/04/2017] QUAD 9870-6160 [facility] 27021-895-19 5Result Comment: [id number] Medications Ambien 10 mg oral tablet 1 tablet = 10 mg, By Mouth, Daily at bedtime, PRN as needed for insomnia, 0 Refills, Maintenance, 12/02/18 14:26:49 EST, Tablet Start Date: 12/02/18 Status: Ordered azelastine 137 mcg/inh (0.1%) nasal spray 2 sprays, Nares, Both, Daily, PRN Other Allergies, # 30 mL, 0 Refills, Maintenance, 02/20/23 15:08:00 EDT, [place], [facility] #[id number], Partial fill upon patient request if the prescription is for a schedule II opioid drug., 2 sprays Nares, B... Start Date: 02/20/23 Status: Ordered fluticasone-salmeterol 500 mcg-50 mcg inhalation powder 1, puffs, Inhalation, Every 12 hours, rinse mouth and throat after use, # 180 each, Refills 11, Tot. Refills 11, Maintenance, 11/20/21 10:58:00 EST, Powder, Route to Pharmacy Electronically, NCPDP_[id number], [facility] #[id number], 165, cm, ... Start Date: 11/20/21 Status: Ordered Imodium A-D 2 mg oral tablet 2 mg, 1, tablet, By Mouth, Daily, # 30 tablet, Refills 5, Tot. Refills 5, Soft Stop, 09/13/22 7:01:00 EDT, Route to Pharmacy Electronically, [facility] #[id number], Partial fill upon patient request if the [...] 11/06/23 12:57:00 EST, Route to Pharmacy Electronically, [facility] #[id number], 165, cm, 10/30/23 14:14:00 EST, Height, 139.3, kg, 09/10/23 11:57:00 EDT, Dry Weight Start Date: 11/06/23 Status: Ordered loperamide 2 mg oral tablet 1 tablet = 2 mg, By Mouth, Daily, 90 day supply, # 90 tablet, 3 Refills, Maintenance, 06/09/23 8:11:00 EDT, Tablet, [facility] #50376, Partial fill upon patient request if the prescription is for a schedule II opioid drug., 165, cm, 05/07/23... Start Date: 06/09/23 Status: Ordered meloxicam 15 mg oral tablet 1 tablet = 15 mg, By Mouth, Daily, # 30 tablet, 0 Refills, Maintenance, 10/30/23 14:26:00 EST, [facility] #53357, Partial fill upon patient request if the [...] 60 capsule, 5 Refills, 02/18/22 10:27:00 EDT, [facility] #[id number], 165, cm, 02/11/22 9:38:00 EDT, Height, 142.7, [...] 10/30/23 14:28:00 EST, Route to Pharmacy Electronically, [facility] #[id number], Partial fill upon patient request if the [...] Dates Health Status Cl inical Service Informant Left shoulder pain Discharge Diagnosis 10/30/23 Back pain Discharge Diagnosis 10/30/23 Vital Signs Most recent to oldest [Reference Range]: 1 2 Height 165 cm (10/30/23 2:14 PM) 165 cm (10/30/23 2:08 PM) Weight 133.8 kg (10/30/23 2:08 PM) Oxygen Saturation [94-100 %] 99 % (10/30/23 2:08 PM) Pulse Rate [55-90 bpm] 103 bpm *H* (10/30/23 2:08 PM) Body Mass Index [18.5-24.99 kg/m2] 49.15 kg/m2 *>HHI* (10/30/23 2:08 PM) Blood Pressure [90-138/55-84 mm Hg] 139/ 92mm Hg *H* (10/30/23 2:14 PM) 140/94mm Hg *H* (10/30/23 2:08 PM) Temperature [96.8-100.4 DegF] 98.7 DegF (10/30/23 2:08 PM) Blood pressure sites Arm, right (10/30/23 2:08 PM) Temperature Route Oral (10/30/23 2:08 PM) Weight Obtained Via Standing scale (10/30/23 2:08 PM) Social History Social History Type Response Smoking Status 5-9 cigarettes (betw een 1/4 to 1/2 pack)/day in last 30 days; Tobacco use times per day: 0.5 PPD; entered on: 08/13/23 Sex Female Patient Care team information Care Team Personnel Name: Linda Awan RN Position: [facility] SN RN Member Role: Primary Care Nurse Name: Brionna Pathak RN Position: [facility] ED RN W/OE and Tasks Member Role: Primary Care Nurse Name: Virgilio Mack MD Position: [facility] Physician - Primary Care Member Role: PCP Address: Address: [address] [place] [address]- Care Team Related Persons Name: KELLY YANG Address: [address] [address] Name: ANNE-MARIE YANG Address: [place] [address] Name: GRAHAM YANG Address: [address] [place] [address] Name: DULCE YANG Address: [address] [place] [address] Name: DULCE SHEPHERD Address: home [facility] [place] [address]
--- OUTSIDE RECORDS SUMMARY | 2024-05-14 17:37 | XMS_ITS | Continuity of Care Document ---
Author Organization [facility] [place] Address [address] [place] [address]- Care Team Providers Care Electronic Scale Assembler And Tester Name Role Phone Frederick CONTRERAS, Virgilio Alexander Primary Care Physician [place] [facility] [place] 03/[place]/21 [facility] Adult [address] [place] [address]- Encounter Diagnosis Right ear pain(Discharge Diagnosis) - 02/27/21 Left otitis media(Discharge Diagnosis) - 02/27/21 Dyspnea on exertion(Discharge Diagnosis) - 02/27/21 Morbidly obese(Discharge Diagnosis) - 02/27/21 Attending Physician: Gavi ASSISTANT PARALEGAL, Otilia Allergies, Adverse Reactions, Alerts Substance Reaction [...] (oldterm) 11/17/01 Given 1Result Comment: [facility]-[id number] 2Result Comment: [08/04/2017] QUAD [id number] [facility] 73631-216-49 Medications acetaminophen 325 mg oral tablet 650 [...] 7:09:00 EDT, Route to Pharmacy Electronically, NCPDP_ID- [id number], [facility] #[id number], 165, cm, 02/27/21 6:55:00 EDT, Height Start [...] EST, Tablet Start Date: 12/02/18 Status: Ordered Azithromycin 5 Day Dose Pack 250 mg oral tablet 1 pack/packet, By Mouth, Once, # 6 tablet, 0 Refills, Soft Stop, 02/27/21 7:37:00 EDT, Tablet, [facility] #[id number], Partial fill upon patient request if the prescription is for a schedule II opioid drug., 165, cm, 02/27/21 6:55:00 EDT, Height Start Date: 02/27/21 Status: Ordered control control, Refills 0, Maintenance, [...] Date: 06/29/19 Stop Date: 11/26/19 Status: Ordered pregabalin 25 mg oral capsule 1 capsule, By Mouth, 2 times a day, # 60 capsule, 2 Refills, Maintenance, 11/14/20 12:25:00 [facility] #[id number], 165, cm, 07/12/20 8:22:00 EDT, Height Start [...] Dates Health Status Cl inical Service Informant Right ear pain Discharge Diagnosis 02/27/21 Dyspnea on exertion Discharge Diagnosis 02/27/21 Left otitis media Discharge Diagnosis 02/27/21 Morbidly obese Discharge Diagnosis 02/27/21 Vital Signs Most recent to oldest [Reference Range]: 1 Height 165 cm (02/27/21 6:55 AM) Weight 141.8 kg (02/27/21 6:55 AM) Oxygen Saturation [94-100 %] 98 % (02/27/21 6:55 AM) Pulse Rate [55-90 bpm] 83 bpm (02/27/21 6:55 AM) Body Mass Index [18.5-24.99] 52.08 *>HHI* (02/27/21 6:55 AM) Blood Pressure [90-138/55-84 mm Hg] 110/ 70mm Hg (02/27/21 6:55 AM) Temperature [96.8-100.4 DegF] 98.2 DegF (02/27/21 6:55 AM) Blood pressure sites Arm, right (02/27/21 6:55 AM) Temperature Route Oral (02/27/21 6:55 AM) Weight Obtained Via Standing scale (02/27/21 6:55 AM) Social History Social History Type Response Smoking Status Former smoker; Type: Cigarettes; Tobacco use times per day: 1 ppd; Number of years: 22; Total pack years: 22; entered on: 10/21/17 Sex
--- OUTSIDE RECORDS SUMMARY | 2024-05-14 17:37 | XMS_ITS | Continuity of Care Document ---
Author Organization [facility] Address [address] [place] [address]- Care Team Providers Care Candy Mixer Name Role Phone Frederick CONTRERAS, Virgilio Alexander Primary Care Physician En[place] [facility] [place](s[place] 11/27/20 - 12/04/20 [facility] Adult [address] [place] [address]- Encounter Diagnosis Ear pain(Discharge Diagnosis) - 11/27/20 Attending Physician: Alireza COOL, Nika Mckeon Referring Physician: Virgilio Mack MD Allergies, Adverse [...] Vaccine (oldterm) 11/17/01 Given 1Result Comment: [facility]-[id number] 2Result Comment: [08/04/2017] QUAD [id number] [facility] 78730-571-87 Medications acetaminophen 325 mg oral tablet 650 [...] 05/05/20 13:06:00 EDT, [id number], 165, cm,01/19/20 14:17:00 EST, Height Start Date: [...] 01/19/20 14:42:00 EST, Route to Pharmacy Electronically, [facility] #[id number], 165, cm, 01/19/20 14:17:00 EST, Height Start Date: 01/19/20 Status: Ordered Flovent HFA 110 mcg/inh inhalation aerosol 2 puffs, Inhalation, 2 times a day, rinse mouth and throat after use, # 12 Gm, 0 Refills, Maintenance, 11/30/19 8:41:00 EST, Aerosol, [facility], 165, cm, 11/30/19 8:25:00 EST, Height Start [...] capsule, 2 Refills, Maintenance, 11/14/20 12:25:00 [facility] #[id number], 165, cm, 07/12/20 8:22:00 EDT, Height Start [...] Dates Health Status Clini gareth Service Informant Ear pain Discharge Diagnosis 11/27/20 Social History Social History Type Response Smoking Status Former smoker; Type: Cigarettes; Tobacco use times per day: 1 ppd; Number of years: 22; Total pack years: 22; entered on: 10/21/17 Sex
--- OUTSIDE RECORDS SUMMARY | 2024-05-14 17:37 | XMS_ITS | Continuity of Care Document ---
Author Organization [facility] Address Unknown Care Team Providers Care Jacquard Card Lacer Name Role Phone Frederick CONTRERAS, Virgilio Alexander Primary Care Physician [phone] [place] [facility] [place] 04/08[place]22 - 05/08/22 [facility] Attending Physician: Nancy Sotelo Admitting Physician: Nancy [...] 1Result Comment: [facility]-[id number] 2Result Comment: [08/04/2017] QUAD [id number] [facility] 32456-645-43 Medications acarbose 25 mg oral tablet 1 tablet = 25 mg, By Mouth, 3 times a day, # 90 tablet, 11 Refills, Maintenance, 01/17/22 15:35:00 EST, [facility] #[id number], Partial fill upon patient request if the [...] TIMES DAILY, # 200 Unknown, 11 Refills, [facility] #[id number], 50, USE DIRECTED 2 TO 3 TIMES DAILY, 165, cm, 02/11/22 9:38:00 EDT, Height, 142.7, kg,09/06/21 16:04:00 EDT, Dry Weight Start Date: 03/05/22 Status: Ordered benztropine 0.5 mg oral tablet TAKE 1 TABLET BY MOUTH EVERY DAY Start Date: 07/26/21 Status: Ordered Calmoseptine 0.44%-20.6% topical ointment See Instructions, apply as need to area, # 1 each, 0 Refills, Maintenance, 02/05/22 9:20:00 EDT, [facility] #[id number], Partial fill upon patient request if the prescription is for a schedule II opioid drug., apply as need to area, 165, cm, 2... Start Date: 02/05/22 Status: Ordered fluticasone-salmeterol 500 mcg-50 mcg inhalation powder 1, puffs, Inhalation, Every 12 hours, rinse mouth and throat after use, # 180 each, Refills 11, Tot. Refills 11, Maintenance, 11/20/21 10:58:00 EST, Powder, [id number], 165, cm, 0... Start Date: 11/20/21 Status: [...] Pharmacy Electronically, [facility] #[id number], Partial fill upon patient request if the [...] tablet, Refills 2, Route to Pharmacy Electronically, [facility] #[id number], 165, cm, 02/11/22 9:38:00 EDT, Height, 142.7, kg, 09/06/21 16:04:00 EDT, Dry Weight Start Date: 03/10/22 Status: Ordered loperamide 2 mg oral tablet 1 tablet = 2 mg, By Mouth, Daily, # 30 tablet, 11 Refills, Maintenance, 04/08/22 9:42:00 EDT, Tablet, [facility] #[id number], Partial fill upon patient request if the prescription is for a schedule II opioid drug., 165, cm, 03/13/22 12:57:00 EDT,... Start Date: 04/08/22 Stop Date: 04/03/23 Status: Ordered nabumetone 750 mg oral tablet 1 tablet = 750 mg, By Mouth, 2 times a day, with food, # 14 tablet, 0 Refills, Maintenance, 08/22/21 12:41:00 EDT, Tablet, [facility] #[id number], 165.1, cm, 08/22/21 12:16:00 EDT, Height, 140.9, kg, 03/27/21 17:38:00 EDT, Dry Weight Start Date: 08/22/21 Stop Date: 08/29/21 Status: Ordered naratriptan 2.5 mg oral tablet 1 tablet = 2.5 mg, By Mouth, Daily, PRN for migraine headache, may repeat once in 4 hours if needed, # 9 tablet, 4 Refills, Soft Stop, 04/06/21 8:40:00 EDT, Tablet, [facility] #[id number], side effects with sumatriptan, and if this is declined as... Start Date: 04/06/21 Stop Date: 09/03/21 Status: Ordered omeprazole 20 mg oral enteric coated capsule 1 capsule, By Mouth, 2 times a day, # 60 capsule, 5 Refills, 02/18/22 10:27:00 EDT, [facility] #[id number], 165, cm, 02/11/22 9:38:00 EDT, Height, 142.7, [...] 6 hours, # 18 Gm, 5 Refills, [facility] #[id number], 165.1, cm, 08/22/21 12:16:00 EDT, Height, 140.9, [...]
--- OUTSIDE RECORDS SUMMARY | 2024-05-14 17:37 | XMS_ITS | Continuity of Care Document ---
Author Organization [facility] Address [address] [place] [address]- Care Team Providers Care Personnel Interviewer Name Role Phone Frederick CONTRERAS, Virgilio Alexander Primary Care Physician [place] [facility] [place]14/21 [facility] [address] [place] [address] Attending Physician: Tova Awan MD Referring Physician: [...] Pneumococcal Vaccine (oldterm) 11/17/01 Given 1Result Comment: [facility]-[id number] 2Result Comment: [08/04/2017] QUAD [id number] [facility] 38134-965-49 Medications albuterol CFC free 90 mcg/inh inhalation aerosol 2, puffs, Inhalation, Every 6 hours, # 3 each, Refills 3, Tot. Refills 3, Maintenance, 02/27/21 7:09:00 EDT, [id number] #[id number], 165, cm, 02/27/21 6:55:00 EDT, Height Start [...] Refills, Soft Stop, 04/06/21 8:40:00 EDT, Tablet, [facility] #[id number], side effects with sumatriptan, and if this is declined as... Start Date: 04/06/21 Stop Date: 09/03/21 Status: Ordered nicotine 21 mg/24 hr transdermal film, extended release 1 patch, Topically, Daily, # 30 patch, 1 Refills, Acute 07/03/21 17:00:00 EDT, 06/05/21 16:45:00 EDT, Patch, [facility] #[id number], Partial fill upon patient request if the prescription is for a schedule II opioid drug., 1 patch Topically Daily,... Start Date: 06/05/21 Stop Date: 07/03/21 Status: Ordered omeprazole 20 mg oral delayed release tablet 1 tablet = 20 mg, By Mouth, 2 times a day, # 30 tablet, 2 Refills, Maintenance, 06/12/21 13:59:00 EDT, EC Tablet, [facility] #[id number], 165.1, cm, 06/07/21 10:18:00 EDT, Height, 140.9, [...] oldest [Reference Range]: 1 Height 165.1 cm (06/07/21 10:18 AM) Weight 145.2 kg (06/07/21 10:18 AM) Pulse Rate [55-90 bpm] 86 bpm (06/07/21 10:18 AM) Body Mass Index [18.5-24.99] 53.27 *>HHI* (06/07/21 10:18 AM) Blood Pressure [90-138/55-84 mm Hg] 141/ 87mm Hg *H* (06/07/21 10:18 AM) Temperature [96.8-100.4 DegF] 96.6 DegF *L* (06/07/21 10:18 AM) Blood pressure sites Arm, left (06/07/21 10:18 AM) Weight Obtained Via Bed scale (06/07/21 10:18 AM) Social History Social History Type Response Smoking Status Former smoker; Type: Cigarettes; Tobacco use times per day: 1 ppd; Number of years: 22; Total pack years: 22; entered on: 10/21/17 Sex Female
--- OUTSIDE RECORDS SUMMARY | 2024-05-14 17:37 | XMS_ITS | Continuity of Care Document ---
Author Organization [facility] Address [address] [place] [address] [address] [place] [address]- Care Team Providers Care Production Troubleshooter Name Role Phone Virgilio Mack MD Primary Care Physician [place] [facility] [place] - 03/10/[address] [place] [address]- [facility] Attending Physician: Saud Mo Referring Physician: Virgilio [...] 11/17/01 Given 1Result Comment: [facility]-[id number] 2Result Comment: [08/04/2017] QUAD [id number] [facility] 87608-383-36 Medications acetaminophen 325 mg oral tablet 650 [...] 01/19/20 14:42:00 EST, Route to Pharmacy Electronically, [facility] #[id number], 165, cm, 01/19/20 14:17:00 EST, Height Start Date: 01/19/20 Status: Ordered Flovent HFA 110 mcg/inh inhalation aerosol 2 puffs, Inhalation, 2 times a day, rinse mouth and throat after use, # 12 Gm, 0 Refills, Maintenance, 11/30/19 8:41:00 EST, Aerosol, [facility], 165, cm, 11/30/19 8:25:00 EST, Height [...]
--- OUTSIDE RECORDS SUMMARY | 2024-05-14 17:37 | XMS_ITS | Continuity of Care Document ---
Author Organization [facility] Address [address] [place] [address]- Care Team Providers Care Patient Placement Coordinator Name Role Phone Virgilio Mack MD Primary Care Phys[id number]/26[facility]21 - 07/03/21 [facility] Adult [address] [place] [address]- Attending Physician: Virgilio Mack MD Allergies, Adverse [...] 11/17/01 Given 1Result Comment: [facility]-[id number] 2Result Comment: [08/04/2017] QUAD [id number] [facility] 17760-354-71 Medications albuterol CFC free 90 mcg/inh inhalation aerosol 2, puffs, Inhalation, Every 6 hours, # 3 each, Refills 3, Tot. Refills 3, Maintenance, 02/27/21 7:09:00 EDT, Route to Pharmacy Electronically, NCP_ID- [id number], [facility] #[id number], 165, cm, 02/27/21 6:55:00 EDT, Height Start [...] 06/26/21 9:29:00 EDT, Route to Pharmacy Electronically, [facility] #[id number], Partial fill upon patient request if the prescription is for a schedule II opio... Start Date: 06/26/21 Status: Ordered naproxen sodium 550 mg oral tablet 1 tablet, By Mouth, 2 times a day, PRN NEEDED FOR PAIN, for 14 days, # 28 tablet, 0 Refills, Acute 07/09/21 16:31:00 EDT, 06/25/21 16:31:00 EDT, [facility] #[id number], 165.1, cm, 06/22/21 15:16:00 EDT, Height, 140.9, kg, 03/27/21 17:38:00 EDT... Start Date: 06/25/21 Stop Date: 07/09/21 Status: Ordered naratriptan 2.5 mg oral tablet 1 tablet = 2.5 mg, By Mouth, Daily, PRN for migraine headache, may repeat once in 4 hours if needed, # 9 tablet, 4 Refills, Soft Stop, 04/06/21 8:40:00 EDT, Tablet, [facility] #[id number], side effects with sumatriptan, and if this is declined as... Start Date: 04/06/21 Stop Date: 09/03/21 Status: Ordered omeprazole 20 mg oral enteric coated capsule 1 capsule = 20 mg, By Mouth, 2 times a day, # 60 capsule, 1 Refills, Maintenance, 06/25/21 11:09:00EDT, [facility] #[id number], Partial fill upon patient request if the [...] oldest [Reference Range]: 1 Height 165.1 cm (06/26/21 9:00 AM) Weight 147.1 kg (06/26/21 9:00 AM) Oxygen Saturation [94-100 %] 98 % (06/26/21 9:00 AM) Pulse Rate [55-90 bpm] 96 bpm *H* (06/26/21 9:00 AM) Body Mass Index [18.5-24.99] 53.97 *>HHI* (06/26/21 9:00 AM) Blood Pressure [90-138/55-84 mm Hg] 138/ 88mm Hg (06/26/21 9:00 AM) Temperature [96.8-100.4 DegF] 98.1 DegF (06/26/21 9:00 AM) Mode of Delivery (Oxygen) Room air (06/26/21 9:00 AM) Blood pressure sites Arm, left (06/26/21 9:00 AM) Temperature Route Oral (06/26/21 9:00 AM) Weight Obtained Via Standing scale (06/26/21 9:00 AM) Social History Social History Type Response Smoking Status Former smoker; Type: Cigarettes; Tobacco use times per day: 1 ppd; Number of years: 22; Total pack years: 22; entered on: 10/21/17 Sex Female
--- OUTSIDE RECORDS SUMMARY | 2024-05-14 17:37 | XMS_ITS | Continuity of Care Document ---
Author Organization [facility] Address [address] [place] [address]- Care Team Providers Care Furniture Mover Name Role Phone Frederick CONTRERAS, Virgilio Alexander Primary Care Physician Encounter [facility] [place] [place] Date(s): 07/12/20 - 07/19/20 [facility] Adult [address] [place] [address]- [facility] Encounter Diagnosis Ankle pain, left(Discharge Diagnosis) - 07/12/20 Attending Physician: Virgilio Mack MD Referring Physician: Cristóbal COOL, Marcelle Puentes Allergies, Adverse [...] (oldterm) 11/17/01 Given 1Result Comment: [facility]-[id number] 2Result Comment: [08/04/2017] QUAD [id number] [facility] 65944-835-75 Medications acetaminophen 325 mg oral tablet 650 [...] 05/05/20 13:06:00 EDT, Route to Pharmacy Electronically, [id number][id number], 165, cm,01/19/20 14:17:00 EST, Height Start Date: [...] 01/19/20 14:42:00 EST, Route to Pharmacy Electronically, [email or web address] #[id number], 165, cm, 01/19/20 14:17:00 EST, Height Start [...] 17:18:17, Tablet Start Date: 10/21/17 Status: Ordered naproxen sodium 550 mg oral tablet 1 tablet = 550 mg, By Mouth, 2 times a day, PRN for pain, for 14 days, # 28 tablet, 1 Refills, Acute 08/09/20 8:38:00 EDT, 07/12/20 8:38:00 EDT, Tablet, [facility] #[id number], 165, cm, :22:00 EDT, Height Start Date: 07/12/20 Stop Date: 08/09/20 Status: Ordered naratriptan 2.5 mg oral tablet [...] 2 Refills, Maintenance, 06/06/20 9:20:00 EDT, Capsule, [facility] #[id number], 165, cm, 06/06/20 8:52:00 EDT, Height Start [...] Dates Health Status Cl inical Service Informant Ankle pain, left Discharge Diagnosis 07/12/20 Vital Signs Most recent to oldest [Reference Range]: 1 Height 165 cm (07/12/20 8:22 AM) Weight 124.8 kg (07/12/20 8:22 AM) Oxygen Saturation [94-100 %] 97 % (07/12/20 8:22 AM) Pulse Rate [55-90 bpm] 90 bpm (07/12/20 8:22 AM) Body Mass Index [18.5-24.99] 45.84 *>HHI* (07/12/20 8:22 AM) Blood Pressure [90-138/55-84 mm Hg] 118/ 80mm Hg (07/12/20 8:22 AM) Temperature [96.8-100.4 DegF] 98.3 DegF (07/12/20 8:22 AM) Blood pressure sites Arm, right (07/12/20 8:22 AM) Temperature Route Oral (07/12/20 8:22 AM) Weight Obtained Via Standing scale (07/12/20 8:22 AM) Social History Social History Type Response Smoking Status Former smoker; Type: Cigarettes; Tobacco use times per day: 1 ppd; Number of years: 22; Total pack years: 22; entered on: 10/21/17 Sex
--- OUTSIDE RECORDS SUMMARY | 2024-05-14 17:37 | XMS_ITS | Continuity of Care Document ---
Author Organization [facility] Address [address] [place] [address]- Care Team Providers Care Lace Roller Operator Name Role Phone Frederick CONTRERAS, Virgilio Alexander Primary Care Physician [phone] [place] [facility] [place] 06[place]21 [facility] Adult [address] [place] [address]- Allergies, Adverse Reactions, Alerts Substance Reaction Severity [...] Pneumococcal Vaccine (oldterm) 11/17/01 Given 1Result Comment: [facility]-[id number] 2Result Comment: [08/04/2017] QUAD [id number] [facility] 79014-143-62 Medications albuterol CFC free 90 mcg/inh inhalation aerosol 2, puffs, Inhalation, Every 6 hours, # 3 each, Refills 3, Tot. Refills 3, Maintenance, 02/27/21 7:09:00 EDT, Route to Pharmacy Electronically, NCPDP_ID- [id number], [facility] #[id number], 165, cm, 02/27/21 6:55:00 EDT, Height Start [...] tablet, 0 Refills, Acute, 05/24/21 15:57:00 EDT, [facility] #[id number], 165.1, cm, 05/22/21 6:27:00 EDT, Height, 140.9, kg, 03/27/21 17:38:00 EDT, Dry Weight Start Date: 05/24/21 Stop Date: 06/07/21 Status: Ordered naratriptan 2.5 mg oral tablet 1 tablet = 2.5 mg, By Mouth, Daily, PRN for migraine headache, may repeat once in 4 hours if needed, # 9 tablet, 4 Refills, Soft Stop, 04/06/21 8:40:00 EDT, Tablet, [facility] #[id number], side effects with sumatriptan, and if this is declined as... Start Date: 04/06/21 Stop Date: 09/03/21 Status: Ordered nicotine 21 mg-14 mg-7 mg transdermal film, extended release 1 each, Topically, Daily, for 28 days, # 1 kit, 0 Refills, Acute 06/13/21 8:22:00 EDT, 05/16/21 8:22:00 EDT, [facility] #[id number], Partial fill upon patient request if the prescription is for a schedule II opioid drug., 1 each Topically Daily,x... Start Date: 05/16/21 Stop Date: 06/13/21 Status: Ordered nicotine 21 mg/24 hr transdermal film, extended release 1 patch, Topically, Daily, # 30 patch, 1 Refills, Acute 07/03/21 17:00:00 EDT, 06/05/21 16:45:00 EDT, Patch, [facility] #[id number], Partial fill upon patient request if the prescription is for a schedule II opioid drug., 1 patch Topically Daily,... Start Date: 06/05/21 Stop Date: 07/03/21 Status: Ordered Splint See Instructions, # 1 [...]
--- OUTSIDE RECORDS SUMMARY | 2024-05-14 17:37 | XMS_ITS | Continuity of Care Document ---
Author Organization [facility] Address [address], [address] [place] [address]- Care Team Providers Care Patcher Wood Welder Name Role Phone Frederick CONTRERAS, Virgilio Alexander Primary Care Physician En[place] [facility] [place] Date(s): 07/23/19 - 11/20/19 [facility] [address], [address], [address] [place] [address]- [facility] Attending Physician: Kishor Hall NP Referring Physician: Virgilio Mack MD Allergies, Adverse [...] Pneumococcal Vaccine (oldterm) 11/17/01 Given 1Result Comment: [facility]-[id number] 2Result Comment: [08/04/2017] QUAD [id number] [facility] [id number] Medications acetaminophen 325 mg oral tablet 650 mg, 2, tablet, By Mouth, Every 6 hours, PRN, # 50 tablet, Refills 0, Tot. Refills 0, Maintenance, as needed for pain, 09/12/19 18:57:55 EDT, Print Requisition Start Date: 09/12/19 Status: Ordered Alcohol Pads See Instructions, # [...] Mouth, Daily, # 30 tablet, Refills 0, Maintenance, 07/27/18 8:51:18 EDT Start Date: 07/27/18 Status: Ordered Concerta 27 mg oral tablet, extended release 1 tablet = 27 mg, By Mouth, Daily in AM, # 30 tablet, 0 Refills, Maintenance, 07/20/19 15:41:54 EDT Start Date: 07/20/19 Status: Ordered Freestyle Lite Lancets See Instructions, [...] Tablet Start Date: 09/15/19 Status: Ordered pregabalin 50 mg oral capsule 1 capsule = 50 mg, By Mouth, 2 times a day, # 60 capsule, 4 Refills, Maintenance, 07/13/19 12:32:02EDT, Capsule, tried gabapenint, cant take carbamazepine or TCA due to LAtuda Start Date: 07/13/19 Stop Date: 12/10/19 Status: Ordered Splint See Instructions, # 1 [...]
--- OUTSIDE RECORDS SUMMARY | 2024-05-14 17:37 | XMS_ITS | Continuity of Care Document ---
Author Organization [facility] ter Address [address] [place] [address]- Care Team Providers Care Bag Shaker Name Role Phone Frederick CONTRERAS, Virgilio Alexander Primary Care Physician [phone] Encounter [facility] Date(s): 12/08/23 - 01/24/[address] [address] Attending Physician: Jessica Duff NP Admitting Physician: Jessica Duff NP Referring Physician: Jessica Duff NP Allergies, Adverse Reactions, Alerts Substance Reaction [...] pneumococcal 20-valent conjugate vaccine 5 12/24/22 Given [id number] 12y+ bivalent booster vax 11/01/22 Recorded SARS-CoV-2 (COVID-19) mRNA BNT-162b2 vac 12/08/21 Recorded SARS-CoV-2 (COVID-19) mRNA BNT-162b2 vac 03/11/21 Recorded SARS-CoV-2 (COVID-19) mRNA BNT-162b2 vac 02/17/21 Recorded tetanus/diphtheria/pertussis, acel(Tdap) 03/13/17 Recorded tetanus-diphtheria toxoids (Td) 08/07/13 Recorded Tetanus Toxoid Vaccine (oldterm) 11/17/01 Given Pneumococcal Vaccine (oldterm) 11/17/01 Given 1Result Comment: [id number] 2Result Comment: [id number] 3Result Comment: [facility]-[id number] 4Result Comment: [08/04/2017] QUAD [id number] [facility] 13633-447-25 5Result Comment: [id number] Medications Ambien 10 mg oral tablet 1 tablet = 10 mg, By Mouth, Daily at bedtime, PRN as needed for insomnia, 0 Refills, Maintenance, 12/02/18 14:26:49 EST, Tablet Start Date: 12/02/18 Status: Ordered azelastine 137 mcg/inh (0.1%) nasal spray 2 sprays, Nares, Both, Daily, PRN Other Allergies, # 30 mL, 0 Refills, Maintenance, 02/20/23 15:08:00 EDT, [place], [facility] #[id number], Partial fill upon patient request if the prescription is for a schedule II opioid drug., 2 sprays Nares, B... Start Date: 02/20/23 Status: Ordered fluticasone-salmeterol 500 mcg-50 mcg inhalation powder 1, puffs, Inhalation, Every 12 hours, rinse mouth and throat after use, # 180 each, Refills 11, Tot. Refills 11, Maintenance, 11/20/21 10:58:00 EST, Powder, Route to Pharmacy Electronically, NCPDP_[id number], [facility] #[id number], 165, cm, 0... Start Date: 11/20/21 Status: Ordered Imodium A-D 2 mg oral tablet 2 mg, 1, tablet, By Mouth, Daily, # 30 tablet, Refills 5, Tot. Refills 5, Soft Stop, 09/13/22 7:01:00 EDT, Route to Pharmacy Electronically, [facility] #[id number], Partial fill upon patient request if the [...] 11/06/23 12:57:00 EST, Route to Pharmacy Electronically, [facility] #[id number], 165, cm, 10/30/23 14:14:00 EST, Height, 139.3, kg, 09/10/23 11:57:00 EDT, Dry Weight Start Date: 11/06/23 Status: Ordered loperamide 2 mg oral tablet 1 tablet = 2 mg, By Mouth, Daily, 90 day supply, # 90 tablet, 3 Refills, Maintenance, 06/09/23 8:11:00 EDT, Tablet, [facility] #[id number], Partial fill upon patient request if the prescription is for a schedule II opioid drug., 165, cm, 05/07/23... Start Date: 06/09/23 Status: Ordered meloxicam 15 mg oral tablet 1 tablet = 15 mg, By Mouth, Daily, # 30 tablet, 0 Refills, Maintenance, 10/30/23 14:26:00 EST, [facility] #[id number], Partial fill upon patient request if the [...] 60 capsule, 5 Refills, 02/18/22 10:27:00 EDT, [facility] #[id number], 165, cm, 02/11/22 9:38:00 EDT, Height, 142.7, [...] 10/30/23 14:28:00 EST, Route to Pharmacy Electronically, [facility] #[id number], Partial fill upon patient request if the [...] Team Personnel Name: Linda Awan RN Position: [facility] SN RN Member Role: Primary Care Nurse Name: Brionna Pathak RN Position: [facility] RN Member Role: Primary Care Nurse Name: Virgilio Mack MD Position: [facility] Physician - Primary Care Member Role: PCP Address: Address: [address] [place] [address]- [place] Care Team Related Persons Name: KELLY YANG Address: home [address] [place] [address] Name: ANNE-MARIE YANG Address: [place] [address] Name: GRAHAM YANG Address: home [address] [place] [address] Name: DULCE YANG Address: home [address] [place] [address] Name: DULCE SHEPHERD Address: home [address] [place] [address]
--- OUTSIDE RECORDS SUMMARY | 2024-05-14 17:37 | XMS_ITS | Continuity of Care Document ---
Author Organization [facility] Address [address] [place] [address] [address] [place] [address]- Care Team Providers Care Supervisory Training Specialist Name Role Phone Virgilio Mack MD Primary Care Physician Encounter [facility] Date(s): 06/04/21 - 06/11/[address] [place] [address]- Attending Physician: Luz Talley MD Referring Physician: [...] (oldterm) 11/17/01 Given 1Result Comment: [facility]-[id number] 2Result Comment: [08/04/2017] QUAD [id number] [facility] [id number] Medications albuterol CFC free 90 mcg/inh inhalation aerosol 2, puffs, Inhalation, Every 6 hours, # 3 each, Refills 3, Tot. Refills 3, Maintenance, 02/27/21 7:09:00 EDT, [facility]ically[id number] #[id number], 165, cm, 02/27/21 6:55:00 EDT, Height Start [...] Refills, Soft Stop, 04/06/21 8:40:00 EDT, Tablet, [facility] #[id number], side effects with sumatriptan, and if this is declined as... Start Date: 04/06/21 Stop Date: 09/03/21 Status: Ordered nicotine 21 mg-14 mg-7 mg transdermal film, extended release 1 each, Topically, Daily, for 28 days, # 1 kit, 0 Refills, Acute 06/13/21 8:22:00 EDT, 05/16/21 8:22:00 EDT, [facility] #[id number], Partial fill upon patient request if the prescription is for a schedule II opioid drug., 1 each Topically Daily,x... Start Date: 05/16/21 Stop Date: 06/13/21 Status: Ordered nicotine 21 mg/24 hr transdermal film, extended release 1 patch, Topically, Daily, # 30 patch, 1 Refills, Acute 07/03/21 17:00:00 EDT, 06/05/21 16:45:00 EDT, Patch, [facility] #[id number], Partial fill upon patient request if the [...]
--- OUTSIDE RECORDS SUMMARY | 2024-05-14 17:37 | XMS_ITS | Continuity of Care Document ---
Author Organization [facility] Address [address] [place] [address]- Care Team Providers Care School Physical Therapist Name Role Phone Frederick CONTRERAS, Virgilio Alexander Primary Care Physician Encounter [facility] Date(s): 09/16/22 - 10/16/22 [facility] [address] [place] [address]- Attending Physician: Nancy Sotelo Admitting Physician: Nancy [...] mRNA BNT-162b2 vac 02/17/21 Recorded tetanus/diphtheria/pertussis, acel(Tdap) 4/27/17 Recorded tetanus-diphtheria toxoids (Td) 08/07/13 Recorded Tetanus Toxoid Vaccine (oldterm) 11/17/01 Given Pneumococcal Vaccine (oldterm) 11/17/01 Given 1Result Comment: [id number] 2Result Comment: [facility]-[id number] 3Result Comment: [08/04/2017] QUAD 8540-7342 [facility] 77064-665-70 Medications acarbose 25 mg oral tablet 1 tablet = 25 mg, By Mouth, 3 times a day, # 90 tablet, 11 Refills, Maintenance, 07/31/22 14:13:00 EDT, [id number], Partial fill upon patient request if the [...] 10:58:00 EST, Powder, Route to Pharmacy Electronically, NCPDP_[id number], [facility] #[id number], 165, cm, 0... Start Date: 11/20/21 Status: [...] 09/13/22 7:01:00 EDT, Route to Pharmacy Electronically, [facility] #[id number], Partial fill upon patient request if the [...] 09/13/22 7:03:00 EDT, Route to Pharmacy Electronically, [facility] #[id number], 165, cm, 09/12/22 11:26:00 EDT, Height, 142.7, k... Start Date: 09/13/22 Stop Date: 09/08/23 Status: Ordered loperamide 2 mg oral tablet 1 tablet = 2 mg, By Mouth, Daily, # 30 tablet, 11 Refills, Maintenance, 09/13/22 7:01:00 EDT, Tablet, [facility] #15135, Partial fill upon patient request if the [...] Refills, Soft Stop, 04/06/21 8:40:00 EDT, Tablet, [facility] #[id number], side effects with sumatriptan, and if this is declined as... Start Date: 04/06/21 Stop Date: 09/03/21 Status: Ordered omeprazole 20 mg oral enteric coated capsule 1 capsule, By Mouth, 2 times a day, # 60 capsule, 5 Refills, 02/18/22 10:27:00 EDT, [facility] #[id number], 165, cm, 02/11/22 9:38:00 EDT, Height, 142.7, kg, 09/06/21 16:04:00 EDT, Dry Weight Start Date: 02/18/22 Status: Ordered Ventolin HFA 108 mcg/inh inhalation aerosol with adapter 2 puffs, Inhalation, Every 6 hours, # 18 Gm, 5 Refills, [facility] #29301, 165.1, cm, 08/22/21 12:16:00 EDT, Height, 140.9, [...] Team Personnel Name: Linda Awan RN Position: [facility] SN RN Member Role: Primary Care Nurse Name: Brionna Pathak RN Position: [facility] ED RN W/OE and Tasks Member Role: Primary Care Nurse Name: Virgilio Mack MD Position: [facility] Primary Care Physician Member Role: PCP Address: Address: [address] [place] [address]- Care Team Related Persons Name: KELLY YANG Address: home [address] [place] [address] Name: ANNE-MARIE YANG Address: [place] [address] Name: GRAHAM YANG Address: home [address] [place] [address] Name: DULCE YANG Address: [address] [place] [address] Name: DULCE SHEPHERD Address: home [address] [place] [address]
--- OUTSIDE RECORDS SUMMARY | 2024-05-14 17:37 | XMS_ITS | Continuity of Care Document ---
Author Organization [facility] Address [address] [place] [address]- Care Team Providers Care Immigration Investigator Name Role Phone Frederick CONTRERAS, Virgilio Alexander Primary Care Physician Encounter [facility] Date(s): 07/05/21 - 08/04/21 [facility] [address] [place] [address]- [place] Allergies, Adverse Reactions, Alerts Substance Reaction [...] Vaccine (oldterm) 11/17/01 Given 1Result Comment: [facility]-[id number] 2Result Comment: [08/04/2017] QUAD [id number] [facility] [id number] Medications Alcohol Pads See Instructions, # 200 [...] 3 Refills, Maintenance, 07/18/21 11:55:00 EDT, Pow[place], [facility] #[id number], Partial fill upon patient request if the [...] 07/26/21 11:56:00 EDT, Route to Pharmacy Electronically, [facility] #[id number], Partial fill upon patient request if the prescription is... Start Date: 07/26/21 Status: Ordered naratriptan 2.5 mg oral tablet 1 tablet = 2.5 mg, By Mouth, Daily, PRN for migraine headache, may repeat once in 4 hours if needed, # 9 tablet, 4 Refills, Soft Stop, 04/06/21 8:40:00 EDT, Tablet, [facility] #97530, side effects with sumatriptan, and if this is declined as... Start Date: 04/06/21 Stop Date: 09/03/21 Status: Ordered omeprazole 20 mg oral enteric coated capsule 1 capsule = 20 mg, By Mouth, 2 times a day, # 60 capsule, 1 Refills, Maintenance, 06/25/21 11:09:00EDT, [facility] #[id number], Partial fill upon patient request if the [...] 6 hours, # 18 Gm, 0 Refills, [facility] #[id number], 163, cm, 07/26/21 11:32:00 EDT, Height, 140.9, [...]
--- OUTSIDE RECORDS SUMMARY | 2024-05-14 17:37 | XMS_ITS | Continuity of Care Document ---
Author Organization [facility] Address [address] [place] [address]- Care Team Providers Care Store Receiver Name Role Phone Frederick CONTRERAS, Virgilio Alexander Primary Care Physician [phone] [id number] Date[facility] 07/11/21 - 07/18/21 [facility] [address] [place] [address]- Attending Physician: Virgilio Mack MD Referring Physician: [...] 1Result Comment: [facility]-[id number] 2Result Comment: [08/04/2017] QUAD 2006-5873 [facility] 24409-697-17 Medications albuterol CFC free 90 mcg/inh inhalation aerosol 2, puffs, Inhalation, Every 6 hours, # 3 each, Refills 3, Tot. Refills 3, Maintenance, 02/27/21 7:09:00 EDT, Route to Pharmacy Electronically, DEPDP_ID- [id number], [facility] #[id number], 165, cm, 02/27/21 6:55:00 EDT, Height Start [...] 3 Refills, Maintenance, 07/18/21 11:55:00 EDT, Powder, [facility] #[id number], Partial fill upon patient request if the [...] 06/26/21 9:29:00 EDT, Route to Pharmacy Electronically, [facility] #[id number], Partial fill upon patient request if the prescription is for a schedule II opio... Start Date: 06/26/21 Status: Ordered naratriptan 2.5 mg oral tablet 1 tablet = 2.5 mg, By Mouth, Daily, PRN for migraine headache, may repeat once in 4 hours if needed, # 9 tablet, 4 Refills, Soft Stop, 04/06/21 8:40:00 EDT, Tablet, [facility] #37547, side effects with sumatriptan, and if this is declined as... Start Date: 04/06/21 Stop Date: 09/03/21 Status: Ordered omeprazole 20 mg oral enteric coated capsule 1 capsule = 20 mg, By Mouth, 2 times a day, # 60 capsule, 1 Refills, Maintenance, 06/25/21 11:09:00EDT, [facility] #69094, Partial fill upon patient request if the [...] to oldest [Reference Range]: 1 2 3 Oxygen Saturation [94-100 %] 98 % (07/11/21 1:46 PM) 98 % (07/11/21 1:46 PM) 97 % (07/11/21 1:45 PM) Pulse Rate [55-90 bpm] 109 bpm *H* (07/11/21 1:46 PM) 106 bpm *H* (07/11/21 1:46 PM) 111 bpm *H* (07/11/21 1:45 PM) Blood Pressure [90-138/55-84 mm Hg] 129/83mm Hg (07/11/21 1:46 PM) 122/80mm Hg (07/11/21 1:46 PM) 144/80mm Hg *H* (07/11/21 1:45 PM) Blood pressure sites Arm, left (07/11/21 1:46 PM) Arm, left (07/11/21 1:46 PM) Arm, left (07/11/21 1:45 PM) Social History Social History Type Response Smoking Status Former smoker; Type: Cigarettes; Tobacco use times per day: 1 ppd; Number of years: 22; Total pack years: 22; entered on: 10/21/17 Sex Female
--- OUTSIDE RECORDS SUMMARY | 2024-05-14 17:37 | XMS_ITS | Continuity of Care Document ---
Author Organization [facility] Address [address] [place] [address]- Care Team Providers Care Raisin Washer Name Role Phone Frederick CONTRERAS, Virgilio Alexander Primary Care Physician Encounter [facility] Date(s): 04/13/24 - 05/13/24 [facility] Adult [address] [place] [address]- Allergies, Adverse Reactions, Alerts Substance Reaction Severity [...] pneumococcal 20-valent conjugate vaccine 5 12/24/22 Given [id number] 12y+ bivalent booster vax 11/01/22 Recorded SARS-CoV-2 (COVID-19) mRNA BNT-162b2 vac 12/08/21 Recorded SARS-CoV-2 (COVID-19) mRNA BNT-162b2 vac 03/11/21 Recorded SARS-CoV-2 (COVID-19) mRNA BNT-162b2 vac 02/17/21 Recorded tetanus/diphtheria/pertussis, acel(Tdap) 03/13/17 Recorded tetanus-diphtheria toxoids (Td) 08/07/13 Recorded Tetanus Toxoid Vaccine (oldterm) 11/17/01 Given Pneumococcal Vaccine (oldterm) 11/17/01 Given 1Result Comment: [id number] 2Result Comment: [id number] 3Result Comment: [facility]-[id number] 4Result Comment: [08/04/2017] QUAD [id number] [facility] 18127-178-96 5Result Comment: [id number] Medications Ambien 10 mg oral tablet 1 [...] 09/13/22 7:01:00 EDT, Route to Pharmacy Electronically, [facility] #[id number], Partial fill upon patient request if the [...] 11/06/23 12:57:00 EST, Route to Pharmacy Electronically, [facility] #[id number], 165, cm, 10/30/23 14:14:00 EST, Height, 139.3, [...] 2 Refills, Maintenance, 03/01/24 13:51:00 EDT, Solution, [facility] #[id number], Partial fill upon patient request if the prescription is for a schedule II opioid drug.... Start Date: 03/01/24 Status: Ordered Myrbetriq 25 mg oral tablet, extended release 1 tablet = 25 mg, By Mouth, Daily, # 30 tablet, 6 Refills, Maintenance, 03/09/24 9:49:00 EDT, ER Tablet, [facility] #73134, Partial fill upon patient request if the [...] 10/19/24 14:17:00 EST, 05/04/24 14:17:00 EDT, Solution, [facility] #04330, Partial fill upon patient... Start Date: 05/04/24 Stop Date: 10/19/24 Status: Ordered tiZANidine 2 mg oral tablet 2 mg, 1, tablet, By Mouth, 2 times a day, # 30 tablet, Refills 0, Tot. Refills 0, Maintenance, 10/30/23 14:28:00 EST, Route to Pharmacy Electronically, [facility] #92256, Partial fill upon patient request if the prescription is for a schedul... Start Date: 10/30/23 Status: Ordered Viberzi 100 mg oral tablet 1 tablet = 100 mg, By Mouth, Daily, # 30 tablet, 1 Refills, Maintenance, 04/06/24 14:55:00 EDT, [facility] #42660, Partial fill upon patient request if the [...] Acute 06/24/24 12:11:00 EDT, 04/01/24 12:11:00 EDT, [facility] #53742,... Start Date: 04/01/24 Stop Date: 06/24/24 Status: Ordered Zepbound 2.5 mg/0.5 mL subcutaneous solution = 2.5 mg, Subcutaneous Injection, Every week, rotate injection sites; for obesity, Dx: 68.30, # 4 each, 5 Refills, Maintenance, 04/01/24 5:06:00 EDT, [facility] #66824, Partial fill upon patient request if the [...] Team Personnel Name: Linda Awan RN Position: [facility] RN Member Role: Primary Care Nurse Name: Brionna Pathak RN Position: [facility] RN Member Role: Primary Care Nurse Name: Virgilio Mack MD Position: [facility] Physician - Primary Care Member Role: PCP Address: Address: [address] [place] [address]- [place] Care Team Related Persons Name: KELLY YANG Address: home [address] [place] [address] Name: ANNE-MARIE YANG Address: [place] [address] Name: GRAHAM YANG Address: home [address] [place] [address] Name: DULCE YANG Address: home [address] [facility] [address] [place] [address] Name: DULCE SHEPHERD Address: home [address] [place] [address]
--- OUTSIDE RECORDS SUMMARY | 2024-05-14 17:37 | XMS_ITS | Continuity of Care Document ---
Author Organization [facility] Miguel A Bahman [facility] Address [address], [address] [place] [address]- Care Team Providers Care Clinical Exercise Specialist Name Role Phone Frederick CONTRERAS, Virgilio Alexander Primary Care Physician [phone] [id number]s): [facility]13[facility] - 01/31/23 [facility] [employer] [facility] [address], 4th [address] [place], [place] [address] Attending Physician: Comfort Danielle MD Admitting Physician: Comfort Danielle MD Referring Physician: Virgilio Mack MD Allergies, [...] Pneumococcal Vaccine (oldterm) 11/17/01 Given 1Result Comment: [id number] 2Result Comment: [id number] 3Result Comment: [facility]-[id number] 4Result Comment: [08/04/2017] QUAD [id number] [facility] 47162-901-71 Medications acarbose 25 mg oral tablet 1 tablet = 25 mg, By Mouth, 3 times a day, # 90 tablet, 11 Refills, Maintenance, 07/31/22 14:13:00 EDT, [facility] #58610, Partial fill upon patient request if the [...] Gm, 2 Refills, Maintenance, 12/02/22 9:32:00 EST, [place], [facility] #69496, Partial fill upon patient request if the prescription is for a schedule II opioid drug., 2 sprays Nares, Both Daily, 165, cm, 11/17... Start Date: 12/02/22 Status: Ordered fluticasone-salmeterol 500 mcg-50 mcg inhalation powder 1, puffs, Inhalation, Every 12 hours, rinse mouth and throat after use, # 180 each, Refills 11, Tot. Refills 11, Maintenance, 11/20/21 10:58:00 EST, Powder, Route to Pharmacy Electronically, NCPDP_[id number], [facility] #31946, 165, cm, ... Start Date: 11/20/21 Status: Ordered Freestyle Lite [...] 09/13/22 7:01:00 EDT, Route to Pharmacy Electronically, [facility] #[id number], Partial fill upon patient request if the [...] 09/13/22 7:03:00 EDT, Route to Pharmacy Electronically, [facility] #[id number], 165, cm, 09/12/22 11:26:00 EDT, Height, 142.7, k... Start Date: 09/13/22 Stop Date: 09/08/23 Status: Ordered loperamide 2 mg oral tablet 1 tablet = 2 mg, By Mouth, Daily, # 30 tablet, 11 Refills, Maintenance, 09/13/22 7:01:00 EDT, Tablet, [facility] #[id number], Partial fill upon patient request if the prescription is for a schedule II opioid drug., 165, cm, 09/12/22 11:26:00 EDT,... Start Date: 09/13/22 Stop Date: 09/08/23 Status: Ordered omeprazole 20 mg oral enteric coated capsule 1 capsule, By Mouth, 2 times a day, # 60 capsule, 5 Refills, 02/18/22 10:27:00 EDT, [facility] #91911, 165, cm, 02/11/22 9:38:00 EDT, Height, 142.7, kg, 09/06/21 16:04:00 EDT, Dry Weight Start Date: 02/18/22 Status: Ordered predniSONE 20 mg oral tablet 2 tablet = 40 mg, By Mouth, Daily, for 5 days, # 10 tablet, 0 Refills, Acute 02/01/23 13:49:00 EDT,01/27/23 13:49:00 EDT, [facility] #17048, Partial fill upon patient request if the prescription is for a schedule II opioid drug., 165, cm, 0... Start Date: 01/27/23 Stop Date: 02/01/23 Status: Ordered SUMAtriptan 100 mg oral tablet 1 tablet = 100 mg, By Mouth, Daily, PRN for migraine headache, may repeat dose after 2 hours up to a maximum of 2, # 9 tablet, 5 Refills, Acute 06/24/23 5:18:00 EDT, 12/25/22 5:18:00 EST, Tablet, [facility] #88655, Partial fill upon patient... Start Date: 12/25/22 Stop Date: 06/24/23 Status: Ordered trospium 60 mg oral capsule, extended release 1 capsule = 60 mg, By Mouth, Daily in AM, # 30 capsule, 5 Refills, Maintenance, 01/24/23 11:12:00 EST, CR Capsule, [facility] #14349, Partial fill upon patient request if the prescription is for a schedule II opioid drug., 165, cm, 12/24/22... Start Date: 01/24/23 Status: Ordered Ventolin HFA 108 mcg/inh inhalation aerosol with adapter 2 puffs, Inhalation, Every 6 hours, # 18 Gm, 5 Refills, Maintenance, 12/12/22 13:09:00 EST, [facility] #37418, 165, cm, 12/02/22 9:06:00 EST, Height, 142.7, [...] team information Care Team Personnel Name: Lv RN, Linda Adams Position: [facility] SN RN Member Role: Primary Care Nurse Name: Brionna Pathak RN Position: [facility] RN Member Role: Primary Care Nurse Name: Virgilio Mack MD Position: [facility] Primary Care Physician Member Role: PCP Address: Address: [address] [place] [address]- Care Team Related Persons Name: KELLY YANG Address: home [address] [place] [address] Name: ANNE-MARIE YANG Address: [place] [address] Name: GRAHAM YANG Address: home [address] [place] [address] Name: DULCE YANG Address: home [address] [facility] [address]ST [place] [address] Name: DULCE SHEPHERD Address: home [address] [place] [address]
--- OUTSIDE RECORDS SUMMARY | 2024-05-14 17:37 | XMS_ITS | Continuity of Care Document ---
Author Organization [facility] Address [address] [place] [address]- Care Team Providers Care Environmental Research Scientist Name Role Phone Frederick CONTRERAS, Virgilio Alexander Primary Care Physician [phone] Encounter [facility] Date(s): 01/17/22 - 02/16/22 [facility] [address] [place] [address] Allergies, Adverse Reactions, Alerts Substance [...] 11/17/01 Given 1Result Comment: [facility]-[id number] 2Result Comment: [08/04/2017] QUAD [id number] [facility] 87121-071-28 Medications acarbose 25 mg oral tablet 1 tablet = 25 mg, By Mouth, 3 times a day, # 90 tablet, 11 Refills, Maintenance, 01/17/22 15:35:00 EST, [facility][id number], Partial fill upon patient request if the [...] TIMES DAILY, # 200 Unknown, 1 Refills, [facility] #[id number], 50, USE DIRECTED 2 TO 3 TIMES DAILY, 165, cm, 11/20/21 10:44:00 EST, Height, 142.7, kg,09/06/21 16:04:00 EDT, Dry Weight Start Date: 11/21/21 Status: Ordered benztropine 0.5 mg oral tablet TAKE 1 TABLET BY MOUTH EVERY DAY Start Date: 07/26/21 Status: Ordered Calmoseptine 0.44%-20.6% topical ointment See Instructions, apply as need to area, # 1 each, 0 Refills, Maintenance, 02/05/22 9:20:00 EDT, [facility] #[id number], Partial fill upon patient request if the prescription is for a schedule II opioid drug., apply as need to area, 165, cm, 01/16... Start Date: 02/05/22 Status: Ordered fluticasone-salmeterol 500 mcg-50 mcg inhalation powder 1, puffs, Inhalation, Every 12 hours, rinse mouth and throat after use, # 180 each, Refills 11, Tot. Refills 11, Maintenance, 11/20/21 10:58:00 EST, Powder, [id number], 165, cm, 0... Start Date: 11/20/21 Status: [...] 02/05/22 9:21:00 EDT, Route to Pharmacy Electronically, [facility] #[id number], Partial fill upon patient request if the [...] 07/26/21 11:56:00 EDT, Route to Pharmacy Electronically, [facility] #[id number], Partial fill upon patient request if the prescription is... Start Date: 07/26/21 Status: Ordered nabumetone 750 mg oral tablet 1 tablet = 750 mg, By Mouth, 2 times a day, with food, # 14 tablet, 0 Refills, Maintenance, 08/22/21 12:41:00 EDT, Tablet, [facility] #[id number], 165.1, cm, 08/22/21 12:16:00 EDT, Height, 140.9, kg, 03/27/21 17:38:00 EDT, Dry Weight Start Date: 08/22/21 Stop Date: 08/29/21 Status: Ordered naratriptan 2.5 mg oral tablet 1 tablet = 2.5 mg, By Mouth, Daily, PRN for migraine headache, may repeat once in 4 hours if needed, # 9 tablet, 4 Refills, Soft Stop, 04/06/21 8:40:00 EDT, Tablet, [facility] #06203, side effects with sumatriptan, and if this is declined as... Start Date: 04/06/21 Stop Date: 09/03/21 Status: Ordered omeprazole 20 mg oral enteric coated capsule 1 capsule, By Mouth, 2 times a day, # 60 capsule, 2 Refills, [facility] #[id number], 165, cm, 09/19/21 10:12:00 EDT, Height, 142.7, [...] 6 hours, # 18 Gm, 5 Refills, [facility] #[id number], 165.1, cm, 08/22/21 12:16:00 EDT, Height, 140.9, [...]
--- OUTSIDE RECORDS SUMMARY | 2024-05-14 17:37 | XMS_ITS | Continuity of Care Document ---
Author Organization [facility] Janes Catracho lt Address [address] [place] [address]- Care Team Providers Care Claims Adjuster Crop Name Role Phone Frederick CONTRERAS, Virgilio Alexander Primary Care Physician [id number] Date(s): 09/12/21 - 09/19/21 [facility] Adult [address] [place] [address]- Encounter Diagnosis Seizure-like activity(Discharge Diagnosis) - 09/12/21 Attending Physician: Gypsy Plascencia NP Referring Physician: Virgilio Mack MD Allergies, [...] (oldterm) 11/17/01 Given 1Result Comment: [facility]-[id number] 2Result Comment: [08/04/2017] QUAD [id number] [facility] [id number] Medications Alcohol Pads See Instructions, # 200 [...] 3 Refills, Maintenance, 07/18/21 11:55:00 EDT, Powder, [facility] #[id number], Partial fill upon patient request if the [...] 07/26/21 11:56:00 EDT, Route to Pharmacy Electronically, [facility] #[id number], Partial fill upon patient request if the prescription is... Start Date: 07/26/21 Status: Ordered nabumetone 750 mg oral tablet 1 tablet = 750 mg, By Mouth, 2 times a day, with food, # 14 tablet, 0 Refills, Maintenance, 08/22/21 12:41:00 EDT, Tablet, [facility] #[id number], 165.1, cm, 08/22/21 12:16:00 EDT, Height, 140.9, kg, 03/27/21 17:38:00 EDT, Dry Weight Start Date: 08/22/21 Stop Date: 08/29/21 Status: Ordered naratriptan 2.5 mg oral tablet 1 tablet = 2.5 mg, By Mouth, Daily, PRN for migraine headache, may repeat once in 4 hours if needed, # 9 tablet, 4 Refills, Soft Stop, 04/06/21 8:40:00 EDT, Tablet, [facility] #[id number], side effects with sumatriptan, and if this is declined as... Start Date: 04/06/21 Stop Date: 09/03/21 Status: Ordered omeprazole 20 mg oral enteric coated capsule 1 capsule, By Mouth, 2 times a day, # 60 capsule, 2 Refills, Maintenance, 08/13/21 11:36:00 EDT, [facility] #[id number], 163, cm, 07/26/21 11:32:00 EDT, Height, 140.9, kg, 03/27/21 17:38:00 EDT,Dry Weight Start Date: 08/13/21 Status: Ordered Splint See Instructions, # 1 units, Maintenance, Splint to right foot overnight (AFO to keep foot in dorsiflexion), 04/27/18 15:03:13 EDT, Compound Start Date: 04/27/18 Status: Ordered Ventolin HFA 108 mcg/inh inhalation aerosol with adapter 2 puffs, Inhalation, Every 6 hours, # 18 Gm, 5 Refills, [facility] #[id number], 165.1, cm, 08/22/21 12:16:00 EDT, Height, 140.9, [...] Dates Health Status Cl inical Service Informant Seizure-like activity Discharge Diagnosis 09/12/21 Vital Signs Most recent to oldest [Reference Range]: 1 Height 165 cm (09/12/21 8:24 AM) Weight 142 kg (09/12/21 8:24 AM) Oxygen Saturation [94-100 %] 98 % (09/12/21 8:24 AM) Pulse Rate [55-90 bpm] 90 bpm (09/12/21 8:24 AM) Body Mass Index [18.5-24.99] 52.16 *>HHI* (09/12/21 8:24 AM) Blood Pressure [90-138/55-84 mm Hg] 122/ 82mm Hg (09/12/21 8:24 AM) Temperature [96.8-100.4 DegF] 98.7 DegF (09/12/21 8:24 AM) Blood pressure sites Arm, left (09/12/21 8:24 AM) Social History Social History Type Response Smoking Status 5-9 cigarettes (betw een 1/4 to 1/2 pack)/day in last 30 days entered on: 09/06/21 Sex Female
--- OUTSIDE RECORDS SUMMARY | 2024-05-14 17:38 | XMS_ITS | Continuity of Care Document ---
Author Organization [facility] Janes Catracho lt Address [address] [place] [address]- Care Team Providers Care Junior Systems Administrator Name Role Phone Frederick CONTRERAS, Virgilio Alexander Primary Care Physician [phone] Encounter [facility] Date(s): 06/05/20 - 07/05/20 [facility] Adult [address] [place] [address]- [facility] Allergies, Adverse Reactions, Alerts Substance Reaction Severity [...] Pneumococcal Vaccine (oldterm) 11/17/01 Given 1Result Comment: [facility]-[id number] 2Result Comment: [08/04/2017] QUAD [id number] [facility] 98506-553-51 Medications acetaminophen 325 mg oral tablet 650 [...] 05/05/20 13:06:00 EDT, [id number] #[id number], 165, cm,01/19/20 14:17:00 EST, Height Start Date: [...] 01/19/20 14:42:00 EST, Route to Pharmacy Electronically, [facility] #[id number], 165, cm, 01/19/20 14:17:00 EST, Height Start [...] 2 Refills, Maintenance, 06/06/20 9:20:00 EDT, Capsule, [facility] #[id number], 165, cm, 07/21/20 8:52:00 EDT, Height Start Date: 06/06/20 Status: [...]
--- OUTSIDE RECORDS SUMMARY | 2024-05-14 17:38 | XMS_ITS | Continuity of Care Document ---
Author Organization [facility] Address [address] [place] [address]- Care Team Providers Care Rush Seater Name Role Phone Frederick CONTRERAS, Virgilio Alexander Primary Care Physician [phone] Encounter [facility] Date(s): 08/06/22 - 09/05/22 [facility] [address] [place] [address] Allergies, Adverse Reactions, Alerts Substance Reaction Severity [...] Given 1Result Comment: [facility]-[id number] 2Result Comment: [08/04/2017] QUAD [id number] [facility] [id number] Medications acarbose 25 mg oral tablet 1 tablet = 25 mg, By Mouth, 3 times a day, # 90 tablet, 11 Refills, Maintenance, 07/31/22 14:13:00 EDT, [facility] #[id number], Partial fill upon patient request if the [...] TIMES DAILY, # 200 Unknown, 11 Refills, [facility] #[id number], 50, USE DIRECTED 2 TO 3 TIMES DAILY, 165, cm, 02/11/22 9:38:00 EDT, Height, 142.7, kg,09/06/21 16:04:00 EDT, Dry Weight Start Date: 03/05/22 Status: Ordered Calmoseptine 0.44%-20.6% topical ointment See Instructions, apply as need to area, # 1 each, 0 Refills, Maintenance, 02/05/22 9:20:00 EDT, [facility] #[id number], Partial fill upon patient request if the [...] EST, Powder, [id number] #[id number], 165, cm, 0... Start Date: 11/20/21 Status: [...] 02/05/22 9:21:00 EDT, Route to Pharmacy Electronically, [facility] #[id number], Partial fill upon patient request if the [...] tablet, Refills 0, Route to Pharmacy Electronically, [facility] #[id number], 165, cm, 03/13/22 12:57:00 EDT, Height, 142.7, kg, 09/06/21 16:04:00 EDT, DryWeight Start Date: 06/26/22 Status: Ordered loperamide 2 mg oral tablet 1 tablet = 2 mg, By Mouth, Daily, # 30 tablet, 11 Refills, Maintenance, 04/08/22 9:42:00 EDT, Tablet, [facility] #79251, Partial fill upon patient request if the [...] Refills, Soft Stop, 04/06/21 8:40:00 EDT, Tablet, [facility] #17946, side effects with sumatriptan, and if this is declined as... Start Date: 04/06/21 Stop Date: 09/03/21 Status: Ordered omeprazole 20 mg oral enteric coated capsule 1 capsule, By Mouth, 2 times a day, # 60 capsule, 5 Refills, 02/18/22 10:27:00 EDT, [facility] #[id number], 165, cm, 02/11/22 9:38:00 EDT, Height, 142.7, [...] 6 hours, # 18 Gm, 5 Refills, [facility] #[id number], 165.1, cm, 08/22/21 12:16:00 EDT, Height, 140.9, [...] Name: Frederick CONTRERAS, Virgilio Alexander Address: Address: [address] [place] [address]-
--- OUTSIDE RECORDS SUMMARY | 2024-05-14 17:38 | XMS_ITS | Continuity of Care Document ---
Author Organization [facility] Address [address] [place] [address]- Care Team Providers Care Homeowner Association Manager Name Role Phone Frederick CONTRERAS, Virgilio Alexander Primary Care Physician [phone] [place] [facility] [place]s): 10/02/23 - 11/01/23 [facility] [address] [place] [address]- [place] Allergies, Adverse Reactions, Alerts Substance Reaction [...] pneumococcal 20-valent conjugate vaccine 5 12/24/22 Given [id number] 12y+ bivalent booster vax 11/01/22 Recorded SARS-CoV-2 (COVID-19) mRNA BNT-162b2 vac 12/08/21 Recorded SARS-CoV-2 (COVID-19) mRNA BNT-162b2 vac 03/11/21 Recorded SARS-CoV-2 (COVID-19) mRNA BNT-162b2 vac 02/17/21 Recorded tetanus/diphtheria/pertussis, acel(Tdap) 03/13/17 Recorded tetanus-diphtheria toxoids (Td) 08/07/13 Recorded Tetanus Toxoid Vaccine (oldterm) 11/17/01 Given Pneumococcal Vaccine (oldterm) 11/17/01 Given 1Result Comment: [id number] 2Result Comment: [id number] 3Result Comment: [facility]-[id number] 4Result Comment: [08/04/2017] QUAD [id number] [facility] [id number] 5Result Comment: [id number] Medications Ambien 10 mg oral tablet 1 tablet = 10 mg, By Mouth, Daily at bedtime, PRN as needed for insomnia, 0 Refills, Maintenance, 12/02/18 14:26:49 EST, Tablet Start Date: 12/02/18 Status: Ordered azelastine 137 mcg/inh (0.1%) nasal spray 2 sprays, Nares, Both, Daily, PRN Other Allergies, # 30 mL, 0 Refills, Maintenance, 02/20/23 15:08:00 EDT, [place] #[id number], Partial fill upon patient request if the prescription is for a schedule II opioid drug., 2 sprays Nares, B... Start Date: 02/20/23 Status: Ordered fluticasone-salmeterol 500 mcg-50 mcg inhalation powder 1, puffs, Inhalation, Every 12 hours, rinse mouth and throat after use, # 180 each, Refills 11, Tot. Refills 11, Maintenance, 11/20/21 10:58:00 EST, Powder, Route to Pharmacy Electronically, [id number], [facility] #[id number], 165, cm, 0... Start Date: 11/20/21 Status: Ordered Imodium A-D 2 mg oral tablet 2 mg, 1, tablet, By Mouth, Daily, # 30 tablet, Refills 5, Tot. Refills 5, Soft Stop, 09/13/22 7:01:00 EDT, Route to Pharmacy Electronically, [facility] #[id number], Partial fill upon patient request if the [...] 3 Refills, Maintenance, 06/09/23 8:11:00 EDT, Tablet, [facility] #06755, Partial fill upon patient request if the prescription is for a schedule II opioid drug., 165, cm, 05/07/23... Start Date: 06/09/23 Status: Ordered meloxicam 15 mg oral tablet 1 tablet = 15 mg, By Mouth, Daily, # 30 tablet, 0 Refills, Maintenance, 10/30/23 14:26:00 EST, [facility] #[id number], Partial fill upon patient request if the [...] 60 capsule, 5 Refills, 02/18/22 10:27:00 EDT, [facility] #[id number], 165, cm, 02/11/22 9:38:00 EDT, Height, 142.7, [...] 10/30/23 14:28:00 EST, Route to Pharmacy Electronically, [facility] #[id number], Partial fill upon patient request if the [...] Team Personnel Name: Linda Awan RN Position: [facility] RN Member Role: Primary Care Nurse Name: Brionna Pathak RN Position: [facility] RN Member Role: Primary Care Nurse Name: Frederick CONTRERAS, Virgilio Alexander Position: [facility] Physician - Primary Care Member Role: PCP Address: Address: [address] [place] [address]- [place] Care Team Related Persons Name: KELLY YANG Address: home [address] [place] [id number] Name: ANNE-MARIE YANG Address: [place] [address] Name: GRAHAM YANG Address: home [address] [place] [address] Name: DULCE YANG Address: home [address] [place] [address] Name: DULCE SHEPHERD Address: home [address] [place] [address]
--- OUTSIDE RECORDS SUMMARY | 2024-05-14 17:38 | XMS_ITS | Continuity of Care Document ---
Author Organization [facility] Janes Catracho lt Address [address] [place] [address]- Care Team Providers Care Car Worker Name Role Phone Frederick CONTRERAS, Virgilio Alexander Primary Care Physician [place] [facility] [place] 08/03/21 - 09/02/21 [facility] [place] [address] [place] [address]- Allergies, Adverse Reactions, Alerts Substance Reaction Severity [...] Pneumococcal Vaccine (oldterm) 11/17/01 Given 1Result Comment: [facility]-[id number] 2Result Comment: [08/04/2017] QUAD [id number] [facility] [id number] Medications Alcohol Pads See Instructions, # 200 [...] 3 Refills, Maintenance, 07/18/21 11:55:00 EDT, Powder, [facility] #[id number], Partial fill upon patient request if the [...] 07/26/21 11:56:00 EDT, Route to Pharmacy Electronically, [facility] #[id number], Partial fill upon patient request if the prescription is... Start Date: 07/26/21 Status: Ordered nabumetone 750 mg oral tablet 1 tablet = 750 mg, By Mouth, 2 times a day, with food, # 14 tablet, 0 Refills, Maintenance, 08/22/21 12:41:00 EDT, Tablet, [facility] #[id number], 165.1, cm, 08/22/21 12:16:00 EDT, Height, 140.9, kg, 03/27/21 17:38:00 EDT, Dry Weight Start Date: 08/22/21 Stop Date: 08/29/21 Status: Ordered naratriptan 2.5 mg oral tablet 1 tablet = 2.5 mg, By Mouth, Daily, PRN for migraine headache, may repeat once in 4 hours if needed, # 9 tablet, 4 Refills, Soft Stop, 04/06/21 8:40:00 EDT, Tablet, [facility] #84552, side effects with sumatriptan, and if this is declined as... Start Date: 04/06/21 Stop Date: 09/03/21 Status: Ordered omeprazole 20 mg oral enteric coated capsule 1 capsule, By Mouth, 2 times a day, # 60 capsule, 2 Refills, Maintenance, 08/13/21 11:36:00 EDT, [facility] #[id number], 163, cm, 07/26/21 11:32:00 EDT, Height, 140.9, kg, 03/27/21 17:38:00 EDT,Dry Weight Start Date: 08/13/21 Status: Ordered Splint See Instructions, # 1 units, Maintenance, Splint to right foot overnight (AFO to keep foot in dorsiflexion), 04/27/18 15:03:13 EDT, Compound Start Date: 04/27/18 Status: Ordered Ventolin HFA 108 mcg/inh inhalation aerosol with adapter 2 puffs, Inhalation, Every 6 hours, # 18 Gm, 5 Refills, [facility] #23919, 165.1, cm, 08/22/21 12:16:00 EDT, Height, 140.9, [...]
--- OUTSIDE RECORDS SUMMARY | 2024-05-14 17:38 | XMS_ITS | Continuity of Care Document ---
Author Organization [facility] Address Unknown Care Team Providers Care Field Assistant Name Role Phone Virgilio Mack MD Primary Care Physician Encounter [facility] R [id number] Date(s): 08/13/21 - 08/20/21 [facility] Attending Physician: Luz [...] Pneumococcal Vaccine (oldterm) 11/17/01 Given 1Result Comment: [facility]-[id number] 2Result Comment: [08/04/2017] QUAD [id number] [facility] 71115-131-95 Medications Alcohol Pads See Instructions, # 200 [...] 3 Refills, Maintenance, 07/18/21 11:55:00 EDT, Powder, [facility] #[id number], Partial fill upon patient request if the [...] 07/26/21 11:56:00 EDT, Route to Pharmacy Electronically, [facility] #54913, Partial fill upon patient request if the prescription is... Start Date: 07/26/21 Status: Ordered naratriptan 2.5 mg oral tablet 1 tablet = 2.5 mg, By Mouth, Daily, PRN for migraine headache, may repeat once in 4 hours if needed, # 9 tablet, 4 Refills, Soft Stop, 04/06/21 8:40:00 EDT, Tablet, [facility] #06112, side effects with sumatriptan, and if this is declined as... Start Date: 04/06/21 Stop Date: 09/03/21 Status: Ordered omeprazole 20 mg oral enteric coated capsule 1 capsule, By Mouth, 2 times a day, # 60 capsule, 2 Refills, Maintenance, 08/13/21 11:36:00 EDT, [facility] #[id number], 163, cm, 07/26/21 11:32:00 EDT, Height, 140.9, kg, 03/27/21 17:38:00 EDT,Dry Weight Start Date: 08/13/21 Status: Ordered Splint See Instructions, # 1 units, Maintenance, Splint to right foot overnight (AFO to keep foot in dorsiflexion), 04/27/18 15:03:13 EDT, Compound Start Date: 04/27/18 Status: Ordered Ventolin HFA 108 mcg/inh inhalation aerosol with adapter 2 puffs, Inhalation, Every 6 hours, # 18 Gm, 0 Refills, [facility] #[id number], 163, cm, 07/26/21 11:32:00 EDT, Height, 140.9, [...]
--- OUTSIDE RECORDS SUMMARY | 2024-05-14 17:38 | XMS_ITS | Continuity of Care Document ---
Author Organization [facility] Janes Catracho lt Address [address] [place] [address]- Care Team Providers Care Systems Engineer Name Role Phone Frederick CONTRERAS, Virgilio Alexander Primary Care Physician [place] [facility] [place] 07[place]21 [facility] [address] [place] [address]- Allergies, Adverse Reactions, Alerts Substance Reaction Severity [...] Vaccine (oldterm) 11/17/01 Given 1Result Comment: [facility]-[id number] 2Result Comment: [08/04/2017] QUAD [id number] [facility] [id number] Medications albuterol CFC free 90 mcg/inh inhalation aerosol 2, puffs, Inhalation, Every 6 hours, # 3 each, Refills 3, Tot. Refills 3, Maintenance, 02/27/21 7:09:00 EDT, Route to Pharmacy Electronically, [facility] [id number], [facility] #[id number], 165, cm, 02/27/21 6:55:00 EDT, Height Start [...] 3 Refills, Maintenance, 07/18/21 11:55:00 EDT, Powder, [facility] #[id number], Partial fill upon patient request if the [...] 06/26/21 9:29:00 EDT, Route to Pharmacy Electronically, [facility] #[id number], Partial fill upon patient request if the prescription is for a schedule II opio... Start Date: 06/26/21 Status: Ordered naratriptan 2.5 mg oral tablet 1 tablet = 2.5 mg, By Mouth, Daily, PRN for migraine headache, may repeat once in 4 hours if needed, # 9 tablet, 4 Refills, Soft Stop, 04/06/21 8:40:00 EDT, Tablet, [facility] #[id number], side effects with sumatriptan, and if this is declined as... Start Date: 04/06/21 Stop Date: 09/03/21 Status: Ordered omeprazole 20 mg oral enteric coated capsule 1 capsule = 20 mg, By Mouth, 2 times a day, # 60 capsule, 1 Refills, Maintenance, 06/25/21 11:09:00EDT, [facility] #[id number], Partial fill upon patient request if the [...]
--- OUTSIDE RECORDS SUMMARY | 2024-05-14 17:38 | XMS_ITS | Continuity of Care Document ---
Author Organization [facility] Catr[facility] lt Address [address] [place] [address]- Care Team Providers Care Rubber Molder Name Role Phone Virgilio Mack MD Primary Care Physician [phone] [id number] - [facility]08[facility] Adult [address] [place] [address]- Attending Physician: Virgilio Mack MD Allergies, Adverse [...] pneumococcal 20-valent conjugate vaccine 5 12/24/22 Given [id number] 12y+ bivalent booster vax 11/01/22 Recorded SARS-CoV-2 (COVID-19) mRNA BNT-162b2 vac 12/08/21 Recorded SARS-CoV-2 (COVID-19) mRNA BNT-162b2 vac 03/11/21 Recorded SARS-CoV-2 (COVID-19) mRNA BNT-162b2 vac 02/17/21 Recorded tetanus/diphtheria/pertussis, acel(Tdap) 03/13/17 Recorded tetanus-diphtheria toxoids (Td) 08/07/13 Recorded Tetanus Toxoid Vaccine (oldterm) 11/17/01 Given Pneumococcal Vaccine (oldterm) 11/17/01 Given 1Result Comment: [id number] 2Result Comment: [id number] 3Result Comment: [facility]-[id number] 4Result Comment: [08/04/2017] QUAD [id number] [facility] [id number] 5Result Comment: [id number] Medications Ambien 10 mg oral tablet 1 tablet = 10 mg, By Mouth, Daily at bedtime, PRN as needed for insomnia, 0 Refills, Maintenance, 12/02/18 14:26:49 EST, Tablet Start Date: 12/02/18 Status: Ordered Imodium A-D 2 mg oral tablet 2 mg, 1, tablet, By Mouth, Daily, # 30 tablet, Refills 5, Tot. Refills 5, Soft Stop, 09/13/22 7:01:00 EDT, Route to Pharmacy Electronically, [facility] #[id number], Partial fill upon patient request if the [...] 11/06/23 12:57:00 EST, Route to Pharmacy Electronically, [facility] #[id number], 165, cm, 10/30/23 14:14:00 EST, Height, 139.3, [...] 2 Refills, Maintenance, 03/01/24 13:51:00 EDT, Solution, [facility] #[id number], Partial fill upon patient request if the prescription is for a schedule II opioid drug.... Start Date: 03/01/24 Status: Ordered Myrbetriq 25 mg oral tablet, extended release 1 tablet = 25 mg, By Mouth, Daily, # 30 tablet, 0 Refills, Maintenance, 03/05/24 15:25:00 EDT, ER Tablet, [facility] #[id number], Partial fill upon patient request if the prescription is for a schedule II opioid drug., 165, cm, 03/01/24 13:21:00... Start Date: 03/05/24 Status: Ordered OXcarbazepine 150 mg oral tablet [...] 10/30/23 14:28:00 EST, Route to Pharmacy Electronically, [facility] #[id number], Partial fill upon patient request if the [...] oldest [Reference Range]: 1 Height 165 cm (03/01/24 1:21 PM) Weight 133.1 kg (03/01/24 1:21 PM) Oxygen Saturation [94-100 %] 96 % (03/01/24 1:21 PM) Pulse Rate [55-90 bpm] 80 bpm (03/01/24 1:21 PM) Body Mass Index [18.5-24.99 kg/m2] 48.89 kg/m2 *>HHI* (03/01/24 1:21 PM) Blood Pressure [90-138/55-84 mm Hg] 132/ 82mm Hg (03/01/24 1:21 PM) Temperature [96.8-100.4 DegF] 98.7 DegF (03/01/24 1:21 PM) Mode of Delivery (Oxygen) Room air (03/01/24 1:21 PM) Blood pressure sites Arm, right (03/01/24 1:21 PM) Temperature Route Oral (03/01/24 1:21 PM) Weight Obtained Via Standing scale (03/01/24 1:21 PM) Social History Social History Type Response Smoking Status 5-9 cigarettes (betw een 1/4 to 1/2 pack)/day in last 30 days; Tobacco use times per day: 0.5 PPD; entered on: 08/13/23 Sex Female Patient Care team information Care Team Personnel Name: Linda Awan RN Position: [facility] RN Member Role: Primary Care Nurse Name: Brionna Pathak RN Position: Mat RN Member Role: Primary Care Nurse Name: Virgilio Mack MD Position: S Physician - Primary Care Member Role: PCP Address: Address: [address] [place] [address]- [place] Care Team Related Persons Name: KELLY YANG Address: home [address] [place] [address] Name: ANNE-MARIE YANG Address: [place] [address] Name: GRAHAM YANG Address: home [address] [place] [address] Name: DULCE YANG Address: home [address] [facility] [place] [address] Name: DULCE SHEPHERD Address: home [address] [place] [address]
--- OUTSIDE RECORDS SUMMARY | 2024-05-14 17:38 | XMS_ITS | Continuity of Care Document ---
Author Organization [facility] Janes Catracho lt Address [address] [place] [address]- Care Team Providers Care Hard Rock Miner Name Role Phone Virgilio Mack MD Primary [id number]/13/22 - 03/20/22 [facility] Adult [address] [place] [address]- Attending Physician: Virgilio Mack MD Allergies, Adverse Reactions, Alerts Substance Reaction Severity Status topiramate Aggressive behavior Active shellfish Anaphylactic reaction to food Active Risperdal 1, 2 Difficulty controlli ng aggression Weight gain Seizures, eye sight Active Geodon Active Other Food Allergy 3 Active Topamax [...] Given 1Result Comment: [facility]-[id number] 2Result Comment: [08/04/2017] QUAD [id number] [facility] 26222-960-89 Medications acarbose 25 mg oral tablet 1 tablet = 25 mg, By Mouth, 3 times a day, # 90 tablet, 11 Refills, Maintenance, 01/17/22 15:35:00 EST, [facility] #[id number], Partial fill upon patient request if the [...] TIMES DAILY, # 200 Unknown, 11 Refills, [facility] #[id number], 50, USE DIRECTED 2 TO 3 TIMES DAILY, 165, cm, 02/11/22 9:38:00 EDT, Height, 142.7, kg,09/06/21 16:04:00 EDT, Dry Weight Start Date: 03/05/22 Status: Ordered benztropine 0.5 mg oral tablet TAKE 1 TABLET BY MOUTH EVERY DAY Start Date: 07/26/21 Status: Ordered Calmoseptine 0.44%-20.6% topical ointment See Instructions, apply as need to area, # 1 each, 0 Refills, Maintenance, 02/05/22 9:20:00 EDT, [facility] #[id number], Partial fill upon patient request if the prescription is for a schedule II opioid drug., apply as need to area, 165, cm, 2... Start Date: 02/05/22 Status: Ordered fluticasone-salmeterol 500 mcg-50 mcg inhalation powder 1, puffs, Inhalation, Every 12 hours, rinse mouth and throat after use, # 180 each, Refills 11, Tot. Refills 11, Maintenance, 11/20/21 10:58:00 EST, Powder, Route to Pharmacy Electronically, [id number], [facility] #[id number], 165, cm, 0... Start Date: 11/20/21 Status: [...] 02/05/22 9:21:00 EDT, Route to Pharmacy Electronically, [facility] #[id number], Partial fill upon patient request if the [...] tablet, Refills 2, Route to Pharmacy Electronically, [facility] #[id number], 165, cm, 02/11/22 9:38:00 EDT, Height, 142.7, kg, 09/06/21 16:04:00 EDT, Dry Weight Start Date: 03/10/22 Status: Ordered nabumetone 750 mg oral tablet 1 tablet = 750 mg, By Mouth, 2 times a day, with food, # 14 tablet, 0 Refills, Maintenance, 08/22/21 12:41:00 EDT, Tablet, [facility] #[id number], 165.1, cm, 08/22/21 12:16:00 EDT, Height, 140.9, kg, 03/27/21 17:38:00 EDT, Dry Weight Start Date: 08/22/21 Stop Date: 08/29/21 Status: Ordered naratriptan 2.5 mg oral tablet 1 tablet = 2.5 mg, By Mouth, Daily, PRN for migraine headache, may repeat once in 4 hours if needed, # 9 tablet, 4 Refills, Soft Stop, 04/06/21 8:40:00 EDT, Tablet, [facility] #[id number], side effects with sumatriptan, and if this is declined as... Start Date: 04/06/21 Stop Date: 09/03/21 Status: Ordered omeprazole 20 mg oral enteric coated capsule 1 capsule, By Mouth, 2 times a day, # 60 capsule, 5 Refills, 02/18/22 10:27:00 EDT, [facility] #[id number], 165, cm, 02/11/22 9:38:00 EDT, Height, 142.7, [...] 6 hours, # 18 Gm, 5 Refills, [facility] #[id number], 165.1, cm, 08/22/21 12:16:00 EDT, Height, 140.9, [...] Range]: 1 2 3 Height 165 cm (03/13/22 12:57 PM) 165 cm (03/13/22 12:56 PM) 165 cm (03/13/22 12:46 PM) Weight 148.2 kg (03/13/22 12:46 PM) Oxygen Saturation [94-100 %] 98 % (03/13/22 12:46 PM) Pulse Rate [55-90 bpm] 86 bpm (03/13/22 12:46 PM) Body Mass Index [18.5-24.99] 54.44 *>HHI* (03/13/22 12:46 PM) Blood Pressure [90-138/55-84 mm Hg] 145/86mm Hg *H* (03/13/22 12:57 PM) 140/82mm Hg *H* (03/13/22 12:56 PM) 152/104mm Hg *H* (03/13/22 12:46 PM) Temperature [96.8-100.4 DegF] 98.0 DegF (03/13/22 12:46 PM) Mode of Delivery (Oxygen) Room air (03/13/22 12:46 PM) Blood pressure sites Arm, left (03/13/22 12:57 PM) Arm, left (03/13/22 12:56 PM) Arm, left (03/13/22 12:46 PM) Temperature Route Oral (03/13/22 12:46 PM) Weight Obtained Via Standing scale (03/13/22 12:46 PM) Social History Social History Type Response Smoking Status 5-9 cigarettes (betw een 1/4 to 1/2 pack)/day in last 30 days entered on: 09/06/21 Sex Female
--- OUTSIDE RECORDS SUMMARY | 2024-05-14 17:38 | XMS_ITS | Continuity of Care Document ---
Author Organization [facility] Address [address] [place] [address] ve [address] [place] [address]- Care Team Providers Care Braider Setter Name Role Phone Frederick CONTRERAS, Virgilio Alexander Primary Care Physician Encounter [facility] Date(s): 02/09/20 - 02/19/[address] [place] [address]- [facility] Attending Physician: Admtr, Ar8 Admitting Physician: [...] Given 1Result Comment: [facility]-[id number] 2Result Comment: [08/04/2017] QUAD [id number] [facility] [id number] Medications acetaminophen 325 mg oral tablet 650 [...] 01/19/20 14:42:00 EST, Route to Pharmacy Electronically, [facility] #[id number], 165, cm, 01/19/20 14:17:00 EST, Height Start Date: 01/19/20 Status: Ordered Flovent HFA 110 mcg/inh inhalation aerosol 2 puffs, Inhalation, 2 times a day, rinse mouth and throat after use, # 12 Gm, 0 Refills, Maintenance, 11/30/19 8:41:00 EST, Aerosol, [facility], 165, cm, 11/30/19 8:25:00 EST, Height [...]
--- OUTSIDE RECORDS SUMMARY | 2024-05-14 17:38 | XMS_ITS | Continuity of Care Document ---
Author Organization [facility] Catracho lt Address [address] [place] [address]- Care Team Providers Care Records Management Director Name Role Phone Frederick CONTRERAS, Virgilio Alexander Primary Care Physician Encounter [facility] Date(s): 03/15/24 - 04/14/24 [facility] Adult [address] [place] [address]- Allergies, Adverse Reactions, Alerts Substance Reaction Severity [...] pneumococcal 20-valent conjugate vaccine 5 12/24/22 Given [id number] 12y+ bivalent booster vax 11/01/22 Recorded SARS-CoV-2 (COVID-19) mRNA BNT-162b2 vac 12/08/21 Recorded SARS-CoV-2 (COVID-19) mRNA BNT-162b2 vac 03/11/21 Recorded SARS-CoV-2 (COVID-19) mRNA BNT-162b2 vac 02/17/21 Recorded tetanus/diphtheria/pertussis, acel(Tdap) 03/13/17 Recorded tetanus-diphtheria toxoids (Td) 08/07/13 Recorded Tetanus Toxoid Vaccine (oldterm) 11/17/01 Given Pneumococcal Vaccine (oldterm) 11/17/01 Given 1Result Comment: [id number] 2Result Comment: [id number] 3Result Comment: [facility]-[id number] 4Result Comment: [08/04/2017] QUAD [id number] [facility] [id number] 5Result Comment: [id number] Medications Ambien 10 mg oral tablet 1 [...] 09/13/22 7:01:00 EDT, Route to Pharmacy Electronically, [facility] #[id number], Partial fill upon patient request if the [...] 11/06/23 12:57:00 EST, Route to Pharmacy Electronically, [facility] #[id number], 165, cm, 10/30/23 14:14:00 EST, Height, 139.3, [...] 2 Refills, Maintenance, 03/01/24 13:51:00 EDT, Solution, [facility] #[id number], Partial fill upon patient request if the prescription is for a schedule II opioid drug.... Start Date: 03/01/24 Status: Ordered Myrbetriq 25 mg oral tablet, extended release 1 tablet = 25 mg, By Mouth, Daily, # 30 tablet, 6 Refills, Maintenance, 03/09/24 9:49:00 EDT, ER Tablet, [facility] #[id number], Partial fill upon patient request if the [...] 10/30/23 14:28:00 EST, Route to Pharmacy Electronically, [facility] #[id number], Partial fill upon patient request if the prescription is for a schedul... Start Date: 10/30/23 Status: Ordered Viberzi 100 mg oral tablet 1 tablet = 100 mg, By Mouth, Daily, # 30 tablet, 1 Refills, Maintenance, 04/06/24 14:55:00 EDT, [facility] #[id number], Partial fill upon patient request if the [...] 06/24/24 12:11:00 EDT, 04/01/24 12:11:00 EDT, Solution, [facility] #[id number],... Start Date: 04/01/24 Stop Date: 06/24/24 Status: Ordered Zepbound 2.5 mg/0.5 mL subcutaneous solution = 2.5 mg, Subcutaneous Injection, Every week, rotate injection sites; for obesity, Dx: 68.30, # 4 each, 5 Refills, Maintenance, 04/01/24 5:06:00 EDT, [facility] #[id number], Partial fill upon patient request if the [...] Team Personnel Name: Linda Awan RN Position: [facility] SN RN Member Role: Primary Care Nurse Name: Brionna Pathak RN Position: [facility] RN Member Role: Primary Care Nurse Name: Virgilio Mack MD Position: [facility] Physician - Primary Care Member Role: PCP Address: Address: [address] [place] [address]- Care Team Related Persons Name: KELLY YANG Address: home [address] [place] [address] Name: ANNE-MARIE YANG Address: [place], [place] Name: GRAHAM YANG Address: home [address] [place] [address] Name: DULCE YANG Address: home [address] [place] [address] [address] [place] [address] Name: DULCE SHEPHERD Address: home [address] [place] [address]
--- OUTSIDE RECORDS SUMMARY | 2024-05-14 17:38 | XMS_ITS | Continuity of Care Document ---
Author Organization [facility] Address Unknown Care Team Providers Care Edge Bander Operator Name Role Phone Virgilio Mack MD Primary Care Physician [phone] [facility] [facility] Date(s): 04/08/22 - 04/15/22 [facility] Attending Physician: Jonh COOL, Brionna Alberts Referring Physician: Virgilio Mack [...] Pneumococcal Vaccine (oldterm) 11/17/01 Given 1Result Comment: [facility]-[id number] 2Result Comment: [08/04/2017] QUAD [id number] [facility] [id number] Medications acarbose 25 mg oral tablet 1 tablet = 25 mg, By Mouth, 3 times a day, # 90 tablet, 11 Refills, Maintenance, 01/17/22 15:35:00 EST, [facility] #[id number], Partial fill upon patient request if the [...] TIMES DAILY, # 200 Unknown, 11 Refills, [facility] #[id number], 50, USE DIRECTED 2 TO 3 TIMES DAILY, 165, cm, 02/11/22 9:38:00 EDT, Height, 142.7, kg,09/06/21 16:04:00 EDT, Dry Weight Start Date: 03/05/22 Status: Ordered benztropine 0.5 mg oral tablet TAKE 1 TABLET BY MOUTH EVERY DAY Start Date: 07/26/21 Status: Ordered Calmoseptine 0.44%-20.6% topical ointment See Instructions, apply as need to area, # 1 each, 0 Refills, Maintenance, 02/05/22 9:20:00 EDT, [facility] #[id number], Partial fill upon patient request if the prescription is for a schedule II opioid drug., apply as need to area, 165, cm, 2... Start Date: 02/05/22 Status: Ordered fluticasone-salmeterol 500 mcg-50 mcg inhalation powder 1, puffs, Inhalation, Every 12 hours, rinse mouth and throat after use, # 180 each, Refills 11, Tot. Refills 11, Maintenance, 11/20/21 10:58:00 EST, Powder, [id number][id number], 165, cm, 0... Start Date: 11/20/21 Status: [...] to Pharmacy Electronically, [facility] #[id number], Partial fill upon patient request if the [...] tablet, Refills 2, Route to Pharmacy Electronically, [facility] #[id number], 165, cm, 02/11/22 9:38:00 EDT, Height, 142.7, kg, 09/06/21 16:04:00 EDT, Dry Weight Start Date: 03/10/22 Status: Ordered loperamide 2 mg oral tablet 1 tablet = 2 mg, By Mouth, Daily, # 30 tablet, 11 Refills, Maintenance, 04/08/22 9:42:00 EDT, Tablet, [facility] #51453, Partial fill upon patient request if the prescription is for a schedule II opioid drug., 165, cm, 03/13/22 12:57:00 EDT,... Start Date: 04/08/22 Stop Date: 04/03/23 Status: Ordered nabumetone 750 mg oral tablet 1 tablet = 750 mg, By Mouth, 2 times a day, with food, # 14 tablet, 0 Refills, Maintenance, 08/22/21 12:41:00 EDT, Tablet, [facility] #[id number], 165.1, cm, 08/22/21 12:16:00 EDT, Height, 140.9, kg, 03/27/21 17:38:00 EDT, Dry Weight Start Date: 08/22/21 Stop Date: 08/29/21 Status: Ordered naratriptan 2.5 mg oral tablet 1 tablet = 2.5 mg, By Mouth, Daily, PRN for migraine headache, may repeat once in 4 hours if needed, # 9 tablet, 4 Refills, Soft Stop, 04/06/21 8:40:00 EDT, Tablet, [facility] #[id number], side effects with sumatriptan, and if this is declined as... Start Date: 04/06/21 Stop Date: 09/03/21 Status: Ordered omeprazole 20 mg oral enteric coated capsule 1 capsule, By Mouth, 2 times a day, # 60 capsule, 5 Refills, 02/18/22 10:27:00 EDT, [facility] #[id number], 165, cm, 02/11/22 9:38:00 EDT, Height, 142.7, [...] 6 hours, # 18 Gm, 5 Refills, [facility] #[id number], 165.1, cm, 08/22/21 12:16:00 EDT, Height, 140.9, [...]
--- OUTSIDE RECORDS SUMMARY | 2024-05-14 17:38 | XMS_ITS | Continuity of Care Document ---
Author Organization [facility] Janes Catracho lt Address [address] [place] [address]- Care Team Providers Care Buffing Wheel Inspector Name Role Phone Frederick CONTRERAS, Virgilio Alexander Primary Care Physician [phone] Encounter [facility] [id number] Date(s): 04/16/24 - 04/23/24 [facility] Adult [address] [place] [address]- Encounter Diagnosis Nodule of palm(Discharge Diagnosis) - 04/16/24 Attending Physician: Not on Staff, Attending MD [...] pneumococcal 20-valent conjugate vaccine 5 12/24/22 Given [id number] 12y+ bivalent booster vax 11/01/22 Recorded SARS-CoV-2 (COVID-19) mRNA BNT-162b2 vac 12/08/21 Recorded SARS-CoV-2 (COVID-19) mRNA BNT-162b2 vac 03/11/21 Recorded SARS-CoV-2 (COVID-19) mRNA BNT-162b2 vac 02/17/21 Recorded tetanus/diphtheria/pertussis, acel(Tdap) 03/13/17 Recorded tetanus-diphtheria toxoids (Td) 08/07/13 Recorded Tetanus Toxoid Vaccine (oldterm) 11/17/01 Given Pneumococcal Vaccine (oldterm) 11/17/01 Given 1Result Comment: [id number] 2Result Comment: [id number] 3Result Comment: [facility]-[id number] 4Result Comment: [08/04/2017] QUAD [id number] [facility] [id number] 5Result Comment: [id number] Medications Ambien 10 mg oral tablet 1 [...] 09/13/22 7:01:00 EDT, Route to Pharmacy Electronically, [facility] #[id number], Partial fill upon patient request if the [...] 11/06/23 12:57:00 EST, Route to Pharmacy Electronically, [facility] #[id number], 165, cm, 10/30/23 14:14:00 EST, Height, 139.3, [...] 2 Refills, Maintenance, 03/01/24 13:51:00 EDT, Solution, [facility] #[id number], Partial fill upon patient request if the prescription is for a schedule II opioid drug.... Start Date: 03/01/24 Status: Ordered Myrbetriq 25 mg oral tablet, extended release 1 tablet = 25 mg, By Mouth, Daily, # 30 tablet, 6 Refills, Maintenance, 03/09/24 9:49:00 EDT, ER Tablet, [facility] #[id number], Partial fill upon patient request if the [...] 10/30/23 14:28:00 EST, Route to Pharmacy Electronically, [facility] #[id number], Partial fill upon patient request if the prescription is for a schedul... Start Date: 10/30/23 Status: Ordered Viberzi 100 mg oral tablet 1 tablet = 100 mg, By Mouth, Daily, # 30 tablet, 1 Refills, Maintenance, 04/06/24 14:55:00 EDT, [facility] #[id number], Partial fill upon patient request if the [...] 06/24/24 12:11:00 EDT, 04/01/24 12:11:00 EDT, Solution, [facility] #[id number],... Start Date: 04/01/24 Stop Date: 06/24/24 Status: Ordered Zepbound 2.5 mg/0.5 mL subcutaneous solution = 2.5 mg, Subcutaneous Injection, Every week, rotate injection sites; for obesity, Dx: 68.30, # 4 each, 5 Refills, Maintenance, 04/01/24 5:06:00 [facility][id number], Partial fill upon patient request if the [...] Dates Health Status Cl inical Service Informant Nodule of palm Discharge Diagnosis 04/16/24 Vital Signs Most recent to oldest [Reference Range]: 1 Height 165 cm (04/16/24 7:05 AM) Weight 127.9 kg (04/16/24 7:05 AM) Oxygen Saturation [94-100 %] 100 % (04/16/24 7:05 AM) Pulse Rate [55-90 bpm] 80 bpm (04/16/24 7:05 AM) Body Mass Index [18.5-24.99 kg/m2] 46.98 kg/m2 *>HHI* (04/16/24 7:05 AM) Blood Pressure [90-138/55-84 mm Hg] 126/ 60mm Hg (04/16/24 7:05 AM) Blood pressure sites Arm, left (04/16/24 7:05 AM) Weight Obtained Via Standing scale (04/16/24 7:05 AM) Social History Social History Type Response Smoking Status 5-9 cigarettes (betw een 1/4 to 1/2 pack)/day in last 30 days; Tobacco use times per day: 0.5 PPD; entered on: 08/13/23 Sex Female Patient Care team information Care Team Personnel Name: Linda Awan RN Position: [facility] SN RN Member Role: Primary Care Nurse Name: Brionna Pathak RN Position: S RN Member Role: Primary Care Nurse Name: Virgilio Mack MD Position: [facility] Physician - Primary Care Member Role: PCP Address: Address: [address] [place] [address]- [place] Care Team Related Persons Name: KELLY YANG Address: home [address] [place] [address] Name: ANNE-MARIE YANG Address: [place] [address] Name: GRAHAM YANG Address: home [address] [place] [address] Name: DULCE YANG Address: home [address] [place] [address] Name: DULCE SHEPHERD Address: home [address] [place] [address]
--- OUTSIDE RECORDS SUMMARY | 2024-05-14 17:38 | XMS_ITS | Continuity of Care Document ---
Author Organization [facility] ter Address [address] [place] [address]- Care Team Providers Care Environmental Protection Officer Name Role Phone Frederick CONTRERAS, Virgilio Alexander Primary Care Physician [place] [facility] [place] - 03/04/[address] [address]- Discharge Disposition: A-D/C Home Attending Physician: Roberto Brooks DO Admitting Physician: Robetro Brooks DO Referring Physician: Not on Staff, Referring MD [...] Pneumococcal Vaccine (oldterm) 11/17/01 Given 1Result Comment: [facility]-[id number] 2Result Comment: [08/04/2017] QUAD [id number] [facility] [id number] Medications acetaminophen 325 mg oral tablet 650 [...] 7:09:00 EDT, Route to Pharmacy Electronically, NCPDP_ID- [id number], [facility] #[id number], 165, cm, 02/27/21 6:55:00 EDT, Height Start [...] Refills, Soft Stop, 02/27/21 7:37:00 EDT, Tablet, [facility] #[id number], Partial fill upon patient request if the [...] capsule, 2 Refills, Maintenance, 11/14/20 12:25:00 EST, [facility] #[id number], 165, cm, 07/12/20 8:22:00 EDT, Height Start [...] 5under psychiatric care 6crack,heroin, cocaine, not intravenous Results Radiology Reports * Exam Date Time Procedure Performing Provider Status 03/04/21 9:16 AM Chest 2 Views Frontal and Lat Zebian , Mounika; Auth (Verified) Notes: (Chest 2 Views Frontal and Lat) Reason For Exam: Cough RESULT: Chest 2 Views Frontal and Lat Chest 2 Views Frontal and Lat Hx of Present Illness: Left-sided pain. COMPARISON: 02/27/2021 FINDINGS: LINES AND TUBES: None. LUNGS AND PLEURA: Low lung volumes with mild basilar atelectasis. Lungs are otherwise clear with no consolidation. No pleural effusion. No pneumothorax. HEART, MEDIASTINUM AND RONY: Heart is normal in size. Normal upper mediastinal and hilar contour. BONES AND SOFT TISSUES: No acute abnormality. IMPRESSION: Low lung volumes with associated bibasilar subsegmental atelectasis. WSN: [id number] Ordering Physician: Kg Hickman Dictated By: Terry Aguillon MD Dictated Date/Time: 03/04/21 9:32 am Reviewed By: Terry Aguillon MD Signed By: Teryr Aguillon MD Signed Date/Time: 03/04/21 9:32 am Transcribed By: ONIEL Transcribed Date/Time: 03/04/21 9:31 am Vital Signs Most recent to oldest [Reference Range]: 1 2 3 Height 163 cm (03/04/21 7:50 AM) 163 cm (03/04/21 7:43 AM) Weight 140.9 kg (03/04/21 7:50 AM) 140.9 kg (03/04/21 7:43 AM) Oxygen Saturation [94-100 %] 100 % (03/04/21 2:34 PM) 100 % (03/04/21 11:10 AM) 99 % (03/04/21 8:20 AM) Pulse Rate [55-90 bpm] 81 bpm (03/04/21 2:34 PM) 79 bpm (03/04/21 11:10 AM) 79 bpm (03/04/21 8:20 AM) Body Mass Index [18.5-24.99] 53.03 *>HHI* (03/04/21 7:43 AM) Blood Pressure [90-138/55-84 mm Hg] 129/71mm Hg (03/04/21 2:34 PM) 151/81mm Hg *H* (03/04/21 11:10 AM) 134/82mm Hg (03/04/21 8:20 AM) Respiratory Rate [16-30 br/min] 20 br/min (03/04/21 2:34 PM) 27 br/min (03/04/21 11:10 AM) 24 br/min (03/04/21 8:20 AM) Temperature [96.8-100.4 DegF] 97.8 DegF (03/04/21 7:43 AM) Mode of Delivery (Oxygen) Room air (03/04/21 2:34 PM) Room air (03/04/21 11:10 AM) Room air (03/04/21 8:20 AM) Blood pressure sites Arm, right (03/04/21 7:43 AM) Temperature Route Oral (03/04/21 7:43 AM) Dry Weight 140.9 kg (03/04/21 7:50 AM) 140.9 kg (03/04/21 7:43 AM) Social History Social History Type Response Smoking Status Former smoker; Type: Cigarettes; Tobacco use times per day: 1 ppd; Number of years: 22; Total pack years: 22; entered on: 10/21/17 Sex
--- OUTSIDE RECORDS SUMMARY | 2024-05-14 17:38 | XMS_ITS | Continuity of Care Document ---
Author Organization [facility] Address [address] [place] [address]- Care Team Providers Care Education Research Analyst Name Role Phone Frederick CONTRERAS, Virgilio Alexander Primary Care Physician [phone] [place] [facility] [place]27[place]20 [place] 12/27/20 [facility] [address] [place] [address]- Attending Physician: Admtr, Ar8 Allergies, Adverse Reactions, [...] 11/17/01 Given 1Result Comment: [facility]-[id number] 2Result Comment: [08/04/2017] QUAD [id number] [facility] 29396-849-03 Medications acetaminophen 325 mg oral tablet 650 [...] 05/05/20 13:06:00 EDT, Route to Pharmacy Electronically, IDPDP_ID- [id number], [facility] #[id number], 165, cm,01/19/20 14:17:00 EST, Height Start Date: [...] 01/19/20 14:42:00 EST, Route to Pharmacy Electronically, [facility] #[id number], 165, cm, 01/19/20 14:17:00 EST, Height Start [...] 60 capsule, 2 Refills, Maintenance, 11/14/20 12:25:00 [place], [facility] #[id number], 165, cm, 07/12/20 8:22:00 EDT, Height Start [...]
--- OUTSIDE RECORDS SUMMARY | 2024-05-14 17:38 | XMS_ITS | Continuity of Care Document ---
Author Organization [facility] ter Address [address] [place] [address]- Care Team Providers Care Aboriginal Home School Liaison Officer Name Role Phone Frederick CONTRERAS, Virgilio Alexander Primary Care Physician [place] [facility] [place](s[place] 08/27/23 - 08/27/[address] [address] Discharge Disposition: A-D/C Home Attending Physician: Comfort Danielle MD Admitting Physician: [...] Pneumococcal Vaccine (oldterm) 11/17/01 Given 1Result Comment: [id number] 2Result Comment: [id number] 3Result Comment: [facility]-[id number] 4Result Comment: [08/04/2017] QUAD [id number] [facility] 92104-266-36 5Result Comment: [id number] Medications acarbose 25 mg oral tablet 1 tablet = 25 mg, By Mouth, 3 times a day, # 90 tablet, 11 Refills, Maintenance, 07/31/22 14:13:00 EDT, [facility] #[id number], Partial fill upon patient request if the [...] mL, 0 Refills, Maintenance, 02/20/23 15:08:00 EDT, [place], [facility] #[id number], Partial fill upon patient request if the prescription is for a schedule II opioid drug., 2 sprays Nares, B... Start Date: 02/20/23 Status: Ordered fluticasone-salmeterol 500 mcg-50 mcg inhalation powder 1, puffs, Inhalation, Every 12 hours, rinse mouth and throat after use, # 180 each, Refills 11, Tot. Refills 11, Maintenance, 11/20/21 10:58:00 EST, Powder, [id number], 165, cm, 0... Start Date: 11/20/21 Status: Ordered Imodium A-D 2 mg oral tablet 2 mg, 1, tablet, By Mouth, Daily, # 30 tablet, Refills 5, Tot. Refills 5, Soft Stop, 09/13/22 7:01:00 EDT, Route to Pharmacy Electronically, [facility] #[id number], Partial fill upon patient request if the [...] 09/13/22 7:03:00 EDT, Route to Pharmacy Electronically, [facility] #[id number], 165, cm, 09/12/22 11:26:00 EDT, Height, 142.7, k... Start Date: 09/13/22 Stop Date: 09/08/23 Status: Ordered loperamide 2 mg oral tablet 1 tablet = 2 mg, By Mouth, Daily, 90 day supply, # 90 tablet, 3 Refills, Maintenance, 06/09/23 8:11:00 EDT, Tablet, [facility] #77114, Partial fill upon patient request if the [...] 60 capsule, 5 Refills, 02/18/22 10:27:00 EDT, [facility] #[id number], 165, cm, 02/11/22 9:38:00 EDT, Height, 142.7, kg, 09/06/21 16:04:00 EDT, Dry Weight Start Date: 02/18/22 Status: Ordered OXcarbazepine 150 mg oral tablet 150 mg, 1, tablet, By Mouth, Daily at bedtime, Refills 0, Maintenance, 08/26/23 12:59:00 EDT, Partial fill upon patient request if the prescription is for a schedule II opioid drug. Start Date: 08/26/23 Status: Ordered Oxycodone 5mg Oral Tablet (PACU ONLY) 5 mg, Tablet, By Mouth, Once, in PACU ONLY, PRN for Pain , Moderate, Routine, 08/27/23 13:01:00 EDT Start Date: 08/27/23 Stop Date: 08/27/23 Status: Completed PEG-3350 with Electrolytes (Eqv-GoLYTELY) oral powder for reconstitution See Instructions, 1 glass every 15-30 minutes until finished, # 4,000 mL, 0 Refills, Maintenance, 08/20/23 14:52:00 EDT, [facility] #[id number], Partial fill upon patient request if the [...] 1 2 3 Oxygen Saturation [94-100 %] 96 % (08/27/23 1:30 PM) 97 % (08/27/23 1:15 PM) 97 % (08/27/23 1:00 PM) Pulse Rate [55-90 bpm] 69 bpm (08/27/23 12:05 PM) Blood Pressure [90-138/55-84 mm Hg] 124/79mm Hg (08/27/23 1:30 PM) 132/88mm Hg (08/27/23 1:15 PM) 126/87mm Hg (08/27/23 1:00 PM) Respiratory Rate [16-30 br/min] 20 br/min (08/27/23 2:46 PM) 29 br/min (08/27/23 1:30 PM) 30 br/min (08/27/23 1:15 PM) Temperature [96.8-100.4 DegF] 97.5 DegF (08/27/23 1:30 PM) 97.7 DegF (08/27/23 1:00 PM) 98 DegF (08/27/23 12:05 PM) Liters per Minute 6 L/min (08/27/23 1:15 PM) 6 L/min (08/27/23 1:00 PM) Mode of Delivery (Oxygen) Room air (08/27/23 3:15 PM) Room air (08/27/23 2:45 PM) Room air (08/27/23 1:45 PM) Blood pressure sites Arm, right (08/27/23 1:00 PM) Temperature Route Temporal (08/27/23 1:30 PM) Temporal (08/27/23 1:00 PM) Temporal (08/27/23 12:05 PM) Dry Weight 139.5 kg (08/27/23 12:05 PM) Dry Weight Obtained Via Standing scale (08/27/23 12:05 PM) Social History Social History Type Response Smoking Status 5-9 cigarettes (betw een 1/4 to 1/2 pack)/day in last 30 days; Tobacco use times per day: 0.5 PPD; entered on: 08/13/23 Sex Female Note * Abigail Major RN: PERFORM Event Display: Discharge/Transfer Note Hospital Authored Date: [id number] Nursing Discharge Note Entered On: 08/27/2023 15:54 EDT Performed On: 08/27/2023 15:53 EDT by Abigail Major RN Nursing Discharge Note 2 Discharge Time : 08/27/2023 15:15 EDT Discharge Level of Care at Discharge : Home/Snf/Foster Care Patient Left Unit Via : Wheelchair Patient Accompanied Off Unit with : Significant other DC Instructions Provided & Signed by Pt : Yes Patient Understands D/C Instructions : Yes Verbalized Understanding of D/C Plan By : Patient Patient Instructions Discharge Signed : Yes Did Pt have Specialty Bed or Wound Vac : No Abigail Major RN - 08/27/2023 15:53 EDT * Abigail Major RN: PERFORM Event Display: Patient Education/Instruction Authored Date: [id number] Inpatient Adult Discharge Instructions [address] [id number] Name: JAGDISH YANG : 1980 Visit: 08/27/2023 11:11:00 Current Date: 08/27/2023 14:37 Account: [id number] Inpatient Adult Discharge Instructions We would like to thank [...] and their families. Surveys are administered by [employer] ?? If further treatment with your primary care physician or another doctor is recommended, it is important for you to keep the appointment. Call your primary care physician or return to the Emergency Department immediately if your condition worsens, fails to improve, or new symptoms develop. If you need to find a doctor, you can call [facility] for a referral at [phone] or toll free at [phone] ([phone]) or log in to [email or web address].. ?? [facility], in keeping with [facility] guidance, no longer requires face masks [...] a health care silverio of your choosing. [place] is a website that allows you to securely view your medical information including your hospital discharge summary, office visit summaries, medications and follow-up visits. You can also request appointments, renew medications, and request access to your medical information using a health care silverio of your choosing, or just ask a question. You can enroll at [email or web address] or register during your next office visit. You have been discharged from [facility], Patient Care Unit: [facility]. If you have any questions regarding these instructions after you leave, please call us and we will be happy to assist you. [facility] Your Care Team Attending Physician Comfort Danielle MD Discharging Providers Comfort Danielle MD Reason for Admission MIXED URINARY INCONTINTNCE CS DS Tests Performed Below is a partial list of the tests performed during your hospitalization. You may have had other tests and procedures not included in this list. Please discuss all test results with your provider. Primary Care Provider Virgilio Mack MD Advance Directive Health Care Proxy on File Yes - Health Care Proxy Discharge Vitals Temperature: 97.5 DegF Pulse Rate: 69 bpm Respiratory Rate: 29 br/min Systolic Blood Pressure: 124 mm Hg Diastolic Blood Pressure: 79 mm Hg Oxygen Saturation: 96 % Studies Pending All tests and labs ordered during this hospital stay have been completed unless listed below. Please discuss all pending results with your provider listed above in these instructions. ?? No incomplete studies found What to do next Instructions From Your Doctor Discharge Orders Instructions from your Care Team Please see discharge summary provided and reviewed with you in post op. ?? Wilson catheter to remain inserted until tomorrow. Education and demonstration provided in post op for removal. ?? Follow up with Dr. Danielle as scheduled. ?? Call office with any questions or concerns.? Scheduled Follow-Up Appointments Friday 11:40 AM EDT ?? With: Comfort Danielle MD Where: [facility] [address]th [place] [address]- Status: Pending Friday 10:00 AM EST ?? Where: [facility] Status: Pending Friday 9:20 AM EST ?? With: Frederick CONTRERAS, Virgilio Alexander Where: [address] [address]- Status: Pending Friday 9:00 AM EST ?? Where: [facility] [address], [address] [place] [address]- Status: Pending You Need to Schedule the Following Appointments Follow Up with??Comfort Danielle MD When:??Within Within two weeks Where: [address] [place] [address], [address] [facility] [place] [address]- Discharge Medications JAGDISH YANG :1980 Visit Date:08/27/2023 Medications: Please continue your medications until treatment is completed or stopped by your provider. Medications not listed below should be discontinued. Discuss any questions related to medications with [...] mg oral tablet) 1 tab(s) Oral Daily Duration: 90 Days Unchanged Loperamide (Imodium A-D 2 mg oral [...] 1 tab(s) Oral Daily at Bedtime Unchanged PEG Electrolyte Solution (PEG-3350 with Electrolytes (Eqv-GoLYTELY) oral powder for reconstitution) See instructions 1 glass every 15-30 minutes until finished ?? Unchanged Zolpidem (Ambien 10 mg oral tablet) 1 tab(s) Oral Daily at Bedtime as needed for as needed for insomnia Test Results Below is a partial list of the most recent Laboratory test results done prior to this discharge. You may have had other tests and procedures not included in this list. Please discuss all test resultswith your provider. Allergies (NKA means No Known Allergies) Geodon??(violent/aggressive) Other Food Allergy??(CLAMS) Risperdal??(Difficulty controlling aggression, Weight gain, Seizures, eye sight) Topamax??(Anger, Aggressive behavior, psyche) shellfish??(Anaphylactic reaction to food) topiramate??(Aggressive behavior) Problems Active Problems??(24) ADHD (attention deficit hyperactivity disorder)?? Allergic rhinitis?? Asthma?? BMI 50.0-59.9, adult?? Costochondritis?? Depression, major, single episode, moderate?? Depression;BILPOLAR?? Epilepsy?? Fecal incontinence?? GERD (gastroesophageal reflux disease)?? Hepatic steatosis?? Hypertension?? Hypoglycemia?? Migraine?? Mixed Urinary incontinence?? Nephrolithiasis?? DAISY (obstructive sleep apnea)?? Overactive bladder?? Plantar fasciitis, bilateral?? Rectal bleeding?? Severe obesity?? Substance abuse?? Tobacco use disorder?? Umbilical hernia?? Education Materials Below is the list of Educational Leaflet Providered with your Discharge Instructions. Surgery Medical Daystay Surgical Overnight Discharge Instructions?? Valuables and Belongings I fully understand and agree that [facility] accepts no responsibility for all my [...] encouraged to send valuables and belongings home. ?? Date for Pt to Sign Valuables/Belongings: 08/27/23 12:05:00 ?? Valuables & Belongings ?? Clothes Electronic devices Jewelry Monetary Items Personal devices Miscellaneous Medications (Valuables) Valuables at Bedside Pants, Shirt, Shoes, Undergarments ? Valuables Sent Home ? Valuables Sent to Security ? Other Discharge Information ? Pulmonary Rehab Status?? Pulmonary Rehab Discharge Status?? Respiratory Rate: 29 br/min ? Common Emergency Awareness Tips IS [...] are strongly encouraged to quit. Please call [facility] at [phone] or [phone] ([phone]) or log in to [email or web address] for referrals to smoking cessation programs. ?? 975 Suicide & Crisis Lifeline is available 09/06 if you or someone you know needs to find a reason to keep living. By calling 934 you'll be connected to a skilled, trained counselor at a crisis center in your area. INPATIENT DISCHARGE INSTRUCTIONS SIGNATURE PAGE CELIA JAGDISH Location:[facility] Registration Date and Time:08/27/2023 11:11 EDT Primary Care Physician: Frederick CONTRERAS, Virgilio Alexander, Attending Physician: Shashi CONTRERAS, Comfort Julian, I JAGDISH YANG, have received the above patient education materials/instructions and have verbalized understanding. If ambulance or transport services are being used I further acknowledge being given a choice of service. ?? If you need to contact me, please call me at this number: . Patient/Supervisor [place] Name: Jagdish Yang Patient/Supervisor [place] Signature: Relationship to Patient: self Witness Name/Signature: Date: 10/2022 * Abigail Major RN: PERFORM Event Display: Patient Education Leaflets Authored Date: [id number] Surgery Medical Daystay Surgical Overnight Discharge Instructions [...] Team Personnel Name: Linda Awan RN Position: [facility] RN Member Role: Primary Care Nurse Name: Brionna Pathak RN Position: S RN Member Role: Primary Care Nurse Name: Virgilio Mack MD Position: [facility] Physician - Primary Care Member Role: PCP Address: Address: [address] [place] [address]- Care Team Related Persons Name: KELLY YANG Address: home [address] [place] [address] Name: ANNE-MARIE YANG Address: [place] [address] Name: GRAHAM YANG Address: home [address] [place] [address] Name: DULCE YANG Address: [address] [place] [address] Name: DULCE SHEPHERD Address: home [address] [place] [address]
--- OUTSIDE RECORDS SUMMARY | 2024-05-14 17:38 | XMS_ITS | Continuity of Care Document ---
Author Organization [facility] Catracho lt Address [address] [place] [address]- Care Team Providers Care Traffic Sign Supervisor Name Role Phone Virgilio Mack MD Primary Care Physician [phone] [id number]s): [facility]23 - 07/08/23 [facility] Adult [address] [place] [address]- Encounter Diagnosis Sore throat(Discharge Diagnosis) - 07/01/23 Attending Physician: Benjamin Ca DO Referring Physician: Virgilio Mack MD Allergies, [...] Pneumococcal Vaccine (oldterm) 11/17/01 Given 1Result Comment: [id number] 2Result Comment: [id number] 3Result Comment: [facility]-[id number] 4Result Comment: [08/04/2017] [facility] [id number] [facility] [id number] Medications acarbose 25 mg oral tablet 1 tablet = 25 mg, By Mouth, 3 times a day, # 90 tablet, 11 Refills, Maintenance, 07/31/22 14:13:00 EDT, [facility] #[id number], Partial fill upon patient request if the [...] mL, 0 Refills, Maintenance, 02/20/23 15:08:00 EDT, [place], [facility] #[id number], Partial fill upon patient request if the prescription is for a schedule II opioid drug., 2 sprays Nares, B... Start Date: 02/20/23 Status: Ordered fluticasone-salmeterol 500 mcg-50 mcg inhalation powder 1, puffs, Inhalation, Every 12 hours, rinse mouth and throat after use, # 180 each, Refills 11, Tot. Refills 11, Maintenance, 11/20/21 10:58:00 EST, Powder, Route to Pharmacy Electronically, NCPDP_ID-[id number], [facility] #[id number], 165, cm, 0... Start Date: 11/20/21 Status: Ordered Imodium A-D 2 mg oral tablet 2 mg, 1, tablet, By Mouth, Daily, # 30 tablet, Refills 5, Tot. Refills 5, Soft Stop, 09/13/22 7:01:00 EDT, Route to Pharmacy Electronically, [facility] #[id number], Partial fill upon patient request if the [...] 09/13/22 7:03:00 EDT, Route to Pharmacy Electronically, [facility] #[id number], 165, cm, 09/12/22 11:26:00 EDT, Height, 142.7, k... Start Date: 09/13/22 Stop Date: 09/08/23 Status: Ordered loperamide 2 mg oral tablet 1 tablet = 2 mg, By Mouth, Daily, 90 day supply, # 90 tablet, 3 Refills, Maintenance, 06/09/23 8:11:00 EDT, Tablet, [facility] #[id number], Partial fill upon patient request if the prescription is for a schedule II opioid drug., 165, cm, 05/07/23... Start Date: 06/09/23 Status: Ordered methocarbamol 750 mg oral tablet 2 tablet = 1,500 mg, By Mouth, 3 times a day, PRN Pain , Moderate, # 30 tablet, 2 Refills, Acute 07/29/23 16:25:00 EDT, 04/28/23 16:24:00 EDT, Tablet, [facility] #[id number], Partial fill upon patient request if the prescription is for a schedule... Start Date: 04/28/23 Stop Date: 07/29/23 Status: Ordered methylphenidate 18 mg oral tablet, extended release 0 Refills, Maintenance, 07/01/23 14:02:00 EDT, Partial fill upon patient request if the prescription is for a schedule II opioid drug. Start Date: 07/01/23 Status: Ordered omeprazole 20 mg oral enteric coated capsule 1 capsule, By Mouth, 2 times a day, # 60 capsule, 5 Refills, 02/18/22 10:27:00 EDT, [facility] #[id number], 165, cm, 02/11/22 9:38:00 EDT, Height, 142.7, [...] Dates Health Status Clini gareth Service Informant Sore throat Discharge Diagnosis 07/01/23 Vital Signs Most recent to oldest [Reference Range]: 1 Height 165 cm (07/01/23 2:03 PM) Weight 148.1 kg (07/01/23 2:03 PM) Oxygen Saturation [94-100 %] 95 % (07/01/23 2:03 PM) Pulse Rate [55-90 bpm] 85 bpm (07/01/23 2:03 PM) Body Mass Index [18.5-24.99 kg/m2] 54.4 kg/m2 *>HHI* (07/01/23 2:03 PM) Blood Pressure [90-138/55-84 mm Hg] 119/ 79mm Hg (07/01/23 2:03 PM) Temperature [96.8-100.4 DegF] 98.3 DegF (07/01/23 2:03 PM) Blood pressure sites Arm, left (07/01/23 2:03 PM) Social History Social History Type Response Smoking Status 5-9 cigarettes (betw een 1/4 to 1/2 pack)/day in last 30 days entered on: 09/06/21 Sex Female Note * Amira Malone: PERFORM, SIGN, VERIFY Event Display: Patient Education/Instruction Authored Date: [id number] [facility] *[facility] So Janes Tay Clinical Summary Name WIL YANG Age 42 Years 1980 PCP Frederick CONTRERAS, Virgilio Alexander PCP Visit Date 07/01/2023 13:32:00 Patient Instructions Recommend symptomatic care Cepacol lozenges gargle with salt water??Tylenol or Motrin or ibuprofen as needed.?? If it worsens or changes or new symptoms develop recommend he follow-up for reevaluation. Additional Instructions: Scheduled Appointments?? Future Appointments ?[facility] ?[address]??[place],??[place],??[address] ?Phone:??[phone]?Fax:??-- ?Appt. Date:??12/08/2023?9:00 AM ?Scheduled Provider:??[facility] 1 Follow-Up Instructions ?? With: Address: When: call or follow up if no improvement in a week Diagnosis Acute pharyngitis, unspecified Medications: Please continue your medications until treatment is completed or stopped by your provider. Discuss any questions related to medications with your provider. Medications to Continue with No Changes These medications were not printed or sent to your pharmacy Acarbose (acarbose 25 mg oral tablet) 1 tab(s) Oral 3 times a day. Refills: 11. Next Dose: Azelastine Nasal (azelastine 137 mcg/inh (0.1%) nasal spray) 2 spray(s) Nares, Both Daily as neededOther Allergies. Refills: 0. Next Dose: Fluticasone-Salmeterol (fluticasone-salmeterol 500 mcg-50 mcg [...] 2 mg oral tablet) 1 tab(s) Oral Daily. 90 day supply. Refills: 3. Next Dose: lurasidone (Latuda 120 mg oral tablet) 1 tab(s) Oral Daily at Bedtime. Next Dose: Methocarbamol (methocarbamol 750 mg oral tablet) 2 tab(s) Oral 3 times a day as needed Pain , Moderate. Refills: 2. Next Dose: Methylphenidate (methylphenidate 18 mg oral tablet, extended release) Next Dose: Omeprazole (omeprazole 20 mg oral enteric coated capsule) 1 capsule Oral twice a day. Refills: 5. Next Dose: Zolpidem (Ambien 10 mg oral tablet) 1 tab(s) Oral Daily at Bedtime as needed as needed for insomnia. Next Dose: Allergy Info:?? Other Food Allergy; Geodon; Topamax; Risperdal; shellfish; topiramate Medications Given This Visit Future Orders ?Throat Culture Grp A Strep? Order Date:07/01/23?- Complete on or after?07/01/23 Vital Signs Height 165 cm Weight 148.1 kg BMI 54.4 kg/m2 Blood Pressure 119 mm Hg/79 mm Hg Temperature 98.3 DegF Pulse Rate 85 bpm Respiratory Rate 02 Sat Mode of Delivery 95 %/ You can now view a summary of your hospital visit from the comfort of your home through a free online portal called [employer]. [employer] is a website that allows you to securely view your medical information including discharge summary, medications and follow-up visits. ??You can alsosend a secure electronic message to your doctor???s office to request appointments, renew medications or just ask a question. You can enroll at [email or web address] or register during your next office [...] primary care provider, you may find a [facility] provider by calling [facility] [employer] at [phone]. For information about the plan of care [...] Personnel Name: Lv RN, Linda Adams Position: [facility] SN RN Member Role: Primary Care Nurse Name: Brionna Pathak RN Position: [facility] RN Member Role: Primary Care Nurse Name: Virgilio Mack MD Position: [facility] Physician - Primary Care Member Role: PCP Address: Address: [address] [place] [address]- [place] Care Team Related Persons Name: KELLY YANG Address: home [address] [place] [address] Name: ANNE-MARIE YANG Address: [place] [address] Name: GRAHAM YANG Address: home [address] [place] [address] Name: DULCE YANG Address: [address] [place] [address] Name: DULCE SHEPHERD Address: home [address] [place] [address]
--- OUTSIDE RECORDS SUMMARY | 2024-05-14 17:38 | XMS_ITS | Continuity of Care Document ---
Author Organization [facility] Janes Catracho Address [address] [place] [address]- Care Team Providers Care Central Stores Attendant Name Role Phone Frederick CONTRERAS, Virgilio Alexander Primary Care Physician [phone] [id number] 11/30/19 - 12/07/19 [facility] Adult [address] [place] [address]- [facility] Encounter Diagnosis Cough(Discharge Diagnosis) - 11/30/19 Attending Physician: Elder COOL, April Barrera Allergies, Adverse Reactions, Alerts Substance Reaction Severity [...] Vaccine (oldterm) 11/17/01 Given 1Result Comment: [facility]-[id number] 2Result Comment: [08/04/2017] QUAD [id number] [facility] 70939-710-36 Medications acetaminophen 325 mg oral tablet 650 mg, 2, tablet, By Mouth, Every 6 hours, PRN, # 50 tablet, Refills 0, Tot. Refills 0, Maintenance, as needed for pain, 09/12/19 18:57:55 EDT, Print Requisition Start Date: 09/12/19 Status: Ordered albuterol 90 mcg/inh inhalation aerosol See Instructions, 2 puffs every 6 hours brand name only, # 8.5 Gm, 1 Refills, Maintenance Start Date: 12/01/19 Status: Ordered Alcohol Pads See Instructions, # [...] 15:41:54 EDT Start Date: 07/20/19 Status: Ordered Flovent HFA 110 mcg/inh inhalation aerosol 2 puffs, Inhalation, 2 times a day, rinse mouth and throat after use, # 12 Gm, 0 Refills, Maintenance, 11/30/19 8:41:00 EST, Aerosol, [facility], 165, cm, 11/30/19 8:25:00 EST, [...] Dates Health Status Clini gareth Service Informant Cough Discharge Diagnosis 11/30/19 Vital Signs Most recent to oldest [Reference Range]: 1 Height 165 cm (11/30/19 8:25 AM) Weight 118.1 kg (11/30/19 8:25 AM) Oxygen Saturation [94-100 %] 96 % (11/30/19 8:25 AM) Pulse Rate [55-90 bpm] 73 bpm (11/30/19 8:25 AM) Body Mass Index [18.5-24.99] 43.38 *>HHI* (11/30/19 8:25 AM) Blood Pressure [90-138/55-84 mm Hg] 124/ 82mm Hg (11/30/19 8:25 AM) Temperature [96.8-100.4 DegF] 98.7 DegF (11/30/19 8:25 AM) Blood pressure sites Arm, left (11/30/19 8:25 AM) Social History Social History Type Response Smoking Status Former smoker; Type: Cigarettes; Tobacco use times per day: 1 ppd; Number of years: 22; Total pack years: 22; entered on: 10/21/17 Sex
--- OUTSIDE RECORDS SUMMARY | 2024-05-14 17:39 | XMS_ITS | Continuity of Care Document ---
Author Organization [facility] Catracho lt Address [address] [place] [address]- Care Team Providers Care Flight Crew Ordnanceman Name Role Phone Virgilio Mack MD [id number] Adult [address] [place] [address]- Attending Physician: Virgilio Mack MD Allergies, Adverse [...] influenza virus vaccine, inactivated 1 09/15/19 Gi crorina influenza virus vaccine, inactivated 12/02/18 Give n influenza virus vaccine, inactivated 2 08/04/17 Gi corrina tetanus/diphtheria/pertussis, acel(Tdap) 03/13/17 Recorded tetanus-diphtheria toxoids (Td) 08/07/13 Recorded Tetanus Toxoid Vaccine (oldterm) 11/17/01 Given Pneumococcal Vaccine (oldterm) 11/17/01 Given 1Result Comment: [facility]-[id number] 2Result Comment: [08/04/2017] QUAD [id number] [facility] [id number] Medications albuterol CFC free 90 mcg/inh inhalation aerosol 2, puffs, Inhalation, Every 6 hours, # 3 each, Refills 3, Tot. Refills 3, Maintenance, 02/27/21 7:09:00 EDT, Route to Pharmacy Electronically, NCP_ID- [id number], [facility] #[id number], 165, cm, 02/27/21 6:55:00 EDT, Height Start [...] 06/26/21 9:29:00 EDT, Route to Pharmacy Electronically, [facility] #[id number], Partial fill upon patient request if the prescription is for a schedule II opio... Start Date: 06/26/21 Status: Ordered naproxen sodium 550 mg oral tablet 1 tablet, By Mouth, 2 times a day, PRN NEEDED FOR PAIN, for 14 days, # 28 tablet, 0 Refills, Acute 07/09/21 16:31:00 EDT, 06/25/21 16:31:00 EDT, [facility] #[id number], 165.1, cm, 06/22/21 15:16:00 EDT, Height, 140.9, kg, 03/27/21 17:38:00 EDT... Start Date: 06/25/21 Stop Date: 07/09/21 Status: Ordered naratriptan 2.5 mg oral tablet 1 tablet = 2.5 mg, By Mouth, Daily, PRN for migraine headache, may repeat once in 4 hours if needed, # 9 tablet, 4 Refills, Soft Stop, 04/06/21 8:40:00 EDT, Tablet, [facility] #[id number], side effects with sumatriptan, and if this is declined as... Start Date: 04/06/21 Stop Date: 09/03/21 Status: Ordered nicotine 21 mg/24 hr transdermal film, extended release 1 patch, Topically, Daily, # 30 patch, 1 Refills, Acute 07/03/21 17:00:00 EDT, 06/05/21 16:45:00 EDT, Patch, [facility] #[id number], Partial fill upon patient request if the prescription is for a schedule II opioid drug., 1 patch Topically Daily,... Start Date: 06/05/21 Stop Date: 07/03/21 Status: Ordered omeprazole 20 mg oral enteric coated capsule 1 capsule = 20 mg, By Mouth, 2 times a day, # 60 capsule, 1 Refills, Maintenance, 06/25/21 11:09:00EDT, [facility] #[id number], Partial fill upon patient request if the [...] oldest [Reference Range]: 1 Height 165.1 cm (06/19/21 10:25 AM) Weight 144.0 kg (06/19/21 10:25 AM) Oxygen Saturation [94-100 %] 98 % (06/19/21 10:25 AM) Pulse Rate [55-90 bpm] 85 bpm (06/19/21 10:25 AM) Body Mass Index [18.5-24.99] 52.83 *>HHI* (06/19/21 10:25 AM) Blood Pressure [90-138/55-84 mm Hg] 128/ 90mm Hg (06/19/21 10:25 AM) Temperature [96.8-100.4 DegF] 98.4 DegF (06/19/21 10:25 AM) Mode of Delivery (Oxygen) Room air (06/19/21 10:25 AM) Blood pressure sites Arm, right (06/19/21 10:25 AM) Temperature Route Oral (06/19/21 10:25 AM) Weight Obtained Via Standing scale (06/19/21 10:25 AM) Social History Social History Type Response Smoking Status Former smoker; Type: Cigarettes; Tobacco use times per day: 1 ppd; Number of years: 22; Total pack years: 22; entered on: 10/21/17 Sex Female
--- OUTSIDE RECORDS SUMMARY | 2024-05-14 17:39 | XMS_ITS | Continuity of Care Document ---
Author Organization [facility] Address [address] [facility], [address] d Floor, [address] [place] [address]- Care Team Providers Care Software Design Analyst Name Role Phone Frederick CONTRERAS, Virgilio Alexander Primary Care Physician Encounter [facility] Date(s): 11/25/19 - 12/05/19 [facility] [address] [facility], 3rd Floor, [address] [place] [address]- [facility] Attending Physician: Admtr, Ar8 Admitting Physician: [...] 1Result Comment: [facility]-[id number] 2Result Comment: [08/04/2017] QUAD [id number] [facility] [id number] Medications acetaminophen 325 mg oral tablet 650 [...] 8:41:00 EST, Aerosol, [facility], 165, cm, 11/30/19 8:25:00 [...]
--- OUTSIDE RECORDS SUMMARY | 2024-05-14 17:39 | XMS_ITS | Continuity of Care Document ---
Author Organization [facility] Address [address] [place] [address]- Care Team Providers Care Professor Of Business Name Role Phone Frederikc CONTRERAS, Virgilio Alexander Primary Care Physician Encounter [facility] Date(s): 03/15/24 - 04/14/24 [facility] [address] [place] [address]- Attending Physician: Nancy Sotelo Admitting Physician: Nancy Sotelo Referring Physician: Admtr ArDeandre Allergies, Adverse Reactions, [...] pneumococcal 20-valent conjugate vaccine 5 12/24/22 Given [id number] 12y+ bivalent booster vax 11/01/22 Recorded SARS-CoV-2 (COVID-19) mRNA BNT-162b2 vac 12/08/21 Recorded SARS-CoV-2 (COVID-19) mRNA BNT-162b2 vac 4/25/21 Recorded SARS-CoV-2 (COVID-19) mRNA BNT-162b2 vac 02/17/21 Recorded tetanus/diphtheria/pertussis, acel(Tdap) 03/13/17 Recorded tetanus-diphtheria toxoids (Td) 08/07/13 Recorded Tetanus Toxoid Vaccine (oldterm) 11/17/01 Given Pneumococcal Vaccine (oldterm) 11/17/01 Given 1Result Comment: [id number] 2Result Comment: [id number] 3Result Comment: [facility]-[id number] 4Result Comment: [08/04/2017] QUAD [id number] [facility] [id number] 5Result Comment: [id number] Medications Ambien 10 mg oral tablet 1 [...] 09/13/22 7:01:00 EDT, Route to Pharmacy Electronically, [facility][id number], Partial fill upon patient request if the [...] 11/06/23 12:57:00 EST, Route to Pharmacy Electronically, [facility] #[id number], 165, cm, 10/30/23 14:14:00 EST, Height, 139.3, [...] 2 Refills, Maintenance, 03/01/24 13:51:00 EDT, Solution, [facility] #[id number], Partial fill upon patient request if the prescription is for a schedule II opioid drug.... Start Date: 03/01/24 Status: Ordered Myrbetriq 25 mg oral tablet, extended release 1 tablet = 25 mg, By Mouth, Daily, # 30 tablet, 6 Refills, Maintenance, 03/09/24 9:49:00 EDT, ER Tablet, [facility] #[id number], Partial fill upon patient request if the [...] 10/30/23 14:28:00 EST, Route to Pharmacy Electronically, [facility] #[id number], Partial fill upon patient request if the prescription is for a schedul... Start Date: 10/30/23 Status: Ordered Viberzi 100 mg oral tablet 1 tablet = 100 mg, By Mouth, Daily, # 30 tablet, 1 Refills, Maintenance, 04/06/24 14:55:00 EDT, [facility] #[id number], Partial fill upon patient request if the [...] 06/24/24 12:11:00 EDT, 04/01/24 12:11:00 EDT, Solution, [facility] #[id number],... Start Date: 04/01/24 Stop Date: 06/24/24 Status: Ordered Zepbound 2.5 mg/0.5 mL subcutaneous solution = 2.5 mg, Subcutaneous Injection, Every week, rotate injection sites; for obesity, Dx: 68.30, # 4 each, 5 Refills, Maintenance, 04/01/24 5:06:00 EDT, [facility][id number], Partial fill upon patient request if the [...] Team Personnel Name: Linda Awan RN Position: [facility] SN RN Member Role: Primary Care Nurse Name: Brionna Pathak RN Position: S RN Member Role: Primary Care Nurse Name: Virgilio Mack MD Position: [facility] Physician - Primary Care Member Role: PCP Address: Address: [address] [place] [address]- [place] Care Team Related Persons Name: KELLY YANG Address: home [address] [place] [address] Name: ANNE-MARIE YANG Address: [place], [place] Name: GRAHAM YANG Address: home [address] [place] [address] Name: DULCE YANG Address: home [address] [facility] [address] [place] [address] Name: DULCE SHEPHERD Address: home [address] [place] [address]
--- OUTSIDE RECORDS SUMMARY | 2024-05-14 17:39 | XMS_ITS | Continuity of Care Document ---
Author Organization [facility] Address [address] [place] [address]- Care Team Providers Care Float Operator Name Role Phone Virgilio Mack MD Primary Care Physician [id number] Date[facility]14[facility] - 02[facility]21/20 [facility] [address] [place] [address]- [facility] Attending Physician: Hiram Rico MD Admitting Physician: [...] (oldterm) 11/17/01 Given 1Result Comment: [facility]-[id number] 2Result Comment: [08/04/2017] QUAD [id number] [facility] [id number] Medications acetaminophen 325 mg oral tablet 650 [...] 01/19/20 14:42:00 EST, Route to Pharmacy Electronically, [facility] #[id number], 165, cm, 01/19/20 14:17:00 EST, Height Start Date: 01/19/20 Status: Ordered Flovent HFA 110 mcg/inh inhalation aerosol 2 puffs, Inhalation, 2 times a day, rinse mouth and throat after use, # 12 Gm, 0 Refills, Maintenance, 11/30/19 8:41:00 EST, Aerosol, [facility], 165, cm, 11/30/19 8:25:00 EST, Height Start [...]
--- OUTSIDE RECORDS SUMMARY | 2024-05-14 17:39 | XMS_ITS | Continuity of Care Document ---
Author Organization [facility] Janes Catracho lt Address [address] [place] [address]- Care Team Providers Care Java Security Engineer Name Role Phone Frederick CONTRERAS, Virgilio Alexander Primary Care Physician Encounter [facility] Date(s): 03/27/21 - 04/03/21 [facility] Adult [address] [place] [address]- Encounter Diagnosis Pilonidal cyst(Discharge Diagnosis) - 03/27/21 Dyspnea(Discharge Diagnosis) - 03/27/21 Attending Physician: Kaden Mac MD Allergies, Adverse Reactions, Alerts Substance Reaction [...] 11/17/01 Given 1Result Comment: [facility]-[id number] 2Result Comment: [08/04/2017] QUAD [id number] [facility] [id number] Medications acetaminophen 325 mg oral tablet 650 [...] 7:09:00 EDT, Route to Pharmacy Electronically, NCPDP_ID- [id number], [id number], 165, cm, 02/27/21 6:55:00 EDT, Height Start [...] 2 Refills, Maintenance, 03/27/21 17:04:00 EDT, Aerosol, [facility] #[id number], Partial fill upon patient request if the [...] 04/06/21 18:04:00 EDT, 03/27/21 18:04:00 EDT, Capsule, [facility] #[id number], Partial fill upon patient request if the [...] 05/11/21 10:57:00 EDT, 03/16/21 10:57:00 EDT, Gum, [facility] #[id number], Partial fill upon patient request if the [...] Health Status Cl inical Service Informant Pilonidal cyst Discharge Diagnosis 03/27/21 Dyspnea Discharge Diagnosis 03/27/21 Vital Signs Most recent to oldest [Reference Range]: 1 Height 163 cm (03/27/21 4:11 PM) Weight 140.5 kg (03/27/21 4:11 PM) Oxygen Saturation [94-100 %] 98 % (03/27/21 4:11 PM) Pulse Rate [55-90 bpm] 84 bpm (03/27/21 4:11 PM) Body Mass Index [18.5-24.99] 52.88 *>HHI* (03/27/21 4:11 PM) Blood Pressure [90-138/55-84 mm Hg] 130/ 94mm Hg (03/27/21 4:11 PM) Temperature [96.8-100.4 DegF] 98.1 DegF (03/27/21 4:11 PM) Blood pressure sites Arm, right (03/27/21 4:11 PM) Temperature Route Oral (03/27/21 4:11 PM) Social History Social History Type Response Smoking Status Former smoker; Type: Cigarettes; Tobacco use times per day: 1 ppd; Number of years: 22; Total pack years: 22; entered on: 10/21/17 Sex
--- OUTSIDE RECORDS SUMMARY | 2024-05-14 17:39 | XMS_ITS | Continuity of Care Document ---
Author Organization [facility] Janes Catracho lt Address [address] [place] [address]- Care Team Providers Care Tankage Supervisor Name Role Phone Frederick CONTRERAS, Virgilio Alexander Primary Care Physician Encounter [facility] Date(s): 08/11/23 - 09/10/23 [facility] Adult [address] [place] [address]- Allergies, Adverse Reactions, Alerts Substance Reaction Severity [...] Pneumococcal Vaccine (oldterm) 11/17/01 Given 1Result Comment: [id number] 2Result Comment: [id number] 3Result Comment: [facility]-[id number] 4Result Comment: [08/04/2017] QUAD [facility] 89344-553-03 5Result Comment: [id number] Medications acarbose 25 mg oral tablet 1 tablet = 25 mg, By Mouth, 3 times a day, # 90 tablet, 11 Refills, Maintenance, 09/09/23 18:02:00 EDT, [facility] #[id number], Partial fill upon patient request if the [...] mL, 0 Refills, Maintenance, 02/20/23 15:08:00 EDT, [place], [facility] #[id number], Partial fill upon patient request if the prescription is for a schedule II opioid drug., 2 sprays Nares, B... Start Date: 02/20/23 Status: Ordered fluticasone-salmeterol 500 mcg-50 mcg inhalation powder 1, puffs, Inhalation, Every 12 hours, rinse mouth and throat after use, # 180 each, Refills 11, Tot. Refills 11, Maintenance, 11/20/21 10:58:00 EST, Powder, Route to Pharmacy Electronically, NCPDP_[id number], [facility] #[id number], 165, cm, ... Start Date: 11/20/21 Status: Ordered Imodium A-D 2 mg oral tablet 2 mg, 1, tablet, By Mouth, Daily, # 30 tablet, Refills 5, Tot. Refills 5, Soft Stop, 09/13/22 7:01:00 EDT, Route to Pharmacy Electronically, [facility] #[id number], Partial fill upon patient request if the [...] 3 Refills, Maintenance, 06/09/23 8:11:00 EDT, Tablet, [facility] #78191, Partial fill upon patient request if the [...] 60 capsule, 5 Refills, 02/18/22 10:27:00 EDT, [facility] #[id number], 165, cm, 02/11/22 9:38:00 EDT, Height, 142.7, [...] mL, 0 Refills, Maintenance, 08/20/23 14:52:00 EDT, [facility] #[id number], Partial fill upon patient request if the [...] Team Personnel Name: Linda Awan RN Position: [facility] SN RN Member Role: Primary Care Nurse Name: Brionna Pathak RN Position: [facility] ED RN W/OE and Tasks Member Role: Primary Care Nurse Name: Virgilio Mack MD Position: [facility] Physician - Primary Care Member Role: PCP Address: Address: [address] [place] [address] [place] [address]- [place] Care Team Related Persons Name: KELLY YANG Address: home [address] [place] [address] Name: ANNE-MARIE YANG Address: [place] [address] Name: GRAHAM YANG Address: home [address] [place] [address] Name: DULCE YANG Address: home [address] [place] [address] Name: DULCE SHEPHERD Address: home [address] [place] [address]
--- OUTSIDE RECORDS SUMMARY | 2024-05-14 17:39 | XMS_ITS | Continuity of Care Document ---
Author Organization [facility] Janes Catracho lt Address [address] [place] [address]- Care Team Providers Care Sales Assistant Entertainment And Media Name Role Phone Frederick CONTRERAS, Virgilio Alexander Primary Care Physician [phone] [place] [facility] [place](s): 03/01/24 - 03/31/24 [facility] Adult [address] [place] [address]- Attending Physician: Admtr, Ar8 Allergies, Adverse Reactions, Alerts Substance Reaction Severity Status topiramate Aggressive behavior Active shellfish Anaphylactic reaction to food Active Risperdal 1, 2 Difficulty controlli ng aggression Weight gain Seizures, eye sight Active Topamax Anger Aggressive behavior psyche Active Other Food Allergy 3 CLAMS Active Geodon violent/aggressive Active 1Slept alot 2gained [...] pneumococcal 20-valent conjugate vaccine 5 12/24/22 Given [id number] 12y+ bivalent booster vax 11/01/22 Recorded SARS-CoV-2 (COVID-19) mRNA BNT-162b2 vac 12/08/21 Recorded SARS-CoV-2 (COVID-19) mRNA BNT-162b2 vac 03/11/21 Recorded SARS-CoV-2 (COVID-19) mRNA BNT-162b2 vac 02/17/21 Recorded tetanus/diphtheria/pertussis, acel(Tdap) 03/13/17 Recorded tetanus-diphtheria toxoids (Td) 08/07/13 Recorded Tetanus Toxoid Vaccine (oldterm) 11/17/01 Given Pneumococcal Vaccine (oldterm) 11/17/01 Given 1Result Comment: [id number] 2Result Comment: [id number] 3Result Comment: [facility]-[id number] 4Result Comment: [08/04/2017] QUAD 4267-3092 [facility] 32390-665-12 5Result Comment: [id number] Medications Ambien 10 mg oral tablet 1 [...] 09/13/22 7:01:00 EDT, Route to Pharmacy Electronically, [facility] #[id number], Partial fill upon patient request if the [...] 11/06/23 12:57:00 EST, Route to Pharmacy Electronically, [facility] #[id number], 165, cm, 10/30/23 14:14:00 EST, Height, 139.3, [...] 2 Refills, Maintenance, 03/01/24 13:51:00 EDT, Solution, [facility] #[id number], Partial fill upon patient request if the prescription is for a schedule II opioid drug.... Start Date: 03/01/24 Status: Ordered Myrbetriq 25 mg oral tablet, extended release 1 tablet = 25 mg, By Mouth, Daily, # 30 tablet, 6 Refills, Maintenance, 03/09/24 9:49:00 EDT, ER Tablet, [facility] #[id number], Partial fill upon patient request if the prescription is for a schedule II opioid drug., 165, cm, 03/01/24 13:21:00 E... Start Date: 03/09/24 [...] 10/30/23 14:28:00 EST, Route to Pharmacy Electronically, [facility] #[id number], Partial fill upon patient request if the [...] Sex Female Cardiology * Event Display: Non Cardiovascular Results Authored Date: [id number] Laboratory * Event Display: Non BH Lab [...] Team Personnel Name: Linda Awan RN Position: [facility] SN RN Member Role: Primary Care Nurse Name: Brionna Pathak RN Position: S RN Member Role: Primary Care Nurse Name: Virgilio Mack MD Position: [facility] Physician - Primary Care Member Role: PCP Address: Address: [address] [place] [address]- [place] Care Team Related Persons Name: KELLY YANG Address: home [address] [place] [address] Name: ANNE-MARIE YANG Address: [place] [address] Name: GRAHAM YANG Address: home [address] [place] [address] Name: DULCE YANG Address: home [address] [place] [address] Name: DULCE SHEPHERD Address: home [address] [place] [address]
--- OUTSIDE RECORDS SUMMARY | 2024-05-14 17:39 | XMS_ITS | Continuity of Care Document ---
Author Organization [facility] Smooth [facility] Catracho lt Address [address] [place] [address]- Care Team Providers Care Immigration Consultant Name Role Phone Frederick CONTRERAS, Virgilio Alexander Primary Care Physician [phone] Encounter [facility] Date(s): 07/22/23 - 08/21/23 [facility] Adult [address] [place] [address]- Allergies, Adverse Reactions, Alerts Substance Reaction Severity [...] Pneumococcal Vaccine (oldterm) 11/17/01 Given 1Result Comment: [id number] 2Result Comment: [id number] 3Result Comment: [facility]-[id number] 4Result Comment: [08/04/2017] [facility] 3500-2513 [facility] 99502-492-95 5Result Comment: [id number] Medications acarbose 25 mg oral tablet 1 tablet = 25 mg, By Mouth, 3 times a day, # 90 tablet, 11 Refills, Maintenance, 07/31/22 14:13:00 EDT, [facility] #[id number], Partial fill upon patient request if the [...] mL, 0 Refills, Maintenance, 02/20/23 15:08:00 EDT, Sun, [facility] #[id number], Partial fill upon patient request if the prescription is for a schedule II opioid drug., 2 sprays Nares, B... Start Date: 02/20/23 Status: Ordered fluticasone-salmeterol 500 mcg-50 mcg inhalation powder 1, puffs, Inhalation, Every 12 hours, rinse mouth and throat after use, # 180 each, Refills 11, Tot. Refills 11, Maintenance, 11/20/21 10:58:00 EST, Powder, Route to Pharmacy Electronically, NCPDP_[id number], [facility] #[id number], 165, cm, 0... Start Date: 11/20/21 Status: Ordered Imodium A-D 2 mg oral tablet 2 mg, 1, tablet, By Mouth, Daily, # 30 tablet, Refills 5, Tot. Refills 5, Soft Stop, 09/13/22 7:01:00 EDT, Route to Pharmacy Electronically, [facility] #[id number], Partial fill upon patient request if the [...] 09/13/22 7:03:00 EDT, Route to Pharmacy Electronically, [facility] #[id number], 165, cm, 09/12/22 11:26:00 EDT, Height, 142.7, k... Start Date: 09/13/22 Stop Date: 09/08/23 Status: Ordered loperamide 2 mg oral tablet 1 tablet = 2 mg, By Mouth, Daily, 90 day supply, # 90 tablet, 3 Refills, Maintenance, 06/09/23 8:11:00 EDT, Tablet, [facility] #91930, Partial fill upon patient request if the [...] 60 capsule, 5 Refills, 02/18/22 10:27:00 EDT, [facility] #[id number], 165, cm, 02/11/22 9:38:00 EDT, Height, 142.7, kg, 09/06/21 16:04:00 EDT, Dry Weight Start Date: 02/18/22 Status: Ordered PEG-3350 with Electrolytes (Eqv-GoLYTELY) oral powder for reconstitution See Instructions, 1 glass every 15-30 minutes until finished, # 4,000 mL, 0 Refills, Maintenance, 08/20/23 14:52:00 EDT, [facility] #[id number], Partial fill upon patient request if the [...] Name: Linda Awan RN Position: [facility] RN Member Role: Primary Care Nurse Name: Brionna Pathak RN Position: S RN Member Role: Primary Care Nurse Name: Virgilio Mack MD Position: [facility] Physician - Primary Care Member Role: PCP Address: Address: [address] [place] [address]- Care Team Related Persons Name: KELLY YANG Address: home [address] [place] [address] Name: ANNE-MARIE YANG Address: [place] [address] Name: GRAHAM YANG Address: [address] [place] [address] Name: DULCE YANG Address: [address] [place] [address] Name: DULCE SHEPHERD Address: [address] [address]
--- OUTSIDE RECORDS SUMMARY | 2024-05-14 17:39 | XMS_ITS | Continuity of Care Document ---
Author Organization [facility] Janes Catracho lt Address [address] [place] [address]- Care Team Providers Care Deputy County Clerk Name Role Phone Frederick CONTRERAS, Virgilio Alexander Primary Care Physician [id number] Date(s): 11/07/21 - 11/14/21 [facility] Adult [address] [place] [address]- Encounter Diagnosis Bronchitis(Discharge Diagnosis) - 11/07/21 Asthma(Discharge Diagnosis) - 11/07/21 Attending Physician: Sadia COOL, Leatha Philip Referring Physician: Virgilio Mack MD Allergies, Adverse [...] Pneumococcal Vaccine (oldterm) 11/17/01 Given 1Result Comment: [facility]-[id number] 2Result Comment: [08/04/2017] QUAD 8522-4924 [facility] [id number] Medications Alcohol Pads See Instructions, # 200 [...] TIMES DAILY, # 200 Unknown, 0 Refills, [facility] #[id number], 50, USE DIRECTED 2 TO 3 TIMES DAILY, 165, cm, 09/19/21 10:12:00 EDT, Height, 142.7, kg,09/06/21 16:04:00 EDT, Dry Weight Start Date: 10/01/21 Status: Ordered benztropine 0.5 mg oral tablet TAKE 1 TABLET BY MOUTH EVERY DAY Start Date: 07/26/21 Status: Ordered Breo Ellipta 100 mcg-25 mcg/inh inhalation powder 1 puffs, Inhalation, Daily, # 30 each, 3 Refills, Maintenance, 07/18/21 11:55:00 EDT, Powder, [facility] #[id number], Partial fill upon patient request if the prescription is for a schedule II opioid drug., 1 puffs Inhalation Daily, 165.1, cm, 08... Start Date: 07/18/21 Status: Ordered FREESTYLE LANCETS 100 FREESTYLE LANCETS [...] 07/26/21 11:56:00 EDT, Route to Pharmacy Electronically, [facility] #[id number], Partial fill upon patient request if the prescription is... Start Date: 07/26/21 Status: Ordered nabumetone 750 mg oral tablet 1 tablet = 750 mg, By Mouth, 2 times a day, with food, # 14 tablet, 0 Refills, Maintenance, 08/22/21 12:41:00 EDT, Tablet, [facility] #[id number], 165.1, cm, 08/22/21 12:16:00 EDT, Height, 140.9, kg, 03/27/21 17:38:00 EDT, Dry Weight Start Date: 08/22/21 Stop Date: 08/29/21 Status: Ordered naratriptan 2.5 mg oral tablet 1 tablet = 2.5 mg, By Mouth, Daily, PRN for migraine headache, may repeat once in 4 hours if needed, # 9 tablet, 4 Refills, Soft Stop, 04/06/21 8:40:00 EDT, Tablet, [facility] #[id number], side effects with sumatriptan, and if this is declined as... Start Date: 04/06/21 Stop Date: 09/03/21 Status: Ordered omeprazole 20 mg oral enteric coated capsule 1 capsule, By Mouth, 2 times a day, # 60 capsule, 2 Refills, [facility] #[id number], 165, cm, 09/19/21 10:12:00 EDT, Height, 142.7, [...] 6 hours, # 18 Gm, 5 Refills, [facility] #[id number], 165.1, cm, 08/22/21 12:16:00 EDT, Height, 140.9, [...] Dates Health Status Clini gareth Service Informant Asthma Discharge Diagnosis 11/07/21 Bronchitis Discharge Diagnosis 11/07/21 Vital Signs Most recent to oldest [Reference Range]: 1 Height 165 cm (11/07/21 7:09 AM) Social History Social History Type Response Smoking Status 5-9 cigarettes (betw een 1/4 to 1/2 pack)/day in last 30 days entered on: 09/06/21 Sex Female
--- OUTSIDE RECORDS SUMMARY | 2024-05-14 17:39 | XMS_ITS | Continuity of Care Document ---
Author Organization [facility] Miguel [facility] [employer] Address [address], 4[address] [place] [address]- Care Team Providers Care Tool Designer Apprentice Name Role Phone Frederick CONTRERAS, Virgilio Alexander Primary Care Physician Encounter [facility] Date(s): 03/05/24 - 04/04/24 [facility] [address], 4th [place] [address]- Allergies, Adverse Reactions, Alerts Substance Reaction Severity [...] pneumococcal 20-valent conjugate vaccine 5 12/24/22 Given [id number] 12y+ bivalent booster vax 11/01/22 Recorded SARS-CoV-2 (COVID-19) mRNA BNT-162b2 vac 12/08/21 Recorded SARS-CoV-2 (COVID-19) mRNA BNT-162b2 vac 03/11/21 Recorded SARS-CoV-2 (COVID-19) mRNA BNT-162b2 vac 02/17/21 Recorded tetanus/diphtheria/pertussis, acel(Tdap) 03/13/17 Recorded tetanus-diphtheria toxoids (Td) 08/07/13 Recorded Tetanus Toxoid Vaccine (oldterm) 11/17/01 Given Pneumococcal Vaccine (oldterm) 11/17/01 Given 1Result Comment: [id number] 2Result Comment: [id number] 3Result Comment: [facility]-[id number] 4Result Comment: [08/04/2017] QUAD 2040-4343 [facility] 11789-639-45 5Result Comment: [id number] Medications Ambien 10 mg oral tablet 1 [...] 09/13/22 7:01:00 EDT, Route to Pharmacy Electronically, [facility] #[id number], Partial fill upon patient request if the [...] 11/06/23 12:57:00 EST, Route to Pharmacy Electronically, [facility] #[id number], 165, cm, 10/30/23 14:14:00 EST, Height, 139.3, [...] 2 Refills, Maintenance, 03/01/24 13:51:00 EDT, Solution, [facility] #86697, Partial fill upon patient request if the prescription is for a schedule II opioid drug.... Start Date: 03/01/24 Status: Ordered Myrbetriq 25 mg oral tablet, extended release 1 tablet = 25 mg, By Mouth, Daily, # 30 tablet, 6 Refills, Maintenance, 03/09/24 9:49:00 EDT, ER Tablet, [facility] #[id number], Partial fill upon patient request if the [...] 10/30/23 14:28:00 EST, Route to Pharmacy Electronically, [facility] #[id number], Partial fill upon patient request if the prescription is for a schedul... Start Date: 10/30/23 Status: Ordered Wegovy (0.25 mg dose) subcutaneous solution = 0.25 mg, Subcutaneous Injection, Every week, for 4 week(s), in the abdomen, thigh, or upper arm; after 4 weeks, increase to 0.5 mg weekly, # 2 mL, 2 Refills, Acute 06/24/24 12:11:00 EDT, 04/01/24 12:11:00 EDT, Solution, [facility] #[id number],... Start Date: 04/01/24 Stop Date: 06/24/24 Status: Ordered Zepbound 2.5 mg/0.5 mL subcutaneous solution = 2.5 mg, Subcutaneous Injection, Every week, rotate injection sites; for obesity, Dx: 68.30, # 4 each, 5 Refills, Maintenance, 04/01/24 5:06:00 EDT, Solution, [facility] #[id number], Partial fill upon patient request if the [...] Team Personnel Name: Linda Awan RN Position: [facility] RN Member Role: Primary Care Nurse Name: Brionna Pathak RN Position: [facility] RN Member Role: Primary Care Nurse Name: Virgilio Mack MD Position: [facility] Physician - Primary Care Member Role: PCP Address: Address: [address] [place] [address]- [place] Care Team Related Persons Name: KELLY YANG Address: home [address] [place] [address] Name: ANNE-MARIE YANG Address: [place] [address] Name: GRAHAM YANG Address: home [address] [place] [address] Name: DULCE YANG Address: [address] [place] [address] Name: DULCE SHEPHERD Address: home [address] [place] [address]
--- OUTSIDE RECORDS SUMMARY | 2024-05-14 17:39 | XMS_ITS | Continuity of Care Document ---
Author Organization [facility] Address [address] [place] [address]- Care Team Providers Care Window Air Conditioner Installer Name Role Phone Frederick CONTRERAS, Virgilio Alexander Primary Care Physician [phone] Encounter [facility] Date(s): 05/22/21 - 06/21/21 [facility] [address] [place] [id number] Allergies, Adverse Reactions, Alerts Substance Reaction Severity [...] 1Result Comment: [facility]-[id number] 2Result Comment: [08/04/2017] QUAD 9462-2473 [facility] 30689-451-56 Medications albuterol CFC free 90 mcg/inh inhalation aerosol 2, puffs, Inhalation, Every 6 hours, # 3 each, Refills 3, Tot. Refills 3, Maintenance, 02/27/21 7:09:00 EDT, Route to Pharmacy Electronically, NCPDP_ID- [id number][id number], 165, cm, 02/27/21 6:55:00 EDT, Height Start [...] Refills, Soft Stop, 04/06/21 8:40:00 EDT, Tablet, [facility] #[id number], side effects with sumatriptan, and if this is declined as... Start Date: 04/06/21 Stop Date: 09/03/21 Status: Ordered nicotine 21 mg/24 hr transdermal film, extended release 1 patch, Topically, Daily, # 30 patch, 1 Refills, Acute 07/03/21 17:00:00 EDT, 06/05/21 16:45:00 EDT, Patch, [facility] #[id number], Partial fill upon patient request if the prescription is for a schedule II opioid drug., 1 patch Topically Daily,... Start Date: 06/05/21 Stop Date: 07/03/21 Status: Ordered omeprazole 20 mg oral delayed release tablet 1 tablet = 20 mg, By Mouth, 2 times a day, # 30 tablet, 2 Refills, Maintenance, 06/12/21 13:59:00 EDT, EC Tablet, [facility] #[id number], 165.1, cm, 06/07/21 10:18:00 EDT, Height, 140.9, [...]
--- OUTSIDE RECORDS SUMMARY | 2024-05-14 17:39 | XMS_ITS | Continuity of Care Document ---
Author Organization [facility] Address [address], [address] Floor, [address] [place] [address]- Care Team Providers Care Barrel Repairer Name Role Phone Frederick CONTRERAS, Virgilio Alexander Primary Care Physician Encounter [facility] Date(s): 10/05/19 - 12/25/19 [facility] [address], 3rd Floor, [address] [place] [address]- [facility] Attending Physician: Marcio Salas MD Referring Physician: Virgilio Mack MD Allergies, [...] Vaccine (oldterm) 11/17/01 Given 1Result Comment: [facility]-[id number] 2Result Comment: [08/04/2017] QUAD 6738-1304 [facility] 52886-422-00 Medications acetaminophen 325 mg oral tablet 650 [...] 8:41:00 EST, Aerosol, [facility] - 1-5 [facility], 165, cm, 11/30/19 8:25:00 EST, Height Start [...]
--- OUTSIDE RECORDS SUMMARY | 2024-05-14 17:39 | XMS_ITS | Continuity of Care Document ---
Author Organization [facility] Address [address] [place] [address]- Care Team Providers Care Oracle Endeca Consultant Name Role Phone Frederick CONTRERAS, Virgilio Alexander Primary Care Physician [phone] Encounter [facility] [id number] Date(s): 09/07/21 - 10/17/[address] [address] Attending Physician: Michelle Velasco MD Admitting Physician: [...] 1Result Comment: [facility]-[id number] 2Result Comment: [08/04/2017] QUAD 3286-0435 [facility] 69236-506-02 Medications Alcohol Pads See Instructions, # 200 [...] TIMES DAILY, # 200 Unknown, 0 Refills, [facility] #[id number], 50, USE DIRECTED 2 TO 3 TIMES DAILY, 165, cm, 09/19/21 10:12:00 EDT, Height, 142.7, kg,09/06/21 16:04:00 EDT, Dry Weight Start Date: 10/01/21 Status: Ordered benztropine 0.5 mg oral tablet TAKE 1 TABLET BY MOUTH EVERY DAY Start Date: 07/26/21 Status: Ordered Breo Ellipta 100 mcg-25 mcg/inh inhalation powder 1 puffs, Inhalation, Daily, # 30 each, 3 Refills, Maintenance, 07/18/21 11:55:00 EDT, Powder, [facility] #[id number], Partial fill upon patient request if the [...] 07/26/21 11:56:00 EDT, Route to Pharmacy Electronically, [facility] #[id number], Partial fill upon patient request if the prescription is... Start Date: 07/26/21 Status: Ordered nabumetone 750 mg oral tablet 1 tablet = 750 mg, By Mouth, 2 times a day, with food, # 14 tablet, 0 Refills, Maintenance, 08/22/21 12:41:00 EDT, Tablet, [facility] #57612, 165.1, cm, 08/22/21 12:16:00 EDT, Height, 140.9, kg, 03/27/21 17:38:00 EDT, Dry Weight Start Date: 08/22/21 Stop Date: 08/29/21 Status: Ordered naratriptan 2.5 mg oral tablet 1 tablet = 2.5 mg, By Mouth, Daily, PRN for migraine headache, may repeat once in 4 hours if needed, # 9 tablet, 4 Refills, Soft Stop, 04/06/21 8:40:00 EDT, Tablet, [facility] #12931, side effects with sumatriptan, and if this is declined as... Start Date: 04/06/21 Stop Date: 09/03/21 Status: Ordered omeprazole 20 mg oral enteric coated capsule 1 capsule, By Mouth, 2 times a day, # 60 capsule, 2 Refills, Maintenance, 08/13/21 11:36:00 EDT, [facility] #[id number], 163, cm, 07/26/21 11:32:00 EDT, Height, 140.9, kg, 03/27/21 17:38:00 EDT,Dry Weight Start Date: 08/13/21 Status: Ordered Splint See Instructions, # 1 units, Maintenance, Splint to right foot overnight (AFO to keep foot in dorsiflexion), 04/27/18 15:03:13 EDT, Compound Start Date: 04/27/18 Status: Ordered Ventolin HFA 108 mcg/inh inhalation aerosol with adapter 2 puffs, Inhalation, Every 6 hours, # 18 Gm, 5 Refills, [facility] #[id number], 165.1, cm, 08/22/21 12:16:00 EDT, Height, 140.9, [...]
--- OUTSIDE RECORDS SUMMARY | 2024-05-14 17:39 | XMS_ITS | Continuity of Care Document ---
Author Organization [facility] Address [address] [place] [address]- Care Team Providers Care Wire Weaver Helper Name Role Phone Virgilio Mack MD [id number] Date[facility] - 03/30/22 [facility] [address] [place] [id number] Attending Physician: Kushal Perez MD Admitting Physician: [...] 11/17/01 Given 1Result Comment: [facility]-[id number] 2Result Comment: [08/04/2017] QUAD [id number] [facility] 13834-565-71 Medications acarbose 25 mg oral tablet 1 tablet = 25 mg, By Mouth, 3 times a day, # 90 tablet, 11 Refills, Maintenance, 01/17/22 15:35:00 EST, [facility] #[id number], Partial fill upon patient request if the [...] TIMES DAILY, # 200 Unknown, 11 Refills, [facility] #[id number], 50, USE DIRECTED 2 TO 3 TIMES DAILY, 165, cm, 02/11/22 9:38:00 EDT, Height, 142.7, kg,09/06/21 16:04:00 EDT, Dry Weight Start Date: 03/05/22 Status: Ordered benztropine 0.5 mg oral tablet TAKE 1 TABLET BY MOUTH EVERY DAY Start Date: 07/26/21 Status: Ordered Calmoseptine 0.44%-20.6% topical ointment See Instructions, apply as need to area, # 1 each, 0 Refills, Maintenance, 02/05/22 9:20:00 EDT, [facility] #[id number], Partial fill upon patient request if the prescription is for a schedule II opioid drug., apply as need to area, 165, cm, 2... Start Date: 02/05/22 Status: Ordered fluticasone-salmeterol 500 mcg-50 mcg inhalation powder 1, puffs, Inhalation, Every 12 hours, rinse mouth and throat after use, # 180 each, Refills 11, Tot. Refills 11, Maintenance, 11/20/21 10:58:00 EST, Powder, Route to Pharmacy Electronically, ALPDP_[id number], [facility] #[id number], 165, cm, 0... Start Date: 11/20/21 Status: [...] 02/05/22 9:21:00 EDT, Route to Pharmacy Electronically, [facility] #[id number], Partial fill upon patient request if the [...] tablet, Refills 2, Route to Pharmacy Electronically, [facility] #[id number], 165, cm, 02/11/22 9:38:00 EDT, Height, 142.7, kg, 09/06/21 16:04:00 EDT, Dry Weight Start Date: 03/10/22 Status: Ordered nabumetone 750 mg oral tablet 1 tablet = 750 mg, By Mouth, 2 times a day, with food, # 14 tablet, 0 Refills, Maintenance, 08/22/21 12:41:00 EDT, Tablet, [facility] #69370, 165.1, cm, 08/22/21 12:16:00 EDT, Height, 140.9, kg, 03/27/21 17:38:00 EDT, Dry Weight Start Date: 08/22/21 Stop Date: 08/29/21 Status: Ordered naratriptan 2.5 mg oral tablet 1 tablet = 2.5 mg, By Mouth, Daily, PRN for migraine headache, may repeat once in 4 hours if needed, # 9 tablet, 4 Refills, Soft Stop, 04/06/21 8:40:00 EDT, Tablet, [facility] #[id number], side effects with sumatriptan, and if this is declined as... Start Date: 04/06/21 Stop Date: 09/03/21 Status: Ordered omeprazole 20 mg oral enteric coated capsule 1 capsule, By Mouth, 2 times a day, # 60 capsule, 5 Refills, 02/18/22 10:27:00 EDT, [facility] #[id number], 165, cm, 02/11/22 9:38:00 EDT, Height, 142.7, [...] 6 hours, # 18 Gm, 5 Refills, [facility] #44015, 165.1, cm, 08/22/21 12:16:00 EDT, Height, 140.9, [...]
--- OUTSIDE RECORDS SUMMARY | 2024-05-14 17:39 | XMS_ITS | Continuity of Care Document ---
Author Organization [facility] Address [address], [address] [place] [address]- Care Team Providers Care Cloth Mercerizer Operator Name Role Phone Frederick CONTRERAS, Virgilio Alexander Primary Care Physician [phone] Encounter [facility] Date(s): 05/06/23 - 06/05/23 [facility] [employer] [facility] [address] [place], [place] [address] Attending Physician: Admtr, Ar8 Admitting Physician: [...] Pneumococcal Vaccine (oldterm) 11/17/01 Given 1Result Comment: [id number] 2Result Comment: [id number] 3Result Comment: [facility]-[id number] 4Result Comment: [08/04/2017] QUAD [id number] [facility] 28800-550-72 Medications acarbose 25 mg oral tablet 1 tablet = 25 mg, By Mouth, 3 times a day, # 90 tablet, 11 Refills, Maintenance, 07/31/22 14:13:00 EDT, [facility] #[id number], Partial fill upon patient request if the [...] mL, 0 Refills, Maintenance, 02/20/23 15:08:00 EDT, [place] #[id number], Partial fill upon patient request if the prescription is for a schedule II opioid drug., 2 sprays Nares, B... Start Date: 02/20/23 Status: Ordered fluticasone-salmeterol 500 mcg-50 mcg inhalation powder 1, puffs, Inhalation, Every 12 hours, rinse mouth and throat after use, # 180 each, Refills 11, Tot. Refills 11, Maintenance, 11/20/21 10:58:00 EST, Powder, Route to Pharmacy Electronically, NCPDP_[id number], [facility] #[id number], 165, cm, 0... Start Date: 11/20/21 Status: Ordered Imodium A-D 2 mg oral tablet 2 mg, 1, tablet, By Mouth, Daily, # 30 tablet, Refills 5, Tot. Refills 5, Soft Stop, 09/13/22 7:01:00 EDT, Route to Pharmacy Electronically, [facility] #[id number], Partial fill upon patient request if the [...] 09/13/22 7:03:00 EDT, Route to Pharmacy Electronically, [facility] #[id number], 165, cm, 09/12/22 11:26:00 EDT, Height, 142.7, k... Start Date: 09/13/22 Stop Date: 09/08/23 Status: Ordered methocarbamol 750 mg oral tablet 2 tablet = 1,500 mg, By Mouth, 3 times a day, PRN Pain , Moderate, # 30 tablet, 2 Refills, Acute 07/29/23 16:25:00 EDT, 04/28/23 16:24:00 EDT, Tablet, [facility] #29227, Partial fill upon patient request if the prescription is for a schedule... Start Date: 04/28/23 Stop Date: 07/29/23 Status: Ordered omeprazole 20 mg oral enteric coated capsule 1 capsule, By Mouth, 2 times a day, # 60 capsule, 5 Refills, 02/18/22 10:27:00 EDT, [facility] #40309, 165, cm, 02/11/22 9:38:00 EDT, Height, 142.7, kg, 09/06/21 16:04:00 EDT, Dry Weight Start Date: 02/18/22 Status: Ordered SUMAtriptan 100 mg oral tablet 1 tablet = 100 mg, By Mouth, Daily, PRN for migraine headache, may repeat dose after 2 hours up to a maximum of 2, # 9 tablet, 5 Refills, Acute 06/24/23 5:18:00 EDT, 12/25/22 5:18:00 EST, Tablet, [facility] #12171, Partial fill upon patient... Start Date: 12/25/22 [...] Team Personnel Name: Linda Awan RN Position: [facility] RN Member Role: Primary Care Nurse Name: Brionna Pathak RN Position: S RN Member Role: Primary Care Nurse Name: Virgilio Mack MD Position: [facility] Physician - Primary Care Member Role: PCP Address: Address: [address] [place] [address]- Care Team Related Persons Name: KELLY YANG Address: home [address] [place] [address] Name: ANNE-MARIE YANG Address: [place] [address] Name: GRAHAM YANG Address: home [address] [place] [address] Name: DULCE YANG Address: home [address] [place] [address] Name: DULCE SHEPHERD Address: home [address] [place] [address]
--- OUTSIDE RECORDS SUMMARY | 2024-05-14 17:39 | XMS_ITS | Continuity of Care Document ---
Author Organization [facility] Address [address] [place] [address]- Care Team Providers Care Senior It Business Analyst Name Role Phone Not on Staff, PCP Primary Care Physician Unavail able Encounter [facility] Date(s): 07/11/20 - 08/10/20 [facility] [address] [place] [address]- [facility] Allergies, Adverse Reactions, Alerts Substance Reaction Severity [...]
--- OUTSIDE RECORDS SUMMARY | 2024-05-14 17:39 | XMS_ITS | Continuity of Care Document ---
Author Organization [facility] Address [address] [place] [address]- Care Team Providers Care Spar Finisher Name Role Phone Frederick CONTRERAS, Virgilio Alexander Primary Care Physician [place] [facility] Date(s): 02/11/22 - 02/18/22 [facility] [address] [address] Attending Physician: Trisha CONTRERAS, Hiram Andersen Admitting [...] Pneumococcal Vaccine (oldterm) 11/17/01 Given 1Result Comment: [facility]-[id number] 2Result Comment: [08/04/2017] QUAD 3731-9202 [facility] 87794-495-17 Medications acarbose 25 mg oral tablet 1 tablet = 25 mg, By Mouth, 3 times a day, # 90 tablet, 11 Refills, Maintenance, 01/17/22 15:35:00 EST, [facility] #[id number], Partial fill upon patient request if the [...] TIMES DAILY, # 200 Unknown, 1 Refills, [facility] #[id number], 50, USE DIRECTED 2 TO 3 TIMES DAILY, 165, cm, 11/20/21 10:44:00 EST, Height, 142.7, kg,09/06/21 16:04:00 EDT, Dry Weight Start Date: 11/21/21 Status: Ordered benztropine 0.5 mg oral tablet TAKE 1 TABLET BY MOUTH EVERY DAY Start Date: 07/26/21 Status: Ordered Calmoseptine 0.44%-20.6% topical ointment See Instructions, apply as need to area, # 1 each, 0 Refills, Maintenance, 02/05/22 9:20:00 EDT, [facility] #38137, Partial fill upon patient request if the prescription is for a schedule II opioid drug., apply as need to area, 165, cm, 2... Start Date: 02/05/22 Status: Ordered fluticasone-salmeterol 500 mcg-50 mcg inhalation powder 1, puffs, Inhalation, Every 12 hours, rinse mouth and throat after use, # 180 each, Refills 11, Tot. Refills 11, Maintenance, 11/20/21 10:58:00 EST, Powder, Route to Pharmacy Electronically, NCPDP_[id number], [facility] #[id number], 165, cm, 0... Start Date: 11/20/21 Status: [...] 02/05/22 9:21:00 EDT, Route to Pharmacy Electronically, [facility] #[id number], Partial fill upon patient request if the [...] 07/26/21 11:56:00 EDT, Route to Pharmacy Electronically, [facility] #09050, Partial fill upon patient request if the prescription is... Start Date: 07/26/21 Status: Ordered nabumetone 750 mg oral tablet 1 tablet = 750 mg, By Mouth, 2 times a day, with food, # 14 tablet, 0 Refills, Maintenance, 08/22/21 12:41:00 EDT, Tablet, [facility] #[id number], 165.1, cm, 08/22/21 12:16:00 EDT, Height, 140.9, kg, 03/27/21 17:38:00 EDT, Dry Weight Start Date: 08/22/21 Stop Date: 08/29/21 Status: Ordered naratriptan 2.5 mg oral tablet 1 tablet = 2.5 mg, By Mouth, Daily, PRN for migraine headache, may repeat once in 4 hours if needed, # 9 tablet, 4 Refills, Soft Stop, 04/06/21 8:40:00 EDT, Tablet, [facility] #72996, side effects with sumatriptan, and if this is declined as... Start Date: 04/06/21 Stop Date: 09/03/21 Status: Ordered omeprazole 20 mg oral enteric coated capsule 1 capsule, By Mouth, 2 times a day, # 60 capsule, 5 Refills, 02/18/22 10:27:00 EDT, [facility] #[id number], 165, cm, 02/11/22 9:38:00 EDT, Height, 142.7, [...] 6 hours, # 18 Gm, 5 Refills, [facility] #[id number], 165.1, cm, 08/22/21 12:16:00 EDT, Height, 140.9, [...] oldest [Reference Range]: 1 Height 165 cm (02/11/22 9:38 AM) Weight 144.2 kg (02/11/22 9:38 AM) Oxygen Saturation [94-100 %] 97 % (02/11/22 9:38 AM) Pulse Rate [55-90 bpm] 92 bpm *H* (02/11/22 9:38 AM) Body Mass Index [18.5-24.99] 52.97 *>HHI* (02/11/22 9:38 AM) Blood Pressure [90-138/55-84 mm Hg] 153/ 91mm Hg *H* (02/11/22 9:38 AM) Temperature [96.8-100.4 DegF] 98.3 DegF (02/11/22 9:38 AM) Blood pressure sites Arm, left (02/11/22 9:38 AM) Temperature Route Temporal (02/11/22 9:38 AM) Social History Social History Type Response Smoking Status 5-9 cigarettes (betw een 1/4 to 1/2 pack)/day in last 30 days entered on: 09/06/21 Sex Female
--- OUTSIDE RECORDS SUMMARY | 2024-05-14 17:39 | XMS_ITS | Continuity of Care Document ---
Author Organization [facility] Address [address] [place] [address]- Care Team Providers Care Sanitary Engineering Teacher Name Role Phone Frederick CONTRERAS, Virgilio Alexander Primary Care Physician [place] [facility] [place]s): 05/22/21 - 06/21/21 [facility] [address] [place] [address] Allergies, Adverse Reactions, Alerts Substance [...] Pneumococcal Vaccine (oldterm) 11/17/01 Given 1Result Comment: [facility]-[id number] 2Result Comment: [08/04/2017] QUAD 3418-0638 [facility] 85189-597-53 Medications albuterol CFC free 90 mcg/inh inhalation aerosol 2, puffs, Inhalation, Every 6 hours, # 3 each, Refills 3, Tot. Refills 3, Maintenance, 02/27/21 7:09:00 EDT, Route to Pharmacy Electronically, NCPDP_ID- [id number], [facility][id number], 165, cm, 02/27/21 6:55:00 EDT, Height Start [...] Refills, Soft Stop, 04/06/21 8:40:00 EDT, Tablet, [facility] #[id number], side effects with sumatriptan, and if this is declined as... Start Date: 04/06/21 Stop Date: 09/03/21 Status: Ordered nicotine 21 mg/24 hr transdermal film, extended release 1 patch, Topically, Daily, # 30 patch, 1 Refills, Acute 07/03/21 17:00:00 EDT, 06/05/21 16:45:00 EDT, Patch, [facility] #80425, Partial fill upon patient request if the prescription is for a schedule II opioid drug., 1 patch Topically Daily,... Start Date: 06/05/21 Stop Date: 07/03/21 Status: Ordered omeprazole 20 mg oral delayed release tablet 1 tablet = 20 mg, By Mouth, 2 times a day, # 30 tablet, 2 Refills, Maintenance, 06/12/21 13:59:00 EDT, EC Tablet, [facility] #49122, 165.1, cm, 06/07/21 10:18:00 EDT, Height, 140.9, [...]
--- OUTSIDE RECORDS SUMMARY | 2024-05-14 17:40 | XMS_ITS | Continuity of Care Document ---
Author Organization [facility] Address [address] [place] [address]- Care Team Providers Care Book Reviewer Name Role Phone Virgilio Mack MD Primary Care Physician Encounter [facility] Date(s): 03/14/22 - 07/12/22 [facility] Adult [address] [place] [address]- Attending Physician: Virgilio Mack MD Allergies, Adverse [...] Pneumococcal Vaccine (oldterm) 11/17/01 Given 1Result Comment: [facility]-[id number] 2Result Comment: [08/04/2017] QUAD 9840-5089 [facility] 21446-691-39 Medications acarbose 25 mg oral tablet 1 tablet = 25 mg, By Mouth, 3 times a day, # 90 tablet, 11 Refills, Maintenance, 01/17/22 15:35:00 EST, [facility] #06557, Partial fill upon patient request if the [...] TIMES DAILY, # 200 Unknown, 11 Refills, [facility] #13909, 50, USE DIRECTED 2 TO 3 TIMES DAILY, 165, cm, 02/11/22 9:38:00 EDT, Height, 142.7, kg,09/06/21 16:04:00 EDT, Dry Weight Start Date: 03/05/22 Status: Ordered benztropine 0.5 mg oral tablet TAKE 1 TABLET BY MOUTH EVERY DAY Start Date: 07/26/21 Status: Ordered Calmoseptine 0.44%-20.6% topical ointment See Instructions, apply as need to area, # 1 each, 0 Refills, Maintenance, 02/05/22 9:20:00 EDT, [facility] #[id number], Partial fill upon patient request if the prescription is for a schedule II opioid drug., apply as need to area, 165, cm, 01/16... Start Date: 02/05/22 Status: Ordered fluticasone-salmeterol 500 mcg-50 mcg inhalation powder 1, puffs, Inhalation, Every 12 hours, rinse mouth and throat after use, # 180 each, Refills 11, Tot. Refills 11, Maintenance, 11/20/21 10:58:00 EST, Powder, [id number] #[id number], 165, cm, 0... Start Date: 11/20/21 Status: [...] 02/05/22 9:21:00 EDT, Route to Pharmacy Electronically, [facility] #[id number], Partial fill upon patient request if the [...] tablet, Refills 0, Route to Pharmacy Electronically, [facility] #[id number], 165, cm, 03/13/22 12:57:00 EDT, Height, 142.7, kg, 09/06/21 16:04:00 EDT, DryWeight Start Date: 06/26/22 Status: Ordered loperamide 2 mg oral tablet 1 tablet = 2 mg, By Mouth, Daily, # 30 tablet, 11 Refills, Maintenance, 04/08/22 9:42:00 EDT, Tablet, [facility] #[id number], Partial fill upon patient request if the prescription is for a schedule II opioid drug., 165, cm, 03/13/22 12:57:00 EDT,... Start Date: 04/08/22 Stop Date: 04/03/23 Status: Ordered nabumetone 750 mg oral tablet 1 tablet = 750 mg, By Mouth, 2 times a day, with food, # 14 tablet, 0 Refills, Maintenance, 08/22/21 12:41:00 EDT, Tablet, [facility] #04024, 165.1, cm, 08/22/21 12:16:00 EDT, Height, 140.9, kg, 03/27/21 17:38:00 EDT, Dry Weight Start Date: 08/22/21 Stop Date: 08/29/21 Status: Ordered naratriptan 2.5 mg oral tablet 1 tablet = 2.5 mg, By Mouth, Daily, PRN for migraine headache, may repeat once in 4 hours if needed, # 9 tablet, 4 Refills, Soft Stop, 04/06/21 8:40:00 EDT, Tablet, [facility] #[id number], side effects with sumatriptan, and if this is declined as... Start Date: 04/06/21 Stop Date: 09/03/21 Status: Ordered omeprazole 20 mg oral enteric coated capsule 1 capsule, By Mouth, 2 times a day, # 60 capsule, 5 Refills, 02/18/22 10:27:00 EDT, [facility] #[id number], 165, cm, 02/11/22 9:38:00 EDT, Height, 142.7, [...] 6 hours, # 18 Gm, 5 Refills, [facility] #31225, 165.1, cm, 08/22/21 12:16:00 EDT, Height, 140.9, [...] Team Personnel Name: Virgilio Mack MD Address: [address] [place] [address] [place] [address]-
--- OUTSIDE RECORDS SUMMARY | 2024-05-14 17:40 | XMS_ITS | Continuity of Care Document ---
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 Name Role Phone Frederick CONTRERAS, Virgilio Alexander Primary Care Physician Encounter [facility] Date(s): 07/31/22 - 08/30/22 [facility] [address] [place] [id number] Attending Physician: Nancy Sotelo Admitting Physician: AdmNancy beard Referring Physician: Admtr, Ar8 Allergies, Adverse Reactions, [...] Vaccine (oldterm) 11/17/01 Given 1Result Comment: [facility]-[id number] 2Result Comment: [08/04/2017] QUAD 3220-7214 [facility] 49911-196-30 Medications acarbose 25 mg oral tablet 1 tablet = 25 mg, By Mouth, 3 times a day, # 90 tablet, 11 Refills, Maintenance, 07/31/22 14:13:00 EDT, [facility] #[id number], Partial fill upon patient request if the [...] TIMES DAILY, # 200 Unknown, 11 Refills, [facility] #96190, 50, USE DIRECTED 2 TO 3 TIMES DAILY, 165, cm, 02/11/22 9:38:00 EDT, Height, 142.7, kg,09/06/21 16:04:00 EDT, Dry Weight Start Date: 03/05/22 Status: Ordered Calmoseptine 0.44%-20.6% topical ointment See Instructions, apply as need to area, # 1 each, 0 Refills, Maintenance, 02/05/22 9:20:00 EDT, [facility] #[id number], Partial fill upon patient request if the [...] Powder, [id number] #79409, 165, cm, 0... Start Date: 11/20/21 Status: [...] Pharmacy Electronically, [facility] #[id number], Partial fill upon patient request if the [...] tablet, Refills 0, Route to Pharmacy Electronically, [facility] #69683, 165, cm, 03/13/22 12:57:00 EDT, Height, 142.7, kg, 09/06/21 16:04:00 EDT, DryWeight Start Date: 06/26/22 Status: Ordered loperamide 2 mg oral tablet 1 tablet = 2 mg, By Mouth, Daily, # 30 tablet, 11 Refills, Maintenance, 04/08/22 9:42:00 EDT, Tablet, [facility] #70773, Partial fill upon patient request [...] Refills, Soft Stop, 04/06/21 8:40:00 EDT, Tablet, [facility] #07077, side effects with sumatriptan, and if this is declined as... Start Date: 04/06/21 Stop Date: 09/03/21 Status: Ordered omeprazole 20 mg oral enteric coated capsule 1 capsule, By Mouth, 2 times a day, # 60 capsule, 5 Refills, 02/18/22 10:27:00 EDT, [facility] #87231, 165, cm, 02/11/22 9:38:00 EDT, Height, 142.7, [...] 6 hours, # 18 Gm, 5 Refills, [facility] #17857, 165.1, cm, 08/22/21 12:16:00 EDT, Height, 140.9, [...] Name: Frederick CONTRERAS, Virgilio Alexander Address: Address: [address] [place] [address]-
--- OUTSIDE RECORDS SUMMARY | 2024-05-14 17:40 | XMS_ITS | Continuity of Care Document ---
Author Organization [facility] Address [address] [place] [address]- Care Team Providers Care Car Top Bolter Name Role Phone Virgilio Mack MD Primary Care Physician Encounter [facility] Date(s): 01/04/22 - 01/11/22 [facility] Adult [address] [place] [address]- Attending Physician: Virgilio Mack MD Allergies, Adverse [...] Vaccine (oldterm) 11/17/01 Given 1Result Comment: [facility]-[id number] 2Result Comment: [08/04/2017] QUAD [id number] [facility] 56252-524-86 Medications Alcohol Pads See Instructions, # 200 [...] TIMES DAILY, # 200 Unknown, 1 Refills, [email or web address] #[id number], 50, USE DIRECTED 2 TO 3 TIMES DAILY, 165, cm, 11/20/21 10:44:00 EST, Height, 142.7, kg,09/06/21 16:04:00 EDT, Dry Weight Start Date: 11/21/21 Status: Ordered benztropine 0.5 mg oral tablet TAKE 1 TABLET BY MOUTH EVERY DAY Start Date: 07/26/21 Status: Ordered cyclobenzaprine 10 mg oral tablet 10 mg, 1, tablet, By Mouth, 2 times a day, PRN, for 5 days, # 10 tablet, Refills 3, Tot. Refills 3,Acute 01/24/22 9:24:00 EST, Spasm for spasm, 01/04/22 9:24:00 EST, Route to Pharmacy Electronically, [email or web address] #[id number], 165, cm, 01/04/22 8... Start Date: 01/04/22 Stop Date: 01/24/22 Status: Ordered fluticasone-salmeterol 500 mcg-50 mcg inhalation powder 1, puffs, Inhalation, Every 12 hours, rinse mouth and throat after use, # 180 each, Refills 11, Tot. Refills 11, Maintenance, 11/20/21 10:58:00 EST, Powder, Route to [facility] Electronically[id number] #[id number], 165, cm, 010... Start Date: 11/20/21 Status: [...] 07/26/21 11:56:00 EDT, Route to Pharmacy Electronically, [facility] #[id number], Partial fill upon patient request if the prescription is... Start Date: 07/26/21 Status: Ordered nabumetone 750 mg oral tablet 1 tablet = 750 mg, By Mouth, 2 times a day, with food, # 14 tablet, 0 Refills, Maintenance, 08/22/21 12:41:00 EDT, Tablet, [facility] #61039, 165.1, cm, 08/22/21 12:16:00 EDT, Height, 140.9, kg, 03/27/21 17:38:00 EDT, Dry Weight Start Date: 08/22/21 Stop Date: 08/29/21 Status: Ordered naratriptan 2.5 mg oral tablet 1 tablet = 2.5 mg, By Mouth, Daily, PRN for migraine headache, may repeat once in 4 hours if needed, # 9 tablet, 4 Refills, Soft Stop, 04/06/21 8:40:00 EDT, Tablet, [facility] #07200, side effects with sumatriptan, and if this is declined as... Start Date: 04/06/21 Stop Date: 09/03/21 Status: Ordered omeprazole 20 mg oral enteric coated capsule 1 capsule, By Mouth, 2 times a day, # 60 capsule, 2 Refills, [facility] #[id number], 165, cm, 09/19/21 10:12:00 EDT, Height, 142.7, [...] 6 hours, # 18 Gm, 5 Refills, [facility] #57700, 165.1, cm, 08/22/21 12:16:00 EDT, Height, 140.9, [...] oldest [Reference Range]: 1 Height 165 cm (01/04/22 8:46 AM) Weight 141 kg (01/04/22 8:46 AM) Oxygen Saturation [94-100 %] 99 % (01/04/22 8:46 AM) Pulse Rate [55-90 bpm] 88 bpm (01/04/22 8:46 AM) Body Mass Index [18.5-24.99] 51.79 *>HHI* (01/04/22 8:46 AM) Blood Pressure [90-138/55-84 mm Hg] 129/ 67mm Hg (01/04/22 8:46 AM) Blood pressure sites Arm, left (01/04/22 8:46 AM) Social History Social History Type Response Smoking Status 5-9 cigarettes (betw een 1/4 to 1/2 pack)/day in last 30 days entered on: 09/06/21 Sex Female
--- OUTSIDE RECORDS SUMMARY | 2024-05-14 17:40 | XMS_ITS | Continuity of Care Document ---
Author Organization [facility] Cat[facility] Address [address] [place] [address]- Care Team Providers Care Offset Pressman Name Role Phone Frederick CONTRERAS, Virgilio Alexander Primary Care Physician [place] [facility] [place] 11/30/19 - 12/10/19 [facility] Adult [address] [place] [address]- [facility] Attending Physician: Admtr, Ar8 Allergies, Adverse Reactions, [...] 11/17/01 Given 1Result Comment: [facility]-[id number] 2Result Comment: [08/04/2017] [facility] [id number] [facility] 59826-564-23 Medications acetaminophen 325 mg oral tablet 650 [...] 8:41:00 EST, Aerosol, [facility], 165, cm, 11/30/19 8:25:00 [...]
--- OUTSIDE RECORDS SUMMARY | 2024-05-14 17:40 | XMS_ITS | Continuity of Care Document ---
Author Organization [facility] Address [address] [place] [address]- Care Team Providers Care Facility Assistant Name Role Phone Frederick CONTRERAS, Virgilio Alexander Primary Care Physician Encounter [facility] Date(s): 06/07/22 - 07/07/22 [facility] [address] [place] [address]- [place] Allergies, Adverse Reactions, Alerts Substance Reaction [...] Given 1Result Comment: [facility]-[id number] 2Result Comment: [08/04/2017] QUAD [id number] [facility] 86188-467-70 Medications acarbose 25 mg oral tablet 1 tablet = 25 mg, By Mouth, 3 times a day, # 90 tablet, 11 Refills, Maintenance, 01/17/22 15:35:00 EST, [facility] #[id number], Partial fill upon patient request if the [...] TIMES DAILY, # 200 Unknown, 11 Refills, [facility] #[id number], 50, USE DIRECTED 2 TO 3 TIMES DAILY, 165, cm, 02/11/22 9:38:00 EDT, Height, 142.7, kg,09/06/21 16:04:00 EDT, Dry Weight Start Date: 03/05/22 Status: Ordered benztropine 0.5 mg oral tablet TAKE 1 TABLET BY MOUTH EVERY DAY Start Date: 07/26/21 Status: Ordered Calmoseptine 0.44%-20.6% topical ointment See Instructions, apply as need to area, # 1 each, 0 Refills, Maintenance, 02/05/22 9:20:00 EDT, [facility] #[id number], Partial fill upon patient request if the [...] EST, Powder, [id number] #[id number], 165, cm, 0... Start Date: 11/20/21 Status: [...] 02/05/22 9:21:00 EDT, Route to Pharmacy Electronically, [facility] #[id number], Partial fill upon patient request if the [...] tablet, Refills 0, Route to Pharmacy Electronically, [facility] #[id number], 165, cm, 03/13/22 12:57:00 EDT, Height, 142.7, kg, 09/06/21 16:04:00 EDT, DryWeight Start Date: 06/26/22 Status: Ordered loperamide 2 mg oral tablet 1 tablet = 2 mg, By Mouth, Daily, # 30 tablet, 11 Refills, Maintenance, 04/08/22 9:42:00 EDT, Tablet, [facility] #00405, Partial fill upon patient request if the prescription is for a schedule II opioid drug., 165, cm, 03/13/22 12:57:00 EDT,... Start Date: 04/08/22 Stop Date: 04/03/23 Status: Ordered nabumetone 750 mg oral tablet 1 tablet = 750 mg, By Mouth, 2 times a day, with food, # 14 tablet, 0 Refills, Maintenance, 08/22/21 12:41:00 EDT, Tablet, [facility] #[id number], 165.1, cm, 08/22/21 12:16:00 EDT, Height, 140.9, kg, 03/27/21 17:38:00 EDT, Dry Weight Start Date: 08/22/21 Stop Date: 08/29/21 Status: Ordered naratriptan 2.5 mg oral tablet 1 tablet = 2.5 mg, By Mouth, Daily, PRN for migraine headache, may repeat once in 4 hours if needed, # 9 tablet, 4 Refills, Soft Stop, 04/06/21 8:40:00 EDT, Tablet, [facility] #[id number], side effects with sumatriptan, and if this is declined as... Start Date: 04/06/21 Stop Date: 09/03/21 Status: Ordered omeprazole 20 mg oral enteric coated capsule 1 capsule, By Mouth, 2 times a day, # 60 capsule, 5 Refills, 02/18/22 10:27:00 EDT, [facility] #86507, 165, cm, 02/11/22 9:38:00 EDT, Height, 142.7, [...] 6 hours, # 18 Gm, 5 Refills, [facility] #00311, 165.1, cm, 08/22/21 12:16:00 EDT, Height, 140.9, [...]
--- OUTSIDE RECORDS SUMMARY | 2024-05-14 17:40 | XMS_ITS | Continuity of Care Document ---
Author Organization [facility] Catracho lt Address [address] [place] [address]- Care Team Providers Care System Sales Consultant Name Role Phone Frederick CONTRERAS, Virgilio Alexander Primary Care Physician [phone] Encounter [facility] [place] Date(s): 11/06/23 - 12/06/23 [facility] Adult [address] [place] [address]- Allergies, Adverse Reactions, Alerts Substance Reaction Severity [...] pneumococcal 20-valent conjugate vaccine 5 12/24/22 Given [id number] 12y+ bivalent booster vax 11/01/22 Recorded SARS-CoV-2 (COVID-19) mRNA BNT-162b2 vac 12/08/21 Recorded SARS-CoV-2 (COVID-19) mRNA BNT-162b2 vac 03/11/21 Recorded SARS-CoV-2 (COVID-19) mRNA BNT-162b2 vac 02/17/21 Recorded tetanus/diphtheria/pertussis, acel(Tdap) 03/13/17 Recorded tetanus-diphtheria toxoids (Td) 08/07/13 Recorded Tetanus Toxoid Vaccine (oldterm) 11/17/01 Given Pneumococcal Vaccine (oldterm) 11/17/01 Given 1Result Comment: [id number] 2Result Comment: [id number] 3Result Comment: [facility]-[id number] 4Result Comment: [08/04/2017] QUAD [id number] [facility] [id number] 5Result Comment: [id number] Medications Ambien 10 mg oral tablet 1 tablet = 10 mg, By Mouth, Daily at bedtime, PRN as needed for insomnia, 0 Refills, Maintenance, 12/02/18 14:26:49 EST, Tablet Start Date: 12/02/18 Status: Ordered azelastine 137 mcg/inh (0.1%) nasal spray 2 sprays, Nares, Both, Daily, PRN Other Allergies, # 30 mL, 0 Refills, Maintenance, 02/20/23 15:08:00 EDT, [place] #80178, Partial fill upon patient request if the prescription is for a schedule II opioid drug., 2 sprays Nares, B... Start Date: 02/20/23 Status: Ordered fluticasone-salmeterol 500 mcg-50 mcg inhalation powder 1, puffs, Inhalation, Every 12 hours, rinse mouth and throat after use, # 180 each, Refills 11, Tot. Refills 11, Maintenance, 11/20/21 10:58:00 EST, Powder, Route to Pharmacy Electronically, [id number], [facility] #01339, 165, cm, 0... Start Date: 11/20/21 Status: Ordered Imodium A-D 2 mg oral tablet 2 mg, 1, tablet, By Mouth, Daily, # 30 tablet, Refills 5, Tot. Refills 5, Soft Stop, 09/13/22 7:01:00 EDT, Route to Pharmacy Electronically, [facility] #42695, Partial fill upon patient request if the [...] 11/06/23 12:57:00 EST, Route to Pharmacy Electronically, [facility] #52942, 165, cm, 10/30/23 14:14:00 EST, Height, 139.3, kg, 09/10/23 11:57:00 EDT, Dry Weight Start Date: 11/06/23 Status: Ordered loperamide 2 mg oral tablet 1 tablet = 2 mg, By Mouth, Daily, 90 day supply, # 90 tablet, 3 Refills, Maintenance, 06/09/23 8:11:00 EDT, Tablet, [facility] #23291, Partial fill upon patient request if the prescription is for a schedule II opioid drug., 165, cm, 05/07/23... Start Date: 06/09/23 Status: Ordered meloxicam 15 mg oral tablet 1 tablet = 15 mg, By Mouth, Daily, # 30 tablet, 0 Refills, Maintenance, 10/30/23 14:26:00 EST, [facility] #08968, Partial fill upon patient request if the [...] 60 capsule, 5 Refills, 02/18/22 10:27:00 EDT, [facility] #14935, 165, cm, 02/11/22 9:38:00 EDT, Height, 142.7, [...] 10/30/23 14:28:00 EST, Route to Pharmacy Electronically, [facility] #49805, Partial fill upon patient request if the [...] Team Personnel Name: Linda Awan RN Position: [facility] RN Member Role: Primary Care Nurse Name: Brionna Pathak RN Position: S RN Member Role: Primary Care Nurse Name: Virgilio Mack MD Position: [facility] Physician - Primary Care Member Role: PCP Address: Address: [address] [place] [address]- [place] Care Team Related Persons Name: KELLY YANG Address: home [address] [place] [address] Name: ANNE-MARIE YANG Address: [place] [address] Name: GRAHAM YANG Address: home [address] [place] [address] Name: DULCE YANG Address: home [address] [place] [address] Name: DULCE SHEPHERD Address: home [address] [place] [address]
--- OUTSIDE RECORDS SUMMARY | 2024-05-14 17:40 | XMS_ITS | Continuity of Care Document ---
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 Name Role Phone Frederick CONTRERAS, Virgilio Alexander Primary Care Physician Encounter 11/20/22 - 11/27/22 [facility] [address] [facility] [address], [address] [place] [address]- Attending Physician: Omega COOL, Jessica Mckeon Admitting Physician: Jessica Duff NP Referring Physician: Jessica Dfuf NP Allergies, Adverse Reactions, Alerts Substance Reaction [...] Pneumococcal Vaccine (oldterm) 11/17/01 Given 1Result Comment: [id number] 2Result Comment: [facility]-[id number] 3Result Comment: [08/04/2017] QUAD [id number] [facility] 31402-404-08 Medications acarbose 25 mg oral tablet 1 tablet = 25 mg, By Mouth, 3 times a day, # 90 tablet, 11 Refills, Maintenance, 07/31/22 14:13:00 EDT, [facility] #41025, Partial fill upon patient request if the [...] 10:58:00 EST, Powder, Route to Pharmacy Electronically, [facility]_[id number], [facility] #84378, 165, cm, ... Start Date: 11/20/21 Status: [...] 09/13/22 7:01:00 EDT, Route to Pharmacy Electronically, [facility] #74044, Partial fill upon patient request if the [...] 09/13/22 7:03:00 EDT, Route to Pharmacy Electronically, [facility] #82026, 165, cm, 09/12/22 11:26:00 EDT, Height, 142.7, k... Start Date: 09/13/22 Stop Date: 09/08/23 Status: Ordered loperamide 2 mg oral tablet 1 tablet = 2 mg, By Mouth, Daily, # 30 tablet, 11 Refills, Maintenance, 09/13/22 7:01:00 EDT, Tablet, [facility] #43371, Partial fill upon patient request if the [...] Refills, Soft Stop, 04/06/21 8:40:00 EDT, Tablet, [facility] #96240, side effects with sumatriptan, and if this is declined as... Start Date: 04/06/21 Stop Date: 09/03/21 Status: Ordered omeprazole 20 mg oral enteric coated capsule 1 capsule, By Mouth, 2 times a day, # 60 capsule, 5 Refills, 02/18/22 10:27:00 EDT, [facility] #27917, 165, cm, 02/11/22 9:38:00 EDT, Height, 142.7, kg, 09/06/21 16:04:00 EDT, Dry Weight Start Date: 02/18/22 Status: Ordered Ventolin HFA 108 mcg/inh inhalation aerosol with adapter 2 puffs, Inhalation, Every 6 hours, # 18 Gm, 5 Refills, [facility] #14656, 165.1, cm, 08/22/21 12:16:00 EDT, Height, 140.9, [...] Exam Date Time Procedure Performing Provider Status 11/20/22 2:42 PM MM Digital Mammo Screening Alexia Shaikh; Auth (Verified) Notes: (MM Digital Mammo Screening) Reason For Exam: Z12.31 SCREENING RESULT: MM Digital Mammo Screening PROCEDURE: MM Digital Mammo Screening INDICATION: Baseline mammogram. Screening for breast cancer. No known palpable abnormalities. Mother with breast cancer at age 50. COMPARISON: None. TECHNIQUE: Full-field digital CC and MLO 3-D tomosynthesis images of both breasts were acquired. Computer-aided detection (CAD) was utilized in the interpretation of this study. DENSITY: The breast tissue contains scattered areas of fibroglandular density. FINDINGS: RIGHT breast: In the central RIGHT breast, anterior-mid depth there are several nodular focal asymmetries, along and just medial to the posterior nipple line on the CC view, just superior to the posterior nipple line on the MLO view. LEFT breast: In the posterior breast at the very margin of the image there is an asymmetry, incompletely evaluated (CC tomosynthesis image 43) with a possible correlate on the MLO view (MLO tomosynthesis image 65). IMPRESSION: RIGHT breast grouped focal asymmetries and LEFT breast asymmetry. Recommend additional diagnostic imaging: Bilateral 3-D Spot compression CC, 3-D spot compression MLO views and scheduled ultrasound. RECOMMENDATION: Bilateral diagnostic 3D tomosynthesis with scheduled ultrasound BI-RADS: 0 (Incomplete - Need Additional Imaging Evaluation. Lay letter mailed to patient WSN: [id number] Ordering Physician: Jessica Duff Dictated By: Jeannette Ga MD Dictated Date/Time: 11/20/22 4:45 pm Reviewed By: Jeannette Ga MD Signed By: Jeannette Ga MD Signed Date/Time: 11/20/22 4:45 pm Transcribed By: CSB Mill Operator Date/Time: 11/20/22 4:38 pm Birads: Social History Social History Type Response Smoking Status 5-9 cigarettes (betw een 1/4 to 1/2 pack)/day in last 30 days entered on: 09/06/21 Sex Female MG Breast Screening * [facility] , ZACK S: TRANSCRIBE Jeannette Ga MD: VERIFY Event Display: Result: Authored Date: [id number] PROCEDURE: MM Digital Mammo Screening INDICATION: Baseline mammogram. Screening for breast cancer. No known palpable abnormalities. Mother with breast cancer at age 50. COMPARISON: None. TECHNIQUE: Full-field digital CC and MLO 3-D tomosynthesis images of both breasts were acquired. Computer-aided detection (CAD) was utilized in the interpretation of this study. DENSITY: The breast tissue contains scattered areas of fibroglandular density. FINDINGS: RIGHT breast: In the central RIGHT breast, anterior-mid depth there are several nodular focal asymmetries, along and just medial to the posterior nipple line on the CC view, just superior to the posterior nipple line on the MLO view. LEFT breast: In the posterior breast at the very margin of the image there is an asymmetry, incompletely evaluated (CC tomosynthesis image 43) with a possible correlate on the MLO view (MLO tomosynthesis image 65). IMPRESSION: RIGHT breast grouped focal asymmetries and LEFT breast asymmetry. Recommend additional diagnostic imaging: Bilateral 3-D Spot compression CC, 3-D spot compression MLO views and scheduled ultrasound. RECOMMENDATION: Bilateral diagnostic 3D tomosynthesis with scheduled ultrasound BI-RADS: 0 (Incomplete - Need Additional Imaging Evaluation. Lay letter mailed to patient WSN: [id number] Ordering Physician: Jessica Duff Dictated By: Jeannette Ga MD Dictated Date/Time: 11/20/22 4:45 pm Reviewed By: Jeannette Ga MD Signed By: Jeannette Ga MD Signed Date/Time: 11/20/22 4:45 pm Transcribed By: ONIEL Mill Operator Date/Time: 11/20/22 4:38 pm Birads: Patient Care team information Care Team Personnel Name: Linda Awan RN Position: [facility] RN Member Role: Primary Care Nurse Name: Brionna Pathak RN Position: [facility] RN Member Role: Primary Care Nurse Name: Virgilio Mack MD Position: [facility] Primary Care Physician Member Role: PCP Address: Address: [address] [place] [address]- Care Team Related Persons Name: KELLY YANG Address: home [address] [place] [address] Name: ANNE-MARIE YANG Address: [place] [address] Name: GRAHAM YANG Address: home [address] [place] [address] Name: DULCE YANG Address: home [address] [place] [address] Name: DULCE SHEPHERD Address: home [address] [place] [address]
--- OUTSIDE RECORDS SUMMARY | 2024-05-14 17:40 | XMS_ITS | Continuity of Care Document ---
Author Organization [facility] Address Adult Weight Managem ent [address] [place] [address]- Care Team Providers Care Data Processing Control Clerk Name Role Phone Frederick CONTRERAS, Virgilio Alexander Primary Care Physician Encounter [facility] [place] Date(s): 01/25/20 - 02/04/20 [facility] Adult Weight Management [address] [place] [address]- [facility] Attending Physician: Admtr, Ar8 Admitting [...] 1Result Comment: [facility]-[id number] 2Result Comment: [08/04/2017] QUAD [id number] [facility] 63259-010-57 Medications acetaminophen 325 mg oral tablet 650 [...] 01/19/20 14:42:00 EST, [id number], 165, cm, 01/19/20 14:17:00 EST, Height Start Date: 01/19/20 Status: Ordered Flovent HFA 110 mcg/inh inhalation aerosol 2 puffs, Inhalation, 2 times a day, rinse mouth and throat after use, # 12 Gm, 0 Refills, Maintenance, 11/30/19 8:41:00 EST, Aerosol, [facility], 165, cm, 11/30/19 8:25:00 EST, Height Start [...]
--- OUTSIDE RECORDS SUMMARY | 2024-05-14 17:40 | XMS_ITS | Continuity of Care Document ---
Author Organization [facility] Address [address] [place] [address]- Care Team Providers Care Handle Sander Operator Name Role Phone Frederick CONTRERAS, Virgilio Alexander Primary Care Physician En[place] [facility] [place] Date(s): 08/14/21 - 09/13/[address] [address] Attending Physician: Nancy Sotelo Admitting Physician: AdmNancy beard Referring Physician: [id number] Allergies, Adverse Reactions, Alerts [...] Given 1Result Comment: [facility]-[id number] 2Result Comment: [08/04/2017] QUAD [id number] [facility] [id number] Medications Alcohol Pads See Instructions, # 200 [...] 3 Refills, Maintenance, 07/18/21 11:55:00 EDT, Powder, [facility] #14566, Partial fill upon patient request if the [...] 07/26/21 11:56:00 EDT, Route to Pharmacy Electronically, [facility] #06344, Partial fill upon patient request if the prescription is... Start Date: 07/26/21 Status: Ordered nabumetone 750 mg oral tablet 1 tablet = 750 mg, By Mouth, 2 times a day, with food, # 14 tablet, 0 Refills, Maintenance, 08/22/21 12:41:00 EDT, Tablet, [facility] #25975, 165.1, cm, 08/22/21 12:16:00 EDT, Height, 140.9, kg, 03/27/21 17:38:00 EDT, Dry Weight Start Date: 08/22/21 Stop Date: 08/29/21 Status: Ordered naratriptan 2.5 mg oral tablet 1 tablet = 2.5 mg, By Mouth, Daily, PRN for migraine headache, may repeat once in 4 hours if needed, # 9 tablet, 4 Refills, Soft Stop, 04/06/21 8:40:00 EDT, Tablet, [facility] #[id number], side effects with sumatriptan, and if this is declined as... Start Date: 04/06/21 Stop Date: 09/03/21 Status: Ordered omeprazole 20 mg oral enteric coated capsule 1 capsule, By Mouth, 2 times a day, # 60 capsule, 2 Refills, Maintenance, 08/13/21 11:36:00 EDT, [facility] #13956, 163, cm, 07/26/21 11:32:00 EDT, Height, 140.9, kg, 03/27/21 17:38:00 EDT,Dry Weight Start Date: 08/13/21 Status: Ordered Splint See Instructions, # 1 units, Maintenance, Splint to right foot overnight (AFO to keep foot in dorsiflexion), 04/27/18 15:03:13 EDT, Compound Start Date: 04/27/18 Status: Ordered Ventolin HFA 108 mcg/inh inhalation aerosol with adapter 2 puffs, Inhalation, Every 6 hours, # 18 Gm, 5 Refills, [facility] #51282, 165.1, cm, 08/22/21 12:16:00 EDT, Height, 140.9, [...]
--- OUTSIDE RECORDS SUMMARY | 2024-05-14 17:40 | XMS_ITS | Continuity of Care Document ---
Author Organization [facility] lt Address [address] [place] [address]- Care Team Providers Care Specifications Checker Name Role Phone Frederick CONTRERAS, Virgilio Alexander Primary Care Physician Encounter [facility] Date(s): 04/06/21 - 05/06/21 [facility] Adult [address] [place] [address]- Attending Physician: Admtr, Ar8 Allergies, Adverse Reactions, [...] Vaccine (oldterm) 11/17/01 Given 1Result Comment: [facility]-[id number] 2Result Comment: [08/04/2017] QUAD [id number] [facility] 06164-059-89 Medications acetaminophen 325 mg oral tablet 650 [...] 7:09:00 EDT, Route to Pharmacy Electronically, [facility]_ID- [id number], [facility] #[id number], 165, cm, 02/27/21 6:55:00 EDT, Height Start [...] 0 Refills, Maintenance, 04/13/21 12:10:00 EDT, [facility] #37738, Partial fill upon patient request if the prescription is for a schedule II opioid drug., 1... Start Date: 04/13/21 Status: Ordered naratriptan 2.5 mg oral tablet 1 tablet = 2.5 mg, By Mouth, Daily, PRN for migraine headache, may repeat once in 4 hours if needed, # 9 tablet, 4 Refills, Soft Stop, 04/06/21 8:40:00 EDT, [facility] #35111, side effects with sumatriptan, and if this is declined as... Start Date: 04/06/21 Stop Date: 09/03/21 Status: Ordered Nicorette 4 mg oral transmucosal gum 1 each = 4 mg, Chew, Every 2 hours, PRN as needed for smoking cessation, for 8 week(s), # 40 each, 0 Refills, Acute 05/11/21 10:57:00 EDT, 03/16/21 10:57:00 EDT, [facility] #87597, Partial fill upon patient request if the [...]
--- OUTSIDE RECORDS SUMMARY | 2024-05-14 17:40 | XMS_ITS | Continuity of Care Document ---
Author Organization [facility] Catr[facility] lt Address [address] [place] [address]- Care Team Providers Care Gemologist Name Role Phone Virgilio Mack MD Primary Care Physician Encounter [facility] R [id number] Date(s): 03/21/21 - 03/28/21 [facility] Adult [address] [place] [address]- Attending Physician: Virgilio Mack MD Allergies, Adverse [...] (oldterm) 11/17/01 Given 1Result Comment: [facility]-[id number] 2Result Comment: [08/04/2017] QUAD [id number] [facility] [id number] Medications acetaminophen 325 mg oral tablet 650 [...] 7:09:00 EDT, Route to Pharmacy Electronically, NCP_ID- [id number], [facility] #[id number], 165, cm, 02/27/21 6:55:00 EDT, Height Start [...] 2 Refills, Maintenance, 03/27/21 17:04:00 EDT, Aerosol, [facility] #64385, Partial fill upon patient request if the [...] 04/06/21 18:04:00 EDT, 03/27/21 18:04:00 EDT, Capsule, [facility] #90584, Partial fill upon patient request if the [...] 05/11/21 10:57:00 EDT, 03/16/21 10:57:00 EDT, Gum, [facility] #89322, Partial fill upon patient request if the [...] oldest [Reference Range]: 1 Height 163 cm (03/21/21 8:19 AM) Weight 141.0 kg (03/21/21 8:19 AM) Oxygen Saturation [94-100 %] 97 % (03/21/21 8:19 AM) Pulse Rate [55-90 bpm] 85 bpm (03/21/21 8:19 AM) Body Mass Index [18.5-24.99] 53.07 *>HHI* (03/21/21 8:19 AM) Blood Pressure [90-138/55-84 mm Hg] 130/ 88mm Hg (03/21/21 8:19 AM) Temperature [96.8-100.4 DegF] 98.2 DegF (03/21/21 8:19 AM) Mode of Delivery (Oxygen) Room air (03/21/21 8:19 AM) Blood pressure sites Arm, right (03/21/21 8:19 AM) Temperature Route Oral (03/21/21 8:19 AM) Weight Obtained Via Standing scale (03/21/21 8:19 AM) Social History Social History Type Response Smoking Status Former smoker; Type: Cigarettes; Tobacco use times per day: 1 ppd; Number of years: 22; Total pack years: 22; entered on: 10/21/17 Sex
[2024-05-14 17:52] VITALS: BP 151/90; PULSE 85; RESP 18; TEMP 36.9; O2SAT 95
== END 2024-05-14 17:53 | disposition home or self-care (01) ==
PROVIDERS: Emergency Provider Emergency Medicine; PCP Family Medicine
DX: S60.221A Contusion of right hand, initial encounter (principal); M79.641 Pain in right hand; Y29.XXXA Contact with blunt object, undetermined intent, initial encounter; Y93.9 Activity, unspecified; Y92.9 Unspecified place or not applicable; Y99.8 Other external cause status
CPT/HCPCS: 73130; 99283

== ENCOUNTER 2024-12-04 17:02 | Emergency (ER) | payer OTHER, SELFPAY ==
--- NOTE | ~2024-12-04 | US_ITS ---
CLINICAL HISTORY: R arm pain into axilla on wegovy Venous duplex ultrasound right upper extremity Comparison: None Findings: Accessible deep venous segments are fully compressible with normal Doppler color flow and spectral tracings. IMPRESSION: 1. Negative for right upper extremity deep vein thrombosis. This document has been electronically signed by: Giovanni Bronson MD on 12/04/2024 19:28:28
--- NOTE | ~2024-12-04 | XR_ITS ---
CLINICAL HISTORY: pain R side 4 view, chest and right ribs Comparison: CR/ME - CHEST 1 VIEW [id number] - 07/03/17 12:24 EDT Findings: No rib fractures. Lungs are well inflated. Cardiac silhouette is within normal limits. No infiltrate. No pleural effusion or pneumothorax. IMPRESSION: No acute rib fractures. This document has been electronically signed by: Giovanni Bronson MD on 12/04/2024 18:52:38
[2024-12-04 17:19] VITALS: BP 160/94; PULSE 77; RESP 19; TEMP 36.6; O2SAT 98; BMI 37.8
--- NOTE | 2024-12-04 17:21 | ED_ITS ---
HPI - Extremity Problem General Chief complaint: General Medical Stated complaint: right breast/armpit pain Time Seen by Provider: 12/04/24 17:53 Source: patient Mode of arrival: ambulatory Limitations: no limitations History of Present Illness ED Provider: JOVANNI JENSEN Narrative: 44 yo female with PMH of obesity no hx of DM here with c/o R axillary pain x 1 month no known trauma to the point that it hurts her to life and move R arm and her skin is so sensitive to touch but no rash she can't take it anymore. Her doctor told her to get US if it worsened. No fevers, no unintentional weight loss has been on wegovy for 6 months. MD Complaint: extremity pain Onset (ago): month(s) (1) Pain Consistency: constant Location: right and other (axillar) Quality: burning Radiation: none Relieving factors: nothing Exacerbating factors: range of motion and palpation Associated symptoms: denies other symptoms Related Data Allergies Allergy/AdvReac Type Severity Reaction Status Date / Time risperidone [From RISPERDAL] Allergy Unknown VIOLENT Verified 12/04/24 17:20 topiramate [Topiramate] AdvReac Unknown VIOLENT Verified 12/04/24 17:20 Review of Systems Review of Systems: Constitutional : No Fever, No Chills ENT/Mouth : No Ear Pain, No Hoarseness, No sore throat Eyes: No Eye Pain, No Swelling, No Redness, No Foreign Body Cardiovascular : No Chest Pain, No SOB Respiratory : No Cough, No Dyspnea Gastrointestinal : No Nausea, No Vomiting, No Diarrhea, No abdominal Pain Genitourinary : No Dysuria, No Hematuria Musculoskeletal : positive joint pain, No Myalgias, No Joint Swelling Skin : No Skin lacerations, No rash Neuro : No Weakness, No Numbness, No Loss of Consciousness, No Dizziness, No Headache All other systems reviewed and are negative [facility] Past Medical History Attestation statement: The following information was validated with the patient. Source: old records reviewed Medical History Obesity Social History Social History (Updated 12/04/24 @ 17:25 by Fernanda Shah DO) Patient Tobacco Use Status: Never used Tobacco Advance Directives: No Advance Directives Information Provided: No Do you have a plan to hurt others: No Plan Physical Exam Vital Signs: Vital Signs: Last Vital Signs Temp 98 F 12/04/24 19:37 Pulse 77 12/04/24 19:37 Resp 19 12/04/24 19:37 BP 160/94 H 12/04/24 19:37 Pulse Ox 98 12/04/24 19:37 O2 Del Method Room Air 12/04/24 19:37 BMI result Body Mass Index 37.8 Appearance: Alert. Oriented X3. No acute distress. Eyes: Pupils equal, round and reactive to light. ENT: Pharynx normal. Neck: Normal inspection. Neck supple. CVS: Normal heart rate and rhythm. Pulses normal. Respiratory: No respiratory distress. Breath sounds normal. Abdomen: Soft and non-tender. Skin: Skin warm and dry. Normal skin color. Normal skin turgor. Extremities: No lower extremity edema. R upper ext ttp in axilla but no mass felt and distal NV intact, no rash noted Neuro: Oriented X 3. No motor deficit. No sensory deficit. CN2-12 intact Course Course Course Narrative: Edi Wilson PA-C have accepted care of the patient and signed out pending imaging and final disposition. Ultrasound RUE: IMPRESSION: 1. Negative for right upper extremity deep vein thrombosis. This document has been electronically signed by: Giovanni Bronson MD on 12/04/2024 19:28:28 CXR: Findings: No rib fractures. Lungs are well inflated. Cardiac silhouette is within normal limits. No infiltrate. No pleural effusion or pneumothorax. IMPRESSION: No acute rib fractures. This document has been electronically signed by: Giovanni Bronson MD on 12/04/2024 18:52:38 Medical Decision Making Medical Decision Making MDM Narrative: 44 yo female with PMH of obesity doing well on wegovy who presents with R axilla sensitivity and pain but no rash and has had normal mammo in the past. She states just a shirt touching her arm hurts. No numbness, weakness, no rash. She states she held off a month to get checked out. At this time her exam shows no infection, she is distal NV intact but reports pain in axilla given her Wegovy use DVT study ordered, rib film for mass Differential Diagnosis Differential Diagnoses: The differential diagnosis associated with the presentation includes mass, acute pain Admission/Observation Consideration of admission/observation: Escalation of care including admission/observation considered Independent Interpretation I performed an independent interpretation of an: Plain X-Ray and Ultrasound External Record Review External record reviewed: Outpatient record Prescription Management I considered prescription management with: Other Discharge Plan Discharge Clinical Impression: Pain in right axilla Patient Disposition: Home, Self-Care Instructions: Arm Pain (ED) Additional Instructions: The chest x-ray was completely normal, you do not have a clot in the upper extremity on the ultrasound. See home care instructions. You can follow up with your primary care provider as needed. For your pain you can use [id number] ibuprofen 600 mg taken every 6 hours with food, alternated with [id number] Tylenol 1000 mg taken every 8 hours. Interventions: ED Discharge Assessment Last Done: 12/04/24 19:37 Discharge Date/Time: 12/04/24 19:38 Print Language: Hungarian
[2024-12-04 19:37] VITALS: BP 160/94; PULSE 77; RESP 19; TEMP 36.6; O2SAT 98
== END 2024-12-04 19:38 | disposition home or self-care (01) ==
PROVIDERS: Emergency Provider Internal Medicine; PCP Family Medicine
DX: M79.621 Pain in right upper arm (principal)
CPT/HCPCS: 71101; 93971; 99282; 99284

== ENCOUNTER → 2024-12-04 17:21 | Outpatient (BNV) | payer OTHER, SELFPAY | PROVIDERS: Emergency Provider Internal Medicine; PCP Family Medicine; Visit Provider Radiology Diagnostic Radiology | DX: M79.601 Pain in right arm (principal); R07.89 Other chest pain | CPT/HCPCS: 71101; 93971 ==